=== PATIENT | female | born 1995 | race Caucasian/White ===

== ENCOUNTER 2023-10-30 20:20 | Outpatient (REF) | payer OTHER, SELFPAY ==
[2023-11-06 10:10] LABS: Age Gdln ACOG Testing Note (.); IGP, rfx Aptima HPV ASCU Note (.)
== END 2023-10-30 20:21 | disposition home or self-care (01) ==
LOC: LAB 20:20
PROVIDERS: Visit Provider Obstetrics & Gynecology
DX: Z01.419 Encounter for gynecological examination (general) (routine) without abnormal findings (principal)
CPT/HCPCS: G0145

== ENCOUNTER 2023-12-19 12:23 | Outpatient (RCR) | payer OTHER, SELFPAY | END 2023-12-20 12:59 | disposition home or self-care (01) | LOC: PT 12:23 | PROVIDERS: PCP Family Medicine; Visit Provider Family Medicine | DX: M25.562 Pain in left knee (principal); Z68.32 Body mass index [BMI] 32.0-32.9, adult; Z78.9 Other specified health status; E66.09 Other obesity due to excess calories | CPT/HCPCS: 97162 ==

== ENCOUNTER 2024-07-28 15:55 | Outpatient (OUT) | payer OTHER, BC, SELFPAY ==
[2024-07-28 16:41] LABS: HCG Quantitative <1 mIU/mL
== END 2024-07-28 15:56 | disposition home or self-care (01) ==
LOC: LAB 16:02
PROVIDERS: PCP Nurse Practitioner; Visit Provider Obstetrics & Gynecology
DX: N92.6 Irregular menstruation, unspecified (principal)
CPT/HCPCS: 36415; 84702

== ENCOUNTER 2024-07-30 15:42 | Outpatient (OUT) | payer OTHER, BC, SELFPAY ==
--- OUTSIDE RECORDS SUMMARY | 2024-07-30 15:49 | XMS_ITS | CCD ---
Author Organization [facility] Team Providers Care [employer] Worker Name Role Phone Cortney Chapman Unavailable ANGELO ., DR SAEED Admitting Unavailable ANGELO ., DR SAEED Attending Unavailable NADERER, DR FLORINA White Primary Care Unavailable ANGELO ., DR SAEED Consulting Unavailable ANGELO ., DR SAEED Consulting Unavailable NADERER, DR FLORINA White Primary Care Unavailable ANGELO ., DR SAEED Attending Unavailable ANGELO ., DR SAEED Admitting Unavailable ANGELO ., DR SAEED Admitting Unavailable ANGELO ., DR SAEED Attending Unavailable NADERER, DR FLORINA White Primary Care Unavailable ANGELO ., DR SAEED Consulting Unavailable ANGELO ., DR SAEED Consulting Unavailable NADERER, DR FLORINA White Primary Care Unavailable ANGELO ., DR SAEED Attending Unavailable ANGELO ., DR SAEED Admitting Unavailable ANGELO ., DR SAEED Consulting Unavailable ANGELO ., DR SAEED Attending Unavailable ANGELO ., DR SAEED Admitting Unavailable NADERER, DR FLORINA White Primary Care Unavailable ZIEBER, DR ECTOR Sotelo Consulting Unavailable ANGELO ., DR SAEED Procedure Practitioner Unavail able KARASIK ., DR ESCOBAR Consulting Unavailabl e NADERER, DR FLORINA White Primary Care Unavailable ANGELO ., DR SAEED Attending Unavailable ANGELO ., DR SAEED Admitting Unavailable ANGELO ., DR SAEED Consulting Unavailable SALVADOR MARIA Consulting Unavailable ANGELO ., DR SAEED Admitting Unavailable ANGELO ., DR SAEED Attending Unavailable NADERER, DR FLORINA White Primary Care Unavailable ANGELO ., DR SAEED Admitting Unavailable ANGELO ., DR SAEED Attending Unavailable NADERER, DR FLORINA White Primary Care Unavailable ANGELO ., DR SAEED Consulting Unavailable ANGELO ., DR SAEED Admitting Unavailable ANGELO ., DR SAEED Attending Unavailable NADERER, DR FLORINA White Primary Care Unavailable ANGELO ., DR SAEED Consulting Unavailable [place], DR CHASE Tam Consulting Unavailable NADERER, DR FLORINA White Primary Care Unavailable ANGELO ., DR SAEED Attending Unavailable ANGELO ., DR SAEED Admitting Unavailable ANGELO ., DR SAEED Consulting Unavailable ANGELO ., DR SAEED Admitting Unavailable ANGELO ., DR SAEED Attending Unavailable NADERER, DR FLORINA White Primary Care Unavailable ANGELO ., DR SAEED Consulting Unavailable ANGELO ., DR SAEED Admitting Unavailable ANGELO ., DR SAEED Attending Unavailable NADERER, DR FLORINA White Primary Care Unavailable [place], DR CHASE Tam Consulting Unavailable ANGELO ., DR SAEED Consulting Unavailable KIRAN ., JONA Consulting Unavailable NADERER, DR FLORINA White Primary Care Unavailable KIRAN ., JONA Attending Unavailable KIRAN ., JONA Admitting Unavailable KIRAN ., JONA Consulting Unavailable NADERER, DR FLORINA White Primary Care Unavailable KIRAN ., JONA Attending Unavailable KIRAN ., JONA Admitting Unavailable NADERER, DR FLORINA White Primary Care Unavailable ANGELO ., DR SAEED Attending Unavailable ANGELO ., DR SAEED Admitting Unavailable ANGELO ., DR SAEED Admitting Unavailable ANGELO ., DR SAEED Attending Unavailable NADERER, DR FLORINA White Primary Care Unavailable ANGELO ., DR SAEED Consulting Unavailable ANGELO ., DR SAEED Admitting Unavailable ANGELO ., DR SAEED Attending Unavailable NADERER, DR FLORINA White Primary Care Unavailable ANGELO ., DR SAEED Consulting Unavailable ZIEBER, DR ECTOR Sotelo Consulting Unavailable ANGELO ., DR SAEED Consulting Unavailable NADERER, DR FLORINA White Primary Care Unavailable ANGELO ., DR SAEED Attending Unavailable ANGELO ., DR SAEED Admitting Unavailable YAW Archer Attending Provider [phone] Erlinda Archer Unavailable Kaiser Anderson Primary Care Physician Erlinda Archer Attending Unavailable Erlinda Archer Admitting Unavailable PAT ROCHE Referring Unavailable PAT ROCHE Attending Unavailable ANGELOCHRISTOPHE Attending Unavailable PAT ROCHE Referring Unavailable PAT ROCHE Attending Unavailable ROCHE, PAT T Attending Unavailable Kaiser Anderson Attending Unavailable Kaiser Anderson Attending Unavailable Kaiser Anderson Attending Unavailable Kaiser Anderson Attending Unavailable Kaiser Anderson Attending Unavailable Kaiser Anderson Attending Unavailable Pat Roche Referring Pat Matute Attending Pat Matute Admitting Unavailable Allergies Allergy Classification Reported Allergen(s) Allergy Type Date of Onset Reaction(s) Facility (1 source) No Known Medication Allergies; Translations: [No Known Medication Allergies] Propensity to adverse reactions (disorder) [facility] Repository Medications Current Medications Medication Drug Class(es) Dates Sig (Normalized) Sig (Original) One A Day Women's Complete oral tablet (1 source) Start: 02-08-2023 take 1 tablet by mouth once daily One A Day Women's Complete oral tablet Refill(s) 0 Start Date: 02/08/23 Status: Ordered traMADol hydrochloride 50 mg oral tablet (1 source) Opioid Agonist Start: 12-20-2023 take 1 tablet by mouth every four hours as needed for pain traMADOL 50 mg Tab 50 mg = 1 tab(s), Oral, q4hr, PRN for pain, # 20 tab(s), Refills(s) 0, Pharmacy: [id number], 162, cm, 12/20/23 15:18:00 EST, Height/Length Dosing, 85.4, kg, 12/20/23 15:18:00 EST, Weight Dosing Start Date: 12/20/23 Status: Ordered Completed/Discontinued Medications Medication Drug Class(es) Dates Sig (Normalized) Sig (Original) Pre-Addis (2 sources) Pre-Addis Not-Ta angelica/PRN Pre- Active Problems Active Problems Problem Classification Problem Date Documented Da te Episodic/Chronic Disorders of lipid metabolism (2 sources) Hyperlipidemia, unspecified; Translations: [Mixed hyperlipidemia] Onset: 01-15-2023 02-08-2023 Chronic Malposition; malpresentation (4 sources) Maternal care for breech presentation, not applicable or unspecified; Translations: [MATERNAL CARE BREECH PRES NA/UNS] Onset: 12-22-2022 Episodic Menstrual disorders (4 sources) Irregular menstruation, unspecified; Translations: [IRREGULAR MENSTRUATION UNSPECIFIED] Onset: 05-11-2022 Chronic Other complications of ; puerperium affecting management of mother (1 source) Endocrine, nutritional and metabolic diseases complicating childbirth; Translations: [ENDOCRN NUTR MET DZ COMP CHILDBIRTH] Onset: 01-15-2023 Episodic Other complications of (5 sources) Other specified related conditions, third trimester; Translations: [OTH SPEC PREG RELATED COND 3RD TRI] Onset: 10-31-2022 Episodic Other complications of (1 source) Decreased movements, third trimester, not applicable or unspecified; Translations: [DECR MOVEMENTS 3RD TRI NA/UNS] Onset: 01-15-2023 Episodic Other complications of (4 sources) Maternal care for excessive growth, third trimester, not applicable or unspecified; Translations: [MAT CARE EXCSS FTL GRTH 3RD TRI UNS] Onset: 12-16-2022 Episodic Other non-traumatic joint disorders (2 sources) Pain in left knee; Translations: [Pain in left knee] Onset: 12-05-2023 Episodic Other and delivery including normal (18 sources) Encounter for routine follow-up; Translations: [Single live ] Onset: 07-03-2022 Episodic Other screening for suspected conditions (not mental disorders or infectious disease) (14 sources) Encounter for screening for diabetes mellitus; Translations: [Encounter for screening for malignant neoplasm of cervix] Onset: 07-04-2022 Episodic Residual codes; unclassified (1 source) 38 weeks gestation of ; Translations: [38 WEEKS GESTATION OF ] Onset: 01-15-2023 Episodic Residual codes; unclassified (1 source) Type O blood, Rh negative; Translations: [TYPE O BLOOD RH NEGATIVE] Onset: 01-15-2023 Episodic Residual codes; unclassified (1 source) 36 weeks gestation of ; Translations: [36 WEEKS GESTATION OF ] Onset: 12-22-2022 Episodic Residual codes; unclassified (1 source) 31 weeks gestation of ; Translations: [31 WEEKS GESTATION OF ] Onset: 11-12-2022 Episodic Residual codes; unclassified (1 source) Unspecified blood type, Rh negative; Translations: [UNSPECIFIED BLOOD TYPE RH NEGATIVE] Onset: 11-02-2022 Episodic Residual codes; unclassified (1 source) 29 weeks gestation of ; Translations: [29 WEEKS GESTATION OF ] Onset: 11-02-2022 Episodic Sprains and strains (1 source) Sprain of unspecified site of left knee, initial encounter Episodic Unclassified (1 source) PERSONAL HISTORY OF COVID-19; Translations: [PERSONAL HISTORY OF COVID-19] Onset: 01-15-2023 Unclassified (1 source) Pain of knee region 12-10-2023 Past or Other Problems Problem Classification Problem Date Documented Date Episodic/Chronic Immunizations and screening for infectious disease (6 sources) Encounter for screening for human papillomavirus (HPV); Translations: [Contact with and (suspected) exposure to infections with a predominantly sexual mode of transmission] Onset: 07-03-2022 Episodic Other female genital disorders (1 source) Other specified noninflammatory disorders of vagina; Translations: [OTH SPEC NONINFLAMMATORY D/O VAGINA] Onset: 10-11-2022 Episodic Unclassified (2 sources) Unclassified (1 source) Exposure to COVID-19 virus Z20.822 Viral infection (1 source) COVID-19 Results Test Name Value Interpretation Reference Range Facility Consultation Noteon 03-20-20 Consultation Note [id number] #1.00TIFF Normal [facility] Consultation Noteon 02-18-20 Consultation Note [id number] #1.00TIFF Normal [facility] BMPon 01-31-2024 Creatinine [Mass/Vol] 0.8 mg/dL Normal 0.5-1.3 [facility] Comment on above: Performed By: #### 2 490353, [id number], [id number] ####[facility] [address] [place] [address] Urea nitrogen/Creatinine [Mass ratio] 19 No Units Normal - [facility] Comment on above: Performed By: #### 2 068578, [id number], [id number] ####[facility] [address] [place] [address] Anion gap [Moles/Vol] 9 mmol/L Normal 6-16 [facility] Comment on above: Performed By: #### 2 111415, [id number], 1467257 ####[facility] [address] [place] [address] Calcium [Mass/Vol] 8.8 mg/dL Low 8.9-11.1 [facility] Comment on above: Performed By: #### 2 223407, [id number], 4102836 ####[facility] [address] [place] [address] Chloride [Moles/Vol] 108 mmol/L Normal 101-111 [facility] Comment on above: Performed By: #### 2 198270, [id number], 9988654 ####[facility] [address] [address] CO2 [Moles/Vol] 28 mmol/L Normal 21-31 [facility] Comment on above: Performed By: #### 2 445144, [id number], 1725259 ####[facility] [address] [address] Glucose [Mass/Vol] 75 mg/dL Normal 55-199 [facility] Comment on above: Performed By: #### 2 162747, 03732698, 2151949 ####[facility] [address] [address] Potassium [Moles/Vol] 4.0 mmol/L Normal 3.5-5.3 [facility] Comment on above: Performed By: #### 2 336369, 10421859, 4581511 ####[facility] [address] [place] [address] Sodium [Moles/Vol] 141 mmol/L Normal 135-145 [facility] Comment on above: Performed By: #### 2 754871, [id number], 4134664 ####[facility] [address] [address] Urea nitrogen [Mass/Vol] 15 mg/dL Normal 5-21 [facility] Comment on above: Performed By: #### 2 259692, [id number], 3269361 ####[facility] [address] [place] [address] CBC w/Indiceson 01-31-2024 Erythrocyte distribution width (RBC) [Ratio] 13.0 % Normal 10.9-14.2 [facility] Comment on above: Performed By: #### 2 946393, 25904294, 8487426 ####[facility] [address] [place] [address] Hematocrit (Bld) [Volume fraction] 36.2 % Normal 34.0-46.0 [facility] Comment on above: Performed By: #### 2 003542, [id number], 5408656 ####[place] [place] [address] Hemoglobin (Bld) [Mass/Vol] 12.3 g/dL Normal 12.0-16.0 [facility] Comment on above: Performed By: #### 2 813109, 87378049, 1353099 ####[place] [address] MCH (RBC) [Entitic mass] 29.1 pg Normal 27.0-34.0 [facility] Comment on above: Performed By: #### 2 882765, 62582224, 7867781 ####[address] [address] MCHC (RBC) [Mass/Vol] 33.9 g/dL Normal 31.4-36.0 [facility] Comment on above: Performed By: #### 2 234685, 46444406, 3628859 ####[facility] [address] [place] [address] MCV (RBC) [Entitic vol] 85.8 fL Normal 80.0-100.0 [facility] Comment on above: Performed By: #### 2 946129, 46780733, 8160905 ####[address] [address] Platelet mean volume (Bld) [Entitic vol] 7.4 fL Normal 6.4-10.8 [facility] Comment on above: Performed By: #### 2 349900, 41490417, 5301739 ####[facility] [address] [place] [address] Platelets (Bld) [#/Vol] 193.0 E9/L Normal 150.0-500.0 [facility] Comment on above: Performed By: #### 2 421402, 60351092, 5977727 ####[facility] [address] [place] [address] RBC (Bld) [#/Vol] 4.2 E12/L Low 4.3-5.9 [facility] Comment on above: Performed By: #### 2 863707, 77600885, 2994607 ####[facility] [address] [place] [address] RBC size Nom (Bld) NORMAL Invalid Interpretation Code [facility] Comment on above: Performed By: #### 2 301242, 01794873, 3882665 ####[facility] [address] [place] [address] WBC corrected for nucl RBC Auto (Bld) [#/Vol] 5.1 E9/L Normal 4.0-11.0 [facility] Comment on above: Performed By: #### 2 759583, 51430498, 1262712 ####[facility] [address] [place] [address] CHEMISTRYOrdered By: SYSTEM SYSTEM on 01-31-2024 Anion gap [Moles/Vol] 9 mmol/L Normal 6 - 16 mEq/L R emisol Chem Calcium [Mass/Vol] 8.8 mg/dL Low 8.9 - 11. 1 mg/dL [facility] Chloride [Moles/Vol] 108 mmol/L Normal 101 - 1 11 mmol/L [facility] CO2 [Moles/Vol] 28 mmol/L Normal 21 - 31 mmol/L [facility] Creatinine [Mass/Vol] 0.8 mg/dL Normal 0.5 - 1.3 mg/dL [facility] eGFR 103 mL/min/1.73 m2 Normal >=59mL/mi n/1 .73 m2 [facility] Glucose [Mass/Vol] 75 mg/dL Normal 55 - 199 mg/dL [facility] Potassium [Moles/Vol] 4.0 mmol/L Normal 3.5 - 5.3 mmol/L [facility] Sodium [Moles/Vol] 141 mmol/L Normal 135 - 145 mmol/L [facility] Urea nitrogen [Mass/Vol] 15 mg/dL Normal 5 - 21 mg/dL [facility] Urea nitrogen/Creatinine [Mass ratio] 19 mg/mg Normal 10 - 20 [facility] Consent for Treatmenton 01-04 Consent for Treatment [id number] #1.00TIFF Normal [facility] HEMATOLOGYOrdered By: SYSTEM SYSTEM on 01-31-2024 Erythrocyte distribution width (RBC) [Ratio] 13.0 % Normal 10.9 - 14.2 % [facility] Heme Hematocrit (Bld) [Volume fraction] 36.2 % Normal 34.0 - 46.0 % [facility] Heme Hemoglobin (Bld) [Mass/Vol] 12.3 g/dL Normal 12.0 - 16.0 gm/dL [facility]e MCH (RBC) [Entitic mass] 29.1 pg Normal 27.0 - 34.0 pg Remisol Heme MCHC (RBC) [Mass/Vol] 33.9 g/dL Normal 31.4 - 36.0 gm/dL [facility]e MCV (RBC) [Entitic vol] 85.8 fL Normal 80.0 - 100.0 fL [facility]e Platelet mean volume (Bld) [Entitic vol] 7.4 fL Normal 6.4 - 10.8 fL [facility]e Platelets (Bld) [#/Vol] 193.0 E9/L Normal 150.0 - 500.0 E9/L [facility] Heme RBC (Bld) [#/Vol] 4.2 E12/L Low 4.3 - 5.9 E12/L [facility]e RBC size Nom (Bld) NORMAL *NA* (01/31/24 3:48 PM) Invalid Interpretation Code [facility]e WBC corrected for nucl RBC Auto (Bld) [#/Vol] 5.1 E9/L Normal 4.0 - 11.0 E9/L [facility] eGFRon 01-31-2024 eGFR 103 mL/min/1.73 m2 Normal >=59 [facility] Comment on above: Order Comment: Order added by Discern Expert. Performed By: #### 2 791340, [id number], 5284229 ####[facility] [address] [place] [address] Physician Orderon 01-30-2024 Physician Order [id number] 0#1.00TIFF Normal [facility] Discharge Note - PTon 2023 Discharge Note - PT [id number] #1.00TIFF Normal [facility] Physician Orderon 01-29-2024 Physician Order [id number] #1.00TIFF Normal [facility] MR KNEE LEFT WO IV CONTRASTo n 01-22-2024 MR KNEE LEFT WO IV CONTRAST EXAMINATION: MR KNEE LEFT WO IV CONTRAST HISTORY: Left knee pain after getting knocked over by cow. TECHNIQUE: Routine non-contrast MRI of the knee, LEFT COMPARISON: 01/08/2024. RESULT: MENISCI: Medial Meniscus: Small cyst at the anterior root which may represent a parameniscal cyst or meniscal cyst, with possible small adjacent tear, without meniscal displacement. Lateral Meniscus: Intact LIGAMENTS: ACL, PCL, MCL, and LCL complex intact. CARTILAGE: Appears within normal limits. TENDONS: Mild distal quadriceps and patellar tendinosis, without tear. Popliteus intact. BONES AND MARROW: No evidence of fracture or bone marrow replacing process. MUSCLES: Muscle bulk and signal intensity are normal. JOINT FLUID AND SYNOVIUM: No joint effusion. No synovitis. No Bernardo's cyst. OTHER: No other significant abnormality. IMPRESSION: Possible small tear of the medial meniscus at the anterior root with small adjacent parameniscal cyst or meniscal cyst. ELECTRONICALLY SIGNED BY: Dmitry Parker MD Normal Not Available Comment on above: Order Comment: No to all MRI Questions Consultation Noteon 01-16-20 24 Consultation Note [id number] #1.00TIFF Normal [facility] Physician Referralon 024 Physician Referral [id number]#1.00TIFF [facility] PT - Progress Noteson 2023 PT - Progress Notes [id number] #1.00TIFF [facility] Ambulatory Visit Summaryon 0 12-20-2023 Ambulatory Visit Summary ELIDA GROVER :1995 Visit Date:12/20/2023 Ambulatory Visit Instructions Your Diagnosis BMI 32.0-32.9,adult Class 1 obesity due to excess calories in adult Nonsmoker Your Care Team Attending Physician - Kaiser Anderson MD Primary Care Physician - Kaiser Anderson MD This Is Your Medications List multivitamin with minerals (One A Day Women's Complete oral tablet) Procedures Performed section (01/02/2023). Discharge Vitals Temperature (Temporal Artery) 36.5 ?C Heart Rate (Peripheral) 100 Blood Pressure 122/74 Height 162 cm Height 64 in Weight 85.4 kg Weight 187.88 lb BMI 32.54 What to do next Scheduled Follow-Up Appointments Sunday 6:15 PM EST With: Kaiser Anderson MD Where: [facility] Office/Clini c Noteon 12-20-2023 Family Medicine Office/Clinic Note HPI Staff Elida is a 28 year old female presenting for follow up knee pain Not getting any better TOSHIA was to do PT, get a bigger knee brace and cont OTC meds INB ortho and MRI Yesterday had a PT session and did some leg raising and some movements and therapist said this isn't going to help you. She was up all night, couldn't sleep Pain level today: 10 been a bad pain day History of Present Illness - After PT pain worsened to 10/10. Pt cannot sleep. - PT called and said patient needs to see Ortho. - still in a lot of pain. Review of Systems PHQ Score Initial Depression Screen Score: 0 SCORE Physical Exam Vitals & Measurements T: 36.5 ?C(Temporal Artery) HR: 100(Peripheral) BP: 122/74 SpO2: 98% HT: 64 in HT: 162 cm WT: 85.4 kg WT: 187.88 lb BMI: 32.54 General: alert, no acute distress ENMT: oral mucosa moist, Cardiovascular: regular rate and rhythm, normal peripheral perfusion Respiratory: Lungs CTA, respirations non labored Extremities: no deformity, no trauma, Antalgic gait. LROM 2/2 pain. Neurological: oriented x 4, LOC appropriate for age, CN II-XII intact, motor strength equal & normal bilaterally, speech normal Abdomen: Soft, Nontender, Non-distended, + BS Assessment/Plan 1. Knee pain, left (M25.562: Pain in left knee) - Ortho referred. - Tramadol for pain - Follow up PRN Ordered: [facility] External Ambulatory Referral 2. BMI 32.0-32.9,adult (Z68.32: Body mass index [BMI] 32.0-32.9, adult) - BMI education given 3. Class 1 obesity due to excess calories in adult (E66.09: Other obesity due to excess calories) - Diet and exercise advised 4. Nonsmoker (Z78.9: Other specified health status) - Please continue to not smoke. Orders: tramadol, 50 mg = 1 tab(s), Oral, q4hr, PRN for pain, # 20 tab(s), Refills(s) 0, Pharmacy: [facility] #[id number], 162, cm, 12/20/23 15:18:00 EST, Height/Length Dosing, 85.4, kg, 12/20/23 15:18:00 EST, Weight Dosing Follow-up No qualifying data available Patient Education BMI for Adults Problem List/Past Medical History Ongoing Knee pain, left Mixed hyperlipidemia Historical No qualifying data Procedure/Surgical History section (01/02/2023). Medications One A Day Women's Complete oral tablet traMADOL 50 mg Tab, 50 mg= 1 tab(s), Oral, q4hr, PRN Allergies No Known Medication Allergies Social History Alcohol - Denies Alcohol Use, 02/08/2023 Household alcohol concerns: No., 02/08/2023 Substance Abuse - Denies Substance Abuse, 02/08/2023 Household substance abuse concerns: No., 02/08/2023 Tobacco - Denies Tobacco Use, 02/08/2023 Never (less than 100 in lifetime) Tobacco Use:. Never Smokeless Tobacco Use:. Household tobacco concerns: No., 12/20/2023 Family History Diabetes mellitus type 2: Father. Hyperlipidemia: Father. Hypertension: Father. Immunizations Vaccine Date Status Comments influenza virus vaccine, inactivated - Not Given Patient Refuses influenza virus vaccine, inactivated - Not Given Patient Refuses SARS-CoV-2 mRNA (tozinameran 5y-11y) vac - Not Given Patient Refuses Normal [facility] Comment on above: Result Comment: Elec tronically Signed By: Justin CABRALES, Kaiser Agarwal\.br\Date and Time Signed: 12/20/23 15:38 EST Patient Educationon 12-20-19 Patient Education Nutrition BMI for Adults What is BMI? Body mass index (BMI) is a number that is calculated from a person's weight and height. BMI can help estimate how much of a person's weight is composed of fat. BMI does not measure body fat directly. Rather, it is an alternative to procedures that directly measure body fat, which can be difficult and expensive. BMI can help identify people who may be at higher risk for certain medical problems. What are BMI measurements used for? BMI is used as a screening tool to identify possible weight problems. It helps determine whether a person is obese, overweight, a healthy weight, or underweight. BMI is useful for: ? Identifying a weight problem that may be related to a medical condition or may increase the risk for medical problems. ? Promoting changes, such as changes in diet and exercise, to help reach a healthy weight. BMI screening can be repeated to see if these changes are working. How is BMI calculated? BMI involves measuring your weight in relation to your height. Both height and weight are measured, and the BMI is calculated from those numbers. This can be done either in [place] or metric measurements. Note that charts and online BMI calculators are available to help you find your BMI quickly and easily without having to do these calculations yourself. To calculate your BMI in [place] measurements: 1. Measure your weight in pounds (lb). 2. Multiply the number of pounds by 703. ? For example, for a person who weighs 180 lb, multiply that number by 703, which equals 126,540. 3. Measure your height in inches. Then multiply that number by itself to get a measurement called inches squared. ? For example, for a person who is 70 inches tall, the inches squared measurement is 70 inches x 70 inches, which equals 4,900 inches squared. 4. Divide the total from step 2 (number of lb x 703) by the total from step 3 (inches squared): 126,540 ? 4,900 = 25.8. This is your BMI. To calculate your BMI in metric measurements: 1. Measure your weight in kilograms (kg). 2. Measure your height in meters (m). Then multiply that number by itself to get a measurement called meters squared. ? For example, for a person who is 1.75 m tall, the meters squared measurement is 1.75 m x 1.75 m, which is equal to 3.1 meters squared. 3. Divide the number of kilograms (your weight) by the meters squared number. In this example: 70 ? 3.1 = 22.6. This is your BMI. What do the results mean? BMI charts are used to identify whether you are underweight, normal weight, overweight, or obese. The following guidelines will be used: ? Underweight: BMI less than 18.5. ? Normal weight: BMI between 18.5 and 24.9. ? Overweight: BMI between 25 and 29.9. ? Obese: BMI of 30 or above. Keep these notes in mind: ? Weight includes both fat and muscle, so someone with a muscular build, such as an athlete, may have a BMI that is higher than 24.9. In cases like these, BMI is not an accurate measure of body fat. ? To determine if excess body fat is the cause of a BMI of 25 or higher, further assessments may need to be done by a health care provider. ? BMI is usually interpreted in the same way for men and women. Where to find more information For more information about BMI, including tools to quickly calculate your BMI, go to these websites: ? Centers for Disease Control and Prevention: www.cdc.gov ? [place] Heart Association: www.heart.org ? National Heart, Lung, and Blood [place]: www.nhlbi.nih.gov Summary ? Body mass index (BMI) is a number that is calculated from a person's weight and height. ? BMI may help estimate how much of a person's weight is composed of fat. BMI can help identify those who may be at higher risk for certain medical problems. ? BMI can be measured using [place] measurements or metric measurements. ? BMI charts are used to identify whether you are underweight, normal weight, overweight, or obese. This information is not intended to replace advice given to you by your health care provider. Make sure you discuss any questions you have with your health care provider. Document Revised: 07/14/2020 Document Reviewed: 05/21/2020 [employer] Patient Education ? 2022 [employer]. [facility] Ambulatory Visit Summaryon 0 12-10-2023 Ambulatory Visit Summary ELIDA GROVER :1995 Visit Date:12/10/2023 Ambulatory Visit Instructions Your Diagnosis Knee pain, left BMI 32.0-32.9,adult Class 1 obesity due to excess calories in adult Nonsmoker Your Care Team Attending Physician - Kaiser Anderson MD Primary Care Physician - Kaiser Anderson MD This Is Your Medications List Contact prescribing physician if questions or concerns multivitamin with minerals (One A Day Women's Complete oral tablet) Procedures Performed section (01/02/2023). Discharge Vitals Temperature (Temporal Artery) 36.4 ?C Heart Rate (Peripheral) 72 Respiratory Rate 16 Blood Pressure 114/78 Height 162 cm Height 64 in Weight 85.2 kg Weight 187.44 lb BMI 32.46 What to do next Scheduled Follow-Up Appointments Sunday. 2023 6:15 PM EST With: Kaiser Anderson MD Where: [facility] Family Medicine Office/Clini c Noteon 12-10-2023 Family Medicine Office/Clinic Note HPI Staff Elida is a 28 year old female presenting for acute visit Pain characteristics: Back in September helped her uncle with a cow issues and a cow threw her back and stepped on her lower leg and it got caught in a got, Getting uncomfortable to sleep and time to do something about it. Went to ER , had xray it couldn't brick 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 Pain location: left knee Intensity:06/14 Onset: September Medication used: ibuprofen, tylenol, ice, heat, wearing a brace ( hurts worse with the brace though) flu: refused questions/concerns: just the knee History of Present Illness Pain in the L knee since . Pt had her knee stuck in the gate for the cattle and twisted it. Pt states pain is on the medial aspect of the knee. Pain can radiate up and down. Bending it makes it worse. Sitting makes it better. OTC meds are helping, but still in pain. Knee brace makes it worse. Review of Systems PHQ Score Initial Depression Screen Score: 0 SCORE Physical Exam Vitals & Measurements T: 36.4 ?C(Temporal Artery) HR: 72(Peripheral) RR: 16 BP: 114/78 SpO2: 99% HT: 64 in HT: 162 cm WT: 85.2 kg WT: 187.44 lb BMI: 32.46 General: alert, no acute distress ENMT: oral mucosa moist, Cardiovascular: normal peripheral perfusion Respiratory: respirations non labored Extremities: no deformity, no trauma, TTP on the medial joint line on the L. FROM. No joint laxity. Neurological: oriented x 4, LOC appropriate for age, CN II-XII intact, motor strength equal & normal bilaterally, speech normal Assessment/Plan 1. Knee pain, left (M25.562: Pain in left knee) - Will do PT - Get a bigger knee brace - Continue OTC meds - Will send to Ortho and MRI if no improvement 2. BMI 32.0-32.9,adult (Z68.32: Body mass index [BMI] 32.0-32.9, adult) - BMI education given 3. Class 1 obesity due to excess calories in adult (E66.09: Other obesity due to excess calories) - Diet and exercise advised 4. Nonsmoker (Z78.9: Other specified health status) - Please continue to not smoke Follow-up No qualifying data available Patient Education BMI for Adults Problem List/Past Medical History Ongoing Knee pain, left Mixed hyperlipidemia Historical No qualifying data Procedure/Surgical History section (01/02/2023). Medications One A Day Women's Complete oral tablet Allergies No Known Medication Allergies Social History Alcohol - Denies Alcohol Use, 02/08/2023 Household alcohol concerns: No., 02/08/2023 Substance Abuse - Denies Substance Abuse, 02/08/2023 Household substance abuse concerns: No., 02/08/2023 Tobacco - Denies Tobacco Use, 02/08/2023 Never (less than 100 in lifetime) Tobacco Use:. Never Smokeless Tobacco Use:. Household tobacco concerns: No., 12/10/2023 Family History Diabetes mellitus type 2: Father. Hyperlipidemia: Father. Hypertension: Father. Immunizations Vaccine Date Status Comments influenza virus vaccine, inactivated - Not Given Patient Refuses influenza virus vaccine, inactivated - Not Given Patient Refuses SARS-CoV-2 mRNA (tozinameran 5y-11y) vac - Not Given Patient Refuses [facility] Comment on above: Result Comment: Elec tronically Signed By: Justin CABRALES, Kaiser Agarwal\.br\Date and Time Signed: 12/10/23 07:21 EST Patient Educationon 12-10-19 Patient Education Nutrition BMI for Adults What is BMI? Body mass index (BMI) is a number that is calculated from a person's weight and height. BMI can help estimate how much of a person's weight is composed of fat. BMI does not measure body fat directly. Rather, it is an alternative to procedures that directly measure body fat, which can be difficult and expensive. BMI can help identify people who may be at higher risk for certain medical problems. What are BMI measurements used for? BMI is used as a screening tool to identify possible weight problems. It helps determine whether a person is obese, overweight, a healthy weight, or underweight. BMI is useful for: ? Identifying a weight problem that may be related to a medical condition or may increase the risk for medical problems. ? Promoting changes, such as changes in diet and exercise, to help reach a healthy weight. BMI screening can be repeated to see if these changes are working. How is BMI calculated? BMI involves measuring your weight in relation to your height. Both height and weight are measured, and the BMI is calculated from those numbers. This can be done either in [place] or metric measurements. Note that charts and online BMI calculators are available to help you find your BMI quickly and easily without having to do these calculations yourself. To calculate your BMI in [place] measurements: 1. Measure your weight in pounds (lb). 2. Multiply the number of pounds by 703. ? For example, for a person who weighs 180 lb, multiply that number by 703, which equals 126,540. 3. Measure your height in inches. Then multiply that number by itself to get a measurement called inches squared. ? For example, for a person who is 70 inches tall, the inches squared measurement is 70 inches x 70 inches, which equals 4,900 inches squared. 4. Divide the total from step 2 (number of lb x 703) by the total from step 3 (inches squared): 126,540 ? 4,900 = 25.8. This is your BMI. To calculate your BMI in metric measurements: 1. Measure your weight in kilograms (kg). 2. Measure your height in meters (m). Then multiply that number by itself to get a measurement called meters squared. ? For example, for a person who is 1.75 m tall, the meters squared measurement is 1.75 m x 1.75 m, which is equal to 3.1 meters squared. 3. Divide the number of kilograms (your weight) by the meters squared number. In this example: 70 ? 3.1 = 22.6. This is your BMI. What do the results mean? BMI charts are used to identify whether you are underweight, normal weight, overweight, or obese. The following guidelines will be used: ? Underweight: BMI less than 18.5. ? Normal weight: BMI between 18.5 and 24.9. ? Overweight: BMI between 25 and 29.9. ? Obese: BMI of 30 or above. Keep these notes in mind: ? Weight includes both fat and muscle, so someone with a muscular build, such as an athlete, may have a BMI that is higher than 24.9. In cases like these, BMI is not an accurate measure of body fat. ? To determine if excess body fat is the cause of a BMI of 25 or higher, further assessments may need to be done by a health care provider. ? BMI is usually interpreted in the same way for men and women. Where to find more information For more information about BMI, including tools to quickly calculate your BMI, go to these websites: ? Centers for Disease Control and Prevention: www.cdc.gov ? [place] Heart Association: www.heart.org ? National Heart, Lung, and Blood [place]: www.nhlbi.nih.gov Summary ? Body mass index (BMI) is a number that is calculated from a person's weight and height. ? BMI may help estimate how much of a person's weight is composed of fat. BMI can help identify those who may be at higher risk for certain medical problems. ? BMI can be measured using [place] measurements or metric measurements. ? BMI charts are used to identify whether you are underweight, normal weight, overweight, or obese. This information is not intended to replace advice given to you by your health care provider. Make sure you discuss any questions you have with your health care provider. Document Revised: 07/14/2020 Document Reviewed: 05/21/2020 [employer] Patient Education ? 2022 [employer]. [facility] Physician Referralon 024 Physician Referral [phone] [id number] [facility] XR knee LT 4V*on 12-05-2023 XR knee LT 4V* [facility] [employer] Other XR knee LT 4V* [facility] [employer] Other XR knee LT 4V* [address] [place] [address] [employer] Other XR knee LT 4V* [place] [address] No rt [employer] Other XR knee LT 4V* XRay Report [employer] Other XR knee LT 4V* Signed [employer] Other XR knee LT 4V* Patient: Elida Grover MR#: [id number] [employer] Other XR knee LT 4V* 4 [employer] Other XR knee LT 4V* : 1995 Acct:[id number] [employer] Other XR knee LT 4V* Age/Sex: 28 / F ADM Date: 12/05/23 [employer] Other XR knee LT 4V* Loc: XDUCLY [facility]: [facility] [employer] Other XR knee LT 4V* Attending Dr: Erlinda TIDWELL [place] [employer] Other XR knee LT 4V* Copies to: YAW Carney [employer] Other XR knee LT 4V* Ordering Provider: YAW Carney [employer] Other XR knee LT 4V* Date of Service: 12/05/23 [employer] Other XR knee LT 4V* XR/XR knee LT 4V*: Left knee pain, unspecified chronicity [employer] Other XR knee LT 4V* LEFT KNEE - 4 views N [facility] [employer] Other XR knee LT 4V* COMPARISON: None [place] [employer] Other XR knee LT 4V* CLINICAL DATA: Patient's left knee was stepped on by a cow after patient fell 3 months ago. [employer] Other XR knee LT 4V* Continued pain below the patella. [employer] Other XR knee LT 4V* AP, lateral and both oblique views were obtained. There is no acute fracture or dislocation. The [employer] Other XR knee LT 4V* joint spaces are maintained. There are no prominent hypertrophy. There is a trace amount joint [employer] Other XR knee LT 4V* fluid. No soft tissue swelling is identified. [employer] Other XR knee LT 4V* XR/XR knee LT 4V* [employer] Other XR knee LT 4V* IMPRESSION: [employer] [facility] [employer] Other XR knee LT 4V* NO ACUTE BONY FINDINGS. [employer] Other XR knee LT 4V* Impression dictated by: Amy Molina M.D.12/05/2023 12:00 PM [employer] Other XR knee LT 4V* Dictation Location: [employer] Other XR knee LT 4V* Transcribed By: KELLY 12/05/23 1200 [employer] Other XR knee LT 4V* Dictated By: Amy Molina MD 12/05/23 1157 [employer] Other XR knee LT 4V* Signed By: [employer] Other XR knee LT 4V* 12/05/23 1200 [employer] Other XR knee LT 4V* [facility] [place] [address] [place] [address] XRay Report Signed Patient: Elida Grover MR#: [id number] 4 : 1995 Acct:[id number] Age/Sex: 28 / F ADM Date: 12/05/23 Loc: XDUCLY Room: Type: [facility] Attending Dr: Erlinda TIDWELL Copies to: YAW Carney Ordering Provider: YAW Carney Date of Service: 12/05/23 XR/XR knee LT 4V*: Left knee pain, unspecified chronicity LEFT KNEE - 4 views COMPARISON: None CLINICAL DATA: Patient's left knee was stepped on by a cow after patient fell 3 months ago. Continued pain below the patella. AP, lateral and both oblique views were obtained. There is no acute fracture or dislocation. The joint spaces are maintained. There are no prominent hypertrophy. There is a trace amount joint fluid. No soft tissue swelling is identified. XR/XR knee LT 4V* IMPRESSION: NO ACUTE BONY FINDINGS. Impression dictated by: Amy Molina M.D.12/05/2023 12:00 PM Dictation Location: [employer] Transcribed By: KELLY 12/05/23 1200 Dictated By: Amy Molina MD 12/05/23 1157 Signed By: 12/05/23 1200 [facility] Ambulatory Visit Summaryon 0 11-06-2023 Ambulatory Visit Summary ELIDA GROVER :1995 Visit Date:11/06/2023 Ambulatory Visit Instructions Your Diagnosis Acute URI BMI 32.0-32.9,adult Class 1 obesity due to excess calories in adult Nonsmoker Your Care Team Attending Physician - Kaiser Anderson MD Primary Care Physician - Kaiser Anderson MD This Is Your Medications List multivitamin with minerals (One A Day Women's Complete oral tablet) Procedures Performed section (01/02/2023). Discharge Vitals Temperature (Temporal Artery) 36.5 ?C Heart Rate (Peripheral) 84 Respiratory Rate 16 Blood Pressure 122/80 Height 162 cm Height 64 in Weight 86.5 kg Weight 190.3 lb BMI 32.96 Medications What When Instructions Unchanged multivitamin with minerals (One A Day Women's Complete oral tablet) Allergies No Known Medication Allergies Problems Ongoing - Any problem that you are currently receiving treatment for. Acute URI Mixed hyperlipidemia Rash Serous otitis media Patient Survey You may receive a survey via text or e-mail asking about your office visit. Please share your experience with us by completing your survey. We appreciate your feedback and thank you for choosing us for your care. [facility] Family Medicine Office/Clini c Noteon 11-06-2023 Family Medicine Office/Clinic Note HPI Staff Elida is a 28 year old female presenting for acute visit Acute: sinus issues and right side of neck is swollen behind the right ear and right ear pain Started last night and got worse and could feel ear draining Hurt to lie on that ear Tried tylenol and heating pad History of Present Illness - see staff HPI. Review of Systems PHQ Score Initial Depression Screen Score: 0 SCORE Physical Exam Vitals & Measurements T: 36.5 ?C(Temporal Artery) HR: 84(Peripheral) RR: 16 BP: 122/80 SpO2: 98% HT: 64 in HT: 162 cm WT: 86.5 kg WT: 190.3 lb BMI: 32.96 General: alert, no acute distress ENMT: oral mucosa moist, R tm has fluid behind it. No erythema Cardiovascular: regular rate and rhythm, normal peripheral perfusion Respiratory: Lungs CTA, respirations non labored Extremities: no deformity, no trauma Neurological: oriented x 4, LOC appropriate for age, CN II-XII intact, motor strength equal & normal bilaterally, speech normal Abdomen: Soft, Nontender, Non-distended, + BS Assessment/Plan 1. Acute URI (J06.9: Acute upper respiratory infection, unspecified) - Will do a medrol dose yecenia. - OTC meds - Follow up PRN Ordered: methylPREDNISolone, = 1 packet(s), Oral, As Directed, as directed on package labeling, X 6 day(s), # 21 tab(s), Refills(s) 0, Pharmacy: [facility] #[id number], 162, cm, 11/06/23 13:58:00 EST, Height/Length Dosing, 86.5, kg, 11/06/23 13:58:00 EST, Weight Dosing 2. Dysfunction of right eustachian tube (H69.91: Unspecified Eustachian tube disorder, right ear) - As above. Ordered: methylPREDNISolone, = 1 packet(s), Oral, As Directed, as directed on package labeling, X 6 day(s), # 21 tab(s), Refills(s) 0, Pharmacy: [facility] #[id number], 162, cm, 11/06/23 13:58:00 EST, Height/Length Dosing, 86.5, kg, 11/06/23 13:58:00 EST, Weight Dosing 3. BMI 32.0-32.9,adult (Z68.32: Body mass index [BMI] 32.0-32.9, adult) - BMI education given Ordered: methylPREDNISolone, = 1 packet(s), Oral, As Directed, as directed on package labeling, X 6 day(s), # 21 tab(s), Refills(s) 0, Pharmacy: [facility] #[id number], 162, cm, 11/06/23 13:58:00 EST, Height/Length Dosing, 86.5, kg, 11/06/23 13:58:00 EST, Weight Dosing 4. Class 1 obesity due to excess calories in adult (E66.09: Other obesity due to excess calories) - Diet and exercise advised Ordered: methylPREDNISolone, = 1 packet(s), Oral, As Directed, as directed on package labeling, X 6 day(s), # 21 tab(s), Refills(s) 0, Pharmacy: [facility] #[id number], 162, cm, 11/06/23 13:58:00 EST, Height/Length Dosing, 86.5, kg, 11/06/23 13:58:00 EST, Weight Dosing 5. Nonsmoker (Z78.9: Other specified health status) - Please continue to not smoke Ordered: methylPREDNISolone, = 1 packet(s), Oral, As Directed, as directed on package labeling, X 6 day(s), # 21 tab(s), Refills(s) 0, Pharmacy: [facility] #[id number], 162, cm, 11/06/23 13:58:00 EST, Height/Length Dosing, 86.5, kg, 11/06/23 13:58:00 EST, Weight Dosing Follow-up No qualifying data available Patient Education BMI for Adults Problem List/Past Medical History Ongoing Acute URI Mixed hyperlipidemia Rash Serous otitis media Historical No qualifying data Procedure/Surgical History section (01/02/2023). Medications Medrol Dosepack 4 mg Tab, 1 packet(s), Oral, As Directed One A Day Women's Complete oral tablet Allergies No Known Medication Allergies Social History Alcohol - Denies Alcohol Use, 02/08/2023 Household alcohol concerns: No., 02/08/2023 Substance Abuse - Denies Substance Abuse, 02/08/2023 Household substance abuse concerns: No., 02/08/2023 Tobacco - Denies Tobacco Use, 02/08/2023 Never (less than 100 in lifetime) Tobacco Use:. Never Smokeless Tobacco Use:. Household tobacco concerns: No., 11/06/2023 Family History Diabetes mellitus type 2: Father. Hyperlipidemia: Father. Hypertension: Father. Immunizations Vaccine Date Status Comments influenza virus vaccine, inactivated - Not Given Patient Refuses SARS-CoV-2 mRNA (toscootereran 5y-11y) vac - Not Given Patient Refuses [facility] Comment on above: Result Comment: Elec tronically Signed By: Justin CABRALES, Kaiser Pfeiffer.br\Date and Time Signed: 11/06/23 14:12 EST Patient Educationon 01-02-20 24 Patient Education Nutrition BMI for Adults What is BMI? Body mass index (BMI) is a number that is calculated from a person's weight and height. BMI can help estimate how much of a person's weight is composed of fat. BMI does not measure body fat directly. Rather, it is an alternative to procedures that directly measure body fat, which can be difficult and expensive. BMI can help identify people who may be at higher risk for certain medical problems. What are BMI measurements used for? BMI is used as a screening tool to identify possible weight problems. It helps determine whether a person is obese, overweight, a healthy weight, or underweight. BMI is useful for: ? Identifying a weight problem that may be related to a medical condition or may increase the risk for medical problems. ? Promoting changes, such as changes in diet and exercise, to help reach a healthy weight. BMI screening can be repeated to see if these changes are working. How is BMI calculated? BMI involves measuring your weight in relation to your height. Both height and weight are measured, and the BMI is calculated from those numbers. This can be done either in [place] or metric measurements. Note that charts and online BMI calculators are available to help you find your BMI quickly and easily without having to do these calculations yourself. To calculate your BMI in [place] measurements: 1. Measure your weight in pounds (lb). 2. Multiply the number of pounds by 703. ? For example, for a person who weighs 180 lb, multiply that number by 703, which equals 126,540. 3. Measure your height in inches. Then multiply that number by itself to get a measurement called inches squared. ? For example, for a person who is 70 inches tall, the inches squared measurement is 70 inches x 70 inches, which equals 4,900 inches squared. 4. Divide the total from step 2 (number of lb x 703) by the total from step 3 (inches squared): 126,540 ? 4,900 = 25.8. This is your BMI. To calculate your BMI in metric measurements: 1. Measure your weight in kilograms (kg). 2. Measure your height in meters (m). Then multiply that number by itself to get a measurement called meters squared. ? For example, for a person who is 1.75 m tall, the meters squared measurement is 1.75 m x 1.75 m, which is equal to 3.1 meters squared. 3. Divide the number of kilograms (your weight) by the meters squared number. In this example: 70 ? 3.1 = 22.6. This is your BMI. What do the results mean? BMI charts are used to identify whether you are underweight, normal weight, overweight, or obese. The following guidelines will be used: ? Underweight: BMI less than 18.5. ? Normal weight: BMI between 18.5 and 24.9. ? Overweight: BMI between 25 and 29.9. ? Obese: BMI of 30 or above. Keep these notes in mind: ? Weight includes both fat and muscle, so someone with a muscular build, such as an athlete, may have a BMI that is higher than 24.9. In cases like these, BMI is not an accurate measure of body fat. ? To determine if excess body fat is the cause of a BMI of 25 or higher, further assessments may need to be done by a health care provider. ? BMI is usually interpreted in the same way for men and women. Where to find more information For more information about BMI, including tools to quickly calculate your BMI, go to these websites: ? Centers for Disease Control and Prevention: www.cdc.gov ? [place] Heart Association: www.heart.org ? National Heart, Lung, and Blood [place]: www.nhlbi.nih.gov Summary ? Body mass index (BMI) is a number that is calculated from a person's weight and height. ? BMI may help estimate how much of a person's weight is composed of fat. BMI can help identify those who may be at higher risk for certain medical problems. ? BMI can be measured using [place] measurements or metric measurements. ? BMI charts are used to identify whether you are underweight, normal weight, overweight, or obese. This information is not intended to replace advice given to you by your health care provider. Make sure you discuss any questions you have with your health care provider. Document Revised: 07/14/2020 Document Reviewed: 05/21/2020 [employer] Patient Education ? 2022 [employer] [facility] Family Medicine Office/Clini c Noteon 04-05-2023 Family Medicine Office/Clinic Note Chief Complaint sore throat, cough HPI Staff Presents with sore throat, sinus congestion and cough C/O: Duration: week Body aches: no Chills: no Fatigue: no Cough: yes Sore throat: yes Fever: no Headache: yes first day only Nasal congestion: yes slight Loss of taste: no Loss of smell: no Eye itching/watering: no Sneezing: yes SOB: no Known Exposure: no questions/concerns: all right sided and ear is hurting now. Taking tylenol cold an flu and allergy medicine also History of Present Illness - Please see staff HPI Review of Systems PHQ Score Initial Depression Screen Score: 0 Physical Exam Vitals & Measurements HR: 84(Peripheral) RR: 14 BP: 110/78 SpO2: 97% HT: 64 in HT: 162 cm WT: 89.10 kg WT: 196.02 lb BMI: 33.95 General: alert, no acute distress ENMT: oral mucosa moist, no pharyngeal erythema or exudate, TM on the R is fluid filled, no erythema, no bulging. Cardiovascular: regular rate and rhythm, normal peripheral perfusion Respiratory: Lungs CTA, respirations non labored Extremities: no deformity, no trauma Neurological: oriented x 4, LOC appropriate for age, CN II-XII intact, motor strength equal & normal bilaterally, speech normal Assessment/Plan 1. Acute URI (J06.9: Acute upper respiratory infection, unspecified) - Most likely Viral vs Allergies - OTC meds discussed. - Abx if no improvement in 2-3 days 2. Serous otitis media (H65.90: Unspecified nonsuppurative otitis media, unspecified ear) - As above. Follow-up No qualifying data available Problem List/Past Medical History Ongoing Acute URI Mixed hyperlipidemia Rash Serous otitis media Historical No qualifying data Procedure/Surgical History section (01/02/2023). Medications One A Day Women's Complete oral tablet Plus Low Iron oral tablet Allergies No Known Medication Allergies Social History Alcohol - Denies Alcohol Use, 02/08/2023 Household alcohol concerns: No., 02/08/2023 Substance Abuse - Denies Substance Abuse, 02/08/2023 Household substance abuse concerns: No., 02/08/2023 Tobacco - Denies Tobacco Use, 02/08/2023 Never (less than 100 in lifetime) Tobacco Use:. Never Smokeless Tobacco Use:. Household tobacco concerns: No., 04/05/2023 Family History Diabetes mellitus type 2: Father. Hyperlipidemia: Father. Hypertension: Father. Immunizations Vaccine Date Status Comments influenza virus vaccine, inactivated - Not Given Patient Refuses SARS-CoV-2 mRNA (tozinameran 5y-11y) vac - Not Given Patient Refuses Normal [facility] Comment on above: Result Comment: Elec tronically Signed By: Justin CABRALES, [facility]\Date and Time Signed: 04/05/23 10:38 EDT ANTIBODY ID PANELon 01-09-20 ANTIBODY ID PANEL Antibody ID Non-specific Diana Normal [facility] Comment on above: Performed By: #### A BID #### [facility] [address] [place] [address] Dr. Ilia Carrillo CBC AUTO DIFFon 01-03-2023 BASO # 0.0 103/ul Normal 0.0-0.1 [facility] Comment on above: Performed By: #### C BC #### [facility] [address] [place] [address] Dr. Ilia Carrillo Basophils/100 WBC (Bld) 0.2 % Normal 0.2-2.0 [facility] Comment on above: Performed By: #### C BC #### [facility] [address] [place] [address] Dr. Ilia Carrillo EO # 0.1 103/ul Normal 0.0-0.7 [facility] Comment on above: Performed By: #### C BC #### [facility] [address] [place] [address] Dr. Ilia Carrillo Eosinophils/100 WBC (Bld) 0.5 % Critically low 0.9-7.0 [facility] Comment on above: Performed By: #### C BC #### [facility] [address] [place] [address] Dr. Ilia Carrillo Erythrocyte distribution width (RBC) [Ratio] 13.7 % Normal 11.0-15.0 [facility] Comment on above: Performed By: #### C BC #### [facility] [address] [place] [address] Dr. Ilia Carrillo Hematocrit (Bld) [Volume fraction] 34.8 % Critically low 36.0-48.0 [facility] Comment on above: Performed By: #### C BC #### [facility] [address] [place] [address] Dr. Ilia Carrillo Hemoglobin (Bld) [Mass/Vol] 11.7 g/dL Critically low 12.0-16.0 [facility] Comment on above: Performed By: #### C BC #### [facility] [address] [place] [address] Dr. Ilia Carrillo IG # 0.06 10e3/ul Critically high 0.00-0.03 [facility] Comment on above: Performed By: #### C BC #### [facility] [address] [place] [address] Dr. Ilia Carrillo IG % 0.5 % Normal 0.0-0.5 [facility] Comment on above: Performed By: #### C BC #### [facility] [address] [place] [address] Dr. Ilia Carrillo LYMPH # 2.0 103/ul Normal 1.2-3.8 [facility] Comment on above: Performed By: #### C BC #### [facility] [address] [place] [address] Dr. Ilia Carrillo Lymphocytes/100 WBC (Bld) 15.2 % Critically low 20.5-60.0 [facility] Comment on above: Performed By: #### C BC #### [facility] [address] [place] [address] Dr. Ilia Carrillo MANUAL DIFF REQ NO Normal [facility] Comment on above: Performed By: #### C BC #### [facility] [address] [place] [address] Dr. Ilia Carrillo MCH (RBC) [Entitic mass] 30.9 pg Normal 26.7-34.0 [facility] Comment on above: Performed By: #### C BC #### [facility] [address] [place] [address] Dr. Ilia Carrillo MCHC (RBC) [Mass/Vol] 33.6 g/dL Normal 29.9-35.2 [facility] Comment on above: Performed By: #### C BC #### [facility] [address] [address] [address] Ilia Carrillo MCV (RBC) [Entitic vol] 91.8 fL Normal 81.0-99.0 [facility] Comment on above: Performed By: #### C BC #### [facility] [address] [address] [address] Ilia Carrillo MONO # 0.9 103/ul Critically high 0.3-0.8 [facility] Comment on above: Performed By: #### C BC #### [facility] [address] [address] [address] Ilia Carrillo Monocytes/100 WBC (Bld) 6.8 % Normal 1.7-12.0 [facility] Comment on above: Performed By: #### C BC #### [facility] [address] [address] [address] Ilia Carrillo NEUT # 10.1 103/ul Critically high 1.4-6.5 [facility] Comment on above: Performed By: #### C BC #### [facility] [address] [address] [address] Ilia Carrillo Neutrophils/100 WBC (Bld) 76.8 % Critically high 43.0-75.0 [facility] Comment on above: Performed By: #### C BC #### [facility] [address] [address] [address] Ilia Carrillo Platelet mean volume (Bld) [Entitic vol] 9.7 fL Normal 9.5-13.5 [facility] Comment on above: Performed By: #### C BC #### [facility] [address] [address] [address] Ilia Carrillo PLT 178 103/ul Normal 150-450 [facility] Comment on above: Performed By: #### C BC #### [facility] [address] [address] [address] Ilia Carrillo RBC 3.79 106/ul Critically low 4.20-5.40 [facility] Comment on above: Performed By: #### C BC #### [facility] [address] [address] [address] Ilia Carrillo WBC 13.2 103/ul Critically high 4.0-11.0 [facility] Comment on above: Performed By: #### C BC #### [facility] [address] [address] [address] Ilia Carrillo CBC AUTO DIFFon 01-02-2023 BASO # 0.0 103/ul Normal 0.0-0.1 [facility] Comment on above: Performed By: #### C BC #### [facility] [address] [place] [address] Dr. Ilia Carrillo Basophils/100 WBC (Bld) 0.2 % Normal 0.2-2.0 [facility] Comment on above: Performed By: #### C BC #### [facility] [address] [place] [address] Dr. Ilia Carrillo EO # 0.1 103/ul Normal 0.0-0.7 [facility] Comment on above: Performed By: #### C BC #### [facility] [address] [place] [address] Dr. Ilia Carrillo Eosinophils/100 WBC (Bld) 0.7 % Critically low 0.9-7.0 [facility] Comment on above: Performed By: #### C BC #### [facility] [address] [place] [address] Dr. Ilia Carrillo Erythrocyte distribution width (RBC) [Ratio] 13.7 % Normal 11.0-15.0 [facility] Comment on above: Performed By: #### C BC #### [facility] [address] [place] [address] Dr. Ilia Carrillo Hematocrit (Bld) [Volume fraction] 38.9 % Normal 36.0-48.0 [facility] Comment on above: Performed By: #### C BC #### [facility] [address] [place] [address] Dr. Ilia Carrillo Hemoglobin (Bld) [Mass/Vol] 13.4 g/dL Normal 12.0-16.0 [facility] Comment on above: Performed By: #### C BC #### [facility] [address] [address] [address] Ilia Carrillo IG # 0.05 10e3/ul Critically high 0.00-0.03 [facility] Comment on above: Performed By: #### C BC #### [facility] [address] [place] [address] Dr. Ilia Carrillo IG % 0.4 % Normal 0.0-0.5 [facility] Comment on above: Performed By: #### C BC #### [facility] [address] [place] [address] Dr. Ilia Carrillo LYMPH # 1.6 103/ul Normal 1.2-3.8 [facility] Comment on above: Performed By: #### C BC #### [facility] [address] [place] [address] Dr. Ilia Carrillo Lymphocytes/100 WBC (Bld) 14.2 % Critically low 20.5-60.0 [facility] Comment on above: Performed By: #### C BC #### [facility] [address] [place] [address] Dr. Ilia Carrillo MANUAL DIFF REQ NO Normal [facility] Comment on above: Performed By: #### C BC #### [facility] [address] [place] [address] Dr. Ilia Carrillo MCH (RBC) [Entitic mass] 30.8 pg Normal 26.7-34.0 [facility] Comment on above: Performed By: #### C BC #### [facility] [address] [place] [address] Dr. Ilia Carrillo MCHC (RBC) [Mass/Vol] 34.4 g/dL Normal 29.9-35.2 [facility] Comment on above: Performed By: #### C BC #### [facility] [address] [place] [address] Dr. Ilia Carrillo MCV (RBC) [Entitic vol] 89.4 fL Normal 81.0-99.0 [facility] Comment on above: Performed By: #### C BC #### [facility] [address] [address] [address] Ilia Carrillo MONO # 0.6 103/ul Normal 0.3-0.8 [facility] Comment on above: Performed By: #### C BC #### [facility] [address] [address] [address] Ilia Carrillo Monocytes/100 WBC (Bld) 5.5 % Normal 1.7-12.0 [facility] Comment on above: Performed By: #### C BC #### [facility] [address] [address] [address] Ilia Carrillo NEUT # 8.9 103/ul Critically high 1.4-6.5 [facility] Comment on above: Performed By: #### C BC #### [facility] [address] [place] [address] Dr. Ilia Carrillo Neutrophils/100 WBC (Bld) 79.0 % Critically high 43.0-75.0 [facility] Comment on above: Performed By: #### C BC #### [facility] [address] [place] [address] Dr. Ilia Carrillo Platelet mean volume (Bld) [Entitic vol] 10.7 fL Normal 9.5-13.5 [facility] Comment on above: Performed By: #### C BC #### [facility] [address] [place] [address] Dr. Ilia Carrillo PLT 210 103/ul Normal 150-450 [facility] Comment on above: Performed By: #### C BC #### [facility] [address] [place] [address] Dr. Ilia Carrillo RBC 4.35 106/ul Normal 4.20-5.40 [facility] Comment on above: Performed By: #### C BC #### [facility] [address] [place] [address] Dr. Ilia Carrillo WBC 11.3 103/ul Critically high 4.0-11.0 [facility] Comment on above: Performed By: #### C BC #### [facility] [address] [place], [place] [id number] Dr. Ilia Carrillo DRUG SCREEN RAPID (URINE)on 01-02-2023 AMP Negative Normal NEGATIVE [facility] Comment on above: Performed By: #### C BC #### [facility] [address] [place] [address] Dr. Ilia Carrillo BAR Negative Normal NEGATIVE [facility] Comment on above: Performed By: #### C BC #### [facility] [address] [place] [address] Dr. Ilia Carrillo BUP Negative Normal NEGATIVE [facility] Comment on above: Performed By: #### C BC #### [facility] [address] [place] [address] Dr. Ilia Carrillo BZO Negative Normal NEGATIVE [facility] Comment on above: Performed By: #### C BC #### [facility] [address] [place] [address] Dr. Ilia Carrillo MARY ANNE Negative Normal NEGATIVE [facility] Comment on above: Performed By: #### C BC #### [facility] [address] [place] [address] Dr. Ilia Carrillo CUT-OFFS SEE BELOW Normal [facility] Comment on above: Result Comment: AMP (Amphetamine): 500ng/mL, BAR (Barbituates): 200 ng/mL, BZO (Benzodiazepines): 150 ng/mL, BUP (Buprenorphine): 10 ng/mL, MARY ANNE (Cocaine): 150 ng/mL, mAMP (Methamphetamine): 500 ng/mL, MTD (Methadone): 200 ng/mL, OPI (Opiates): 100 ng/mL, OXY (Oxycodone): 100 ng/mL, PCP (Phencyclidine): 25 ng/mL, PPX (Propoxyphene): 300 ng/mL, THC (Cannabinoids): 50 ng/mL, TCA (Trycyclic Antidepressants): 300 ng/mL Performed By: #### C BC #### [facility] [address] [place] [address] Dr. Ilia Carrillo DRUG CUT HEADER DRUG CLASS TEST SYSTEM CUT-OFF CONCENTRATIONS ARE FOLLOWS: Normal [facility] Comment on above: Performed By: #### C BC #### [facility] [address] [place] [address] Dr. Ilia Carrillo mAMP Negative Normal NEGATIVE [facility] Comment on above: Performed By: #### C BC #### [facility] [address] [place] [address] Dr. Ilia Carrillo MTD Negative Normal NEGATIVE [facility] Comment on above: Performed By: #### C BC #### [facility] [address] [place] [address] Dr. Ilia Carrillo OPI Negative Normal NEGATIVE [facility] Comment on above: Performed By: #### C BC #### [facility] [address] [place] [address] Dr. Ilia Carrillo OXY Negative Normal NEGATIVE [facility] Comment on above: Performed By: #### C BC #### [facility] [address] [place] [address] Dr. Ilia Carrillo PCP Negative Normal NEGATIVE [facility] Comment on above: Performed By: #### C BC #### [facility] [address] [place] [address] Dr. Ilia Carrillo PPX Negative Normal NEGATIVE [facility] Comment on above: Performed By: #### C BC #### [facility] [address] [place] [address] Dr. Ilia Carrillo TCA Negative Normal NEGATIVE [facility] Comment on above: Performed By: #### C BC #### [facility] [address] [place] [address] Dr. Ilia Carrillo THC Negative Normal NEGATIVE [facility] Comment on above: Performed By: #### C BC #### [facility] [address] [place] [address] Dr. Ilia Carrillo TYPE AND SCREENon 01-02-2023 TYPE AND SCREEN Negative Normal [facility] Comment on above: Performed By: #### T NS #### [facility] [address] [place] [address] Dr. Ilia Carrillo UA (CLEAN/CATCH) CARBON SETTER/MICRO I F IND.on 01-02-2023 Bilirubin Ql (U) Negative Normal NEGATIVE [facility] Comment on above: Performed By: #### U ACSIND #### [facility] [address] [address] [address] Ilia Carrillo Clarity (U) CLEAR Normal CLEAR [facility] Comment on above: Performed By: #### U ACSIND #### [facility] [address] [place] [address] Dr. Ilia Carrillo Color (U) LT. YELLOW Normal YELLOW [facility] Comment on above: Performed By: #### U ACSIND #### [facility] [address] [address] [address] Ilia Carrillo Glucose Ql (U) Negative Normal NEGATIVE [facility] Comment on above: Performed By: #### U ACSIND #### [facility] [address] [place] [address] Dr. Ilia Carrillo Hemoglobin Ql (U) Negative Normal NEGATIVE [facility] Comment on above: Performed By: #### U ACSIND #### [facility] [address] [place] [address] Dr. Ilia Carrillo Ketones Ql (U) Negative Normal NEGATIVE [facility] Comment on above: Performed By: #### U ACSIND #### [facility] [address] [place] [address] Dr. Ilia Carrillo LEUKOCYTES Negative Normal NEGATIVE [facility] Comment on above: Performed By: #### U ACSIND #### [facility] [address] [place] [address] Dr. Ilia Carrillo Nitrite Ql (U) Negative Normal NEGATIVE [facility] Comment on above: Performed By: #### U ACSIND #### [facility] [address] [place] [address] Dr. Ilia Carrillo pH (U) 6.0 [pH] Normal 5-9 [facility] Comment on above: Performed By: #### U ACSIND #### [facility] [address] [place] [address] Dr. Ilia Carrillo SPEC GRAVITY 1.025 Normal 1.005-<=1.02 5 [facility] Comment on above: Performed By: #### U ACSIND #### [facility] [address] [place] [address] Dr. Ilia Carrillo UA PROTEIN Negative Normal NEGATIVE/ TRACE [facility] Comment on above: Performed By: #### U ACSIND #### [facility] [address] [address] [address] Ilia Carrillo UR MICRO IND NOT INDICATED Normal [facility] Comment on above: Performed By: #### U ACSIND #### [facility] [address] [address] [address] Ilia Carrillo Urobilinogen Qn (U) 0.2 {Manfred'U}/dL Normal 0.2 - 1. 0 [facility] Comment on above: Performed By: #### U ACSIND #### [facility] [address] [place] [address] Dr. Ilia Carrillo GROUP B STREP CULTUREon 12-06 S. agalactiae Ag Ql (Unsp spec) Culture Observations: NEGATIVE FOR GROUP B STREPTOCOCCUS. Normal [facility] Comment on above: Performed By: #### U ACSIND #### [facility] [address] [place] [address] Dr. Ilia Carrillo US PREG GROWTHon 12-18-2022 US PREG GROWTH EXAMINATION: US PREG GROWTH HISTORY: Excessive growth affecting management of mother COMPARISON: No relevant comparison available. FINDINGS: Heart Rate: 126.2 bpm Amniotic Fluid Volume: 12.7 cm Number: 1.0 Position: Breech presentation, longitudinal lie Maximum Vertical Pocket: 4.4 cm cm 3.5 cm cm 0.0 cm cm 4.9 cm cm BIOMETRY: BPD: 8.7 cm cm; 35 weeks 1 days; 29% HC: 32.5 cmcm; 36 weeks 6 days, 35% AC: 32.6 cm cm; 36 weeks 4 days, 71% FL: 6.8 cm cm; 35 weeks 0 days; 17.7 % % EFW: 2821.6 grams, 6 lbs. 4 oz., 48% FL/AC: 20.9 FL/BPD: 78.3 HC/AC: 1.0 GESTATIONAL AGE: Age by EDC: 36 weeks 1 days RUDDY by EDC: 01/12/2023 Age by US: 35 weeks 6 days RUDDY by US: 01/14/2023 IMPRESSION: Normal interval growth Breech presentation Electronically authenticated by: CHASE TRAN Date: 2022-12-18 07:18 Normal [facility] US PREG GROWTHon 11-10-2022 US PREG GROWTH EXAMINATION: US PREG GROWTH HISTORY: Large for gestation age fetus COMPARISON: Ultrasound anatomy 08/25/2022 FINDINGS: Heart Rate: Present per medical clerk; no rate recorded. Number: 1.0 Position: Breech Amniotic Fluid Volume: 17.2 cm Maximum Vertical Pocket: 5.7 cm BIOMETRY: BPD: 7.6 cm cm; 30 weeks 3 days HC: 29.1 cmcm; 32 weeks 0 days AC: 27.5 cm cm; 31 weeks 4 days FL: 5.9 cm cm; 31 weeks 0 days EFW: 1747.2 grams; 49% FL/AC: 21.6 FL/BPD: 78.5 HC/AC: 1.1 GESTATIONAL AGE: Age by EDC: 31 weeks 0 days RUDDY by EDC: 01/12/2023 Age by US: 31 weeks 2 days RUDDY by US: 01/10/2023 IMPRESSION: 1. Single live intrauterine with growth detailed above. Electronically authenticated by: ECTOR MINOR Date: 2022-11-10 08:42 Normal [facility] TYPE AND SCREENon 10-31-2022 TYPE AND SCREEN Negative Normal [facility] Comment on above: Performed By: #### T NS #### [facility] [address] [address] [address] Ilia Carrillo GTT 3 HR PREGon 10-25-2022 Glucose [Mass/Vol] 81 mg/dL Normal 74-106 [facility] Comment on above: Performed By: #### U ACSIND #### [facility] [address] [address] [address] Ilia Carrillo Glucose [Mass/Vol] 166 mg/dL Normal [facility] Comment on above: Performed By: #### U ACSIND #### [facility] [address] [address] [address] Ilia Carrillo Glucose [Mass/Vol] 123 mg/dL Normal [facility] Comment on above: Performed By: #### U ACSIND #### [facility] [address] [address] [address] Ilia Carrillo Glucose [Mass/Vol] 103 mg/dL Normal [facility] Comment on above: Performed By: #### U ACSIND #### [facility] [address] [address] [address] Ilia Carrillo TYPE AND SCREENon 10-25-2022 TYPE AND SCREEN Negative Normal [facility] Comment on above: Performed By: #### T NS #### [facility] [address] [address] [address] Ilia Carrillo CBC AUTO DIFFon 10-21-2022 BASO # 0.0 103/ul Normal 0.0-0.1 [facility] Comment on above: Performed By: #### U ACSIND #### [facility] [address] [address] [address] Ilia Carrillo Basophils/100 WBC (Bld) 0.2 % Normal 0.2-2.0 [facility] Comment on above: Performed By: #### U ACSIND #### [facility] [facility] [address] [address] [address] Ilia Carrillo EO # 0.0 103/ul Normal 0.0-0.7 [facility] Comment on above: Performed By: #### U ACSIND #### [facility] [address] [address] [address] Ilia Carrillo Eosinophils/100 WBC (Bld) 0.5 % Critically low 0.9-7.0 [facility] Comment on above: Performed By: #### U ACSIND #### [facility] [address] [address] [address] Ilia Carrillo Erythrocyte distribution width (RBC) [Ratio] 12.6 % Normal 11.0-15.0 [facility] Comment on above: Performed By: #### U ACSIND #### [facility] [address] [place] [address] Dr. Ilia Carrillo Hematocrit (Bld) [Volume fraction] 36.0 % Normal 36.0-48.0 [facility] Comment on above: Performed By: #### U ACSIND #### [facility] [address] [address] [address] Ilia Carrillo Hemoglobin (Bld) [Mass/Vol] 12.3 g/dL Normal 12.0-16.0 [facility] Comment on above: Performed By: #### U ACSIND #### [facility] [address] [address] [address] Ilia Carrillo IG # 0.04 10e3/ul Critically high 0.00-0.03 [facility] Comment on above: Performed By: #### U ACSIND #### [facility] [address] [address] [address] Ilia Carrillo IG % 0.5 % Normal 0.0-0.5 [facility] Comment on above: Performed By: #### U ACSIND #### [facility] [address] [address] [address] Ilia Carrillo LYMPH # 1.3 103/ul Normal 1.2-3.8 [facility] Comment on above: Performed By: #### U ACSIND #### [facility] [address] [address] [address] Ilia Carrillo Lymphocytes/100 WBC (Bld) 15.5 % Critically low 20.5-60.0 [facility] Comment on above: Performed By: #### U ACSIND #### [facility] [address] [place] [address] Dr. Ilia Carrillo MANUAL DIFF REQ NO Normal [facility] Comment on above: Performed By: #### U ACSIND #### [facility] [address] [address] [address] Ilia Carrillo MCH (RBC) [Entitic mass] 30.4 pg Normal 26.7-34.0 [facility] Comment on above: Performed By: #### U ACSIND #### [facility] [address] [address] [address] Ilia Carrillo MCHC (RBC) [Mass/Vol] 34.2 g/dL Normal 29.9-35.2 [facility] Comment on above: Performed By: #### U ACSIND #### [facility] [address] [address] [address] Ilia Carrillo MCV (RBC) [Entitic vol] 89.1 fL Normal 81.0-99.0 [facility] Comment on above: Performed By: #### U ACSIND #### [facility] [address] [address] [address] Ilia Carrillo MONO # 0.3 103/ul Normal 0.3-0.8 [facility] Comment on above: Performed By: #### U ACSIND #### [facility] [address] [address] [address] Ilia Carrillo Monocytes/100 WBC (Bld) 3.8 % Normal 1.7-12.0 [facility] Comment on above: Performed By: #### U ACSIND #### [facility] [address] [address] [address] Ilia Carrillo NEUT # 6.5 103/ul Normal 1.4-6.5 [facility] Comment on above: Performed By: #### U ACSIND #### [facility] [address] [address] [address] Ilia Carrillo Neutrophils/100 WBC (Bld) 79.5 % Critically high 43.0-75.0 [facility] Comment on above: Performed By: #### U ACSIND #### [facility] [address] [address] [address] Ilia Carrillo Platelet mean volume (Bld) [Entitic vol] 9.2 fL Critically low 9.5-13.5 [facility] Comment on above: Performed By: #### U ACSIND #### [facility] [address] [address] [address] Ilia Carrillo PLT 212 103/ul Normal 150-450 [facility] Comment on above: Performed By: #### U ACSIND #### [facility] [address] [address] [address] Ilia Carrillo RBC 4.04 106/ul Critically low 4.20-5.40 [facility] Comment on above: Performed By: #### U ACSIND #### [facility] [address] [address] [address] Ilia Carrillo WBC 8.2 103/ul Normal 4.0-11.0 [facility] Comment on above: Performed By: #### U ACSIND #### [facility] [address] [place] [address] Dr. Ilia Carrillo GLUCOSE - 1HRon 10-21-2022 Glucose [Mass/Vol] 147 mg/dL Critically high 74-106 T [facility] Comment on above: Performed By: #### P REGQNT #### [facility] [address] [place] [address] Dr. Ilia Carrillo PAP ACOG PANEL 2: 21 to 29on 10-19-2022 . . Normal [facility] Comment on above: Performed By: #### P REGQNT #### [facility] [address] [place] [address] Dr. Ilia Carrillo Age Gdln ACOG Testing - [facility] Comment on above: Performed By: #### P REGQNT #### [facility] [address] [place] [address] Dr. Ilia Carrillo DIAGNOSIS: Comment [facility] Comment on above: Result Comment: NEGA TIVE FOR INTRAEPITHELIAL LESION OR MALIGNANCY. THIS SPECIMEN WAS RESCREENED PART OF OUR CONDENSER WINDER PROGRAM. Performed By: #### P REGQNT #### [facility] [address] [place] [address] Dr. Ilia Carrillo Methodology: Comment Normal [facility] Comment on above: Result Comment: This liquid based ThinPrep(R) pap test was screened with the use of an image guided system. Performed By: #### P REGQNT #### [facility] [address] [place] [address] Dr. Ilia Carrillo Note: Comment Normal [facility] Comment on above: Result Comment: The Pap smear is a screening test designed to aid in the detection of premalignant and malignant conditions of the uterine cervix. It is not a diagnostic procedure and should not be used as the sole means of detecting cervical cancer. Both false-positive and false-negative reports do occur. . Performed By: #### P REGQNT #### [facility] [address] [address] [address] Ilia Carrillo Performed by: Comment Normal [facility] Comment on above: Result Comment: Janteh Reynolds, Senior Data Quality Analyst (ASCP) Performed By: #### P REGQNT #### [facility] [address] [place] [address] Dr. Ilia Carrillo QC reviewed by: Comment Normal [facility] Comment on above: Result Comment: Anna Russell, Supervisory Senior Data Quality Analyst (ASCP) Performed By: #### P REGQNT #### [facility] [address] [address] [address] Ilia Carrillo Reflex Criteria: Comment Normal [facility] Comment on above: Result Comment: The HPV DNA reflex criteria were not met with this specimen result therefore, no HPV testing was performed. . Performed By: #### P REGQNT #### [facility] [address] [place] [address] Dr. Ilia Carrillo Specimen adequacy: Comment Normal [facility] Comment on above: Result Comment: Sati sfactory for evaluation. No endocervical component is identified. Performed By: #### P REGQNT #### [facility] [address] [place] [address] Dr. Ilia Carrillo CHLAMYDIA/GONOCOCCUS ABAD (SW AB/URINE/PAPon 10-13-2022 Chlamydia trachomatis, ABAD Negative Normal Negative [facility] Comment on above: Performed By: #### P REGQNT #### [facility] [address] [place] [address] Dr. Ilia Carrillo Neisseria gonorrhoeae, ABAD Negative Normal Negative [facility] Comment on above: Performed By: #### P REGQNT #### [facility] [address] [place] [address] Dr. Ilia Carrillo VAGINITIS/VAGINOSIS DNA PROB Mitesh 10-12-2022 Floresita species Negative Normal Negative [facility] Comment on above: Performed By: #### C BC #### [facility] [address] [place] [address] Dr. Ilia Carrillo Gardnerella vaginalis Negative Normal Negative [facility] Comment on above: Performed By: #### C BC #### [facility] [address] [address] [address] Ilia Carrillo Trichomonas vaginalis Negative Normal Negative [facility] Comment on above: Performed By: #### C BC #### [facility] [address] [address] [address] Ilia Carrillo AFP MATERNAL FOR SPINA BIFID Aon 09-05-2022 AFP MoM 1.50 Normal [facility] Comment on above: Performed By: #### C BC #### [facility] [address] [address] [address] Ilia Carrillo AFP Value 85.2 ng/mL Normal [facility] Comment on above: Performed By: #### C BC #### [facility] [address] [address] [address] Ilia Carrillo AFP, Serum for Spina Bifida Report Normal [facility] Comment on above: Performed By: #### C BC #### [facility] [address] [address] [address] Ilia Carrillo Comment Comment Normal [facility] Comment on above: Result Comment: Richard Loomis, Ph.D., [facility] Director . References: Available Upon Request. . Multiples Of Median Cutoffs For AFP Elevations [place] 2.5 Black 2.8 IDD 2.0 Twins 4.5 Abbreviation Definitions IDD - Insulin Dep Diabetes OSBR - Open Spina Bifida Risk . For further inquiries contact [facility] at [phone]. . This test was developed and its performance characteristics determined by [employer]. It has not been cleared or approved by the Food and Drug Administration. Performed By: #### C BC #### [facility] [address] [address] [address] Ilia Steinberg Age Collection Date 20.7 weeks Normal [facility] Comment on above: Performed By: #### C BC #### [facility] [address] [address] [address] Ilia Carrillo Gestat, Age Based on Ultrasound Normal [facility] Comment on above: Result Comment: 06:3 on 05/22/2022 Recalculations are not recommended when gestational dating by LMP and ultrasound are within 10 days. Performed By: #### C BC #### [facility] [address] [place] [address] Dr. Ilia Carrillo Insulin Dep Diabetes No Normal [facility] Comment on above: Performed By: #### C BC #### [facility] [address] [place] [address] Dr. Ilia Carrillo Interpretation Comment Normal [facility] Comment on above: Result Comment: Inte rpretation: Screen Negative . This result is screen negative for OSB. The AFP MoM calculated is based on the gestational age provided. MS-AFP can identify up to 80% of open neural tube defects. Closed neural tube defects and some open defects may not be detected by this test. This test does not screen for Down Syndrome or Trisomy 18. If screening for Down Syndrome or Trisomy 18 is desired, contact [facility] [employer] [facility] to discuss available options. The [employer] recommends amniocentesis be offered to women age 35 and older. Performed By: #### C BC #### [facility] [address] [place] [address] Dr. Ilia Carrillo [age] Normal [facility] Comment on above: Performed By: #### C BC #### [facility] [address] [place] [address] Dr. Ilia Carrillo Multiple Gestation No Normal [facility] Comment on above: Performed By: #### C BC #### [facility] [address] [place] [address] Dr. Ilia Carrillo OSBR Risk 1 [place] [address] [facility] Comment on above: Performed By: #### C BC #### [facility] [address] [place] [address] Dr. Ilia Carrillo PDF . [facility] Comment on above: Performed By: #### C BC #### [facility] [address] [place] [address] Dr. [address] [facility] Comment on above: Performed By: #### C BC #### [facility] [address], [place] [address] Dr. Ilia Carrillo Test Results: Negative Normal [facility] Comment on above: Performed By: #### C BC #### [facility] [address], [place] [address] Dr. Ilia Carrillo US PREG ANATOMY SINGLEon US PREG ANATOMY SINGLE EXAMINATION: US PREG ANATOMY SINGLE HISTORY: screening COMPARISON: No relevant comparison available. TECHNIQUE: Transabdominal sonographic examination was performed for obstetrical and evaluation. FINDINGS: Number: 1 Heart Rate: 148.4 bpm H.B. /min Amniotic Fluid Volume: Subjectively normal Placental Location: Cephalic presentation, variable lie Cervix Length: 4 cm Normally visualized anatomy: Cerebellum, choroid plexus, cisterna magna, lateral cerebral ventricles, orbits, midline falx, hard palate, four-chamber heart, RVOT, LVOT, stomach, kidneys, bladder, umbilical cord insertion into the abdomen, three-vessel cord, cervical spine, thoracic spine, lumbar spine, sacral spine, right upper extremity, left upper extremity, right lower extremity, left lower extremity Suboptimally visualized anatomy: None BIOMETRY: BPD: 4.8 cm 20 weeks 3 days 66% HC: 17.7 cm 20 weeks 1 days 50% AC: 15.2 cm 20 weeks 3 days 58% FL: 3.1 cm 19 weeks 5 days 33% EFW:333.7 grams; 12 ounces, 53% FL/AC: 20.7 FL/BPD: 66.0 HC/AC: 1.2 GESTATIONAL AGE: Age by EDC: 20 weeks 0 days RUDDY by EDC: 01/12/2023 Age by current US: 20 weeks 1 days RUDDY by current US: 01/11/2023 IMPRESSION: Normal anatomy scan *Reference: AIUM Practice Guideline for the performance of Obstetric Ultrasound Examinations, August 05, 2007. Electronically authenticated by: CHASE TRAN Date: 2022-08-27 16:15 Normal [facility] HEP B SURFACE ANTIGEN SCREEN on 07-04-2022 HBsAg Screen Negative Normal Negative [facility] Comment on above: Performed By: #### C BC #### [facility] [address] [address] [address] Ilia Carrillo HEPATITIS C VIRUS AB W/ REFL EX QUANTon 07-04-2022 HCV AB <0.1 Normal 0.0-0.9 [facility] Comment on above: Performed By: #### C BC #### [facility] [address] [place] [address] Dr. Ilia Carrillo Interpretation: Comment Normal [facility] Comment on above: Result Comment: Nega tive Not infected with HCV, unless recent infection is suspected or other evidence exists to indicate HCV infection. Performed By: #### C BC #### [facility] [address] [place] [address] Dr. Ilia Carrillo HIV 1 AND 2 WITH REFLEXon HIV Screen 4th Generation wRfx Non-Reactive Normal Non Reactive [facility] Comment on above: Result Comment: HIV Negative HIV-1/HIV-2 antibodies and HIV-1 p24 antigen were NOT detected. There is no laboratory evidence of HIV infection. Performed By: #### C BC #### [facility] [address] [place] [address] Dr. Ilia Carrillo RPR QUANTon 07-04-2022 Rapid Plasma Reagin, Quant Non-Reactive Normal NonRea<1:1 [facility] Comment on above: Result Comment: John dinh Note: This test does not meet current guidelines for screening and diagnosis of syphilis. This test is intended for following treatment response in patients being treated for syphilis infection. To screen for syphilis infection, a reflex cascade that includes both RPR and a treponema-specific assay should be utilized, such as Treponema pallidum (Syphilis) Screening [place] (861368) or Rapid Plasma Reagin (RPR) Test With Reflex to Quantitative RPR and Confirmatory Treponema pallidum Antibodies (953984). Performed By: #### C BC #### [facility] [address] [place] [address] Dr. Ilia Carrillo RUBELLA AB IGGon 07-04-2022 Rubella Antibodies, IgG 3.07 index Normal Immune >0.99 [facility] Comment on above: Result Comment: Non- immune <0.90 Equivocal 0.90 - 0.99 Immune >0.99 Performed By: #### C BC #### [facility] [address] [place] [address] Dr. Ilia Carrillo CBC AUTO DIFFon 07-03-2022 BASO # 0.0 103/ul Normal 0.0-0.1 [facility] Comment on above: Performed By: #### C BC #### [facility] [address] [place] [address] Dr. Ilia Carrillo Basophils/100 WBC (Bld) 0.2 % Normal 0.2-2.0 [facility] Comment on above: Performed By: #### C BC #### [facility] [address] [place] [address] Dr. Ilia Carrillo EO # 0.1 103/ul Normal 0.0-0.7 [facility] Comment on above: Performed By: #### C BC #### [facility] [address] [place] [address] Dr. Ilia Carrillo Eosinophils/100 WBC (Bld) 1.1 % Normal 0.9-7.0 [facility] Comment on above: Performed By: #### C BC #### [facility] [address] [place] [address] Dr. Ilia Carrillo Erythrocyte distribution width (RBC) [Ratio] 11.4 % Normal 11.0-15.0 [facility] Comment on above: Performed By: #### C BC #### [facility] [address] [place] [address] Dr. Ilia Carrillo Hematocrit (Bld) [Volume fraction] 35.2 % Critically low 36.0-48.0 [facility] Comment on above: Performed By: #### C BC #### [facility] [address] [place] [address] Dr. Ilia Carrillo Hemoglobin (Bld) [Mass/Vol] 12.4 g/dL Normal 12.0-16.0 [facility] Comment on above: Performed By: #### C BC #### [facility] [address] [place] [address] Dr. Ilia Carrillo IG # 0.03 10e3/ul Normal 0.00-0.03 [facility] Comment on above: Performed By: #### C BC #### [facility] [address] [address] [address] Ilia Carrillo IG % 0.3 % Normal 0.0-0.5 [facility] Comment on above: Performed By: #### C BC #### [facility] [address] [place] [address] Dr. Ilai Carrillo LYMPH # 2.1 103/ul Normal 1.2-3.8 [facility] Comment on above: Performed By: #### C BC #### [facility] [address] [place] [address] Dr. Ilia Carrillo Lymphocytes/100 WBC (Bld) 22.6 % Normal 20.5-60.0 [facility] Comment on above: Performed By: #### C BC #### [facility] [address] [place] [address] Dr. Ilia Carrillo MANUAL DIFF REQ NO Normal [facility] Comment on above: Performed By: #### C BC #### [facility] [address] [place] [address] Dr. Ilia Carrillo MCH (RBC) [Entitic mass] 30.6 pg Normal 26.7-34.0 [facility] Comment on above: Performed By: #### C BC #### [facility] [address] [place] [address] Dr. Ilia Carrillo MCHC (RBC) [Mass/Vol] 35.2 g/dL Normal 29.9-35.2 [facility] Comment on above: Performed By: #### C BC #### [facility] [address] [place] [address] Dr. Ilia Carrillo MCV (RBC) [Entitic vol] 86.9 fL Normal 81.0-99.0 [facility] Comment on above: Performed By: #### C BC #### [facility] [address] [place] [address] Dr. Ilia Carrillo MONO # 0.4 103/ul Normal 0.3-0.8 [facility] Comment on above: Performed By: #### C BC #### [facility] [address] [place] [address] Dr. Ilia Carrillo Monocytes/100 WBC (Bld) 4.8 % Normal 1.7-12.0 [facility] Comment on above: Performed By: #### C BC #### [facility] [address] [place] [address] Dr. Ilia Carrillo NEUT # 6.5 103/ul Normal 1.4-6.5 [facility] Comment on above: Performed By: #### C BC #### [facility] [address] [place] [address] Dr. Ilia Carrillo Neutrophils/100 WBC (Bld) 71.0 % Normal 43.0-75.0 [facility] Comment on above: Performed By: #### C BC #### [facility] [address] [place] [address] Dr. Ilia Carrillo Platelet mean volume (Bld) [Entitic vol] 8.7 fL Critically low 9.5-13.5 [facility] Comment on above: Performed By: #### C BC #### [facility] [address] [place] [address] Dr. Ilia Carrillo PLT 260 103/ul Normal 150-450 [facility] Comment on above: Performed By: #### C BC #### [facility] [address] [place] [address] Dr. Ilia Carrillo RBC 4.05 106/ul Critically low 4.20-5.40 [facility] Comment on above: Performed By: #### C BC #### [facility] [address] [place] [address] Dr. Ilia Carrillo WBC 9.2 103/ul Normal 4.0-11.0 [facility] Comment on above: Performed By: #### C BC #### [facility] [address] [place], [place] [id number] Dr. Ilia Carrillo CULTURE URINEon 07-03-2022 CULTURE URINE Culture Observations: MODERATE GROWTH OF MIXED GENITAL BETHANIE. NO POTENTIAL PATHOGENS SEEN. Normal [facility] Comment on above: Performed By: #### U RCX #### [facility] [address] [address] [address] Ilia Carrillo GLYCOHEMOGLOBIN A1Con 2021 ADA RECOMMENDATION SEE BELOW Normal [facility] Comment on above: Result Comment: ADA RECOMMENDED LIMIT 4.0 - 6.0 ADA THERAPEUTIC TARGET < 7.0 ACTION SUGGESTED > 7.0 Performed By: #### P REGQNT #### [facility] [address] [address] [address] Ilia Carrillo Glucose [Mass/Vol] 97 mg/dL Normal [facility] Comment on above: Performed By: #### P REGQNT #### [facility] [address] [address] [address] Ilia Carrillo HbA1c (Bld) [Mass fraction] 5.0 % Normal 4.5-6.2 [facility] Comment on above: Performed By: #### P REGQNT #### [facility] [address] [place] [address] Dr. Ilia Carrillo FADY BOX TEST PT SEND OUTo n 07-03-2022 SENT TO REF LAB 07/03/2022 Normal [facility] Comment on above: Performed By: #### N BOX #### [facility] [address] [address] [address] Ilia Carrillo TYPE AND SCREENon 07-03-2022 TYPE AND SCREEN Negative Normal [facility] Comment on above: Performed By: #### U ACSIND #### [facility] [address] [place] [address] Dr. Ilia Carrillo COVID Quick Testingon 2021 Result Positive [employer] Other US PREG TVon 05-23-2022 US PREG TV EXAMINATION: US PREG TV HISTORY: Routine care COMPARISON: No relevant comparison available. FINDINGS: GESTATIONAL SAC: Present and normal appearing. POLE: Present and normal appearing. YOLK SAC: Present. CARDIAC: Present. UTERUS: Normal size and appearance. OVARIES: Right: Normal. Left: Normal. CERVIX: 3.8 cm in length and closed. CUL-DE-SAC: Normal. OTHER: None. AGE BY LMP: 7 weeks, 5 days RUDDY BY LMP: 01/03/2023 AGE BY US CRL: 6 weeks, 3 days RUDDY BY US CRL: 01/12/2023 IMPRESSION: 1. Single live intrauterine . Electronically authenticated by: ECTOR MINOR Date: 2022-05-23 21:22 Normal [facility] PREG QUANT HCGon 05-11-2022 HCG QUANT 2766 mIU/mL Normal [facility] Comment on above: Performed By: #### U ACSIND #### [facility] [address] [place] [address] Dr. Ilia Carrillo HCG RANGE SEE BELOW Normal [facility] Comment on above: Result Comment: 5-50 0-1 WEEK 40-300 1-2 WEEKS 100-1,000 2-3 WEEKS 500-6,000 3-4 WEEKS 5,000-200,000 1-2 MONTHS 10,000-100,000 2-3 MONTHS 3,000-50,000 2ND TRIMESTER 1,000-50,000 3RD TRIMESTER Performed By: #### U ACSIND #### [facility] [address] [place] [address] Dr. Ilia Carrillo PREG QUANT HCGon 05-09-2022 HCG QUANT 983 mIU/mL Normal [facility] Comment on above: Performed By: #### P REGQNT #### [facility] [address] [place] [address] Dr. Ilia Carrillo HCG RANGE SEE BELOW Normal [facility] Comment on above: Result Comment: 5-50 0-1 WEEK 40-300 1-2 WEEKS 100-1,000 2-3 WEEKS 500-6,000 3-4 WEEKS 5,000-200,000 1-2 MONTHS 10,000-100,000 2-3 MONTHS 3,000-50,000 2ND TRIMESTER 1,000-50,000 3RD TRIMESTER Performed By: #### P REGQNT #### [facility] [address] [place] [address] Dr. Ilia Carrillo Vital Signs Date Time Vital Sign Value Performing Clinician Facility 12-05-2023 10:50-0500 Body height 163.19 cm Erlinda Archer Other [employer] Other 12-05-2023 10:50-0500 Body mass index (BMI) [Ratio] 32.12 kg/m2 Erlinda Archer Other [employer] Other 12-05-2023 10:50-0500 Body temperature 98 [degF] Erlinda Archer Other [employer] Other 12-05-2023 10:50-0500 Body weight 85.55 kg Erlinda Archer Other [employer] Other 12-05-2023 10:50-0500 Diastolic blood pressure 68 mm[Hg] Erlinda Archer Other [employer] Other 12-05-2023 10:50-0500 Respiratory rate 18 /min Erlinda Archer Other [employer] Other 12-05-2023 10:50-0500 SaO2% (BldA) [Mass fraction] 96 % Erlinda Archer Other [employer] Other 12-05-2023 10:50-0500 Systolic blood pressure 104 mm[Hg] Erlinda Archer Other [employer] Other 09-05-2022 15:07-0400 Body weight 84.[address] CHRISTOPHE APONTE . [facility] Comment on above: Performed By: #### CBC #### [facility] [address] [place] [address] Dr. Ilia Carrillo 06-23-2022 17:05-0400 Body height 163.19 cm Cortney Chapman Other [employer] Other 06-23-2022 17:05-0400 Body mass index (BMI) [Ratio] 31.16 kg/m2 Cortney Chapman Other [employer] Other 06-23-2022 17:05-0400 Body temperature 99.6 [degF] Cortney Chapman Other [employer] Other 06-23-2022 17:05-0400 Body weight 83.01 kg Cortney Chapman Other [employer] Other 06-23-2022 17:05-0400 Respiratory rate 18 /min Cortney Chapman Other [employer] Other 06-23-2022 17:05-0400 SaO2% (BldA) [Mass fraction] 98 % Cortney Chapman Other [employer] Other Encounters Encounter Date Encounter Type Care Provider Facility Start: 03-18-2024 End: 03-18-2024 ambulatory PAT ROCHE Not Available Start: 01-31-2024 End: 02-01-2024 ambulatory Pat Roche Facility:[facility] Start: 01-31-2024 End: 01-31-2024 Patient encounter procedure Pat Roche [facility] Start: 01-29-2024 End: 01-29-2024 ambulatory PAT ROCHE Not Available Start: 01-22-2024 End: 01-23-2024 ambulatory PAT ROCHE Not Available Start: 01-08-2024 End: 01-08-2024 ambulatory PAT ROCHE Not Available Start: 01-07-2024 End: 01-08-2024 ambulatory [facility] Facility: [facility] Start: 12-20-2023 End: 12-21-2023 ambulatory [facility] Facility: [facility] [place] [facility] Start: 12-10-2023 End: 12-11-2023 ambulatory [facility] Facility: [facility] Start: 12-05-2023 Office outpatient visit 15 minutes Erlinda Archer [facility] Start: 12-05-2023 End: 12-05-2023 ambulatory Erlinda Archer Facility:[facility] Start: 12-05-2023 End: 12-05-2023 ambulatory [employer] Erlinda Archer Work Phone: [facility] Work Phone: Start: 12-05-2023 End: 12-05-2023 Patient encounter procedure [employer] Erlinda Germanmond Work Phone: [facility] Work Phone: Start: 11-06-2023 End: 11-07-2023 ambulatory [facility] Facility:[facility] [place] Start: 10-30-2023 End: 10-30-2023 ambulatory CHRISTOPHE APONTE Not Available Start: 07-23-2023 ambulatory [facility] Facility :[facility] [place] Start: 04-05-2023 End: 04-06-2023 ambulatory [facility] Facility:[facility] Sarika inman Start: 01-08-2023 End: 01-08-[address] FLORINA ONEILL Facility: Start: 01-02-2023 End: 01-04-2023 Evaluation and management of inpatient DR CHRISTOPHE APONTE . Facility: Start: 12-18-2022 End: 12-18-2022 ambulatory JONA BECK . Facility: Start: 12-16-2022 End: 12-17-[address] CHASE TRAN Facility: Start: 11-10-2022 End: 11-11-[address] CHRISTOPHE APONTE . Facility:[facility] Start: 10-31-2022 End: 11-01-[address] CHRISTOPHE APONTE . Facility:[facility] Start: 10-25-2022 End: 10-26-[address] CHRISTOPHE APONTE . Facility:[facility] Start: 10-21-2022 End: 10-22-[address] CHRISTOPHE APONTE . Facility:[facility] Start: 10-10-2022 End: 10-11-2022 ambulatory JONA BECK . Facility:[facility] Start: 08-30-2022 End: 08-31-[address] CHRISTOPHE APONTE . Facility:[facility] Start: 08-25-2022 End: 08-26-[address] CHRISTOPHE APONTE . Facility:[facility] Start: 07-19-[address] CHRISTOPHE APONTE . Facili ty:[facility] Start: 07-03-2022 End: 07-04-[address] CHRISTOPHE APONTE . Facility:[facility] Start: 06-23-2022 End: 06-23-2022 ambulatory Cortney Chapman Other [facility] [employer] Other Start: 06-23-2022 Office outpatient ne w 30 minutes Cortney Chapman [facility] Start: 05-22-2022 End: 05-23-[address] CHRISTOPHE APONTE . Facility:[facility] Start: 05-11-2022 End: 05-12-[address] CHRISTOPHE APONTE . Facility:[facility] Start: 05-09-2022 End: 05-10-[address] CHRISTOPHE APONTE . Facility:[facility] Procedures Date Procedure Procedure Detail Performing Clinician Start: 12-05-2023 Radiologic examinati on of knee [employer] Erlinda Archer Work Phone: Start: 01-02-2023 Extraction of Produc ts of Conception, Low Cervical, Open Approach DR CHRISTOPHE APONTE . Start: 01-02-2023 section Dolores Roche Immunizations Immunization Date Immunization Notes Care Provider Fa cilibrandon NEGATED: Highlighted row has not occurred!12-10-2023 influenza virus vaccine, unspecified formulation Pat Roche [facility] NEGATED: Highlighted row has not occurred!02-08-2023 influenza virus vaccine, unspecified formulation Pat Roche [facility] NEGATED: Highlighted row has not occurred!02-08-2023 SARS-CoV-2 mRNA (tozinameran 5y-11y) vaccine Pat Roche [facility] Payers Date Payer Category Payer Unknown [id number] 1996 Unknown [id number] 2.16.840.1.256193.3.579.2.593 1996 Unknown [id number] 2.16.840.1.088289.3.579.2.593 1996 Unknown [id number] 2.16.840.1.793239.3.579.2.593 1996 Unknown [id number] 2.16.840.1.638812.3.579.2.593 1996 Unknown [id number] 2.16.840.1.829947.3.579.2.593 1996 Unknown [id number] 2.16.840.1.063603.3.579.2.593 1996 Unknown [id number] 2.16.840.1.727242.3.579.2.593 1996 Unknown [id number] 2.16.840.1.451214.3.579.2.593 1996 Unknown [id number] 2.16.840.1.498566.3.579.2.593 1996 Unknown [id number] 2.16.840.1.950966.3.579.2.593 1996 Unknown [id number] 2.16.840.1.269587.3.579.2.593 1996 Unknown [id number] 2.16.840.1.543590.3.579.2.593 1996 Unknown [id number] 2.16.840.1.594877.3.579.2.593 1996 Unknown [id number] 2.16.840.1.403855.3.579.2.593 1996 Unknown [id number] 2.16.840.1.956157.3.579.2.593 1996 Unknown [id number] 2.16.840.1.083515.3.579.2.593 1996 Unknown [id number] 2.16.840.1.133495.3.579.2.593 1996 Unknown [id number] 2.16.840.1.829078.3.579.2.1258 1996 Unknown [id number] 2.16.840.1.353948.3.579.2.1258 1996 Unknown [id number] 2.16.840.1.497753.3.579.2.125 1996 Unknown [id number] 2.16.840.1.546460.3.579.2.1258 1996 Unknown [id number] 2.16.840.1.784211.3.579.2.1258 1996 Unknown [id number] 2.16.840.1.626515.3.579.2.1258 1996 Unknown [id number] 2.16.840.1.916301.3.579.2. 1996 Unknown [id number] 2.16.840.1.031228.3.579.2. 1996 Unknown [id number] 2.16.840.1.839440.3.579.2. 1996 Unknown [id number] 2.16.840.1.316817.3.579.2 1996 Unknown [id number] 2.16.840.1.321012.3.579.2.72 1996 Unknown [id number] 2.16.840.1.170469.3.579.2. 1996 Unknown [id number] 2.16.840.1.757008.3.579.2.727 1959 Blue Cross Blue Shield DZNAN [id number] 2.16.840.1.550669.19 1959 Self-pay 1959 Unknown [id number] 2.16. 840.1.167015.19 1959 Unknown [id number] Unknown [id number] 2.16.840.1.919158.3.579.2.593 Unknown [id number] 2.16.840.1.541740.3.579.2.531 Worker's Compensation [facility] [employer] [facility] [id number] Social History Date Type Detail Facility Sex Assigned At [facility] Start: 1995 Sex Assigned At Female F [facility] Start: 12-20-2023 Tobacco smoking status Never s moked tobacco (finding) [facility] Tobacco smoking status Never Akine [facility] Evaluation note 12-05-2023 Note Date & Type Note Facility 12-05-2023 Evaluation note Encounter Date Diagnosis Assessment Notes Nov, Left knee pain, unspecified chronicity (ICD-10 - M25.562) Nov, Sprain of left knee, unspecified ligament, initial encounter (ICD-10 - S83.92XA) Ice and elevate your knee 2-3 times a day. Wear knee wrap for comfort and compression. Take ibuprofen, 600 mg regularly, 3 times a day for the next week. Follow-up with your family physician if no improvement in 5 to 7 days [employer] Other Discharge summary note 01-02-2023 Note Date & Type Note Facility 01-02-2023 Note DISCHARGE SUMMARY NOTE DATE: 01/12/2023 PRIMARY DIAGNOSES: 1. Intrauterine at 38 4/7 weeks. 2. Breech presentation. 3. Decreased movement per patient in office. 4. Increased risk of cord prolapse due to felt in the lower segment. PROCEDURE: Primary low transverse section. HOSPITAL COURSE: As expected. Please see chart for full details. LABORATORY DATA: Please see chart. COMPLICATIONS: None. DISCHARGE CONDITION: Stable. CONSULTATION: Anesthesia. DISCHARGE INSTRUCTIONS: 1. Diet: Regular. 2. Medications: a. Percocet 5/325 one to two p.o. every 4-6 hours p.r.n. pain. b. Motrin 800 one p.o. every 8 hours p.r.n. pain. 3. Followup in one week. Restrictions: Pelvic rest for 6 weeks. No heavy lifting. May drive when pain free and no longer on narcotics. [facility] Clinical Note 01-02-2023 Note Date & Type Note Facility 01-02-2023 Note OPERATIVE NOTE OPERATION DATE: 01/02/2023 PROCEDURE: Primary low transverse section. PREOPERATIVE DIAGNOSIS: 1. Intrauterine . 2. Breech presentation. 3. Decreasing movement per patient and office. POSTOPERATIVE DIAGNOSIS: 1. Intrauterine . 2. Breech presentation. 3. Decreasing movement per patient and office. ANESTHESIA: Spinal with Duramorph. SURGEON: Christophe Aponte D.O. FLAME BURNER: EFRAÍN Verdugo URINE OUTPUT: Yellow and clear. BLOOD LOSS: 600 mL. SPECIMEN: Placenta. FINDINGS: Viable . Apgars 9 at 1, 9 at 5. Weight unknown at this time. PROCEDURE: Patient was taken back to the Operating Room where she was given a spinal anesthesia with Duramorph without difficulty. She was prepped and draped in the normal sterile fashion. A Pfannenstiel skin incision was then made 2 cm above the symphysis pubis and carried down to underlying rectus fascia using a Bovie. The fascia was incised in the midline and extended laterally using Hicks scissors. Two Trudy clamps were placed on the superior aspect of the fascia and dissected off the underlying rectus muscles. The same was performed on the inferior aspect as well. The muscles were then in the midline. Peritoneum was identified and entered bluntly. The peritoneum was then extended superiorly and inferiorly with good visualization of the bladder. The bladder blade was inserted. A low transverse incision was made on the patient's uterus and extended laterally digitally. The was then delivered atraumatically after the bladder blade was removed in the cephalic position. The cord was clamped and cut. Cord blood was obtained. The infant was handed off to awaiting team. The patient's placenta was spontaneously delivered. The uterus was then exteriorized. The uterus was cleared of all clots and debris. The bladder blade was reinserted. The patient's uterine incision was closed using #0 Vicryl in a running lock fashion. Excellent hemostasis was assured. The uterus was then returned to the patient's abdomen. The patient's abdomen was copiously irrigated using warm saline. Peritoneal gutters were cleared of all clots and debris. Again excellent hemostasis was assured. The patient's peritoneum was closed using 3-0 Vicryl in a running fashion. The patient's fascia was closed using #0 Vicryl in a running fashion. The patient's skin was closed using 4-0 Vicryl subcuticularly. The patient tolerated the procedure well. Sponge, lap, and needle counts were correct x2. The patient was taken to the Recovery Room in stable condition. ADDENDUM TO PREOPERATIVE DIAGNOSIS: Risk of cord prolapse. [facility] Evaluation note 06-23-2022 Note Date & Type Note Facility 06-23-2022 Evaluation note Encounter Date Diagnosis Assessment Notes Jun, Exposure to COVID-19 virus (ICD-10 - Z20.822) Jun, COVID-19 (ICD-10 - U07.1) Today you tested positive for the COVID virus. This mean you need to follow all CDC quarantine guidelines found at coronavirus.oh io.gov. It is important to rest, increase fluids, and stay at home. Recommend contacting primary care provider and discussing best course of action if you have chronic health conditions. COVID POSITIVE education handout discharge instructions. given. [employer] Other Evaluation + Plan note Note Date & Type Note Facility Evaluation + Plan note No data available for this section [facility] Evaluation note Note Date & Type Note Facility Evaluation note No assessment information availa [facility] Work Phone: History general Narrative - Reported Note Date & Type Note Facility History general Narrative - Reported Type Surgical History wisdom teeth Hospitalization History see above [employer] Other Hospital Discharge instructions Note Date & Type Note Facility Hospital Discharge instructions No data available for this section [facility] Progress note Note Date & Type Note Facility Progress note No data available for this section [facility] Summary Purpose Family History No Family History Records Found No data available for this section No Family History Records FoundNo Family History Records FoundNo Family History Records Found Advance Directives No Advanced Directives Records Found Advance Directive Response Recorded Date/ Time Advance Directives No May 21 10:49am Additional Source Comments REASON FOR VISIT (unrecogniz ed section and content) SORE THROAT, CONGESTION X1 D AYlt knee pain (from nov) INFORMATION SOURCE (unrecogn ized section and content) DATE CREATED AUTHOR 01/15/2023 [facility] DATE CREATED AUTHOR AUTHOR'S ORGANIZ ATION 02/06/2024 [facility] DATE CREATED AUTHOR AUTHOR'S ORGANIZ ATION 03/20/2024 [facility] EPIC DATE CREATED AUTHOR AUTHOR'S ORGANIZ ATION 03/23/2024 [facility] Care Teams (unrecognized sec tion and content) Team Status: Inactive Member Role Status Dates YAW Mccarthy Attending Provider Active S tart: December 05, 2023 End: December 05, 2023 Goals (unrecognized section and content) Goals may be documented in a n alternate section FOR RECORDS PERTAINING TO PATIENTS WHO ARE OR HAVE BEEN ENROLLED IN A CHEMICAL DEPENDENCY/SUBSTANCEABUSE PROGRAM, SOME INFORMATION MAY BE OMITTED. This clinical summary was aggregated from multiple sources. Caution should be exercised in using it in the provision of clinical care. This summary normalizes information from multiple sources, and as a consequence, information in this document may materially change the coding, format and clinical context of patient data. In addition, data may be omitted in some cases. CLINICAL DECISIONS SHOULD BE BASED ON THE PRIMARY CLINICAL RECORDS. [facility] [employer] [facility] provides no warranty or guarantee of the accuracy or completeness of information in this document.
[2024-07-30 17:09] LABS: HCG Quantitative <1 mIU/mL
== END 2024-07-30 15:43 | disposition home or self-care (01) ==
LOC: LAB 15:42
PROVIDERS: PCP Nurse Practitioner; Visit Provider Obstetrics & Gynecology
DX: N92.6 Irregular menstruation, unspecified (principal)
CPT/HCPCS: 36415; 84702

== ENCOUNTER 2024-08-04 10:27 | Outpatient (OUT) | payer OTHER, BC, SELFPAY ==
--- OUTSIDE RECORDS SUMMARY | 2024-08-04 10:40 | XMS_ITS | CCD ---
Author Organization [facility] Providers Care Residential Framing Carpenter Name Role Phone Cortney Chapman Unavailable ANGELO [...] DR [employer] Consulting Unavailable ANGELO ., DR ASEED Consulting Unavailable NADERER, DR FLORINA White Primary [...] Unavailable ANGELO ., DR SAEED Consulting Unavailable MODESTO, DR CHASE Tam Consulting Unavailable NADERER, DR [...] SAEED Admitting Unavailable YAW Archer Attending Provider [phone] Erlinda Archer Unavailable Kaiser Anderson Primary Care [...] Medication Allergies] Propensity to adverse reactions (disorder) [facility] Repository Medications Current Medications Medication Drug Class(es) [...] pain, # 20 tab(s), Refills(s) 0, Pharmacy: [facility] #[id number], 162, cm, 12/20/23 15:18:00 EST, Height/Length Dosing, [...] Range Facility Consultation Noteon 03-20-20 Consultation Note [id number] #1.00TIFF [facility] Consultation Noteon 02-18-20 Consultation Note [id number] #1.00TIFF [facility] BMPon 01-31-2024 Creatinine [Mass/Vol] 0.8 mg/dL Normal 0.5-1.3 [facility] Comment on above: Performed By: #### 2 963510, [id number], 4432169 ####[facility] [address] [place] [address] Urea nitrogen/Creatinine [Mass ratio] 19 No Units Normal - [facility] Comment on above: Performed By: #### 2 444616, [id number], 6403937 ####[facility] [address] [place] [address] Anion gap [Moles/Vol] 9 mmol/L Normal 6-16 [facility] Comment on above: Performed By: #### 2 003032, [id number], 9369582 ####[facility] [address] [place] [address] Calcium [Mass/Vol] 8.8 mg/dL Low 8.9-11.1 [facility] Comment on above: Performed By: #### 2 899563, [id number], 6929081 ####[facility] [address] [place] [address] Chloride [Moles/Vol] 108 mmol/L Normal 101-111 [facility] Comment on above: Performed By: #### 2 843638, 37027982, 6886701 ####[facility] [address] [place] [address] CO2 [Moles/Vol] 28 mmol/L Normal 21-31 [facility] Comment on above: Performed By: #### 2 861173, 56458767, 7957996 ####[facility] [address] [place] [address] Glucose [Mass/Vol] 75 mg/dL Normal 55-199 [facility] Comment on above: Performed By: #### 2 916024, 49555973, 3631742 ####[facility] [address] [place] [address] Potassium [Moles/Vol] 4.0 mmol/L Normal 3.5-5.3 [facility] Comment on above: Performed By: #### 2 243843, 50290822, 8966321 ####[facility] [address] [place] [address] Sodium [Moles/Vol] 141 mmol/L Normal 135-145 [facility] Comment on above: Performed By: #### 2 973361, 91176552, 4616395 ####[facility] [address] [place] [address] Urea nitrogen [Mass/Vol] 15 mg/dL Normal 5-21 [facility] Comment on above: Performed By: #### 2 102489, 58671144, 1557331 ####[facility] [address] [place] [address] CBC w/Indiceson 01-31-2024 Erythrocyte distribution width (RBC) [Ratio] 13.0 % Normal 10.9-14.2 [facility] Comment on above: Performed By: #### 2 469603, 02763006, 3926672 ####[facility] [address] [place] [address] Hematocrit (Bld) [Volume fraction] 36.2 % Normal 34.0-46.0 [facility] Comment on above: Performed By: #### 2 691951, 83823354, 0748601 ####[address] [place] [address] Hemoglobin (Bld) [Mass/Vol] 12.3 g/dL Normal 12.0-16.0 [facility] Comment on above: Performed By: #### 2 647538, 30714155, 4299140 ####[place] [address] MCH (RBC) [Entitic mass] 29.1 pg Normal 27.0-34.0 [facility] Comment on above: Performed By: #### 2 728709, 45377287, 5017537 ####[address] [address] MCHC (RBC) [Mass/Vol] 33.9 g/dL Normal 31.4-36.0 [facility] Comment on above: Performed By: #### 2 295986, 10845399, 8890827 ####[facility] [address] [place] [address] MCV (RBC) [Entitic vol] 85.8 fL Normal 80.0-100.0 [facility] Comment on above: Performed By: #### 2 337150, 48379314, 5318079 ####[address] [address] Platelet mean volume (Bld) [Entitic vol] 7.4 fL Normal 6.4-10.8 [facility] Comment on above: Performed By: #### 2 315636, 22328265, 7474973 ####[facility] [address] [place] [address] Platelets (Bld) [#/Vol] 193.0 E9/L Normal 150.0-500.0 [facility] Comment on above: Performed By: #### 2 599439, 54866926, 0581486 ####[facility] [address] [place] [address] RBC (Bld) [#/Vol] 4.2 E12/L Low 4.3-5.9 [facility] Comment on above: Performed By: #### 2 001471, 08246977, 2228580 ####[facility] [address] [place] [address] RBC size Nom (Bld) NORMAL Invalid Interpretation Code [facility] Comment on above: Performed By: #### 2 987111, 09169138, 4182959 ####[facility] [address] [place] [address] WBC corrected for nucl RBC Auto (Bld) [#/Vol] 5.1 E9/L Normal 4.0-11.0 [facility] Comment on above: Performed By: #### 2 220654, 49141668, 2777492 ####[facility] [address] [place] [address] CHEMISTRYOrdered By: SYSTEM SYSTEM on 01-31-2024 Anion [...] Treatmenton 01-04 Consent for Treatment [id number] #1.00TIFF [facility] HEMATOLOGYOrdered By: SYSTEM SYSTEM on 01-31-2024 Erythrocyte [...] 01-31-2024 eGFR 103 mL/min/1.73 m2 Normal >=59 [facility] Comment on above: Order Comment: Order added by Discern Expert. Performed By: #### 2 605529, 94183934, 7039238 ####[facility] [address] [place] [address] Physician Orderon 01-30-2024 Physician Order [id number] 0#1.00TIFF [facility] Discharge Note - PTon 2023 Discharge Note - PT [id number] #1.00TIFF [facility] Physician Orderon 01-29-2024 Physician Order [id number] #1.00TIFF [facility] MR KNEE LEFT WO IV CONTRASTo n [...] Questions Consultation Noteon 01-16-20 24 Consultation Note [id number] #1.00TIFF [facility] Physician Referralon 024 Physician Referral [id number] 8#1.00TIFF [facility] PT - Progress Noteson 2023 PT - Progress Notes [id number] #1.00TIFF [facility] Ambulatory Visit Summaryon 0 12-20-2023 Ambulatory Visit [...] PM EST With: Kaiser Anderson MD Where: [facility] Family Medicine Office/Clini c Noteon 12-20-2023 Family [...] for pain - Follow up PRN Ordered: [facility] External Ambulatory Referral 2. BMI 32.0-32.9,adult (Z68.32: [...] pain, # 20 tab(s), Refills(s) 0, Pharmacy: [facility] #[id number], 162, cm, 12/20/23 15:18:00 EST, Height/Length Dosing, [...] Patient Refuses Normal [facility] Comment on above: Result Comment: Elec tronically [...] numbers. This can be done either in [place] ([place] or metric measurements. Note that charts and online BMI calculators are available to help you find your BMI quickly and easily without having to do these calculations yourself. To calculate your BMI in [place] ([place] measurements: 1. Measure your weight in [...] for Disease Control and Prevention: www.cdc.gov ? [place] Heart Association: www.heart.org ? National Heart, Lung, and Blood [place]: www.nhlbi.nih.gov Summary ? Body mass index (BMI) is a number that is calculated from a person's weight and height. ? BMI may help estimate how much of a person's weight is composed of fat. BMI can help identify those who may be at higher risk for certain medical problems. ? BMI can be measured using [place] measurements or metric measurements. ? BMI charts are used to identify whether you are underweight, normal weight, overweight, or obese. This information is not intended to replace advice given to you by your health care provider. Make sure you discuss any questions you have with your health care provider. Document Revised: 07/14/2020 Document Reviewed: 05/21/2020 [employer] Patient Education ? 2022 [employer]. 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 Pain location: left knee Intensity:06/14 [...] vac - Not Given Patient Refuses [facility] Comment on above: Result Comment: Elec tronically [...] numbers. This can be done either in [place] ([place] or metric measurements. Note that charts and online BMI calculators are available to help you find your BMI quickly and easily without having to do these calculations yourself. To calculate your BMI in [place] ([place] measurements: 1. Measure your weight in [...] for Disease Control and Prevention: www.cdc.gov ? [place] Heart Association: www.heart.org ? National Heart, Lung, and Blood [place]: www.nhlbi.nih.gov Summary ? Body mass index (BMI) is a number that is calculated from a person's weight and height. ? BMI may help estimate how much of a person's weight is composed of fat. BMI can help identify those who may be at higher risk for certain medical problems. ? BMI can be measured using [place] measurements or metric measurements. ? BMI charts are used to identify whether you are underweight, normal weight, overweight, or obese. This information is not intended to replace advice given to you by your health care provider. Make sure you discuss any questions you have with your health care provider. Document Revised: 07/14/2020 Document Reviewed: 05/21/2020 [employer] Patient Education ? 2022 [place]. [facility] Physician Referralon 024 Physician Referral [id number] 7#1.00TIFF [facility] XR knee LT 4V*on 12-05-2023 XR knee LT 4V* [facility] [employer] Other XR knee LT 4V* [facility] [employer] Other XR knee LT 4V* [address] [place] [address] [employer] Other XR knee LT 4V* [place] [address] No rt [employer] Other XR knee LT 4V* XRay Report [employer] Other XR knee LT 4V* Signed [employer] Other XR knee LT 4V* Patient: Elida Grover MR#: [id number] [employer] Other XR knee LT 4V* 4 [employer] Other XR knee LT 4V* : 1995 Acct:[id number] [employer] Other XR knee LT 4V* Age/Sex: 28 / F ADM Date: 12/05/23 [employer] Other XR knee LT 4V* Loc: XDUCLY [facility]: [facility] Other XR knee LT 4V* Attending Dr: Erlinda TIDWELL [place] [employer] Other XR knee LT 4V* Copies to: YAW Carney [employer] Other XR knee LT 4V* Ordering Provider: YAW Carney [employer] Other XR knee LT 4V* Date of Service: 12/05/23 [employer] Other XR knee LT 4V* XR/XR knee LT 4V*: Left knee pain, unspecified chronicity [employer] Other XR knee LT 4V* LEFT KNEE - 4 views N [facility] [employer] Other XR knee LT 4V* COMPARISON: None Nort [employer] Other XR knee LT 4V* CLINICAL DATA: Patient's left knee was stepped on by a cow after patient fell 3 months ago. [employer] Other XR knee LT 4V* Continued pain below the patella. [employer] Other XR knee LT 4V* AP, lateral and both oblique views were obtained. There is no acute fracture or dislocation. The [employer] Other XR knee LT 4V* joint spaces are maintained. There are no prominent hypertrophy. There is a trace amount joint [employer] Other XR knee LT 4V* fluid. No soft tissue swelling is identified. [employer] Other XR knee LT 4V* XR/XR knee LT 4V* [employer] Other XR knee LT 4V* IMPRESSION: [facility] [employer] Other XR knee LT 4V* NO ACUTE BONY FINDINGS. [employer] Other XR knee LT 4V* Impression dictated by: Amy Molina M.D.12/05/2023 12:00 PM [employer] Other XR knee LT 4V* Dictation Location: [employer] Other XR knee LT 4V* Transcribed By: KELLY 12/05/23 1200 [employer] Other XR knee LT 4V* Dictated By: Amy Molina MD 12/05/23 1157 [employer] Other XR knee LT 4V* Signed By: [employer] Other XR knee LT 4V* 12/05/23 1200 [employer] Other XR knee LT 4V* [facility] [place] [address] [place] [address] XRay Report Signed Patient: Elida Grover MR#: [id number] 4 : 1995 Acct:[id number] Age/Sex: 28 / F ADM Date: 12/05/23 Loc: XDUCLY Room: Type: [facility] Attending Dr: Erlinda TIDWELL Copies to: YAW [...] Amy Molina M.D.12/05/2023 12:00 PM Dictation Location: [employer] Transcribed By: KELLY 12/05/23 1200 Dictated By: Amy Molina MD 12/05/23 1157 Signed By: 12/05/23 1200 [facility] Ambulatory Visit Summaryon 0 11-06-2023 Ambulatory Visit Summary ELIDA GROVER :1995 Visit Date:11/06/2023 Ambulatory Visit Instructions Your Diagnosis Acute URI BMI 32.0-32.9,adult Class 1 obesity due to excess calories in adult Nonsmoker Your Care Team Attending Physician - Kaisre Anderson MD Primary Care Physician - Kaiser [...] you for choosing us for your care. [facility] Family Medicine Office/Clini c Noteon 11-06-2023 Family [...] day(s), # 21 tab(s), Refills(s) 0, Pharmacy: [facility] #[id number], 162, cm, 11/06/23 13:58:00 EST, Height/Length Dosing, 86.5, kg, 11/06/23 13:58:00 EST, Weight Dosing 2. Dysfunction of right eustachian tube (H69.91: Unspecified Eustachian tube disorder, right ear) - As above. Ordered: methylPREDNISolone, = 1 packet(s), Oral, As Directed, as directed on package labeling, X 6 day(s), # 21 tab(s), Refills(s) 0, Pharmacy: [facility] #[id number], 162, cm, 11/06/23 13:58:00 EST, Height/Length Dosing, 86.5, kg, 11/06/23 13:58:00 EST, Weight Dosing 3. BMI 32.0-32.9,adult (Z68.32: Body mass index [BMI] 32.0-32.9, adult) - BMI education given Ordered: methylPREDNISolone, = 1 packet(s), Oral, As Directed, as directed on package labeling, X 6 day(s), # 21 tab(s), Refills(s) 0, Pharmacy: [facility] #[id number], 162, cm, 11/06/23 13:58:00 EST, Height/Length Dosing, 86.5, kg, 11/06/23 13:58:00 EST, Weight Dosing 4. Class 1 obesity due to excess calories in adult (E66.09: Other obesity due to excess calories) - Diet and exercise advised Ordered: methylPREDNISolone, = 1 packet(s), Oral, As Directed, as directed on package labeling, X 6 day(s), # 21 tab(s), Refills(s) 0, Pharmacy: [facility] #[id number], 162, cm, 11/06/23 13:58:00 EST, Height/Length Dosing, 86.5, kg, 11/06/23 13:58:00 EST, Weight Dosing 5. Nonsmoker (Z78.9: Other specified health status) - Please continue to not smoke Ordered: methylPREDNISolone, = 1 packet(s), Oral, As Directed, as directed on package labeling, X 6 day(s), # 21 tab(s), Refills(s) 0, Pharmacy: [facility] #[id number], 162, cm, 11/06/23 13:58:00 EST, Height/Length Dosing, [...] vac - Not Given Patient Refuses [facility] Comment on above: Result Comment: Elec tronically [...] numbers. This can be done either in [place] (U.S[place] or metric measurements. Note that charts and online BMI calculators are available to help you find your BMI quickly and easily without having to do these calculations yourself. To calculate your BMI in [place] ([place] measurements: 1. Measure your weight in [...] for Disease Control and Prevention: www.cdc.gov ? [place] Heart Association: www.heart.org ? National Heart, Lung, and Blood [place]: www.nhlbi.nih.gov Summary ? Body mass index (BMI) is a number that is calculated from a person's weight and height. ? BMI may help estimate how much of a person's weight is composed of fat. BMI can help identify those who may be at higher risk for certain medical problems. ? BMI can be measured using [place] measurements or metric measurements. ? BMI charts are used to identify whether you are underweight, normal weight, overweight, or obese. This information is not intended to replace advice given to you by your health care provider. Make sure you discuss any questions you have with your health care provider. Document Revised: 07/14/2020 Document Reviewed: 05/21/2020 [employer] Patient Education ? 2022 [employer] [facility] Family Medicine Office/Clini c Noteon 04-05-2023 Family [...] vac - Not Given Patient Refuses [facility] Comment on above: Result Comment: Elec tronically Signed By: Justin CABRALES, Kaiser Pfeiffer.br\Date and Time Signed: 04/05/23 10:38 EDT ANTIBODY ID PANELon 01-09-20 ANTIBODY ID PANEL Antibody ID Non-specific [facility] Comment on above: Performed By: #### A BID #### [facility] [address] [place] [address] Dr. Ilia Carrillo CBC AUTO DIFFon 01-03-2023 BASO # 0.0 103/ul Normal 0.0-0.1 [facility] Comment on above: Performed By: #### C BC #### [facility] [address] [place] [address] Dr. Ilia Carrillo Basophils/100 WBC (Bld) 0.2 % Normal 0.2-2.0 [facility] Comment on above: Performed By: #### C BC #### [facility] [address] [place] [address] Dr. Ilia Carrillo EO # 0.1 103/ul Normal 0.0-0.7 [facility] Comment on above: Performed By: #### C BC #### [facility] [address] [place] [address] Dr. Ilia Carrillo Eosinophils/100 WBC (Bld) 0.5 % Critically low 0.9-7.0 [facility] Comment on above: Performed By: #### C BC #### [facility] [address] [place] [address] Dr. Ilia Carrillo Erythrocyte distribution width (RBC) [Ratio] 13.7 % Normal 11.0-15.0 [facility] Comment on above: Performed By: #### C BC #### [facility] [address] [place] [address] Dr. Ilia Carrillo Hematocrit (Bld) [Volume fraction] 34.8 % Critically low 36.0-48.0 [facility] Comment on above: Performed By: #### C BC #### [facility] [address] [place] [address] Dr. Ilia Carrillo Hemoglobin (Bld) [Mass/Vol] 11.7 g/dL Critically low 12.0-16.0 [facility] Comment on above: Performed By: #### C BC #### [facility] [address] [place] [address] Dr. Ilia Carrillo IG # 0.06 10e3/ul Critically high 0.00-0.03 [facility] Comment on above: Performed By: #### C BC #### [facility] [address] [place] [address] Dr. Ilia Carrillo IG % 0.5 % Normal 0.0-0.5 [facility] Comment on above: Performed By: #### C BC #### [facility] [address] [place] [address] Dr. Ilia Carrillo LYMPH # 2.0 103/ul Normal 1.2-3.8 [facility] Comment on above: Performed By: #### C BC #### [facility] [address] [place] [address] Dr. Ilia Carrillo Lymphocytes/100 WBC (Bld) 15.2 % Critically low 20.5-60.0 [facility] Comment on above: Performed By: #### C BC #### [facility] [address] [place] [address] Dr. Ilia Carrillo MANUAL DIFF REQ NO Normal [facility] Comment on above: Performed By: #### C BC #### [facility] [address] [place] [address] Dr. Ilia Carrillo MCH (RBC) [Entitic mass] 30.9 pg Normal 26.7-34.0 [facility] Comment on above: Performed By: #### C BC #### [facility] [address] [place] [address] Dr. Ilia Carrillo MCHC (RBC) [Mass/Vol] 33.6 g/dL Normal 29.9-35.2 [facility] Comment on above: Performed By: #### C BC #### [facility] [address] [address] [address] Ilia Carrillo MCV (RBC) [Entitic vol] 91.8 fL Normal 81.0-99.0 [facility] Comment on above: Performed By: #### C BC #### [facility] [address] [address] [address] Ilia Carrillo MONO # 0.9 103/ul Critically high 0.3-0.8 [facility] Comment on above: Performed By: #### C BC #### [facility] [address] [address] [address] Ilia Carrillo Monocytes/100 WBC (Bld) 6.8 % Normal 1.7-12.0 [facility] Comment on above: Performed By: #### C BC #### [facility] [address] [address] [address] Ilia Carrillo NEUT # 10.1 103/ul Critically high 1.4-6.5 [facility] Comment on above: Performed By: #### C BC #### [facility] [address] [address] [address] Iila Carrillo Neutrophils/100 WBC (Bld) 76.8 % Critically high 43.0-75.0 [facility] Comment on above: Performed By: #### C BC #### [facility] [address] [address] [address] Ilia Carrillo Platelet mean volume (Bld) [Entitic vol] 9.7 fL Normal 9.5-13.5 [facility] Comment on above: Performed By: #### C BC #### [facility] [address] [address] [address] Ilia Carrillo PLT 178 103/ul Normal 150-450 [facility] Comment on above: Performed By: #### C BC #### [facility] [address] [address] [address] Ilia Carrillo RBC 3.79 106/ul Critically low 4.20-5.[address] [facility] Comment on above: Performed By: #### C BC #### [facility] [address] [address] [address] Ilia Carrillo WBC 13.2 103/ul Critically high 4.0-11.0 [facility] Comment on above: Performed By: #### C BC #### [facility] [address] [address] [address] Ilia Carrillo CBC AUTO DIFFon 01-02-2023 BASO # 0.0 103/ul Normal 0.0-0.1 [facility] Comment on above: Performed By: #### C BC #### [facility] [address] [place] [address] Dr. Ilia Carrillo Basophils/100 WBC (Bld) 0.2 % Normal 0.2-2.0 [facility] Comment on above: Performed By: #### C BC #### [facility] [address] [place] [address] Dr. Ilia Carrillo EO # 0.1 103/ul Normal 0.0-0.7 [facility] Comment on above: Performed By: #### C BC #### [facility] [address] [place] [address] Dr. Ilia Carrillo Eosinophils/100 WBC (Bld) 0.7 % Critically low 0.9-7.0 [facility] Comment on above: Performed By: #### C BC #### [facility] [address] [place] [address] Dr. Ilia Carrillo Erythrocyte distribution width (RBC) [Ratio] 13.7 % Normal 11.0-15.0 [facility] Comment on above: Performed By: #### C BC #### [facility] [address] [place] [address] Dr. Ilia Carrillo Hematocrit (Bld) [Volume fraction] 38.9 % Normal 36.0-48.0 [facility] Comment on above: Performed By: #### C BC #### [facility] [address] [place] [address] Dr. Ilia Carrillo Hemoglobin (Bld) [Mass/Vol] 13.4 g/dL Normal 12.0-16.0 [facility] Comment on above: Performed By: #### C BC #### [facility] [address] [address] [address] Ilia Carrillo IG # 0.05 10e3/ul Critically high 0.00-0.03 [facility] Comment on above: Performed By: #### C BC #### [facility] [address] [place] [address] Dr. Ilia Carrillo IG % 0.4 % Normal 0.0-0.5 [facility] Comment on above: Performed By: #### C BC #### [facility] [address] [place] [address] Dr. Ilia Carrillo LYMPH # 1.6 103/ul Normal 1.2-3.8 [facility] Comment on above: Performed By: #### C BC #### [facility] [address] [place] [address] Dr. Ilia Carrillo Lymphocytes/100 WBC (Bld) 14.2 % Critically low 20.5-60.0 [facility] Comment on above: Performed By: #### C BC #### [facility] [address] [place] [address] Dr. Ilia Carrillo MANUAL DIFF REQ NO Normal [facility] Comment on above: Performed By: #### C BC #### [facility] [address] [place] [address] Dr. Ilia Carrillo MCH (RBC) [Entitic mass] 30.8 pg Normal 26.7-34.0 [facility] Comment on above: Performed By: #### C BC #### [facility] [address] [place] [address] Dr. Ilia Carrillo MCHC (RBC) [Mass/Vol] 34.4 g/dL Normal 29.9-35.2 [facility] Comment on above: Performed By: #### C BC #### [facility] [address] [place] [address] Dr. Ilia Carrillo MCV (RBC) [Entitic vol] 89.4 fL Normal 81.0-99.0 [facility] Comment on above: Performed By: #### C BC #### [facility] [address] [address] [address] Ilia Carrillo MONO # 0.6 103/ul Normal 0.3-0.8 [facility] Comment on above: Performed By: #### C BC #### [facility] [address] [address] [address] Ilia Carrillo Monocytes/100 WBC (Bld) 5.5 % Normal 1.7-12.0 [facility] Comment on above: Performed By: #### C BC #### [facility] [address] [address] [address] Ilia Carrillo NEUT # 8.9 103/ul Critically high 1.4-6.[address] [facility] Comment on above: Performed By: #### C BC #### [facility] [address] [place] [address] Dr. Ilia Carrillo Neutrophils/100 WBC (Bld) 79.0 % Critically high 43.0-75.0 [facility] Comment on above: Performed By: #### C BC #### [facility] [address] [place] [address] Dr. Ilia Carrillo Platelet mean volume (Bld) [Entitic vol] 10.7 fL Normal 9.5-13.5 [facility] Comment on above: Performed By: #### C BC #### [facility] [address] [place] [address] Dr. Ilia Carrillo PLT 210 103/ul Normal 150-450 [facility] Comment on above: Performed By: #### C BC #### [facility] [address] [place] [address] Dr. Ilia Carrillo RBC 4.35 106/ul Normal 4.20-5.40 [facility] Comment on above: Performed By: #### C BC #### [facility] [address] [place] [address] Dr. Ilia Carrillo WBC 11.3 103/ul Critically high 4.0-11.0 [facility] Comment on above: Performed By: #### C BC #### [facility] [address] [place], [place] [id number] Dr. Ilia Carrillo DRUG SCREEN RAPID (URINE)on 01-02-2023 AMP Negative Normal NEGATIVE [facility] Comment on above: Performed By: #### C BC #### [facility] [address] [place] [address] Dr. Ilia Carrillo BAR Negative Normal NEGATIVE [facility] Comment on above: Performed By: #### C BC #### [facility] [address] [place] [address] Dr. Ilia Carrillo BUP Negative Normal NEGATIVE [facility] Comment on above: Performed By: #### C BC #### [facility] [address] [place] [address] Dr. Ilia Carrillo BZO Negative Normal NEGATIVE [facility] Comment on above: Performed By: #### C BC #### [facility] [address] [place] [address] Dr. Ilia Carrillo MARY ANNE Negative Normal NEGATIVE [facility] Comment on above: Performed By: #### C BC #### [facility] [address] [place] [address] Dr. Ilia Carrillo CUT-OFFS SEE BELOW Normal [facility] Comment on above: Result Comment: AMP [...] ng/mL Performed By: #### C BC #### [facility] [address] [place] [address] Dr. Ilia Carrillo DRUG CUT HEADER DRUG CLASS TEST SYSTEM CUT-OFF CONCENTRATIONS ARE FOLLOWS: Normal [facility] Comment on above: Performed By: #### C BC #### [facility] [address] [place] [address] Dr. Ilia Carrillo mAMP Negative Normal NEGATIVE [facility] Comment on above: Performed By: #### C BC #### [facility] [address] [place] [address] Dr. Ilia Carrillo MTD Negative Normal NEGATIVE [facility] Comment on above: Performed By: #### C BC #### [facility] [address] [place] [address] Dr. Ilia Carrillo OPI Negative Normal NEGATIVE [facility] Comment on above: Performed By: #### C BC #### [facility] [address] [place] [address] Dr. Ilia Carrillo OXY Negative Normal NEGATIVE [facility] Comment on above: Performed By: #### C BC #### [facility] [address] [place] [address] Dr. Ilia Carrillo PCP Negative Normal NEGATIVE [facility] Comment on above: Performed By: #### C BC #### [facility] [address] [place] [address] Dr. Ilia Carrillo PPX Negative Normal NEGATIVE [facility] Comment on above: Performed By: #### C BC #### [facility] [address] [place] [address] Dr. Ilia Carrillo TCA Negative Normal NEGATIVE [facility] Comment on above: Performed By: #### C BC #### [facility] [address] [place] [address] Dr. Ilia Carrillo THC Negative Normal NEGATIVE [facility] Comment on above: Performed By: #### C BC #### [facility] [address] [place] [address] Dr. Ilia Carrillo TYPE AND SCREENon 01-02-2023 TYPE AND SCREEN Negative Normal [facility] Comment on above: Performed By: #### T NS #### [facility] [address] [place] [address] Dr. Ilia Carrillo UA (CLEAN/CATCH) TAR DISTILLATION SUPERVISOR/MICRO I F IND.on 01-02-2023 Bilirubin Ql (U) Negative Normal NEGATIVE [facility] Comment on above: Performed By: #### U ACSIND #### [facility] [address] [address] [address] Ilia Carrillo Clarity (U) CLEAR Normal CLEAR [facility] Comment on above: Performed By: #### U ACSIND #### [facility] [address] [place] [address] Dr. Ilia Carrillo Color (U) LT. YELLOW Normal YELLOW [facility] Comment on above: Performed By: #### U ACSIND #### [facility] [address] [address] [address] Ilia Carrillo Glucose Ql (U) Negative Normal NEGATIVE [facility] Comment on above: Performed By: #### U ACSIND #### [facility] [address] [place] [address] Dr. Ilia Carrillo Hemoglobin Ql (U) Negative Normal NEGATIVE [facility] Comment on above: Performed By: #### U ACSIND #### [facility] [address] [place] [address] Dr. Ilia Carrillo Ketones Ql (U) Negative Normal NEGATIVE [facility] Comment on above: Performed By: #### U ACSIND #### [facility] [address] [place] [address] Dr. Ilia Carrillo LEUKOCYTES Negative Normal NEGATIVE [facility] Comment on above: Performed By: #### U ACSIND #### [facility] [address] [place] [address] Dr. Ilia Carrillo Nitrite Ql (U) Negative Normal NEGATIVE [facility] Comment on above: Performed By: #### U ACSIND #### [facility] [address] [place] [address] Dr. Ilia Carrillo pH (U) 6.0 [pH] Normal 5-9 [facility] Comment on above: Performed By: #### U ACSIND #### [facility] [address] [place] [address] Dr. Ilia Carrillo SPEC GRAVITY 1.025 Normal 1.005-<=1.02 5 [facility] Comment on above: Performed By: #### U ACSIND #### [facility] [address] [place] [address] Dr. Ilia Carrillo UA PROTEIN Negative Normal NEGATIVE/ TRACE [facility] Comment on above: Performed By: #### U ACSIND #### [facility] [address] [address] [address] Ilia Carrillo UR MICRO IND NOT INDICATED Normal [facility] Comment on above: Performed By: #### U ACSIND #### [facility] [address] [address] [address] Ilia Carrillo Urobilinogen Qn (U) 0.2 {Manfred'U}/dL Normal 0.2 - 1. 0 [facility] Comment on above: Performed By: #### U ACSIND #### [facility] [address] [place] [address] Dr. Ilia Carrillo GROUP B STREP CULTUREon 12-06 S. agalactiae Ag Ql (Unsp spec) Culture Observations: NEGATIVE FOR GROUP B STREPTOCOCCUS. Normal [facility] Comment on above: Performed By: #### U ACSIND #### [facility] [address] [place] [address] Dr. Ilia Carrillo US PREG GROWTHon 12-18-2022 [...] CHASE TRAN Date: 2022-12-18 07:18 Normal [facility] US PREG GROWTHon 11-10-2022 US PREG GROWTH EXAMINATION: US PREG GROWTH HISTORY: Large for gestation age fetus COMPARISON: Ultrasound anatomy 08/25/2022 FINDINGS: Heart Rate: Present per flex o writer operator; no rate recorded. Number: 1.0 Position: Breech [...] ECTOR MINOR Date: 2022-11-10 08:42 Normal [facility] TYPE AND SCREENon 10-31-2022 TYPE AND SCREEN Negative Normal [facility] Comment on above: Performed By: #### T NS #### [facility] [address] [address] [address] Ilia Carrillo GTT 3 HR PREGon 10-25-2022 Glucose [Mass/Vol] 81 mg/dL Normal 74-106 [facility] Comment on above: Performed By: #### U ACSIND #### [facility] [address] [address] [address] Ilia Carrillo Glucose [Mass/Vol] 166 mg/dL Normal [facility] Comment on above: Performed By: #### U ACSIND #### [facility] [address] [address] [address] Ilia Carrillo Glucose [Mass/Vol] 123 mg/dL Normal [facility] Comment on above: Performed By: #### U ACSIND #### [facility] [address] [address] [address] Ilia Carrillo Glucose [Mass/Vol] 103 mg/dL Normal [facility] Comment on above: Performed By: #### U ACSIND #### [facility] [address] [address] [address] Ilia Carrillo TYPE AND SCREENon 10-25-2022 TYPE AND SCREEN Negative Normal [facility] Comment on above: Performed By: #### T NS #### [facility] [address] [address] [address] Ilia Carrillo CBC AUTO DIFFon 10-21-2022 BASO # 0.0 103/ul Normal 0.0-0.1 [facility] Comment on above: Performed By: #### U ACSIND #### [facility] [address] [address] [address] Iila Carrillo Basophils/100 WBC (Bld) 0.2 % Normal 0.2-2.0 [facility] Comment on above: Performed By: #### U ACSIND #### [facility] [address] [address] [address] Ilia Carrillo EO # 0.0 103/ul Normal 0.0-0.7 [facility] Comment on above: Performed By: #### U ACSIND #### [facility] [address] [address] [address] Ilia Carrillo Eosinophils/100 WBC (Bld) 0.5 % Critically low 0.9-7.0 [facility] Comment on above: Performed By: #### U ACSIND #### [facility] [address] [address] [address] Ilia Carrillo Erythrocyte distribution width (RBC) [Ratio] 12.6 % Normal 11.0-15.0 [facility] Comment on above: Performed By: #### U ACSIND #### [facility] [address] [place] [address] Dr. Ilia Carrillo Hematocrit (Bld) [Volume fraction] 36.0 % Normal 36.0-48.0 [facility] Comment on above: Performed By: #### U ACSIND #### [facility] [address] [address] [address] Ilia Carrillo Hemoglobin (Bld) [Mass/Vol] 12.3 g/dL Normal 12.0-16.0 [facility] Comment on above: Performed By: #### U ACSIND #### [facility] [address] [address] [address] Ilia Carrillo IG # 0.04 10e3/ul Critically high 0.00-0.03 [facility] Comment on above: Performed By: #### U ACSIND #### [facility] [address] [address] [address] Ilia Carrillo IG % 0.5 % Normal 0.0-0.5 [facility] Comment on above: Performed By: #### U ACSIND #### [facility] [address] [address] [address] Ilia Carrillo LYMPH # 1.3 103/ul Normal 1.2-3.8 [facility] Comment on above: Performed By: #### U ACSIND #### [facility] [address] [address] [address] Ilia Carrillo Lymphocytes/100 WBC (Bld) 15.5 % Critically low 20.5-60.0 [facility] Comment on above: Performed By: #### U ACSIND #### [facility] [address] [place] [address] Dr. Ilia Carrillo MANUAL DIFF REQ NO Normal [facility] Comment on above: Performed By: #### U ACSIND #### [facility] [address] [address] [address] Ilia Carrillo MCH (RBC) [Entitic mass] 30.4 pg Normal 26.7-34.0 [facility] Comment on above: Performed By: #### U ACSIND #### [facility] [address] [address] [address] Ilia Carrillo MCHC (RBC) [Mass/Vol] 34.2 g/dL Normal 29.9-35.2 [facility] Comment on above: Performed By: #### U ACSIND #### [facility] [address] [address] [address] Ilia Carrillo MCV (RBC) [Entitic vol] 89.1 fL Normal 81.0-99.0 [facility] Comment on above: Performed By: #### U ACSIND #### [facility] [address] [address] [address] Ilia Carrillo MONO # 0.3 103/ul Normal 0.3-0.8 [facility] Comment on above: Performed By: #### U ACSIND #### [facility] [address] [address] [address] Ilia Carrillo Monocytes/100 WBC (Bld) 3.8 % Normal 1.7-12.0 [facility] Comment on above: Performed By: #### U ACSIND #### [facility] [address] [address] [address] Ilia Carrillo NEUT # 6.5 103/ul Normal 1.4-6.5 [facility] Comment on above: Performed By: #### U ACSIND #### [facility] [address] [address] [address] Ilia Carrillo Neutrophils/100 WBC (Bld) 79.5 % Critically high 43.0-75.0 [facility] Comment on above: Performed By: #### U ACSIND #### [facility] [address] [address] [address] Ilia Carrillo Platelet mean volume (Bld) [Entitic vol] 9.2 fL Critically low 9.5-13.5 [facility] Comment on above: Performed By: #### U ACSIND #### [facility] [address] [address] [address] Ilia Carrillo PLT 212 103/ul Normal 150-450 [facility] Comment on above: Performed By: #### U ACSIND #### [facility] [address] [address] [address] Ilia Carrillo RBC 4.04 106/ul Critically low 4.20-5.[address] [facility] Comment on above: Performed By: #### U ACSIND #### [facility] [address] [address] [address] Ilia Carrillo WBC 8.2 103/ul Normal 4.0-11.0 [facility] Comment on above: Performed By: #### U ACSIND #### [facility] [address] [place] [address] Dr. Ilia Carrillo GLUCOSE - 1HRon 10-21-2022 Glucose [Mass/Vol] 147 mg/dL Critically high 74-106 [facility] Comment on above: Performed By: #### P REGQNT #### [facility] [address] [place] [address] Dr. Ilia Carrillo PAP ACOG PANEL 2: 21 to 29on 10-19-2022 . . Normal [facility] Comment on above: Performed By: #### P REGQNT #### [facility] [address] [place] [address] Dr. Ilia Carrillo Age Gdln ACOG Testing - [facility] Comment on above: Performed By: #### P REGQNT #### [facility] [address] [place] [address] Dr. Ilia Carrillo DIAGNOSIS: Comment [facility] Comment on above: Result Comment: NEGA TIVE FOR INTRAEPITHELIAL LESION OR MALIGNANCY. THIS SPECIMEN WAS RESCREENED PART OF OUR [employer] PROGRAM. Performed By: #### P REGQNT #### [facility] [address] [place] [address] Dr. Ilia Carrillo Methodology: Comment Normal [facility] Comment on above: Result Comment: This liquid based ThinPrep(R) pap test was screened with the use of an image guided system. Performed By: #### P REGQNT #### [facility] [address] [place] [address] Dr. Ilia Carrillo Note: Comment Normal [facility] Comment on above: Result Comment: The Pap smear is a screening test designed to aid in the detection of premalignant and malignant conditions of the uterine cervix. It is not a diagnostic procedure and should not be used as the sole means of detecting cervical cancer. Both false-positive and false-negative reports do occur. . Performed By: #### P REGQNT #### [facility] [address] [address] [address] Ilia Carrillo Performed by: Comment Normal [facility] Comment on above: Result Comment: Janeth Reynolds, Guard Entrance Registrar (ASCP) Performed By: #### P REGQNT #### [facility] [address] [place] [address] Dr. Ilia Carrillo QC reviewed by: Comment Normal [facility] Comment on above: Result Comment: Anna Russell, Supervisory Guard Entrance Registrar (ASCP) Performed By: #### P REGQNT #### [facility] [address] [address] [address] Ilia Carrillo Reflex Criteria: Comment Normal [facility] Comment on above: Result Comment: The HPV DNA reflex criteria were not met with this specimen result therefore, no HPV testing was performed. . Performed By: #### P REGQNT #### [facility] [address] [place] [address] Dr. Ilia Carrillo Specimen adequacy: Comment Normal [facility] Comment on above: Result Comment: Sati sfactory for evaluation. No endocervical component is identified. Performed By: #### P REGQNT #### [facility] [address] [place] [address] Dr. Ilia Carrillo CHLAMYDIA/GONOCOCCUS ABAD (SW AB/URINE/PAPon 10-13-2022 Chlamydia trachomatis, ABAD Negative Normal Negative [facility] Comment on above: Performed By: #### P REGQNT #### [facility] [address] [place] [address] Dr. Ilia Carrillo Neisseria gonorrhoeae, ABAD Negative Normal Negative [facility] Comment on above: Performed By: #### P REGQNT #### [facility] [address] [place] [address] Dr. Ilia Carrillo VAGINITIS/VAGINOSIS DNA PROB Mitesh 10-12-2022 Floresita species Negative Normal Negative [facility] Comment on above: Performed By: #### C BC #### [facility] [address] [place] [address] Dr. Ilia Carrillo Gardnerella vaginalis Negative Normal Negative [facility] Comment on above: Performed By: #### C BC #### [facility] [address] [address] [address] Ilia Carrillo Trichomonas vaginalis Negative Normal Negative [facility] Comment on above: Performed By: #### C BC #### [facility] [address] [address] [address] Ilia Carrillo AFP MATERNAL FOR SPINA BIFID Aon 09-05-2022 AFP MoM 1.50 Normal [facility] Comment on above: Performed By: #### C BC #### [facility] [address] [address] [address] Ilia Carrillo AFP Value 85.2 ng/mL Normal [facility] Comment on above: Performed By: #### C BC #### [facility] [address] [address] [address] Ilia Carrillo AFP, Serum for Spina Bifida Report Normal [facility] Comment on above: Performed By: #### C BC #### [facility] [address] [address] [address] Ilia Carrillo Comment Comment Normal [facility] Comment on above: Result Comment: Richard Loomis, Ph.D., [facility] Director . References: Available Upon Request. . Multiples Of Median Cutoffs For AFP Elevations Munguia 2.5 Black 2.8 IDD 2.0 Twins 4.5 Abbreviation Definitions IDD - Insulin Dep Diabetes OSBR - Open Spina Bifida Risk . For further inquiries contact [facility] at [phone]. . This test was developed and its performance characteristics determined by [employer] [facility] It has not been cleared or approved by the Food and Drug Administration. Performed By: #### C BC #### [facility] [address] [address] [address] Ilia Steinberg Age Collection Date 20.7 weeks Normal [facility] Comment on above: Performed By: #### C BC #### [facility] [address] [address] [address] Ilia Carrillo Gestat, Age Based on Ultrasound Normal [facility] Comment on above: Result Comment: 06:3 on 05/22/2022 Recalculations are not recommended when gestational dating by LMP and ultrasound are within 10 days. Performed By: #### C BC #### [facility] [address] [place] [address] Dr. Ilia Carrillo Insulin Dep Diabetes No Normal [facility] Comment on above: Performed By: #### C BC #### [facility] [address] [place] [address] Dr. Ilia Carrillo Interpretation Comment Normal [facility] Comment on above: Result Comment: Inte [...] Customer Services to discuss available options. The [employer] recommends amniocentesis be offered to women age 35 and older. Performed By: #### C BC #### [facility] [address] [place] [address] Dr. Ilia Carrillo [age] Normal [facility] Comment on above: Performed By: #### C BC #### [facility] [address] [place] [address] Dr. Ilia Carrillo Multiple Gestation No Normal [facility] Comment on above: Performed By: #### C BC #### [facility] [address] [place] [address] Dr. Ilia Carrillo OSBR Risk 1 [place] [facility] [facility] Comment on above: Performed By: #### C BC #### [facility] [address] [place] [address] Dr. Ilia Carrillo PDF . [facility] Comment on above: Performed By: #### C BC #### [facility] [address] [place] [address] Dr. Ilia Carrillo Race [facility] Comment on above: Performed By: #### C BC #### [facility] [address], [place] [address] Dr. Ilia Carrillo Test Results: Negative Normal [facility] Comment on above: Performed By: #### C BC #### [facility] [address], [place] [address] Dr. Ilia Carrillo US PREG ANATOMY SINGLEon [...] CHASE TRAN Date: 2022-08-27 16:15 Normal [facility] HEP B SURFACE ANTIGEN SCREEN on 07-04-2022 HBsAg Screen Negative Normal Negative [facility] Comment on above: Performed By: #### C BC #### [facility] [address] [address] [address] Ilia Carrillo HEPATITIS C VIRUS AB W/ REFL EX QUANTon 07-04-2022 HCV AB <0.1 Normal 0.0-0.9 [facility] Comment on above: Performed By: #### C BC #### [facility] [address] [place] [address] Dr. Ilia Carrillo Interpretation: Comment Normal [facility] Comment on above: Result Comment: Nega tive Not infected with HCV, unless recent infection is suspected or other evidence exists to indicate HCV infection. Performed By: #### C BC #### [facility] [address] [place] [address] Dr. Ilia Carrillo HIV 1 AND 2 WITH REFLEXon HIV Screen 4th Generation wRfx Non-Reactive Normal Non Reactive [facility] Comment on above: Result Comment: HIV Negative HIV-1/HIV-2 antibodies and HIV-1 p24 antigen were NOT detected. There is no laboratory evidence of HIV infection. Performed By: #### C BC #### [facility] [address] [place] [address] Dr. Ilia Carrillo RPR QUANTon 07-04-2022 Rapid Plasma Reagin, Quant Non-Reactive Normal NonRea<1:1 [facility] Comment on above: Result Comment: John dinh Note: This test does not meet current guidelines for screening and diagnosis of syphilis. This test is intended for following treatment response in patients being treated for syphilis infection. To screen for syphilis infection, a reflex cascade that includes both RPR and a treponema-specific assay should be utilized, such as Treponema pallidum (Syphilis) Screening [place] (759335) or Rapid Plasma Reagin (RPR) Test With Reflex to Quantitative RPR and Confirmatory Treponema pallidum Antibodies ([id number]). Performed By: #### C BC #### [facility] [address] [place] [address] Dr. Ilia Carrillo RUBELLA AB IGGon 07-04-2022 Rubella Antibodies, IgG 3.07 index Normal Immune >0.99 [facility] Comment on above: Result Comment: Non- immune <0.90 Equivocal 0.90 - 0.99 Immune >0.99 Performed By: #### C BC #### [facility] [address] [place] [address] Dr. Ilia Carrillo CBC AUTO DIFFon 07-03-2022 BASO # 0.0 103/ul Normal 0.0-0.1 [facility] Comment on above: Performed By: #### C BC #### [facility] [address] [place] [address] Dr. Ilia Carrillo Basophils/100 WBC (Bld) 0.2 % Normal 0.2-2.0 [facility] Comment on above: Performed By: #### C BC #### [facility] [address] [place] [address] Dr. Ilia Carrillo EO # 0.1 103/ul Normal 0.0-0.7 [facility] Comment on above: Performed By: #### C BC #### [facility] [address] [place] [address] Dr. Ilia Carrillo Eosinophils/100 WBC (Bld) 1.1 % Normal 0.9-7.0 [facility] Comment on above: Performed By: #### C BC #### [facility] [address] [place] [address] Dr. Ilia Carrillo Erythrocyte distribution width (RBC) [Ratio] 11.4 % Normal 11.0-15.0 [facility] Comment on above: Performed By: #### C BC #### [facility] [address] [place] [address] Dr. Ilia Carrillo Hematocrit (Bld) [Volume fraction] 35.2 % Critically low 36.0-48.0 [facility] Comment on above: Performed By: #### C BC #### [facility] [address] [place] [address] Dr. Ilia Carrillo Hemoglobin (Bld) [Mass/Vol] 12.4 g/dL Normal 12.0-16.0 [facility] Comment on above: Performed By: #### C BC #### [facility] [address] [place] [address] Dr. Ilia Carrillo IG # 0.03 10e3/ul Normal 0.00-0.03 [facility] Comment on above: Performed By: #### C BC #### [facility] [address] [address] [address] Ilia Carrillo IG % 0.3 % Normal 0.0-0.5 [facility] Comment on above: Performed By: #### C BC #### [facility] [address] [place] [address] Dr. Ilia Carrillo LYMPH # 2.1 103/ul Normal 1.2-3.8 [facility] Comment on above: Performed By: #### C BC #### [facility] [address] [place] [address] Dr. Ilia Carrillo Lymphocytes/100 WBC (Bld) 22.6 % Normal 20.5-60.0 [facility] Comment on above: Performed By: #### C BC #### [facility] [address] [place] [address] Dr. Ilia Carrillo MANUAL DIFF REQ NO Normal [facility] Comment on above: Performed By: #### C BC #### [facility] [address] [place] [address] Dr. Ilia Carrillo MCH (RBC) [Entitic mass] 30.6 pg Normal 26.7-34.0 [facility] Comment on above: Performed By: #### C BC #### [facility] [address] [place] [address] Dr. Ilia Carrillo MCHC (RBC) [Mass/Vol] 35.2 g/dL Normal 29.9-35.2 [facility] Comment on above: Performed By: #### C BC #### [facility] [address] [place] [address] Dr. Ilia Carrillo MCV (RBC) [Entitic vol] 86.9 fL Normal 81.0-99.0 [facility] Comment on above: Performed By: #### C BC #### [facility] [address] [place] [address] Dr. Ilia Carrillo MONO # 0.4 103/ul Normal 0.3-0.8 [facility] Comment on above: Performed By: #### C BC #### [facility] [address] [place] [address] Dr. Ilia Carrillo Monocytes/100 WBC (Bld) 4.8 % Normal 1.7-12.0 [facility] Comment on above: Performed By: #### C BC #### [facility] [address] [place] [address] Dr. Ilia Carrillo NEUT # 6.5 103/ul Normal 1.4-6.5 [facility] Comment on above: Performed By: #### C BC #### [facility] [address] [place] [address] Dr. Ilia Carrillo Neutrophils/100 WBC (Bld) 71.0 % Normal 43.0-75.0 [facility] Comment on above: Performed By: #### C BC #### [facility] [address] [place] [address] Dr. Ilia Carrillo Platelet mean volume (Bld) [Entitic vol] 8.7 fL Critically low 9.5-13.5 [facility] Comment on above: Performed By: #### C BC #### [facility] [address] [place] [address] Dr. Ilia Carrillo PLT 260 103/ul Normal 150-450 [facility] Comment on above: Performed By: #### C BC #### [facility] [address] [place] [address] Dr. Ilia Carrillo RBC 4.05 106/ul Critically low 4.20-5.[address] [facility] Comment on above: Performed By: #### C BC #### [facility] [address] [place] [address] Dr. Ilia Carrillo WBC 9.2 103/ul Normal 4.0-11.0 [facility] Comment on above: Performed By: #### C BC #### [facility] [address] [place], [place] [id number] Dr. Ilia Carrillo CULTURE URINEon 07-03-2022 CULTURE URINE Culture Observations: MODERATE GROWTH OF MIXED GENITAL BETHANIE. NO POTENTIAL PATHOGENS SEEN. Normal [facility] Comment on above: Performed By: #### U RCX #### [facility] [address] [address] [address] Ilia Carrillo GLYCOHEMOGLOBIN A1Con 2021 ADA RECOMMENDATION SEE BELOW Normal [facility] Comment on above: Result Comment: ADA RECOMMENDED LIMIT 4.0 - 6.0 ADA THERAPEUTIC TARGET < 7.0 ACTION SUGGESTED > 7.0 Performed By: #### P REGQNT #### [facility] [address] [address] [address] Ilia Carrillo Glucose [Mass/Vol] 97 mg/dL Normal [facility] Comment on above: Performed By: #### P REGQNT #### [facility] [address] [address] [address] Ilia Carrillo HbA1c (Bld) [Mass fraction] 5.0 % Normal 4.5-6.2 [facility] Comment on above: Performed By: #### P REGQNT #### [facility] [address] [place] [address] Dr. Ilia Carrillo FADY BOX TEST PT SEND OUTo n 07-03-2022 SENT TO REF LAB 07/03/2022 Normal [facility] Comment on above: Performed By: #### N BOX #### [facility] [address] [address] [address] Ilia Carrillo TYPE AND SCREENon 07-03-2022 TYPE AND SCREEN Negative Normal [facility] Comment on above: Performed By: #### U ACSIND #### [facility] [address] [place] [address] Dr. Ilia Carrillo COVID Quick Testingon 2021 Result Positive Table[facility] Other US PREG TVon 05-23-2022 US PREG [...] ECTOR MINOR Date: 2022-05-23 21:22 Normal [facility] PREG QUANT HCGon 05-11-2022 HCG QUANT 2766 mIU/mL Normal [facility] Comment on above: Performed By: #### U ACSIND #### [facility] [address] [place] [address] Dr. Ilia Carrillo HCG RANGE SEE BELOW Normal [facility] Comment on above: Result Comment: 5-50 0-1 WEEK 40-300 1-2 WEEKS 100-1,000 2-3 WEEKS 500-6,000 3-4 WEEKS 5,000-200,000 1-2 MONTHS 10,000-100,000 2-3 MONTHS 3,000-50,000 2ND TRIMESTER 1,000-50,000 3RD TRIMESTER Performed By: #### U ACSIND #### [facility] [address] [place] [address] Dr. Ilia Carrillo PREG QUANT HCGon 05-09-2022 HCG QUANT 983 mIU/mL Normal [facility] Comment on above: Performed By: #### P REGQNT #### [facility] [address] [place] [address] Dr. Ilia Carrillo HCG RANGE SEE BELOW Normal [facility] Comment on above: Result Comment: 5-50 0-1 WEEK 40-300 1-2 WEEKS 100-1,000 2-3 WEEKS 500-6,000 3-4 WEEKS 5,000-200,000 1-2 MONTHS 10,000-100,000 2-3 MONTHS 3,000-50,000 2ND TRIMESTER 1,000-50,000 3RD TRIMESTER Performed By: #### P REGQNT #### [facility] [address] [place] [address] Dr. Ilia Carrillo Vital Signs Date Time Vital Sign Value Performing Clinician Facility 12-05-2023 10:50-0500 Body height 163.19 cm Erlinda Archer Other [facility] Other 12-05-2023 10:50-0500 Body mass index (BMI) [Ratio] 32.12 kg/m2 Erlinda Archer Other [facility] Other 12-05-2023 10:50-0500 Body temperature 98 [degF] Erlinda Archer Other [facility] Other 12-05-2023 10:50-0500 Body weight 85.55 kg Erlinda Archer Other [facility] Other 12-05-2023 10:50-0500 Diastolic blood pressure 68 mm[Hg] Erlinda Archer Other [facility] Other 12-05-2023 10:50-0500 Respiratory rate 18 /min Erlinda Archer Other [facility] Other 12-05-2023 10:50-0500 SaO2% (BldA) [Mass fraction] 96 % Erlinda Archer Other [facility] Other 12-05-2023 10:50-0500 Systolic blood pressure 104 mm[Hg] Erlinda Archer Other [facility] Other 09-05-2022 15:07-0400 Body weight 84.[address] CHRISTOPHE APONTE . [facility] Comment on above: Performed By: #### CBC #### [facility] [address] [place] [address] Dr. Ilia Carrillo 06-23-2022 17:05-0400 Body height 163.19 cm Cortney Chapman Other [facility] Other 06-23-2022 17:05-0400 Body mass index (BMI) [Ratio] 31.16 kg/m2 Cortney Chapman Other [facility] Other 06-23-2022 17:05-0400 Body temperature 99.6 [degF] Cortney Chapman Other [facility] Other 06-23-2022 17:05-0400 Body weight 83.01 kg Cortney Chapman Other [facility] Other 06-23-2022 17:05-0400 Respiratory rate 18 /min Cortney Chapman Other [facility] Other 06-23-2022 17:05-0400 SaO2% (BldA) [Mass fraction] 98 % Cortney Chapman Other [facility] Other Encounters Encounter Date Encounter Type Care Provider Facility Start: 03-18-2024 End: 03-18-2024 ambulatory PAT ROCHE Not Available Start: 01-31-2024 End: 02-01-2024 ambulatory Pat Roche Facility:[facility] Start: 01-31-2024 End: 01-31-2024 Patient encounter procedure Pat Roche [facility] Start: 01-29-2024 End: 01-29-2024 ambulatory PAT ROCHE Not Available Start: 01-22-2024 End: 01-23-2024 ambulatory PAT ROCHE Not Available Start: 01-08-2024 End: 01-08-2024 ambulatory PAT ROCHE Not Available Start: 01-07-2024 End: 01-08-2024 ambulatory [facility] Facility: [facility] Start: 12-20-2023 End: 12-21-2023 ambulatory [facility] Facility: [facility] Start: 12-10-2023 End: 12-11-2023 ambulatory [facility] Facility: [facility] Start: 12-05-2023 Office outpatient visit 15 minutes Erlinda Archer [facility] Start: 12-05-2023 End: 12-05-2023 ambulatory Erlinda Archer Facility:[facility] Start: 12-05-2023 End: 12-05-2023 ambulatory CERT[employer]IED [employer]ICAL [employer]ILLER-C Erlinda Archer Work Phone: [facility] Work Phone: Start: 12-05-2023 End: 12-05-2023 Patient encounter procedure CERTIFIED MEDICAL BILLER-C Erlinda Germanmond Work Phone: [facility] Work Phone: Start: 11-06-2023 End: 11-07-2023 ambulatory [facility] Facility:[facility] Start: 10-30-2023 End: 10-30-2023 ambulatory CHRISTOPHE APONTE Not Available Start: 07-23-2023 ambulatory [facility] Facility :[facility] [place] Start: 04-05-2023 End: 04-06-2023 ambulatory [facility] Facility:[facility] Sarika inman Start: 01-08-2023 [...] 06-23-2022 End: 06-23-2022 ambulatory Cortney Chapman Other [facility] [employer] Other Start: 06-23-2022 Office outpatient ne w 30 minutes Cortney Chapman [facility] Start: 05-22-2022 End: 05-23-[address] CHRISTOPHE APONTE . Facility:[facility] Start: 05-11-2022 End: 05-12-[address] CHRISTOPHE APONTE . Facility:[facility] Start: 05-09-2022 End: 05-10-[address] CHRISTOPHE APONTE . Facility:[facility] Procedures Date Procedure Procedure Detail Performing Clinician Start: 12-05-2023 Radiologic examinati on of knee CERTIFIED MEDICAL BILLER-C Erlinda Archer Work Phone: Start: 01-02-2023 Extraction of Produc ts of Conception, Low Cervical, Open Approach DR CHRISTOPHE APONTE . Start: 01-02-2023 section Dolores Roche Immunizations Immunization Date Immunization Notes Care Provider Fa cilibrandon NEGATED: Highlighted row has not occurred!12-10-2023 influenza virus vaccine, unspecified formulation Pat Roche [facility] NEGATED: Highlighted row has not occurred!02-08-2023 influenza virus vaccine, unspecified formulation Pat Roche [facility] NEGATED: Highlighted row has not occurred!02-08-2023 SARS-CoV-2 mRNA (tozinameran 5y-11y) vaccine Pat Roche [facility] Payers Date Payer Category Payer Unknown [id number] 1996 Unknown [id number] 2.16.840.1.179122.3.579.2.593 1996 Unknown [id number] 2.16.840.1.289836.3.579.2.593 1996 Unknown [id number] 2.16.840.1.558764.3.579.2.593 1996 Unknown [id number] 2.16.840.1.831313.3.579.2.593 1996 Unknown [id number] 2.16.840.1.692895.3.579.2.593 1996 Unknown [id number] 2.16.840.1.849535.3.579.2.593 1996 Unknown [id number] 2.16.840.1.065164.3.579.2.593 1996 Unknown [id number] 2.16.840.1.700013.3.579.2.593 1996 Unknown [id number] 2.16.840.1.923554.3.579.2.593 1996 Unknown [id number] 2.16.840.1.384646.3.579.2.593 1996 Unknown [id number] 2.16.840.1.553118.3.579.2.593 1996 Unknown [id number] 2.16.840.1.535375.3.579.2.593 1996 Unknown [id number] 2.16.840.1.711990.3.579.2.593 1996 Unknown [id number] 2.16.840.1.588875.3.579.2.593 1996 Unknown [id number] 2.16.840.1.575419.3.579.2.593 1996 Unknown [id number] 2.16.840.1.220500.3.579.2.593 1996 Unknown [id number] 2.16.840.1.907019.3.579.2.593 1996 Unknown [id number] 2.16.840.1.094587.3.579.2.1258 1996 Unknown [id number] 2.16.840.1.178396.3.579.2.1258 1996 Unknown [id number] 2.16.840.1.162931.3.579.2.125 1996 Unknown [id number] 2.16.840.1.853159.3.579.2.1258 1996 Unknown [id number] 2.16.840.1.018705.3.579.2.1258 1996 Unknown [id number] 2.16.840.1.720067.3.579.2.1258 1996 Unknown [id number] 2.16.840.1.023357.3.579.2. 1996 Unknown [id number] 2.16.840.1.430683.3.579.2. 1996 Unknown [id number] 2.16.840.1.083190.3.579.2. 1996 Unknown [id number] 2.16.840.1.874568.3.579.2 1996 Unknown [id number] 2.16.840.1.722159.3.579.2.72 1996 Unknown [id number] 2.16.840.1.492169.3.579.2. 1996 Unknown [id number] 2.16.840.1.320119.3.579.2.727 1959 Blue Cross Blue Shield DZNAN [id number] 2.16.840.1.928024.19 1959 Self-pay 1959 Unknown [id number] 2.16. 840.1.616809.19 1959 Unknown [id number] Unknown [id number] 2.16.840.1.108669.3.579.2.593 Unknown [id number] 2.16.840.1.291666.3.579.2.531 Worker's Compensation [facility] [id number] Social History Date Type Detail Facility Sex Assigned At [facility] Start: 1995 Sex Assigned At Female F [facility] Start: 12-20-2023 Tobacco smoking status Never s moked tobacco (finding) [facility] Tobacco smoking status Never [facility] Evaluation note 12-05-2023 Note Date & Type [...] no improvement in 5 to 7 days [facility] Other Discharge summary note 01-02-2023 Note Date [...] free and no longer on narcotics. [facility] Clinical Note 01-02-2023 Note Date & Type Note Facility 01-02-2023 Note OPERATIVE NOTE OPERATION DATE: 01/02/2023 PROCEDURE: Primary low transverse section. PREOPERATIVE DIAGNOSIS: 1. Intrauterine . 2. Breech presentation. 3. Decreasing movement per patient and office. POSTOPERATIVE DIAGNOSIS: 1. Intrauterine . 2. Breech presentation. 3. Decreasing movement per patient and office. ANESTHESIA: Spinal with Duramorph. SURGEON: Christophe Aponte D.O. SHIPFITTER: EFRAÍN Verdugo URINE OUTPUT: Yellow and clear. [...] PREOPERATIVE DIAGNOSIS: Risk of cord prolapse. [facility] Evaluation note 06-23-2022 Note Date & [...] COVID POSITIVE education handout discharge instructions. given. [facility] Other Evaluation + Plan note Note Date & Type Note Facility Evaluation + Plan note No data available for this section [facility] Evaluation note Note Date & Type Note Facility Evaluation note No assessment information availa [facility] Work Phone: History general Narrative - Reported Note Date & Type Note Facility History general Narrative - Reported Type Surgical History wisdom teeth Hospitalization History see above [facility] Other Hospital Discharge instructions Note Date & Type Note Facility Hospital Discharge instructions No data available for this section [facility] Progress note Note Date & Type Note Facility Progress note No data available for this section [facility] Summary Purpose Family History No Family History [...] DATE CREATED AUTHOR AUTHOR'S ORGANIZ ATION 02/06/2024 [facility] DATE CREATED AUTHOR AUTHOR'S ORGANIZ ATION 03/20/2024 [facility] EPIC DATE CREATED AUTHOR AUTHOR'S ORGANIZ ATION 03/23/2024 [facility] Care Teams (unrecognized sec tion and content) [...] CLINICAL RECORDS. [facility] [employer] [facility]. provides no warranty or guarantee of the accuracy or completeness of information in this document.
[2024-08-04 11:17] LABS: HCG Quantitative <1 mIU/mL
== END 2024-08-04 10:28 | disposition home or self-care (01) ==
LOC: LAB 10:28
PROVIDERS: PCP Nurse Practitioner; Visit Provider Obstetrics & Gynecology
DX: N92.6 Irregular menstruation, unspecified (principal)
CPT/HCPCS: 36415; 84702

== ENCOUNTER 2024-08-11 09:17 | Outpatient (OUT) | payer OTHER, BC, SELFPAY ==
--- OUTSIDE RECORDS SUMMARY | 2024-08-11 09:37 | XMS_ITS | CCD ---
Author Organization [facility] Providers Care Forms Builder Name Role Phone Cortney Chapman Unavailable ANGELO [...] Unavailable ANGELO ., DR SAEED Consulting Unavailable LOW MOOR, DR CHASE Tam Consulting Unavailable NADERER, DR [...] SAEED Admitting Unavailable YAW Archer Attending Provider Erlinda Archer Unavailable [facility] [...] Medication Allergies] Propensity to adverse reactions (disorder) [facility] Repository Medications Current Medications Medication Drug [...] pain, # 20 tab(s), Refills(s) 0, [facility] #[id number], 162, cm, 12/20/23 15:18:00 EST, Height/Length Dosing, [...] Range Facility Consultation Noteon 03-20-20 Consultation Note [id number] #1.00TIFF Normal [facility] Consultation Noteon 02-18-20 Consultation Note [id number] #1.00TIFF Normal [facility] BMPon 01-31-2024 Creatinine [Mass/Vol] 0.8 mg/dL Normal 0.5-1.3 [facility] Comment on above: Performed By: #### 2 076126, [id number], [id number] ####[facility] [address] [place] [address] Urea nitrogen/Creatinine [Mass ratio] 19 No Units Normal - [facility] Comment on above: Performed By: #### 2 425942, [id number], 6601927 ####[facility] [address] [place] [address] Anion gap [Moles/Vol] 9 mmol/L Normal 6-16 [facility] Comment on above: Performed By: #### 2 804827, [id number], [id number] ####[facility] [address] [place] [place] [address] Calcium [Mass/Vol] 8.8 mg/dL Low 8.9-11.1 [facility] Comment on above: Performed By: #### 2 310787, 63220075, 0715190 ####[facility] [address] [place] [address] Chloride [Moles/Vol] 108 mmol/L Normal 101-111 [facility] Comment on above: Performed By: #### 2 132109, 84366294, 6407134 ####[facility] [address] [place] [place] [address] CO2 [Moles/Vol] 28 mmol/L Normal 21-31 [facility] Comment on above: Performed By: #### 2 307225, 40502951, 6232241 ####[facility] [address] [place] [address] Glucose [Mass/Vol] 75 mg/dL Normal 55-199 [facility] Comment on above: Performed By: #### 2 820090, 95915120, 0744160 ####[facility] [address] [place] [address] Potassium [Moles/Vol] 4.0 mmol/L Normal 3.5-5.3 [facility] Comment on above: Performed By: #### 2 539298, 14777197, 2048234 ####[facility] [address] [place] [address] Sodium [Moles/Vol] 141 mmol/L Normal 135-145 [facility] Comment on above: Performed By: #### 2 617597, 53663921, 7920285 ####[facility] [address] [place] [address] Urea nitrogen [Mass/Vol] 15 mg/dL Normal 5-21 [facility] Comment on above: Performed By: #### 2 282945, 08621209, 9634322 ####[facility] [address] [place] [address] CBC w/Indiceson 01-31-2024 Erythrocyte distribution width (RBC) [Ratio] 13.0 % Normal 10.9-14.2 [facility] Comment on above: Performed By: #### 2 365925, 02860677, 0839252 ####[facility] [address] [place] [address] Hematocrit (Bld) [Volume fraction] 36.2 % Normal 34.0-46.0 [facility] Comment on above: Performed By: #### 2 031544, 88024035, 5730936 ####[address] [place] [address] Hemoglobin (Bld) [Mass/Vol] 12.3 g/dL Normal 12.0-16.0 [facility] Comment on above: Performed By: #### 2 352217, 79525786, 1266113 ####[place] [address] MCH (RBC) [Entitic mass] 29.1 pg Normal 27.0-34.0 [facility] Comment on above: Performed By: #### 2 285907, 10867574, 9178736 ####[address] [address] MCHC (RBC) [Mass/Vol] 33.9 g/dL Normal 31.4-36.0 [facility] Comment on above: Performed By: #### 2 188177, 06828495, 9879003 ####[facility] [address] [place] [address] MCV (RBC) [Entitic vol] 85.8 fL Normal 80.0-100.0 [facility] Comment on above: Performed By: #### 2 606599, 40615921, 3104357 ####[address] [address] Platelet mean volume (Bld) [Entitic vol] 7.4 fL Normal 6.4-10.8 [facility] Comment on above: Performed By: #### 2 060338, 94557312, 0790702 ####[facility] [address] [place] [address] Platelets (Bld) [#/Vol] 193.0 E9/L Normal 150.0-500.0 [facility] Comment on above: Performed By: #### 2 029326, 98337191, 3631903 ####[facility] [address] [place] [address] RBC (Bld) [#/Vol] 4.2 E12/L Low 4.3-5.9 [facility] Comment on above: Performed By: #### 2 480696, 16017172, 7495689 ####[facility] [address] [place] [address] RBC size Nom (Bld) NORMAL Invalid Interpretation Code [facility] Comment on above: Performed By: #### 2 740304, 76619475, 6981838 ####[facility] [address] [place] [address] WBC corrected for nucl RBC Auto (Bld) [#/Vol] 5.1 E9/L Normal 4.0-11.0 [facility] Comment on above: Performed By: #### 2 187400, 85084487, 0934578 ####[facility] [address] [place] [address] CHEMISTRYOrdered By: SYSTEM SYSTEM on 01-31-2024 Anion [...] Treatmenton 01-04 Consent for Treatment [id number] #1.00TIFF Normal [facility] HEMATOLOGYOrdered By: SYSTEM SYSTEM on 01-31-2024 [...] 01-31-2024 eGFR 103 mL/min/1.73 m2 Normal >=59 [facility] Comment on above: Order Comment: Order added by Discern Expert. Performed By: #### 2 483032, 07953060, 6220891 ####[facility] [address] [place] [address] Physician Orderon 01-30-2024 Physician Order [id number] 0#1.00TIFF Normal [facility] Discharge Note - PTon 2023 Discharge Note - PT [id number] #1.00TIFF Normal [facility] Physician Orderon 01-29-2024 Physician Order [id number] #1.00TIFF Normal [facility] MR KNEE LEFT WO IV CONTRASTo [...] Questions Consultation Noteon 01-16-20 24 Consultation Note [id number] #1.00TIFF Normal [facility] Physician Referralon 024 Physician Referral [id number] 8#1.00TIFF [facility] PT - Progress Noteson 2023 PT - Progress Notes [id number] #1.00TIFF [facility] Ambulatory Visit Summaryon 0 12-20-2023 Ambulatory [...] PM EST With: Kaiser Anderson MD Where: [facility] Family [facility] Office/Clini c Noteon 12-20-2023 Family [...] for pain - Follow up PRN Ordered: [facility] External Ambulatory Referral 2. BMI 32.0-32.9,adult (Z68.32: [...] pain, # 20 tab(s), Refills(s) 0, Pharmacy: [facility] #[id number], 162, cm, 12/20/23 15:18:00 EST, Height/Length Dosing, [...] - Not Given Patient Refuses Normal [facility] Comment on above: Result Comment: [...] numbers. This can be done either in [place] ([place] or metric measurements. Note that charts and online BMI calculators are available to help you find your BMI quickly and easily without having to do these calculations yourself. To calculate your BMI in [place] ([place] measurements: 1. Measure your weight in [...] for Disease Control and Prevention: www.cdc.gov ? [place] Heart Association: www.heart.org ? National Heart, Lung, and Blood [place]: www.nhlbi.nih.gov Summary ? Body mass index (BMI) is a number that is calculated from a person's weight and height. ? BMI may help estimate how much of a person's weight is composed of fat. BMI can help identify those who may be at higher risk for certain medical problems. ? BMI can be measured using [place] measurements or metric measurements. ? BMI charts are used to identify whether you are underweight, normal weight, overweight, or obese. This information is not intended to replace advice given to you by your health care provider. Make sure you discuss any questions you have with your health care provider. Document Revised: 07/14/2020 Document Reviewed: 05/21/2020 [employer] Patient Education ? 2022 [employer]. [facility] Ambulatory Visit Summaryon 0 12-10-2023 Ambulatory [...] PM EST With: Kaiser Anderson MD Where: [facility] [place] Normal [facility] Family Medicine Office/Clini c Noteon 12-10-2023 [...] to ER , had xray it couldn't pear 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 Pain location: left knee [...] vac - Not Given Patient Refuses Normal [facility] Comment on above: Result Comment: Elec [...] numbers. This can be done either in [place] ([place] or metric measurements. Note that charts and online BMI calculators are available to help you find your BMI quickly and easily without having to do these calculations yourself. To calculate your BMI in [place] ([place] measurements: 1. Measure your weight in [...] for Disease Control and Prevention: www.cdc.gov ? [place] Heart Association: www.heart.org ? National Heart, Lung, and Blood [place]: www.nhlbi.nih.gov Summary ? Body mass index (BMI) is a number that is calculated from a person's weight and height. ? BMI may help estimate how much of a person's weight is composed of fat. BMI can help identify those who may be at higher risk for certain medical problems. ? BMI can be measured using [place] measurements or metric measurements. ? BMI charts are used to identify whether you are underweight, normal weight, overweight, or obese. This information is not intended to replace advice given to you by your health care provider. Make sure you discuss any questions you have with your health care provider. Document Revised: 07/14/2020 Document Reviewed: 05/21/2020 [employer] Patient Education ? 2022 [employer]. [facility] Physician Referralon 024 Physician Referral [id number] 7#1.00TIFF [facility] XR knee LT 4V*on 12-05-2023 XR knee LT 4V* [facility] [employer] Other XR knee LT 4V* [facility] [employer] Other XR knee LT 4V* [address] [place] [address] [employer] Other XR knee LT 4V* [place] [address] No rt [employer] Other XR knee LT 4V* XRay Report [employer] Other XR knee LT 4V* Signed [employer] Other XR knee LT 4V* Patient: Elida Grover MR#: [id number] [employer] Other XR knee LT 4V* 4 [employer] Other XR knee LT 4V* : 1995 Acct:[id number] [employer] Other XR knee LT 4V* Age/Sex: 28 / F ADM Date: 12/05/23 [email or web address] Other XR knee LT 4V* Loc: XDUCLY [facility] [employer] Other XR knee LT 4V* Attending Dr: Erlinda TIDWELL [place] [employer] Other XR knee LT 4V* Copies to: YAW Carney [employer] Other XR knee LT 4V* Ordering Provider: YAW Carney [employer] Other XR knee LT 4V* Date of Service: 12/05/23 [employer] Other XR knee LT 4V* XR/XR knee LT 4V*: Left knee pain, unspecified chronicity [employer] Other XR knee LT 4V* LEFT KNEE - 4 views N [facility] [employer] Other XR knee LT 4V* COMPARISON: None [facility] [employer] Other XR knee LT 4V* CLINICAL DATA: Patient's left knee was stepped on by a cow after patient fell 3 months ago. [employer] Other XR knee LT 4V* Continued pain below the patella. [employer] Other XR knee LT 4V* AP, lateral and both oblique views were obtained. There is no acute fracture or dislocation. The [employer] Other XR knee LT 4V* joint spaces are maintained. There are no prominent hypertrophy. There is a trace amount joint [employer] Other XR knee LT 4V* fluid. No soft tissue swelling is identified. [employer] Other XR knee LT 4V* XR/XR knee LT 4V* [employer] Other XR knee LT 4V* IMPRESSION: [employer] [facility] [employer] Other XR knee LT 4V* NO ACUTE BONY FINDINGS. [employer] Other XR knee LT 4V* Impression dictated by: Amy Molina M.D.12/05/2023 12:00 PM [employer] Other XR knee LT 4V* Dictation Location: [employer] Other XR knee LT 4V* Transcribed By: KELLY 12/05/23 1200 [employer] Other XR knee LT 4V* Dictated By: Amy Molina MD 12/05/23 1157 [employer] Other XR knee LT 4V* Signed By: [employer] Other XR knee LT 4V* 12/05/23 1200 [employer] Other XR knee LT 4V* [facility] Main [place] [address] [place] [address] XRay Report Signed Patient: Elida Grover MR#: [id number] 4 : 1995 Acct:[id number] Age/Sex: 28 / F ADM Date: 12/05/23 Loc: XDUCLY Room: Type: [facility] Attending Dr: Erlinda TIDWELL Copies to: YAW [...] Amy Molina M.D.12/05/2023 12:00 PM Dictation Location: [employer] Transcribed By: KELLY 12/05/23 1200 Dictated By: Amy Molina MD 12/05/23 1157 Signed By: 12/05/23 1200 [facility] Ambulatory Visit Summaryon 0 11-06-2023 Ambulatory Visit [...] you for choosing us for your care. [facility] Family Medicine Office/Clini c Noteon 11-06-2023 [...] day(s), # 21 tab(s), Refills(s) 0, Pharmacy: [facility] #[id number], 162, cm, 11/06/23 13:58:00 EST, Height/Length Dosing, 86.5, kg, 11/06/23 13:58:00 EST, Weight Dosing 2. Dysfunction of right eustachian tube (H69.91: Unspecified Eustachian tube disorder, right ear) - As above. Ordered: methylPREDNISolone, = 1 packet(s), Oral, As Directed, as directed on package labeling, X 6 day(s), # 21 tab(s), Refills(s) 0, Pharmacy: [facility] #[id number], 162, cm, 11/06/23 13:58:00 EST, Height/Length Dosing, 86.5, kg, 11/06/23 13:58:00 EST, Weight Dosing 3. BMI 32.0-32.9,adult (Z68.32: Body mass index [BMI] 32.0-32.9, adult) - BMI education given Ordered: methylPREDNISolone, = 1 packet(s), Oral, As Directed, as directed on package labeling, X 6 day(s), # 21 tab(s), Refills(s) 0, Pharmacy: [facility] #[id number], 162, cm, 11/06/23 13:58:00 EST, Height/Length Dosing, 86.5, kg, 11/06/23 13:58:00 EST, Weight Dosing 4. Class 1 obesity due to excess calories in adult (E66.09: Other obesity due to excess calories) - Diet and exercise advised Ordered: methylPREDNISolone, = 1 packet(s), Oral, As Directed, as directed on package labeling, X 6 day(s), # 21 tab(s), Refills(s) 0, Pharmacy: [facility] #[id number], 162, cm, 11/06/23 13:58:00 EST, Height/Length Dosing, 86.5, kg, 11/06/23 13:58:00 EST, Weight Dosing 5. Nonsmoker (Z78.9: Other specified health status) - Please continue to not smoke Ordered: methylPREDNISolone, = 1 packet(s), Oral, As Directed, as directed on package labeling, X 6 day(s), # 21 tab(s), Refills(s) 0, Pharmacy: [facility] #[id number], 162, cm, 11/06/23 13:58:00 EST, Height/Length Dosing, [...] vac - Not Given Patient Refuses Normal [facility] Comment on above: Result Comment: Elec [...] numbers. This can be done either in [place] ([place] or metric measurements. Note that charts and online BMI calculators are available to help you find your BMI quickly and easily without having to do these calculations yourself. To calculate your BMI in [place] ([place] measurements: 1. Measure your weight in [...] for Disease Control and Prevention: www.cdc.gov ? [place] Heart Association: www.heart.org ? National Heart, Lung, and Blood [place]: www.nhlbi.nih.gov Summary ? Body mass index (BMI) is a number that is calculated from a person's weight and height. ? BMI may help estimate how much of a person's weight is composed of fat. BMI can help identify those who may be at higher risk for certain medical problems. ? BMI can be measured using [place] measurements or metric measurements. ? BMI charts are used to identify whether you are underweight, normal weight, overweight, or obese. This information is not intended to replace advice given to you by your health care provider. Make sure you discuss any questions you have with your health care provider. Document Revised: 07/14/2020 Document Reviewed: 05/21/2020 [employer] Patient Education ? 2022 [employer] [facility] Family Medicine Office/Clini c Noteon 04-05-2023 [...] vac - Not Given Patient Refuses Normal [facility] Comment on above: Result Comment: Elec tronically Signed By: Justin CABRALES, Kaiser Pfeiffer.br\Date and Time Signed: 04/05/23 10:38 EDT ANTIBODY ID PANELon 01-09-20 ANTIBODY ID PANEL Antibody ID Non-specific Diana Normal [facility] Comment on above: Performed By: #### A BID #### [facility] [address] [place] [address] Dr. Ilia Carrillo CBC AUTO DIFFon 01-03-2023 BASO # 0.0 103/ul Normal 0.0-0.1 [facility] Comment on above: Performed By: #### C BC #### [facility] [address] [place] [address] Dr. Ilia Carrillo Basophils/100 WBC (Bld) 0.2 % Normal 0.2-2.0 [facility] Comment on above: Performed By: #### C BC #### [facility] [address] [place] [address] Dr. Ilia Carrillo EO # 0.1 103/ul Normal 0.0-0.7 [facility] Comment on above: Performed By: #### C BC #### [facility] [address] [place] [address] Dr. Ilia Carrillo Eosinophils/100 WBC (Bld) 0.5 % Critically low 0.9-7.0 [facility] Comment on above: Performed By: #### C BC #### [facility] [address] [place] [address] Dr. Ilia Carrillo Erythrocyte distribution width (RBC) [Ratio] 13.7 % Normal 11.0-15.0 [facility] Comment on above: Performed By: #### C BC #### [facility] [address] [place] [address] Dr. Ilia Carrillo Hematocrit (Bld) [Volume fraction] 34.8 % Critically low 36.0-48.0 [facility] Comment on above: Performed By: #### C BC #### [facility] [address] [place] [address] Dr. Ilia Carrillo Hemoglobin (Bld) [Mass/Vol] 11.7 g/dL Critically low 12.0-16.0 [facility] Comment on above: Performed By: #### C BC #### [facility] [address] [place] [address] Dr. Ilia Carrillo IG # 0.06 10e3/ul Critically high 0.00-0.03 [facility] Comment on above: Performed By: #### C BC #### [facility] [address] [place] [address] Dr. Ilia Carrillo IG % 0.5 % Normal 0.0-0.5 [facility] Comment on above: Performed By: #### C BC #### [facility] [address] [place] [address] Dr. Ilia Carrillo LYMPH # 2.0 103/ul Normal 1.2-3.8 [facility] Comment on above: Performed By: #### C BC #### [facility] [address] [place] [address] Dr. Ilia Carrillo Lymphocytes/100 WBC (Bld) 15.2 % Critically low 20.5-60.0 [facility] Comment on above: Performed By: #### C BC #### [facility] [address] [place] [address] Dr. Ilia Carrillo MANUAL DIFF REQ NO Normal [facility] Comment on above: Performed By: #### C BC #### [facility] [address] [place] [address] Dr. Ilia Carrillo MCH (RBC) [Entitic mass] 30.9 pg Normal 26.7-34.0 [facility] Comment on above: Performed By: #### C BC #### [facility] [address] [place] [address] Dr. Ilia Carrillo MCHC (RBC) [Mass/Vol] 33.6 g/dL Normal 29.9-35.2 [facility] Comment on above: Performed By: #### C BC #### [facility] [address] [address] [address] Ilia Carrillo MCV (RBC) [Entitic vol] 91.8 fL Normal 81.0-99.0 [facility] Comment on above: Performed By: #### C BC #### [facility] [address] [address] [address] Ilia Carrillo MONO # 0.9 103/ul Critically high 0.3-0.8 [facility] Comment on above: Performed By: #### C BC #### [facility] [address] [address] [address] Ilia Carrillo Monocytes/100 WBC (Bld) 6.8 % Normal 1.7-12.0 [facility] Comment on above: Performed By: #### C BC #### [facility] [address] [address] [address] Ilia Carrillo NEUT # 10.1 103/ul Critically high 1.4-6.5 [facility] Comment on above: Performed By: #### C BC #### [facility] [address] [address] [address] Ilia Carrillo Neutrophils/100 WBC (Bld) 76.8 % Critically high 43.0-75.0 [facility] Comment on above: Performed By: #### C BC #### [facility] [address] [address] [address] Ilia Carrillo Platelet mean volume (Bld) [Entitic vol] 9.7 fL Normal 9.5-13.5 [facility] Comment on above: Performed By: #### C BC #### [facility] [address] [address] [address] Ilia Carrillo PLT 178 103/ul Normal 150-450 [facility] Comment on above: Performed By: #### C BC #### [facility] [address] [address] [address] Ilia Carrillo RBC 3.79 106/ul Critically low 4.20-5.40 [facility] Comment on above: Performed By: #### C BC #### [facility] [address] [address] [address] Ilia Carrillo WBC 13.2 103/ul Critically high 4.0-11.0 [facility] Comment on above: Performed By: #### C BC #### [facility] [address] [address] [address] Ilia Carrillo CBC AUTO DIFFon 01-02-2023 BASO # 0.0 103/ul Normal 0.0-0.1 [facility] Comment on above: Performed By: #### C BC #### [facility] [address] [place] [address] Dr. Ilia Carrillo Basophils/100 WBC (Bld) 0.2 % Normal 0.2-2.0 [facility] Comment on above: Performed By: #### C BC #### [facility] [address] [place] [address] Dr. Ilia Carrillo EO # 0.1 103/ul Normal 0.0-0.7 [facility] Comment on above: Performed By: #### C BC #### [facility] [address] [place] [address] Dr. Ilia Carrillo Eosinophils/100 WBC (Bld) 0.7 % Critically low 0.9-7.0 [facility] Comment on above: Performed By: #### C BC #### [facility] [address] [place] [address] Dr. Ilia Carrillo Erythrocyte distribution width (RBC) [Ratio] 13.7 % Normal 11.0-15.0 [facility] Comment on above: Performed By: #### C BC #### [facility] [address] [place] [address] Dr. Ilia Carrillo Hematocrit (Bld) [Volume fraction] 38.9 % Normal 36.0-48.0 [facility] Comment on above: Performed By: #### C BC #### [facility] [address] [place] [address] Dr. Ilia Carrillo Hemoglobin (Bld) [Mass/Vol] 13.4 g/dL Normal 12.0-16.0 [facility] Comment on above: Performed By: #### C BC #### [facility] [address] [address] [address] Ilia Carrillo IG # 0.05 10e3/ul Critically high 0.00-0.03 [facility] Comment on above: Performed By: #### C BC #### [facility] [address] [place] [address] Dr. Ilia Carrillo IG % 0.4 % Normal 0.0-0.5 [facility] Comment on above: Performed By: #### C BC #### [facility] [address] [place] [address] Dr. Ilia Carirllo LYMPH # 1.6 103/ul Normal 1.2-3.8 [facility] Comment on above: Performed By: #### C BC #### [facility] [address] [place] [address] Dr. Ilia Carrillo Lymphocytes/100 WBC (Bld) 14.2 % Critically low 20.5-60.0 [facility] Comment on above: Performed By: #### C BC #### [facility] [address] [place] [address] Dr. Ilia Carrillo MANUAL DIFF REQ NO Normal [facility] Comment on above: Performed By: #### C BC #### [facility] [address] [place] [address] Dr. Ilia Carrillo MCH (RBC) [Entitic mass] 30.8 pg Normal 26.7-34.0 [facility] Comment on above: Performed By: #### C BC #### [facility] [address] [place] [address] Dr. Ilia Carrillo MCHC (RBC) [Mass/Vol] 34.4 g/dL Normal 29.9-35.2 [facility] Comment on above: Performed By: #### C BC #### [facility] [address] [place] [address] Dr. Ilia Carrillo MCV (RBC) [Entitic vol] 89.4 fL Normal 81.0-99.0 [facility] Comment on above: Performed By: #### C BC #### [facility] [address] [address] [address] Ilia Carrillo MONO # 0.6 103/ul Normal 0.3-0.8 [facility] Comment on above: Performed By: #### C BC #### [facility] [address] [address] [address] Ilia Carrillo Monocytes/100 WBC (Bld) 5.5 % Normal 1.7-12.0 [facility] Comment on above: Performed By: #### C BC #### [facility] [address] [address] [address] Ilia Carrillo NEUT # 8.9 103/ul Critically high 1.4-6.5 [facility] Comment on above: Performed By: #### C BC #### [facility] [address] [place] [address] Dr. Ilia Carrillo Neutrophils/100 WBC (Bld) 79.0 % Critically high 43.0-75.0 [facility] Comment on above: Performed By: #### C BC #### [facility] [address] [place] [address] Dr. Ilia Carrillo Platelet mean volume (Bld) [Entitic vol] 10.7 fL Normal 9.5-13.5 [facility] Comment on above: Performed By: #### C BC #### [facility] [address] [place] [address] Dr. Ilia Carrillo PLT 210 103/ul Normal 150-450 [facility] Comment on above: Performed By: #### C BC #### [facility] [address] [place] [address] Dr. Ilia Carrillo RBC 4.35 106/ul Normal 4.20-5.40 [facility] Comment on above: Performed By: #### C BC #### [facility] [address] [place] [address] Dr. Ilia Carrillo WBC 11.3 103/ul Critically high 4.0-11.0 [facility] Comment on above: Performed By: #### C BC #### [facility] [address] [place], [place] [id number] Dr. Ilia Carrillo DRUG SCREEN RAPID (URINE)on 01-02-2023 AMP Negative Normal NEGATIVE [facility] Comment on above: Performed By: #### C BC #### [facility] [address] [place] [address] Dr. Ilia Carrillo BAR Negative Normal NEGATIVE [facility] Comment on above: Performed By: #### C BC #### [facility] [address] [place] [address] Dr. Ilia Carrillo BUP Negative Normal NEGATIVE [facility] Comment on above: Performed By: #### C BC #### [facility] [address] [place] [address] Dr. Ilia Carrillo BZO Negative Normal NEGATIVE [facility] Comment on above: Performed By: #### C BC #### [facility] [address] [place] [address] Dr. Ilia Carrillo MARY ANNE Negative Normal NEGATIVE [facility] Comment on above: Performed By: #### C BC #### [facility] [address] [place] [address] Dr. Ilia Carrillo CUT-OFFS SEE BELOW Normal [facility] Comment on above: [...] ng/mL Performed By: #### C BC #### [facility] [address] [place] [address] Dr. Ilia Carrillo DRUG CUT HEADER DRUG CLASS TEST SYSTEM CUT-OFF CONCENTRATIONS ARE FOLLOWS: Normal [facility] Comment on above: Performed By: #### C BC #### [facility] [address] [place] [address] Dr. Ilia Carrillo mAMP Negative Normal NEGATIVE [facility] Comment on above: Performed By: #### C BC #### [facility] [address] [place] [address] Dr. Ilia Carrillo MTD Negative Normal NEGATIVE [facility] Comment on above: Performed By: #### C BC #### [facility] [address] [place] [address] Dr. Ilia Carrillo OPI Negative Normal NEGATIVE [facility] Comment on above: Performed By: #### C BC #### [facility] [address] [place] [address] Dr. Ilia Carrillo OXY Negative Normal NEGATIVE [facility] Comment on above: Performed By: #### C BC #### [facility] [address] [place] [address] Dr. Ilia Carrillo PCP Negative Normal NEGATIVE [facility] Comment on above: Performed By: #### C BC #### [facility] [address] [place] [address] Dr. Ilia Carrillo PPX Negative Normal NEGATIVE [facility] Comment on above: Performed By: #### C BC #### [facility] [address] [place] [address] Dr. Ilia Carrillo TCA Negative Normal NEGATIVE [facility] Comment on above: Performed By: #### C BC #### [facility] [address] [place] [address] Dr. Ilia Carrillo THC Negative Normal NEGATIVE [facility] Comment on above: Performed By: #### C BC #### [facility] [address] [place] [address] Dr. Ilia Carrillo TYPE AND SCREENon 01-02-2023 TYPE AND SCREEN Negative Normal [facility] Comment on above: Performed By: #### T NS #### [facility] [address] [place] [address] Dr. Ilia Carrillo UA (CLEAN/CATCH) RAG BALER/MICRO I F IND.on 01-02-2023 Bilirubin Ql (U) Negative Normal NEGATIVE [facility] Comment on above: Performed By: #### U ACSIND #### [facility] [address] [address] [address] Ilia Carrillo Clarity (U) CLEAR Normal CLEAR [facility] Comment on above: Performed By: #### U ACSIND #### [facility] [address] [place] [address] Dr. Ilia Carrillo Color (U) LT. YELLOW Normal YELLOW [facility] Comment on above: Performed By: #### U ACSIND #### [facility] [address] [address] [address] Ilia Carrillo Glucose Ql (U) Negative Normal NEGATIVE [facility] Comment on above: Performed By: #### U ACSIND #### [facility] [address] [place] [address] Dr. Ilia Carrillo Hemoglobin Ql (U) Negative Normal NEGATIVE [facility] Comment on above: Performed By: #### U ACSIND #### [facility] [address] [place] [address] Dr. Ilia Carrillo Ketones Ql (U) Negative Normal NEGATIVE [facility] Comment on above: Performed By: #### U ACSIND #### [facility] [address] [place] [address] Dr. Ilia Carrillo LEUKOCYTES Negative Normal NEGATIVE [facility] Comment on above: Performed By: #### U ACSIND #### [facility] [address] [place] [address] Dr. Ilia Carrillo Nitrite Ql (U) Negative Normal NEGATIVE [facility] Comment on above: Performed By: #### U ACSIND #### [facility] [address] [place] [address] Dr. Ilia Carrillo pH (U) 6.0 [pH] Normal 5-9 [facility] Comment on above: Performed By: #### U ACSIND #### [facility] [address] [place] [address] Dr. Ilia Carrillo SPEC GRAVITY 1.025 Normal 1.005-<=1.02 5 [facility] Comment on above: Performed By: #### U ACSIND #### [facility] [address] [place] [address] Dr. Ilia Carrillo UA PROTEIN Negative Normal NEGATIVE/ TRACE [facility] Comment on above: Performed By: #### U ACSIND #### [facility] [address] [address] [address] Ilia Carrillo UR MICRO IND NOT INDICATED Normal [facility] Comment on above: Performed By: #### U ACSIND #### [facility] [address] [address] [address] Ilia Carrillo Urobilinogen Qn (U) 0.2 {Manfred'U}/dL Normal 0.2 - 1. 0 [facility] Comment on above: Performed By: #### U ACSIND #### [facility] [address] [place] [address] Dr. Ilia Carrillo GROUP B STREP CULTUREon 12-06 S. agalactiae Ag Ql (Unsp spec) Culture Observations: NEGATIVE FOR GROUP B STREPTOCOCCUS. Normal [facility] Comment on above: Performed By: #### U ACSIND #### [facility] [address] [place] [address] Dr. Ilia Carrillo US PREG GROWTHon 12-18-2022 [...] CHASE TRAN Date: 2022-12-18 07:18 Normal [facility] US PREG GROWTHon 11-10-2022 US PREG GROWTH EXAMINATION: US PREG GROWTH HISTORY: Large for gestation age fetus COMPARISON: Ultrasound anatomy 08/25/2022 FINDINGS: Heart Rate: Present per lining cleaner; no rate recorded. Number: 1.0 Position: Breech [...] ECTOR MINOR Date: 2022-11-10 08:42 Normal [facility] TYPE AND SCREENon 10-31-2022 TYPE AND SCREEN Negative Normal [facility] Comment on above: Performed By: #### T NS #### [facility] [address] [address] [address] Ilia Carrillo GTT 3 HR PREGon 10-25-2022 Glucose [Mass/Vol] 81 mg/dL Normal 74-106 [facility] Comment on above: Performed By: #### U ACSIND #### [facility] [address] [address] [address] Ilia Carrillo Glucose [Mass/Vol] 166 mg/dL Normal [facility] Comment on above: Performed By: #### U ACSIND #### [facility] [address] [address] [address] Ilia Carrillo Glucose [Mass/Vol] 123 mg/dL Normal [facility] Comment on above: Performed By: #### U ACSIND #### [facility] [address] [address] [address] Ilia Carrillo Glucose [Mass/Vol] 103 mg/dL Normal [facility] Comment on above: Performed By: #### U ACSIND #### [facility] [address] [address] [address] Ilia Carrillo TYPE AND SCREENon 10-25-2022 TYPE AND SCREEN Negative Normal [facility] Comment on above: Performed By: #### T NS #### [facility] [address] [address] [address] Ilia Carrillo CBC AUTO DIFFon 10-21-2022 BASO # 0.0 103/ul Normal 0.0-0.1 [facility] Comment on above: Performed By: #### U ACSIND #### [facility] [address] [address] [address] Ilia Carrillo Basophils/100 WBC (Bld) 0.2 % Normal 0.2-2.0 [facility] Comment on above: Performed By: #### U ACSIND #### [facility] [address] [address] [address] Ilia Carrillo EO # 0.0 103/ul Normal 0.0-0.7 [facility] Comment on above: Performed By: #### U ACSIND #### [facility] [address] [address] [address] Ilia Carrillo Eosinophils/100 WBC (Bld) 0.5 % Critically low 0.9-7.0 [facility] Comment on above: Performed By: #### U ACSIND #### [facility] [address] [address] [address] Ilia Carrillo Erythrocyte distribution width (RBC) [Ratio] 12.6 % Normal 11.0-15.0 [facility] Comment on above: Performed By: #### U ACSIND #### [facility] [address] [place] [address] Dr. Ilia Carrillo Hematocrit (Bld) [Volume fraction] 36.0 % Normal 36.0-48.0 [facility] Comment on above: Performed By: #### U ACSIND #### [facility] [address] [address] [address] Ilia Carrillo Hemoglobin (Bld) [Mass/Vol] 12.3 g/dL Normal 12.0-16.0 [facility] Comment on above: Performed By: #### U ACSIND #### [facility] [address] [address] [address] Ilia Carrillo IG # 0.04 10e3/ul Critically high 0.00-0.03 [facility] Comment on above: Performed By: #### U ACSIND #### [facility] [address] [address] [address] Ilia Carrillo IG % 0.5 % Normal 0.0-0.5 [facility] Comment on above: Performed By: #### U ACSIND #### [facility] [address] [address] [address] Ilia Carrillo LYMPH # 1.3 103/ul Normal 1.2-3.8 [facility] Comment on above: Performed By: #### U ACSIND #### [facility] [address] [address] [address] Ilia Carrillo Lymphocytes/100 WBC (Bld) 15.5 % Critically low 20.5-60.0 [facility] Comment on above: Performed By: #### U ACSIND #### [facility] [address] [place] [address] Dr. Ilia Carrillo MANUAL DIFF REQ NO Normal [facility] Comment on above: Performed By: #### U ACSIND #### [facility] [address] [address] [address] Ilia Carrillo MCH (RBC) [Entitic mass] 30.4 pg Normal 26.7-34.0 [facility] Comment on above: Performed By: #### U ACSIND #### [facility] [address] [address] [address] Ilia Carrillo MCHC (RBC) [Mass/Vol] 34.2 g/dL Normal 29.9-35.2 [facility] Comment on above: Performed By: #### U ACSIND #### [facility] [address] [address] [address] Ilia Carrillo MCV (RBC) [Entitic vol] 89.1 fL Normal 81.0-99.0 [facility] Comment on above: Performed By: #### U ACSIND #### [facility] [address] [address] [address] Ilia Carrillo MONO # 0.3 103/ul Normal 0.3-0.8 [facility] Comment on above: Performed By: #### U ACSIND #### [facility] [address] [address] [address] Ilia Carrillo Monocytes/100 WBC (Bld) 3.8 % Normal 1.7-12.0 [facility] Comment on above: Performed By: #### U ACSIND #### [facility] [address] [address] [address] Ilia Carrillo NEUT # 6.5 103/ul Normal 1.4-6.5 [facility] Comment on above: Performed By: #### U ACSIND #### [facility] [address] [address] [address] Ilia Carrillo Neutrophils/100 WBC (Bld) 79.5 % Critically high 43.0-75.0 [facility] Comment on above: Performed By: #### U ACSIND #### [facility] [address] [address] [address] Ilia Carrillo Platelet mean volume (Bld) [Entitic vol] 9.2 fL Critically low 9.5-13.5 [facility] Comment on above: Performed By: #### U ACSIND #### [facility] [address] [address] [address] Ilia Carrillo PLT 212 103/ul Normal 150-450 [facility] Comment on above: Performed By: #### U ACSIND #### [facility] [address] [address] [address] Ilia Carrillo RBC 4.04 106/ul Critically low 4.20-5.40 [facility] Comment on above: Performed By: #### U ACSIND #### [facility] [address] [address] [address] Ilia Carrillo WBC 8.2 103/ul Normal 4.0-11.0 [facility] Comment on above: Performed By: #### U ACSIND #### [facility] [address] [place] [address] Dr. Ilia Carrillo GLUCOSE - 1HRon 10-21-2022 Glucose [Mass/Vol] 147 mg/dL Critically high 74-106 T [facility] Comment on above: Performed By: #### P REGQNT #### [facility] [address] [place] [address] Dr. Ilia Carrillo PAP ACOG PANEL 2: 21 to 29on 10-19-2022 . . Normal [facility] Comment on above: Performed By: #### P REGQNT #### [facility] [address] [place] [address] Dr. Ilia Carrillo Age Gdln ACOG Testing - [facility] Comment on above: Performed By: #### P REGQNT #### [facility] [address] [place] [address] Dr. Ilia Carrillo DIAGNOSIS: Comment [facility] Comment on above: Result Comment: NEGA TIVE FOR INTRAEPITHELIAL LESION OR MALIGNANCY. THIS SPECIMEN WAS RESCREENED PART OF OUR CORPORATE WEB[employer]STER PROGRAM. Performed By: #### P REGQNT #### [facility] [address] [place] [address] Dr. Ilia Carrillo Methodology: Comment Normal [facility] Comment on above: Result Comment: This liquid based ThinPrep(R) pap test was screened with the use of an image guided system. Performed By: #### P REGQNT #### [facility] [address] [place] [address] Dr. Ilia Carrillo Note: Comment Normal [facility] Comment on [...] . Performed By: #### P REGQNT #### [facility] [address] [address] [address] Ilia Carrillo Performed by: Comment Normal [facility] Comment on above: Result Comment: Janeth Reynolds, Elevator Supervisor (ASCP) Performed By: #### P REGQNT #### [facility] [address] [place] [address] Dr. Ilia Carrillo QC reviewed by: Comment Normal [facility] Comment on above: Result Comment: Anna Russell, Supervisory Elevator Supervisor (ASCP) Performed By: #### P REGQNT #### [facility] [address] [address] [address] Ilia Carrillo Reflex Criteria: Comment Normal [facility] Comment on above: Result Comment: The HPV DNA reflex criteria were not met with this specimen result therefore, no HPV testing was performed. . Performed By: #### P REGQNT #### [facility] [address] [place] [address] Dr. Ilia Carrillo Specimen adequacy: Comment Normal [facility] Comment on above: Result Comment: Sati sfactory for evaluation. No endocervical component is identified. Performed By: #### P REGQNT #### [facility] [address] [place] [address] Dr. Ilia Carrillo CHLAMYDIA/GONOCOCCUS ABAD (SW AB/URINE/PAPon 10-13-2022 Chlamydia trachomatis, ABAD Negative Normal Negative [facility] Comment on above: Performed By: #### P REGQNT #### [facility] [address] [place] [address] Dr. Ilia Carrillo Neisseria gonorrhoeae, ABAD Negative Normal Negative [facility] Comment on above: Performed By: #### P REGQNT #### [facility] [address] [place] [address] Dr. Ilia Carrillo VAGINITIS/VAGINOSIS DNA PROB Mitesh 10-12-2022 Floresita species Negative Normal Negative [facility] Comment on above: Performed By: #### C BC #### [facility] [address] [place] [address] Dr. Ilia Carrillo Gardnerella vaginalis Negative Normal Negative [facility] Comment on above: Performed By: #### C BC #### [facility] [address] [address] [address] Ilia Carrillo Trichomonas vaginalis Negative Normal Negative [facility] Comment on above: Performed By: #### C BC #### [facility] [address] [address] [address] Ilia Carrillo AFP MATERNAL FOR SPINA BIFID Aon 09-05-2022 AFP MoM 1.50 Normal [facility] Comment on above: Performed By: #### C BC #### [facility] [address] [address] [address] Ilia Carrillo AFP Value 85.2 ng/mL Normal [facility] Comment on above: Performed By: #### C BC #### [facility] [address] [address] [address] Ilia Carrillo AFP, Serum for Spina Bifida Report Normal [facility] Comment on above: Performed By: #### C BC #### [facility] [address] [address] [address] Ilia Carrillo Comment Comment Normal [facility] Comment on above: Result Comment: Richard Loomis, Ph.D., [facility] Director . References: Available Upon Request. . Multiples Of Median Cutoffs For AFP Elevations Munguia 2.5 Black 2.8 IDD 2.0 Twins 4.5 Abbreviation Definitions IDD - Insulin Dep Diabetes OSBR - Open Spina Bifida Risk . For further inquiries contact [employer] at [phone]. . This test was developed and its performance characteristics determined by [employer]. It has not been cleared or approved by the Food and Drug Administration. Performed By: #### C BC #### [facility] [address] [address] [address] Ilia Steinberg Age Collection Date 20.7 weeks Normal [facility] Comment on above: Performed By: #### C BC #### [facility] [address] [address] [address] Ilia Carrillo Gestat, Age Based on Ultrasound Normal [facility] Comment on above: Result Comment: 06:3 on 05/22/2022 Recalculations are not recommended when gestational dating by LMP and ultrasound are within 10 days. Performed By: #### C BC #### [facility] [address] [place] [address] Dr. Ilia Carrillo Insulin Dep Diabetes No Normal [facility] Comment on above: Performed By: #### C BC #### [facility] [address] [place] [address] Dr. Ilia Carrillo Interpretation Comment Normal [facility] Comment on above: Result Comment: Inte rpretation: [...] Customer Services to discuss available options. The [employer] recommends amniocentesis be offered to women age 35 and older. Performed By: #### C BC #### [facility] [address] [place] [address] Dr. Ilia Carrillo [age] Normal [facility] Comment on above: Performed By: #### C BC #### [facility] [address] [place] [address] Dr. Ilia Carrillo Multiple Gestation No Normal [facility] Comment on above: Performed By: #### C BC #### [facility] [address] [place] [address] Dr. Ilia Carrillo OSBR Risk 1 [place] [address] [facility] Comment on above: Performed By: #### C BC #### [facility] [address] [place] [address] Dr. Ilia Carrillo PDF . [facility] Comment on above: Performed By: #### C BC #### [facility] [address] [place] [address] Dr. Ilia Carrillo Race [facility] Comment on above: Performed By: #### C BC #### [facility] [address] [place], [place] [address] Dr. Ilia Carrillo Test Results: Negative Normal [facility] Comment on above: Performed By: #### C BC #### [facility] [address] [place], [place] [address] Dr. Ilia Carrillo US PREG ANATOMY SINGLEon [...] CHASE TRAN Date: 2022-08-27 16:15 Normal [facility] HEP B SURFACE ANTIGEN SCREEN on 07-04-2022 HBsAg Screen Negative Normal Negative [facility] Comment on above: Performed By: #### C BC #### [facility] [address] [address] [address] Ilia Carrillo HEPATITIS C VIRUS AB W/ REFL EX QUANTon 07-04-2022 HCV AB <0.1 Normal 0.0-0.9 [facility] Comment on above: Performed By: #### C BC #### [facility] [address] [place] [address] Dr. Ilia Carrillo Interpretation: Comment Normal [facility] Comment on above: Result Comment: Nega tive Not infected with HCV, unless recent infection is suspected or other evidence exists to indicate HCV infection. Performed By: #### C BC #### [facility] [address] [place] [address] Dr. Ilia Carrillo HIV 1 AND 2 WITH REFLEXon HIV Screen 4th Generation wRfx Non-Reactive Normal Non Reactive [facility] Comment on above: Result Comment: HIV Negative HIV-1/HIV-2 antibodies and HIV-1 p24 antigen were NOT detected. There is no laboratory evidence of HIV infection. Performed By: #### C BC #### [facility] [address] [place] [address] Dr. Ilia Carrillo RPR QUANTon 07-04-2022 Rapid Plasma Reagin, Quant Non-Reactive Normal NonRea<1:1 [facility] Comment on above: Result Comment: John dinh Note: This test does not meet current guidelines for screening and diagnosis of syphilis. This test is intended for following treatment response in patients being treated for syphilis infection. To screen for syphilis infection, a reflex cascade that includes both RPR and a treponema-specific assay should be utilized, such as Treponema pallidum (Syphilis) Screening [place] ([id number]) or Rapid Plasma Reagin (RPR) Test With Reflex to Quantitative RPR and Confirmatory Treponema pallidum Antibodies ([id number]). Performed By: #### C BC #### [facility] [address] [place] [address] Dr. Ilia Carrillo RUBELLA AB IGGon 07-04-2022 Rubella Antibodies, IgG 3.07 index Normal Immune >0.99 [facility] Comment on above: Result Comment: Non- immune <0.90 Equivocal 0.90 - 0.99 Immune >0.99 Performed By: #### C BC #### [facility] [address] [place] [address] Dr. Ilia Carrillo CBC AUTO DIFFon 07-03-2022 BASO # 0.0 103/ul Normal 0.0-0.1 [facility] Comment on above: Performed By: #### C BC #### [facility] [address] [place] [address] Dr. Ilia Carrillo Basophils/100 WBC (Bld) 0.2 % Normal 0.2-2.0 [facility] Comment on above: Performed By: #### C BC #### [facility] [address] [place] [address] Dr. Ilia Carrillo EO # 0.1 103/ul Normal 0.0-0.7 [facility] Comment on above: Performed By: #### C BC #### [facility] [address] [place] [address] Dr. Ilia Carrillo Eosinophils/100 WBC (Bld) 1.1 % Normal 0.9-7.0 [facility] Comment on above: Performed By: #### C BC #### [facility] [address] [place] [address] Dr. Ilia Carrillo Erythrocyte distribution width (RBC) [Ratio] 11.4 % Normal 11.0-15.0 [facility] Comment on above: Performed By: #### C BC #### [facility] [address] [place] [address] Dr. Ilia Carrillo Hematocrit (Bld) [Volume fraction] 35.2 % Critically low 36.0-48.0 [facility] Comment on above: Performed By: #### C BC #### [facility] [address] [place] [address] Dr. Ilia Carrillo Hemoglobin (Bld) [Mass/Vol] 12.4 g/dL Normal 12.0-16.0 [facility] Comment on above: Performed By: #### C BC #### [facility] [address] [place] [address] Dr. Ilia Carrillo IG # 0.03 10e3/ul Normal 0.00-0.03 [facility] Comment on above: Performed By: #### C BC #### [facility] [address] [address] [address] Ilia Carrillo IG % 0.3 % Normal 0.0-0.5 [facility] Comment on above: Performed By: #### C BC #### [facility] [address] [place] [address] Dr. Ilia Carrillo LYMPH # 2.1 103/ul Normal 1.2-3.8 [facility] Comment on above: Performed By: #### C BC #### [facility] [address] [place] [address] Dr. Ilia Carrillo Lymphocytes/100 WBC (Bld) 22.6 % Normal 20.5-60.0 [facility] Comment on above: Performed By: #### C BC #### [facility] [address] [place] [address] Dr. Ilia Carrillo MANUAL DIFF REQ NO Normal [facility] Comment on above: Performed By: #### C BC #### [facility] [address] [place] [address] Dr. Ilia Carrillo MCH (RBC) [Entitic mass] 30.6 pg Normal 26.7-34.0 [facility] Comment on above: Performed By: #### C BC #### [facility] [address] [place] [address] Dr. Ilia Carrillo MCHC (RBC) [Mass/Vol] 35.2 g/dL Normal 29.9-35.2 [facility] Comment on above: Performed By: #### C BC #### [facility] [address] [place] [address] Dr. Ilia Carrillo MCV (RBC) [Entitic vol] 86.9 fL Normal 81.0-99.0 [facility] Comment on above: Performed By: #### C BC #### [facility] [address] [place] [address] Dr. Ilia Carrillo MONO # 0.4 103/ul Normal 0.3-0.8 [facility] Comment on above: Performed By: #### C BC #### [facility] [address] [place] [address] Dr. Ilia Carrillo Monocytes/100 WBC (Bld) 4.8 % Normal 1.7-12.0 [facility] Comment on above: Performed By: #### C BC #### [facility] [address] [place] [address] Dr. Ilia Carrillo NEUT # 6.5 103/ul Normal 1.4-6.5 [facility] Comment on above: Performed By: #### C BC #### [facility] [address] [place] [address] Dr. Ilia Carrillo Neutrophils/100 WBC (Bld) 71.0 % Normal 43.0-75.0 [facility] Comment on above: Performed By: #### C BC #### [facility] [address] [place] [address] Dr. Ilia Carrillo Platelet mean volume (Bld) [Entitic vol] 8.7 fL Critically low 9.5-13.5 [facility] Comment on above: Performed By: #### C BC #### [facility] [address] [place] [address] Dr. Ilia Carrillo PLT 260 103/ul Normal 150-450 [facility] Comment on above: Performed By: #### C BC #### [facility] [address] [place] [address] Dr. Ilia Carrillo RBC 4.05 106/ul Critically low 4.20-5.40 [facility] Comment on above: Performed By: #### C BC #### [facility] [address] [place] [address] Dr. Ilia Carrillo WBC 9.2 103/ul Normal 4.0-11.0 [facility] Comment on above: Performed By: #### C BC #### [facility] [address] [place], [place] [id number] Dr. Ilia Carrillo CULTURE URINEon 07-03-2022 CULTURE URINE Culture Observations: MODERATE GROWTH OF MIXED GENITAL BETHANIE. NO POTENTIAL PATHOGENS SEEN. Normal [facility] Comment on above: Performed By: #### U RCX #### [facility] [address] [address] [address] Ilia Carrillo GLYCOHEMOGLOBIN A1Con 2021 ADA RECOMMENDATION SEE BELOW Normal [facility] Comment on above: Result Comment: ADA RECOMMENDED LIMIT 4.0 - 6.0 ADA THERAPEUTIC TARGET < 7.0 ACTION SUGGESTED > 7.0 Performed By: #### P REGQNT #### [facility] [address] [address] [address] Ilia Carrillo Glucose [Mass/Vol] 97 mg/dL Normal [facility] Comment on above: Performed By: #### P REGQNT #### [facility] [address] [address] [address] Ilia Carrillo HbA1c (Bld) [Mass fraction] 5.0 % Normal 4.5-6.2 [facility] Comment on above: Performed By: #### P REGQNT #### [facility] [address] [place] [address] Dr. Ilia Carrillo FADY BOX TEST PT SEND OUTo n 07-03-2022 SENT TO REF LAB 07/03/2022 Normal [facility] Comment on above: Performed By: #### N BOX #### [facility] [address] [address] [address] Ilia Carrillo TYPE AND SCREENon 07-03-2022 TYPE AND SCREEN Negative Normal [facility] Comment on above: Performed By: #### U ACSIND #### [facility] [address] [place] [address] Dr. Ilia Carrillo COVID Quick Testingon 2021 Result Positive [facility] Other US PREG TVon 05-23-2022 US PREG [...] ECTOR MINOR Date: 2022-05-23 21:22 Normal [facility] PREG QUANT HCGon 05-11-2022 HCG QUANT 2766 mIU/mL Normal [facility] Comment on above: Performed By: #### U ACSIND #### [facility] [address] [place] [address] Dr. Ilia Carrillo HCG RANGE SEE BELOW Normal [facility] Comment on above: Result Comment: 5-50 0-1 WEEK 40-300 1-2 WEEKS 100-1,000 2-3 WEEKS 500-6,000 3-4 WEEKS 5,000-200,000 1-2 MONTHS 10,000-100,000 2-3 MONTHS 3,000-50,000 2ND TRIMESTER 1,000-50,000 3RD TRIMESTER Performed By: #### U ACSIND #### [facility] [address] [place] [address] Dr. Ilia Carrillo PREG QUANT HCGon 05-09-2022 HCG QUANT 983 mIU/mL Normal [facility] Comment on above: Performed By: #### P REGQNT #### [facility] [address] [place] [address] Dr. Ilia Carrillo HCG RANGE SEE BELOW Normal [facility] Comment on above: Result Comment: 5-50 0-1 WEEK 40-300 1-2 WEEKS 100-1,000 2-3 WEEKS 500-6,000 3-4 WEEKS 5,000-200,000 1-2 MONTHS 10,000-100,000 2-3 MONTHS 3,000-50,000 2ND TRIMESTER 1,000-50,000 3RD TRIMESTER Performed By: #### P REGQNT #### [facility] [address] [place] [address] Dr. Ilia Carrillo Vital Signs Date Time Vital Sign Value Performing Clinician Facility 12-05-2023 10:50-0500 Body height 163.19 cm Erlinda Archer Other [facility] Other 12-05-2023 10:50-0500 Body mass index (BMI) [Ratio] 32.12 kg/m2 Erlinda Archer Other [facility] Other 12-05-2023 10:50-0500 Body temperature 98 [degF] Erlinda Archer Other [facility] Other 12-05-2023 10:50-0500 Body weight 85.55 kg Erlinda Archer Other [facility] Other 12-05-2023 10:50-0500 Diastolic blood pressure 68 mm[Hg] Erlinda Archer Other [facility] Other 12-05-2023 10:50-0500 Respiratory rate 18 /min Erlinda Archer Other [facility] Other 12-05-2023 10:50-0500 SaO2% (BldA) [Mass fraction] 96 % Erlinda Archer Other [facility] Other 12-05-2023 10:50-0500 Systolic blood pressure 104 mm[Hg] Erlinda Archer Other [facility] Other 09-05-2022 15:07-0400 Body weight 84.[address] CHRISTOPHE APONTE . [facility] Comment on above: Performed By: #### CBC #### [facility] [address] [place] [address] Dr. Ilia Carrillo 06-23-2022 17:05-0400 Body height 163.19 cm Cortney Chapman Other [facility] Other 06-23-2022 17:05-0400 Body mass index (BMI) [Ratio] 31.16 kg/m2 Cortney Chapman Other [facility] Other 06-23-2022 17:05-0400 Body temperature 99.6 [degF] Cortney Chapman Other [facility] Other 06-23-2022 17:05-0400 Body weight 83.01 kg Cortney Chapman Other [facility] Other 06-23-2022 17:05-0400 Respiratory rate 18 /min Cortney Chapman Other [facility] Other 06-23-2022 17:05-0400 SaO2% (BldA) [Mass fraction] 98 % Cortney Chapman Other [facility] Other Encounters Encounter Date Encounter Type Care Provider Facility Start: 03-18-2024 End: 03-18-2024 ambulatory PAT ROCHE Not Available Start: 01-31-2024 End: 02-01-2024 ambulatory Pat Roche Facility:[facility] Start: 01-31-2024 End: 01-31-2024 Patient encounter procedure Pat Roche [facility] Start: 01-29-2024 End: 01-29-2024 ambulatory PAT ROCHE Not Available Start: 01-22-2024 End: 01-23-2024 ambulatory PAT ROCHE Not Available Start: 01-08-2024 End: 01-08-2024 ambulatory PAT ROCHE Not Available Start: 01-07-2024 End: 01-08-2024 ambulatory [facility] Facility: [facility] Start: 12-20-2023 End: 12-21-2023 ambulatory [facility] Facility: [facility] Start: 12-10-2023 End: 12-11-2023 ambulatory [facility] Facility: [facility] Start: 12-05-2023 Office outpatient visit 15 minutes Erlinda Arhcer [facility] Start: 12-05-2023 End: 12-05-2023 ambulatory Erlinda Archer Facility:[facility] Start: 12-05-2023 End: 12-05-2023 ambulatory CUSTOM TAILOR APPRENTICE-C Erlinda Archer Work Phone: [facility] Work Phone: Start: 12-05-2023 End: 12-05-2023 Patient encounter procedure CUSTOM TAILOR APPRENTICE-C Erlinda Germanmond Work Phone: [facility] Work Phone: Start: 11-06-2023 End: 11-07-2023 ambulatory [facility] Facility:[facility] Evans vue Start: 10-30-2023 End: 10-30-2023 ambulatory CHRISTOPHE APONTE Not Available Start: 07-23-2023 ambulatory [facility] Facility :[facility] Todd Start: 04-05-2023 End: 04-06-2023 ambulatory [facility] Facility:[facility] Sarika inman Start: 01-08-2023 End: 01-08-2023 ambulatory [...] 06-23-2022 End: 06-23-2022 ambulatory Cortney Chapman Other [facility] Other Start: 06-23-2022 Office outpatient ne w 30 minutes Cortney Chapman [facility] Start: 05-22-2022 End: 05-23-[address] CHRISTOPHE APONTE . Facility:[facility] Start: 05-11-2022 End: 05-12-[address] CHRISTOPHE APONTE . Facility:[facility] Start: 05-09-2022 End: 05-10-[address] CHRISTOPHE APONTE . Facility:[facility] Procedures Date Procedure Procedure Detail Performing Clinician Start: 12-05-2023 Radiologic examinati on of knee CUSTOM TAILOR APPRENTICE-C Erlinda Archer Work Phone: Start: 01-02-2023 Extraction of Produc ts of Conception, Low Cervical, Open Approach DR CHRISTOPHE APONTE . Start: 01-02-2023 section Dolores Roche Immunizations Immunization Date Immunization Notes Care Provider Fa cilibrandon NEGATED: Highlighted row has not occurred!12-10-2023 influenza virus vaccine, unspecified formulation Pat Rohce [facility] NEGATED: Highlighted row has not occurred!02-08-2023 influenza virus vaccine, unspecified formulation Pta Roche [facility] NEGATED: Highlighted row has not occurred!02-08-2023 SARS-CoV-2 mRNA (tozinameran 5y-11y) vaccine Pat Roche [facility] Payers Date Payer Category Payer Unknown [id number] 1995 Unknown [id number] 2.16.840.1.399260.3.579.2.593 1996 Unknown [id number] 2.16.840.1.045687.3.579.2.593 1996 Unknown [id number] 2.16.840.1.024470.3.579.2.593 1996 Unknown [id number] 2.16.840.1.854445.3.579.2.593 1996 Unknown [id number] 2.16.840.1.428557.3.579.2.593 1996 Unknown [id number] 2.16.840.1.079800.3.579.2.593 1996 Unknown [id number] 2.16.840.1.289216.3.579.2.593 1996 Unknown [id number] 2.16.840.1.997742.3.579.2.593 1996 Unknown [id number] 2.16.840.1.397265.3.579.2.593 1996 Unknown [id number] 2.16.840.1.303299.3.579.2.593 1996 Unknown [id number] 2.16.840.1.608687.3.579.2.593 1996 Unknown [id number] 2.16.840.1.693538.3.579.2.593 1996 Unknown [id number] 2.16.840.1.296542.3.579.2.593 1996 Unknown [id number] 2.16.840.1.397350.3.579.2.593 1996 Unknown [id number] 2.16.840.1.410107.3.579.2.593 1996 Unknown [id number] 2.16.840.1.277683.3.579.2.593 1996 Unknown [id number] 2.16.840.1.397558.3.579.2.593 1996 Unknown [id number] 2.16.840.1.889600.3.579.2.1258 1996 Unknown [id number] 2.16.840.1.421165.3.579.2.1258 1996 Unknown [id number] 2.16.840.1.738065.3.579.2.125 1996 Unknown [id number] 2.16.840.1.116887.3.579.2.1258 1996 Unknown [id number] 2.16.840.1.454726.3.579.2.1258 1996 Unknown [id number] 2.16.840.1.196706.3.579.2.1258 1996 Unknown [id number] 2.16.840.1.983773.3.579.2. 1996 Unknown [id number] 2.16.840.1.487094.3.579.2. 1996 Unknown [id number] 2.16.840.1.167955.3.579.2. 1996 Unknown [id number] 2.16.840.1.396960.3.579.2 1996 Unknown [id number] 2.16.840.1.358178.3.579.2.72 1996 Unknown [id number] 2.16.840.1.929001.3.579.2. 1996 Unknown [id number] 2.16.840.1.044157.3.579.2.727 1959 Blue Cross Blue Shield DZNAN [id number] 2.16.840.1.625817.19 1959 Self-pay 1959 Unknown [id number] 2.16. 840.1.155991.19 1959 Unknown [id number] Unknown [id number] 2.16.840.1.677155.3.579.2.593 Unknown [id number] 2.16.840.1.361648.3.579.2.531 Worker's Compensation [facility] [id number] Social History Date Type Detail Facility Sex Assigned At [facility] Start: 1995 Sex Assigned At Female F [facility] Start: 12-20-2023 Tobacco smoking status Never s moked tobacco (finding) [facility] Tobacco smoking status Never Akine [facility] Evaluation note 12-05-2023 Note Date [...] no improvement in 5 to 7 days [facility] Other Discharge summary note 01-02-2023 Note Date [...] free and no longer on narcotics. [facility] Clinical Note 01-02-2023 Note Date & Type Note Facility 01-02-2023 Note OPERATIVE NOTE OPERATION DATE: 01/02/2023 PROCEDURE: Primary low transverse section. PREOPERATIVE DIAGNOSIS: 1. Intrauterine . 2. Breech presentation. 3. Decreasing movement per patient and office. POSTOPERATIVE DIAGNOSIS: 1. Intrauterine . 2. Breech presentation. 3. Decreasing movement per patient and office. ANESTHESIA: Spinal with Duramorph. SURGEON: Christophe Aponte D.O. SCRAP SORTER: EFRAÍN Verdugo URINE OUTPUT: Yellow and clear. [...] PREOPERATIVE DIAGNOSIS: Risk of cord prolapse. [facility] Evaluation note 06-23-2022 Note Date & [...] COVID POSITIVE education handout discharge instructions. given. [facility] Other Evaluation + Plan note Note Date & Type Note Facility Evaluation + Plan note No data available for this section [facility] Evaluation note Note Date & Type Note Facility Evaluation note No assessment information availa [facility] Work Phone: History general Narrative - Reported Note Date & Type Note Facility History general Narrative - Reported Type Surgical History wisdom teeth Hospitalization History see above [facility] Other Hospital Discharge instructions Note Date & Type Note Facility Hospital Discharge instructions No data available for this section [facility] Progress note Note Date & Type Note Facility Progress note No data available for this section [facility] Summary Purpose Family History No Family History [...] DATE CREATED AUTHOR AUTHOR'S ORGANIZ ATION 02/06/2024 [facility] DATE CREATED AUTHOR AUTHOR'S ORGANIZ ATION 03/20/2024 [facility] EPIC DATE CREATED AUTHOR AUTHOR'S ORGANIZ ATION 03/23/2024 [facility] Care Teams (unrecognized sec tion and [...] BE BASED ON THE PRIMARY CLINICAL RECORDS. [facility]. provides no warranty or guarantee of the accuracy or completeness of information in this document.
[2024-08-11 09:43] LABS: Basophils Percent Auto 0.3 % (0.2-2.0); Eosinophils Absolute Auto 0.1 10^3/uL (0.0-0.7); Eosinophils Percent Auto 0.8 % (0.9-7.0); Hematocrit 40.7 % (36.0-48.0); Hemoglobin 13.7 g/dL (12.0-16.0); Immature Granulocytes Abs Auto 0.01 10^3/uL (0.00-0.03); Immature Granulocytes Pct Auto 0.2 % (0.0-0.5); Lymphocytes Absolute Auto 2.4 10^3/uL (1.2-3.8); Lymphocytes Percent Auto 39.4 % (20.5-60.0); Mean Corpuscular HGB Conc 33.7 g/dL (29.9-35.2); Mean Corpuscular Hemoglobin 29.8 pg (26.7-34.0); Mean Corpuscular Volume 88.7 fL (81.0-99.0); Mean Platelet Volume 8.8 fL (9.5-13.5); Monocytes Absolute Auto 0.3 10^3/uL (0.3-0.8); Monocytes Percent Auto 4.8 % (1.7-12.0); Neutrophils Absolute Auto 3.3 10^3/uL (1.4-6.5); Neutrophils Percent Auto 54.5 % (43.0-75.0); Platelet Count 224 10^3/uL (150-450); Red Blood Count 4.59 10^6/uL (4.20-5.40); Red Cell Distribution Width 11.7 % (11.0-15.0)
[2024-08-11 11:48] LABS: Thyroid Stimulating Hormone 1.061 uIU/mL (0.358-3.740)
[2024-08-11 11:55] LABS: HCG Quantitative <1 mIU/mL
[2024-08-11 12:09] LABS: Estimated Average Glucose 88 mg/dL; Glycohemoglobin A1C 4.7 % (4.5-6.2)
[2024-08-12 08:12] LABS: Prolactin 4.9 ng/mL (4.8-33.4)
== END 2024-08-11 09:18 | disposition home or self-care (01) ==
LOC: LAB 09:18
PROVIDERS: PCP Nurse Practitioner; Visit Provider Physician Assistant
DX: N91.2 Amenorrhea, unspecified (principal)
CPT/HCPCS: 36415; 83036; 84146; 84443; 84702; 85025

== ENCOUNTER 2024-08-18 15:25 | Outpatient (OUT) | payer OTHER, BC, SELFPAY ==
--- NOTE | 2024-08-18 15:27 | US_ITS ---
The [address] [address] Patient Name: ELIDA ONEAL MRN: [id number] date: 1995 Sex: F Assigned Patient Location: Current Patient Location: Accession/Order Number: [id number] Exam Date: 08/18/2024 15:35 Report Date: 08/19/2024 07:31 At the request of: JONA BECK Procedure: US pelvis w/ transvaginal EXAMINATION: US pelvis w/ transvaginal HISTORY: Amenorrhea N91.2 COMPARISON: No relevant comparison available. FINDINGS: Transabdominal and transvaginal images The uterus is normal in size, contour and echotexture measuring 7.4 x 3.9 x 5.2 cm, anteverted. Multiple areas of anechoic echogenicity in the cervix likely nabothian cysts. Endometrium measures 4.5 mm, normal. The right ovary is normal measuring 3.0 x 2.2 x 2.2 cm. Normal color and Doppler flow. Normal follicles The left ovary is normal measuring 2.9 x 2.6 x 2.8 cm. Normal color and Doppler flow. Normal follicles. Area of avascular hypoechogenicity measuring 1.4 x 1.3 x 1.4 cm immediately adjacent to the left ovary, possibly an exophytic cyst US/US pelvis w/ transvaginal IMPRESSION: No acute abnormality Electronically authenticated by: CHASE TRAN Date: 08/19/2024 07:31
--- OUTSIDE RECORDS SUMMARY | 2024-08-18 15:47 | XMS_ITS | CCD ---
Author Organization [facility] Care Team Providers Care [employer] Mach[employer] Instructor Name Role Phone Cortney Chapman Unavailable ANGELO [...] KARASIK ., DR ESCOBAR Consulting Unavailabl e NADEREAshleigh, DR FLORINA White Primary Care Unavailable ANGELO [...] Unavailable ANGELO ., DR SAEED Consulting Unavailable WEST, DR CHASE Tam Consulting Unavailable NADERER, DR [...] ., DR SAEED Consulting Unavailable KIRAN ., VIOLA Consulting Unavailable NADERER, DR FLORINA White Primary Care Unavailable KIRAN ., VIOLA Attending Unavailable KIRAN ., VIOLA Admitting Unavailable KIRAN ., VIOLA Consulting Unavailable NADERER, DR FLORINA White Primary Care Unavailable KIRAN ., VIOLA Attending Unavailable KIRAN ., VIOLA Admitting Unavailable NADERER, DR FLORINA White Primary [...] SAEED Admitting Unavailable YAW Archer Attending Provider [phone] Erlinda Archer Unavailable Kaiser Anderson Primary Care Physician [phone] Erlinda Archer Attending Unavailable Erlinda Archer Admitting Unavailable Kaiser Anderson Attending Unavailable Kaiser Anderson Attending Unavailable Kaiser Anderson Attending Unavailable Kaiser Anderson Attending Unavailable Kaiser Anderson Attending Unavailable Kaiser Anderson Attending Unavailable Dania, Pat Ruiz Referring Unavailable Roche, Pat Ruiz Attending Unavailable Roche, Pat Ruiz Admitting Unavailable ROCHE, PAT Ruiz Referring Unavailable ROCHE, PAT Ruiz Attending Unavailable ROCHE, PAT Ruiz Referring Unavailable ROCHE, PAT Ruiz Attending Unavailable ROCHE, PAT Ruiz Attending Unavailable KIRAN, VIOLA Attending Unavailable CHRISTOPHE MIRELES Attending Unavailable Unavailable Primary Care Provider Unavailabl e Allergies Allergy Classification Reported Allergen(s) Allergy Type Date of Onset Reaction(s) Facility (1 source) No Known Medication Allergies; Translations: [No Known Medication Allergies] Propensity to adverse reactions (disorder) [facility] Repository Medications Current Medications Medication Drug Class(es) [...] pain, # 20 tab(s), Refills(s) 0, [id number], 162, cm, 12/20/23 15:18:00 EST, Height/Length Dosing, 85.4, kg, 12/20/23 15:18:00 EST, Weight Dosing Start Date: 12/20/23 Status: Ordered Completed/Discontinued Medications Medication Drug Class(es) Dates Sig (Normalized) Sig (Original) Pre-Addis (2 sources) Pre-Addis Not-Ta angelica/PRN Pre-Addis Active Problems Active Problems Problem Classification Problem Date Documented Da te Episodic/Chronic Disorders of lipid metabolism (2 sources) Hyperlipidemia, unspecified; Translations: [Mixed hyperlipidemia] Onset: 01-15-2023 02-08-2023 Chronic Malposition; malpresentation (4 sources) Maternal care for breech presentation, not applicable or unspecified; Translations: [MATERNAL CARE BREECH PRES NA/UNS] Onset: 12-22-2022 Episodic Menstrual disorders (6 sources) Irregular menstruation, unspecified; Translations: [Amenorrhea] Onset: 05-11-2022 Chronic Other complications of ; [...] Test Name Value Interpretation Reference Range Facility ALL CBC WITH AUTO DIFFon BASOPHILS ABSOLUTE AUTO 0.0 [facility] Basophils/100 WBC (Bld) 0.3 % 0.2 - 2.0 % [facility] Eosinophils/100 WBC (Bld) 0.8 % Low 0.9 - 7.0 % [facility] Erythrocyte distribution width (RBC) [Ratio] 11.7 % 11.0 - 15.0 % [facility] Hematocrit (Bld) [Volume fraction] 40.7 % 36.0 - 48.0 % [facility] Hemoglobin (Bld) [Mass/Vol] 13.7 g/dL 12.0 - 16.0 g/dL [facility] IMMATURE GRANULOCYTES ABS AUTO 0.01 [facility] Immature granulocytes/100 WBC (Bld) 0.2 % 0.0 - 0.5 % [facility] Interpretation and review of laboratory results Abnormal [facility] LYMPHOCYTES ABSOLUTE AUTO 2.4 [facility] Lymphocytes/100 WBC (Bld) 39.4 % 20.5 - 60.0 % [facility] MCH (RBC) [Entitic mass] 29.8 pg 26.7 - 34.0 pg [facility] MCHC (RBC) [Mass/Vol] 33.7 g/dL 29.9 - 35.2 g/dL [facility] MCV (RBC) [Entitic vol] 88.7 fL 81.0 - 99.0 fL [facility] MONOCYTES ABSOLUTE AUTO 0.3 [facility] Monocytes/100 WBC (Bld) 4.8 % 1.7 - 12.0 % [facility] NEUTROPHILS ABSOLUTE AUTO 3.3 [facility] Neutrophils/100 WBC (Bld) 54.5 % 43.0 - 75.0 % [facility] Platelet mean volume (Bld) [Entitic vol] 8.8 fL Low 9.5 - 13.5 fL [facility] EO # 0.1 [facility] PLT 224 [facility] RBC 4.59 [facility] WBC 6.0 [facility] Consultation Noteon 03-20-20 Consultation Note [id number] #1.00TIFF Normal [facility] Consultation Noteon 02-18-20 Consultation Note [id number] #1.00TIFF Normal [facility] BMPon 01-31-2024 Creatinine [Mass/Vol] 0.8 mg/dL Normal 0.5-1.3 [facility] Comment on above: Performed By: #### 2 194577, [id number], 3859441 ####[facility] [address] [place] [address] Urea nitrogen/Creatinine [Mass ratio] 19 No Units Normal - [facility] Comment on above: Performed By: #### 2 313965, [id number], 3209828 ####[facility] [address] [place] [address] Anion gap [Moles/Vol] 9 mmol/L Normal -16 [facility] Comment on above: Performed By: #### 2 183444, [id number], 2605051 ####[facility] [address] [place] [address] Calcium [Mass/Vol] 8.8 mg/dL Low 8.9-11.1 [facility] Comment on above: Performed By: #### 2 260247, 87032455, 1365285 ####[facility] [address] [place] [address] Chloride [Moles/Vol] 108 mmol/L Normal 101-111 [facility] Comment on above: Performed By: #### 2 647168, [id number], 6358965 ####[facility] [address] [place] [address] CO2 [Moles/Vol] 28 mmol/L Normal 21-31 [facility] Comment on above: Performed By: #### 2 173956, 94142974, 8892858 ####[facility] [address] [place] [address] Glucose [Mass/Vol] 75 mg/dL Normal 55-199 [facility] Comment on above: Performed By: #### 2 064098, 26777582, 0039070 ####[facility] [address] [place] [address] Potassium [Moles/Vol] 4.0 mmol/L Normal 3.5-5.3 [facility] Comment on above: Performed By: #### 2 227374, 31596828, 8859763 ####[facility] [address] [place] [address] Sodium [Moles/Vol] 141 mmol/L Normal 135-145 [facility] Comment on above: Performed By: #### 2 780807, 78221990, 5391727 ####[facility] [address] [place] [address] Urea nitrogen [Mass/Vol] 15 mg/dL Normal 5-21 [facility] Comment on above: Performed By: #### 2 959486, 91720121, 4965496 ####[facility] [address] [place] [address] CBC w/Indiceson 01-31-2024 Erythrocyte distribution width (RBC) [Ratio] 13.0 % Normal 10.9-14.2 [facility] Comment on above: Performed By: #### 2 911937, 92723391, 1929594 ####[address] [place] [address] Hematocrit (Bld) [Volume fraction] 36.2 % Normal 34.0-46.0 [facility] Comment on above: Performed By: #### 2 333158, 85656157, 0441021 ####[address] [address] Hemoglobin (Bld) [Mass/Vol] 12.3 g/dL Normal 12.0-16.0 [facility] Comment on above: Performed By: #### 2 942818, 44517990, 4849903 ####[address] [address] MCH (RBC) [Entitic mass] 29.1 pg Normal 27.0-34.0 [facility] Comment on above: Performed By: #### 2 139744, 76836736, 7510436 ####[address] [address] MCHC (RBC) [Mass/Vol] 33.9 g/dL Normal 31.4-36.0 [facility] Comment on above: Performed By: #### 2 378772, 81856901, 2500434 ####[address] [address] MCV (RBC) [Entitic vol] 85.8 fL Normal 80.0-100.0 [facility] Comment on above: Performed By: #### 2 978310, 50963428, 0216671 ####[address] [address] Platelet mean volume (Bld) [Entitic vol] 7.4 fL Normal 6.4-10.8 [facility] Comment on above: Performed By: #### 2 324460, 19380225, 7362838 ####[address] [address] Platelets (Bld) [#/Vol] 193.0 E9/L Normal 150.0-500.0 [facility] Comment on above: Performed By: #### 2 076560, 62296945, 5511811 ####[facility] [address] [place] [address] RBC (Bld) [#/Vol] 4.2 E12/L Low 4.3-5.9 [facility] Comment on above: Performed By: #### 2 499219, 11050319, 9367812 ####[facility] [address] [place] [address] RBC size Nom (Bld) NORMAL Invalid Interpretation Code [facility] Comment on above: Performed By: #### 2 309917, 90982666, 3838196 ####[facility] [address] [place] [address] WBC corrected for nucl RBC Auto (Bld) [#/Vol] 5.1 E9/L Normal 4.0-11.0 [facility] Comment on above: Performed By: #### 2 966705, 75097364, 5533542 ####[facility] [address] [place] [address] CHEMISTRYOrdered By: SYSTEM SYSTEM on 01-31-2024 Anion [...] Treatmenton 01-04 Consent for Treatment [id number] #1.00TIFF Normal [facility] HEMATOLOGYOrdered By: SYSTEM SYSTEM on 01-31-2024 Erythrocyte [...] 01-31-2024 eGFR 103 mL/min/1.73 m2 Normal >=59 [facility] Comment on above: Order Comment: Order added by Discern Expert. Performed By: #### 2 200040, [id number], 7267424 ####[facility] [address] [place] [address] Physician Orderon 01-30-2024 Physician Order [id number] 0#1.00TIFF Normal [facility] Discharge Note - PTon 2023 Discharge Note - PT [id number] #1.00TIFF Normal [facility] Physician Orderon 01-29-2024 Physician Order [id number] #1.00TIFF Normal [facility] MR KNEE LEFT WO IV CONTRASTo n [...] Questions Consultation Noteon 01-16-20 24 Consultation Note [id number] #1.00TIFF Normal [facility] Physician Referralon 024 Physician Referral [id number] 8#1.00TIFF Normal [facility] PT - Progress Noteson 2023 PT - Progress Notes [id number] #1.00TIFF Normal [facility] Ambulatory Visit Summaryon 0 12-20-2023 Ambulatory Visit [...] PM EST With: Kaiser Anderson MD Where: [facility] [place] Normal [facility] Family Medicine Office/Clini c Noteon 12-20-2023 Family [...] for pain - Follow up PRN Ordered: [facility] External Ambulatory Referral 2. BMI 32.0-32.9,adult (Z68.32: [...] pain, # 20 tab(s), Refills(s) 0, [facility]: [facility] #[id number], 162, cm, 12/20/23 15:18:00 EST, Height/Length Dosing, [...] - Not Given Patient Refuses SARS-CoV-2 mRNA (tomalloryn 5y-11y) vac - Not Given Patient Refuses Normal [facility] Comment on above: Result Comment: Elec tronically Signed By: Justin CABRALES, Kaiser Pfeiffer.br\Date and Time Signed: 12/20/23 15:38 EST Patient [...] numbers. This can be done either in [place] ([place] or metric measurements. Note that charts and online BMI calculators are available to help you find your BMI quickly and easily without having to do these calculations yourself. To calculate your BMI in [place] ([place] measurements: 1. Measure your weight in [...] for Disease Control and Prevention: www.cdc.gov ? [place] Heart Association: www.heart.org ? National Heart, Lung, and Blood [place]: www.nhlbi.nih.gov Summary ? Body mass index (BMI) is a number that is calculated from a person's weight and height. ? BMI may help estimate how much of a person's weight is composed of fat. BMI can help identify those who may be at higher risk for certain medical problems. ? BMI can be measured using [place] measurements or metric measurements. ? BMI charts are used to identify whether you are underweight, normal weight, overweight, or obese. This information is not intended to replace advice given to you by your health care provider. Make sure you discuss any questions you have with your health care provider. Document Revised: 07/14/2020 Document Reviewed: 05/21/2020 [employer] Patient Education ? 2022 [employer]. [facility] Ambulatory Visit Summaryon 0 12-10-2023 Ambulatory Visit Summary ELIDA GROVER :1995 Visit Date:12/10/2023 Ambulatory Visit Instructions Your Diagnosis Knee pain, left BMI 32.0-32.9,adult Class 1 obesity due to excess calories in adult Nonsmoker Your Care Team Attending Physician - Kaiser Anderson MD Primary Care Physician - Kaiser Anderson MD. 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 Pain location: left knee Intensity:06/14 [...] - Not Given Patient Refuses SARS-CoV-2 mRNA (tomalloryn 5y-11y) vac - Not Given Patient Refuses Normal [facility] Comment on above: Result Comment: Elec tronically Signed By: Justin CABRALES, Kaiser Pfeiffer.br\Date and Time Signed: 12/10/23 07:21 EST Patient [...] numbers. This can be done either in [place] ([place] or metric measurements. Note that charts and online BMI calculators are available to help you find your BMI quickly and easily without having to do these calculations yourself. To calculate your BMI in [place] ([place] measurements: 1. Measure your weight in [...] for Disease Control and Prevention: www.cdc.gov ? [place] Heart Association: www.heart.org ? National Heart, Lung, and Blood [place]: www.nhlbi.nih.gov Summary ? Body mass index (BMI) is a number that is calculated from a person's weight and height. ? BMI may help estimate how much of a person's weight is composed of fat. BMI can help identify those who may be at higher risk for certain medical problems. ? BMI can be measured using [place] measurements or metric measurements. ? BMI charts are used to identify whether you are underweight, normal weight, overweight, or obese. This information is not intended to replace advice given to you by your health care provider. Make sure you discuss any questions you have with your health care provider. Document Revised: 07/14/2020 Document Reviewed: 05/21/2020 [employer] Patient Education ? 2022 [employer]. [facility] Physician Referralon 024 Physician Referral [id number] 7#1.00TIFF [facility] XR knee LT 4V*on 12-05-2023 XR knee LT 4V* [facility] [employer] Other XR knee LT 4V* [facility] [employer] Other XR knee LT 4V* [address] [place] [address] [employer] Other XR knee LT 4V* [place] [address] No rt [employer] Other XR knee LT 4V* XRay Report [employer] Other XR knee LT 4V* Signed [employer] Other XR knee LT 4V* Patient: Elida Grover MR#: [id number] [employer] Other XR knee LT 4V* 4 [employer] Other XR knee LT 4V* : 1995 Acct:[id number] [employer] Other XR knee LT 4V* Age/Sex: 28 / F ADM Date: 12/05/23 [employer] Other XR knee LT 4V* Loc: XDUCLY Room: Type: [facility] [employer] Other XR knee LT 4V* Attending Dr: Erlinda TIDWELL [employer] Other XR knee LT 4V* Copies to: YAW Careny [employer] Other XR knee LT 4V* Ordering Provider: YAW Carney [place] [employer] Other XR knee LT 4V* Date of Service: 12/05/23 [place] [employer] Other XR knee LT 4V* XR/XR knee LT 4V*: Left knee pain, unspecified chronicity [place] [employer] Other XR knee LT 4V* LEFT KNEE - 4 views N [facility] [employer] Other XR knee LT 4V* COMPARISON: None [place] [employer] Other XR knee LT 4V* CLINICAL DATA: Patient's left knee was stepped on by a cow after patient fell 3 months ago. [employer] Other XR knee LT 4V* Continued pain below the patella. [employer] Other XR knee LT 4V* AP, lateral and both oblique views were obtained. There is no acute fracture or dislocation. The [employer] Other XR knee LT 4V* joint spaces are maintained. There are no prominent hypertrophy. There is a trace amount joint [employer] Other XR knee LT 4V* fluid. No soft tissue swelling is identified. [employer] Other XR knee LT 4V* XR/XR knee LT 4V* [employer] Other XR knee LT 4V* IMPRESSION: Z-good [facility] Maps [employer] Other XR knee LT 4V* NO ACUTE BONY FINDINGS. [employer] Other XR knee LT 4V* Impression dictated by: Amy Molina M.D.12/05/2023 12:00 PM [employer] Other XR knee LT 4V* Dictation Location: [address] [employer] Other XR knee LT 4V* Transcribed By: PWS 12/05/23 1200 [place] [employer] Other XR knee LT 4V* Dictated By: Amy Molina MD 12/05/23 1150 [employer] Other XR knee LT 4V* Signed By: [place] [employer] Other XR knee LT 4V* 12/05/23 1200 [employer] Other XR knee LT 4V* [facility] [place] [address] [place] [address] XRay Report Signed Patient: Elida Grover MR#: [id number] 4 : 1995 Acct:[id number] Age/Sex: 28 / F ADM Date: 12/05/23 Loc: XDUCLY Room: Type: [facility] Attending Dr: Erlinda TIDWELL Copies to: YAW [...] Amy Molina M.D.12/05/2023 12:00 PM Dictation Location: [employer] Transcribed By: KELLY 12/05/23 1200 Dictated By: Amy Molina MD 12/05/23 1153 Signed By: 12/05/23 1200 [facility] Ambulatory Visit Summaryon 0 11-06-2023 Ambulatory Visit [...] you for choosing us for your care. [facility] Family Medicine Office/Clini c Noteon 11-06-2023 Family [...] day(s), # 21 tab(s), Refills(s) 0, [facility]acy: [facility] #[id number], 162, cm, 11/06/23 13:58:00 EST, Height/Length Dosing, 86.5, kg, 11/06/23 13:58:00 EST, Weight Dosing 2. Dysfunction of right eustachian tube (H69.91: Unspecified Eustachian tube disorder, right ear) - As above. Ordered: methylPREDNISolone, = 1 packet(s), Oral, As Directed, as directed on package labeling, X 6 day(s), # 21 tab(s), Refills(s) 0, Pharmacy: [facility] #[id number], 162, cm, 11/06/23 13:58:00 EST, Height/Length Dosing, 86.5, kg, 11/06/23 13:58:00 EST, Weight Dosing 3. BMI 32.0-32.9,adult (Z68.32: Body mass index [BMI] 32.0-32.9, adult) - BMI education given Ordered: methylPREDNISolone, = 1 packet(s), Oral, As Directed, as directed on package labeling, X 6 day(s), # 21 tab(s), Refills(s) 0, Pharmacy: [facility] #[id number], 162, cm, 11/06/23 13:58:00 EST, Height/Length Dosing, 86.5, kg, 11/06/23 13:58:00 EST, Weight Dosing 4. Class 1 obesity due to excess calories in adult (E66.09: Other obesity due to excess calories) - Diet and exercise advised Ordered: methylPREDNISolone, = 1 packet(s), Oral, As Directed, as directed on package labeling, X 6 day(s), # 21 tab(s), Refills(s) 0, [facility]acy[facility] #[id number], 162, cm, 11/06/23 13:58:00 EST, Height/Length Dosing, 86.5, kg, 11/06/23 13:58:00 EST, Weight Dosing 5. Nonsmoker (Z78.9: Other specified health status) - Please continue to not smoke Ordered: methylPREDNISolone, = 1 packet(s), Oral, As Directed, as directed on package labeling, X 6 day(s), # 21 tab(s), Refills(s) 0, Pharmacy: [facility] #[id number], 162, cm, 11/06/23 13:58:00 EST, Height/Length Dosing, [...] vac - Not Given Patient Refuses Normal [facility] Comment on above: Result Comment: Elec tronically Signed By: Justin CABRALES, Kaiser Pfeiffer.br\Date and Time Signed: 11/06/23 14:12 EST Patient Educationon 11-06-19 Patient Education Nutrition BMI for Adults What [...] numbers. This can be done either in [place] ([place] or metric measurements. Note that charts and online BMI calculators are available to help you find your BMI quickly and easily without having to do these calculations yourself. To calculate your BMI in [place] ([place] measurements: 1. Measure your weight in [...] for Disease Control and Prevention: www.cdc.gov ? [place] Heart Association: www.heart.org ? National Heart, Lung, and Blood [place]: www.nhlbi.nih.gov Summary ? Body mass index (BMI) is a number that is calculated from a person's weight and height. ? BMI may help estimate how much of a person's weight is composed of fat. BMI can help identify those who may be at higher risk for certain medical problems. ? BMI can be measured using [place] measurements or metric measurements. ? BMI charts are used to identify whether you are underweight, normal weight, overweight, or obese. This information is not intended to replace advice given to you by your health care provider. Make sure you discuss any questions you have with your health care provider. Document Revised: 07/14/2020 Document Reviewed: 05/21/2020 [employer] Patient Education ? 2022 [employer] [facility] Family Medicine Office/Clini c Noteon 04-05-2023 Family [...] - Not Given Patient Refuses SARS-CoV-2 mRNA (veenan 5y-11y) vac - Not Given Patient Refuses Normal [facility] Comment on above: Result Comment: Elec tronically Signed By: Justin CABRALES, Kaiser Pfeiffer.br\Date and Time Signed: 04/05/23 10:38 EDT ANTIBODY ID PANELon 01-09-20 ANTIBODY ID PANEL Antibody ID Non-specific Diana Normal [facility] Comment on above: Performed By: #### A BID #### [facility] [address] [place] [address] Dr. Ilia Carrillo CBC AUTO DIFFon 01-03-2023 BASO # 0.0 103/ul Normal 0.0-0.1 [facility] Comment on above: Performed By: #### C BC #### [facility] [address] [place] [address] Dr. Ilia Carrillo Basophils/100 WBC (Bld) 0.2 % Normal 0.2-2.0 [facility] Comment on above: Performed By: #### C BC #### [facility] [address] [place] [address] Dr. Ilia Carrillo EO # 0.1 103/ul Normal 0.0-0.7 [facility] Comment on above: Performed By: #### C BC #### [facility] [address] [place] [address] Dr. Ilia Carrillo Eosinophils/100 WBC (Bld) 0.5 % Critically low 0.9-7.0 [facility] Comment on above: Performed By: #### C BC #### [facility] [address] [place] [address] Dr. Ilia Carrillo Erythrocyte distribution width (RBC) [Ratio] 13.7 % Normal 11.0-15.0 [facility] Comment on above: Performed By: #### C BC #### [facility] [address] [place] [address] Dr. Ilia Carrillo Hematocrit (Bld) [Volume fraction] 34.8 % Critically low 36.0-48.0 [facility] Comment on above: Performed By: #### C BC #### [facility] [address] [place] [address] Dr. Ilia Carrillo Hemoglobin (Bld) [Mass/Vol] 11.7 g/dL Critically low 12.0-16.0 [facility] Comment on above: Performed By: #### C BC #### [facility] [address] [place] [address] Dr. Ilia Carrillo IG # 0.06 10e3/ul Critically high 0.00-0.03 [facility] Comment on above: Performed By: #### C BC #### [facility] [address] [place] [address] Dr. Ilia Carrillo IG % 0.5 % Normal 0.0-0.5 [facility] Comment on above: Performed By: #### C BC #### [facility] Laboratory [address] [place] [address] Dr. Ilia Carrillo LYMPH # 2.0 103/ul Normal 1.2-3.8 [facility] Comment on above: Performed By: #### C BC #### [facility] Laboratory [address] [place] [address] Dr. Ilia Carrillo Lymphocytes/100 WBC (Bld) 15.2 % Critically low 20.5-60.0 [facility] Comment on above: Performed By: #### C BC #### [facility] Laboratory [address] [place] [address] Dr. Ilia Carrillo MANUAL DIFF REQ NO Normal [facility] Comment on above: Performed By: #### C BC #### [facility] Laboratory [address] [place] [address] Dr. Ilia Carrillo MCH (RBC) [Entitic mass] 30.9 pg Normal 26.7-34.0 [facility] Comment on above: Performed By: #### C BC #### [facility] Laboratory [address] [place] [address] Dr. Ilia Carrillo MCHC (RBC) [Mass/Vol] 33.6 g/dL Normal 29.9-35.2 [facility] Comment on above: Performed By: #### C BC #### [facility] Laboratory [address] [place] [address] Dr. Ilia Carrillo MCV (RBC) [Entitic vol] 91.8 fL Normal 81.0-99.0 [facility] Comment on above: Performed By: #### C BC #### [facility] Laboratory [address] [place] [address] Dr. Ilia Carrillo MONO # 0.9 103/ul Critically high 0.3-0.8 [facility] Comment on above: Performed By: #### C BC #### [facility] Laboratory [address] [place] [address] Dr. Ilia Carrillo Monocytes/100 WBC (Bld) 6.8 % Normal 1.7-12.0 [facility] Comment on above: Performed By: #### C BC #### [facility] Laboratory [address] [place] [address] Dr. Ilia Carrillo NEUT # 10.1 103/ul Critically high 1.4-6.5 [facility] Comment on above: Performed By: #### C BC #### [facility] Laboratory [address] [place] [address] Dr. Ilia Carrillo Neutrophils/100 WBC (Bld) 76.8 % Critically high 43.0-75.0 [facility] Comment on above: Performed By: #### C BC #### [facility] Laboratory [address] [place] [address] Dr. Ilia Carrillo Platelet mean volume (Bld) [Entitic vol] 9.7 fL Normal 9.5-13.5 [facility] Comment on above: Performed By: #### C BC #### [facility] Laboratory [address] [place] [address] Dr. Ilia Carrillo PLT 178 103/ul Normal 150-450 [facility] Comment on above: Performed By: #### C BC #### [facility] Laboratory [address] [place], [place] [id number] Dr. Ilia Carrillo RBC 3.79 106/ul Critically low 4.20-5.40 [facility] Comment on above: Performed By: #### C BC #### [facility] Laboratory [address] [place] [address] Dr. Ilia Carrillo WBC 13.2 103/ul Critically high 4.0-11.0 [facility] Comment on above: Performed By: #### C BC #### [facility] Laboratory [address] [place] [address] Dr. Ilia Carrillo CBC AUTO DIFFon 01-02-2023 BASO # 0.0 103/ul Normal 0.0-0.1 [facility] Comment on above: Performed By: #### C BC #### [facility] Laboratory [address] [place] [address] Dr. Ilia Carrillo Basophils/100 WBC (Bld) 0.2 % Normal 0.2-2.0 [facility] Comment on above: Performed By: #### C BC #### [facility] Laboratory [address] [place] [address] Dr. Ilia Carrillo EO # 0.1 103/ul Normal 0.0-0.7 [facility] Comment on above: Performed By: #### C BC #### [facility] Laboratory [address] [place] [address] Dr. Ilia Carrillo Eosinophils/100 WBC (Bld) 0.7 % Critically low 0.9-7.0 [facility] Comment on above: Performed By: #### C BC #### [facility] Laboratory [address] [place] [address] Dr. Ilia Carrillo Erythrocyte distribution width (RBC) [Ratio] 13.7 % Normal 11.0-15.0 [facility] Comment on above: Performed By: #### C BC #### [facility] Laboratory [address] [place] [address] Dr. Ilia Carrillo Hematocrit (Bld) [Volume fraction] 38.9 % Normal 36.0-48.0 [facility] Comment on above: Performed By: #### C BC #### [facility] Laboratory [address] [place] [address] Dr. Ilia Carrillo Hemoglobin (Bld) [Mass/Vol] 13.4 g/dL Normal 12.0-16.0 [facility] Comment on above: Performed By: #### C BC #### [facility] Laboratory [address] [place] [address] Dr. Ilia Carrillo IG # 0.05 10e3/ul Critically high 0.00-0.03 [facility] Comment on above: Performed By: #### C BC #### [facility] Laboratory [address] [place] [address] Dr. Ilia Carrillo IG % 0.4 % Normal 0.0-0.5 [facility] Comment on above: Performed By: #### C BC #### [facility] Laboratory [address] [place] [address] Dr. Ilia Carrillo LYMPH # 1.6 103/ul Normal 1.2-3.8 [facility] Comment on above: Performed By: #### C BC #### [facility] Laboratory [address] [place] [address] Dr. Ilia Carrillo Lymphocytes/100 WBC (Bld) 14.2 % Critically low 20.5-60.0 [facility] Comment on above: Performed By: #### C BC #### [facility] Laboratory [address] [place] [address] Dr. Ilia Carrillo MANUAL DIFF REQ NO Normal [facility] Comment on above: Performed By: #### C BC #### [facility] Laboratory [address] [place] [address] Dr. Ilia Carrillo MCH (RBC) [Entitic mass] 30.8 pg Normal 26.7-34.0 [facility] Comment on above: Performed By: #### C BC #### [facility] Laboratory [address] [place] [address] Dr. Ilia Carrillo MCHC (RBC) [Mass/Vol] 34.4 g/dL Normal 29.9-35.2 [facility] Comment on above: Performed By: #### C BC #### [facility] Laboratory [address] [place] [address] Dr. Ilia Carrillo MCV (RBC) [Entitic vol] 89.4 fL Normal 81.0-99.0 [facility] Comment on above: Performed By: #### C BC #### [facility] Laboratory [address] [place] [address] Dr. Ilia Carrillo MONO # 0.6 103/ul Normal 0.3-0.8 [facility] Comment on above: Performed By: #### C BC #### [facility] Laboratory [address] [address] [address] Ilia Carrillo Monocytes/100 WBC (Bld) 5.5 % Normal 1.7-12.0 [facility] Comment on above: Performed By: #### C BC #### [facility] Laboratory [address] [address] [address] Ilia Carrillo NEUT # 8.9 103/ul Critically high 1.4-6.5 [facility] Comment on above: Performed By: #### C BC #### [facility] Laboratory [address] [address] [address] Ilia Carrillo Neutrophils/100 WBC (Bld) 79.0 % Critically high 43.0-75.0 [facility] Comment on above: Performed By: #### C BC #### [facility] Laboratory [address] [place] [address] Dr. Ilia Carrillo Platelet mean volume (Bld) [Entitic vol] 10.7 fL Normal 9.5-13.5 [facility] Comment on above: Performed By: #### C BC #### [facility] Laboratory [address] [place] [address] Dr. Ilia Carrillo PLT 210 103/ul Normal 150-450 [facility] Comment on above: Performed By: #### C BC #### [facility] Laboratory [address] [place] [address] Dr. Ilia Carrillo RBC 4.35 106/ul Normal 4.20-5.40 [facility] Comment on above: Performed By: #### C BC #### [facility] Laboratory [address] [place] [address] Dr. Ilia Carrillo WBC 11.3 103/ul Critically high 4.0-11.0 [place] Comment on above: Performed By: #### C BC #### [facility] Laboratory [address] [place] [address] Dr. Ilia Carrillo DRUG SCREEN RAPID (URINE)on 01-02-2023 AMP Negative Normal NEGATIVE [facility] Comment on above: Performed By: #### C BC #### [facility] Laboratory [address] [address] [address] Ilia Carrillo BAR Negative Normal NEGATIVE [facility] Comment on above: Performed By: #### C BC #### [facility] Laboratory [address] [place] [address] Dr. Ilia Carrillo BUP Negative Normal NEGATIVE [facility] Comment on above: Performed By: #### C BC #### [facility] Laboratory [address] [address] [address] Ilia Carrillo BZO Negative Normal NEGATIVE [facility] Comment on above: Performed By: #### C BC #### [facility] Laboratory [address] [address] [address] Ilia Carrillo MARY ANNE Negative Normal NEGATIVE [facility] Comment on above: Performed By: #### C BC #### [facility] Laboratory [address] [place] [address] Dr. Ilia Carrillo CUT-OFFS SEE BELOW Normal [facility] Comment on above: Result Comment: AMP [...] ng/mL Performed By: #### C BC #### [facility] Laboratory [address] [place] [address] Dr. Ilia Carrillo DRUG CUT HEADER DRUG CLASS TEST SYSTEM CUT-OFF CONCENTRATIONS ARE FOLLOWS: Normal [facility] Comment on above: Performed By: #### C BC #### [facility] Laboratory [address] [place] [address] Dr. Ilia Carrillo mAMP Negative Normal NEGATIVE [facility] Comment on above: Performed By: #### C BC #### [facility] Laboratory [address] [place] [address] Dr. Ilia Carrillo MTD Negative Normal NEGATIVE [facility] Comment on above: Performed By: #### C BC #### [facility] Laboratory [address] [place] [address] Dr. Ilia Carrillo OPI Negative Normal NEGATIVE [facility] Comment on above: Performed By: #### C BC #### [facility] Laboratory [address] [place] [address] Dr. Ilia Carrillo OXY Negative Normal NEGATIVE [facility] Comment on above: Performed By: #### C BC #### [facility] Laboratory [address] [place] [address] Dr. Ilia Carrillo PCP Negative Normal NEGATIVE [facility] Comment on above: Performed By: #### C BC #### [facility] Laboratory [address] [place] [address] Dr. Ilia Carrillo PPX Negative Normal NEGATIVE [facility] Comment on above: Performed By: #### C BC #### [facility] Laboratory [address] [place] [address] Dr. Ilia Carrillo TCA Negative Normal NEGATIVE [facility] Comment on above: Performed By: #### C BC #### [facility] Laboratory [address] [place] [address] Dr. Ilia Carrillo THC Negative Normal NEGATIVE [facility] Comment on above: Performed By: #### C BC #### [facility] Laboratory [address] [place] [address] Dr. Ilia Carrillo TYPE AND SCREENon 01-02-2023 TYPE AND SCREEN Negative Normal [facility] Comment on above: Performed By: #### T NS #### [facility] Laboratory [address] [place] [address] Dr. Ilia Carrillo UA (CLEAN/CATCH) FINANCE LEAD/MICRO I F IND.on 01-02-2023 Bilirubin Ql (U) Negative Normal NEGATIVE [place] Comment on above: Performed By: #### U ACSIND #### [facility] Laboratory [address] [place] [address] Dr. Ilia Carrillo Clarity (U) CLEAR Normal CLEAR [facility] Comment on above: Performed By: #### U ACSIND #### [facility] Laboratory [address] [address] [address] Ilia Carrillo Color (U) LT. YELLOW Normal YELLOW [facility] Comment on above: Performed By: #### U ACSIND #### [facility] Laboratory [address] [address] [address] Ilia Carrillo Glucose Ql (U) Negative Normal NEGATIVE [facility] Comment on above: Performed By: #### U ACSIND #### [facility] Laboratory [address] [address] [address] Ilia Carrillo Hemoglobin Ql (U) Negative Normal NEGATIVE [facility] Comment on above: Performed By: #### U ACSIND #### [facility] Laboratory [address] [address] [address] Ilia Carrillo Ketones Ql (U) Negative Normal NEGATIVE [facility] Comment on above: Performed By: #### U ACSIND #### [facility] Laboratory [address] [address] [address] Ilia Carrillo LEUKOCYTES Negative Normal NEGATIVE [facility] Comment on above: Performed By: #### U ACSIND #### [facility] Laboratory [address] [address] [address] Ilia Carrillo Nitrite Ql (U) Negative Normal NEGATIVE [facility] Comment on above: Performed By: #### U ACSIND #### [facility] Laboratory [address] [address] [address] Ilia Carrillo pH (U) 6.0 [pH] Normal 5-9 [facility] Comment on above: Performed By: #### U ACSIND #### [facility] Laboratory [address] [address] [address] Ilia Carrillo SPEC GRAVITY 1.025 Normal 1.005-<=1.02 5 [facility] Comment on above: Performed By: #### U ACSIND #### [facility] Laboratory [address] [address] [address] Ilia Carrillo UA PROTEIN Negative Normal NEGATIVE/ TRACE [facility] Comment on above: Performed By: #### U ACSIND #### [facility] Laboratory [address] [place] [address] Dr. Ilia Carrillo UR MICRO IND NOT INDICATED Normal [facility] Comment on above: Performed By: #### U ACSIND #### [facility] Laboratory [address] [place] [address] Dr. Ilia Carrillo Urobilinogen Qn (U) 0.2 {Manfred'U}/dL Normal 0.2 - 1. 0 [facility] Comment on above: Performed By: #### U ACSIND #### [facility] Laboratory [address] [place] [address] Dr. Ilia Carrillo GROUP B STREP CULTUREon 12-06 S. agalactiae Ag Ql (Unsp spec) Culture Observations: NEGATIVE FOR GROUP B STREPTOCOCCUS. Normal [facility] Comment on above: Performed By: #### U ACSIND #### [facility] Laboratory [address] [place] [address] Dr. Ilia Carrillo US PREG GROWTHon 12-18-2022 [...] CHASE TRAN Date: 2022-12-18 07:18 Normal [facility] US PREG GROWTHon 11-10-2022 US PREG GROWTH EXAMINATION: US PREG GROWTH HISTORY: Large for gestation age fetus COMPARISON: Ultrasound anatomy 08/25/2022 FINDINGS: Heart Rate: Present per pit shoveler; no rate recorded. Number: 1.0 Position: Breech [...] ECTOR MINOR Date: 2022-11-10 08:42 Normal [facility] TYPE AND SCREENon 10-31-2022 TYPE AND SCREEN Negative Normal [facility] Comment on above: Performed By: #### T NS #### [facility] Laboratory [address] [address] [address] Ilia Carrillo GTT 3 HR PREGon 10-25-2022 Glucose [Mass/Vol] 81 mg/dL Normal 74-106 [facility] Comment on above: Performed By: #### U ACSIND #### [facility] Laboratory [address] [address] [address] Ilia Carrillo Glucose [Mass/Vol] 166 mg/dL Normal [facility] Comment on above: Performed By: #### U ACSIND #### [facility] Laboratory [address] [address] [address] Ilia Carrillo Glucose [Mass/Vol] 123 mg/dL Normal [facility] Comment on above: Performed By: #### U ACSIND #### [facility] Laboratory [address] [address] [address] Ilia Carrillo Glucose [Mass/Vol] 103 mg/dL Normal [facility] Comment on above: Performed By: #### U ACSIND #### [facility] Laboratory [address] [address] [address] Ilia Carrillo TYPE AND SCREENon 10-25-2022 TYPE AND SCREEN Negative Normal [facility] Comment on above: Performed By: #### T NS #### [facility] Laboratory [address] [address] [address] Ilia Carrillo CBC AUTO DIFFon 10-21-2022 BASO # 0.0 103/ul Normal 0.0-0.1 [facility] Comment on above: Performed By: #### U ACSIND #### [facility] Laboratory [address] [address] [address] Ilia Carrillo Basophils/100 WBC (Bld) 0.2 % Normal 0.2-2.0 [facility] Comment on above: Performed By: #### U ACSIND #### [facility] Laboratory [address] [place] [address] Dr. Ilia Carrillo EO # 0.0 103/ul Normal 0.0-0.7 [facility] Comment on above: Performed By: #### U ACSIND #### [facility] Laboratory [address] [address] [address] Ilia Carrillo Eosinophils/100 WBC (Bld) 0.5 % Critically low 0.9-7.0 [facility] Comment on above: Performed By: #### U ACSIND #### [facility] Laboratory [address] [place] [address] Dr. Ilia Carrillo Erythrocyte distribution width (RBC) [Ratio] 12.6 % Normal 11.0-15.0 [facility] Comment on above: Performed By: #### U ACSIND #### [facility] Laboratory [address] [address] [address] Ilia Carrillo Hematocrit (Bld) [Volume fraction] 36.0 % Normal 36.0-48.0 [facility] Comment on above: Performed By: #### U ACSIND #### [facility] Laboratory [address] [place] [address] Dr. Ilia Carrillo Hemoglobin (Bld) [Mass/Vol] 12.3 g/dL Normal 12.0-16.0 [facility] Comment on above: Performed By: #### U ACSIND #### [facility] Laboratory [address] [address] [address] Ilia Carrillo IG # 0.04 10e3/ul Critically high 0.00-0.03 [facility] Comment on above: Performed By: #### U ACSIND #### [facility] Laboratory [address] [address] [address] Ilia Carrillo IG % 0.5 % Normal 0.0-0.5 [facility] Comment on above: Performed By: #### U ACSIND #### [facility] Laboratory [address] [address] [address] Ilia Carrillo LYMPH # 1.3 103/ul Normal 1.2-3.8 [facility] Comment on above: Performed By: #### U ACSIND #### [facility] Laboratory [address] [address] [address] Ilia Carrillo Lymphocytes/100 WBC (Bld) 15.5 % Critically low 20.5-60.0 [facility] Comment on above: Performed By: #### U ACSIND #### [facility] Laboratory [address] [address] [address] Ilia Carrillo MANUAL DIFF REQ NO Normal [facility] Comment on above: Performed By: #### U ACSIND #### [facility] Laboratory [address] [address] [address] Ilia Carrillo MCH (RBC) [Entitic mass] 30.4 pg Normal 26.7-34.0 [facility] Comment on above: Performed By: #### U ACSIND #### [facility] Laboratory [address] [address] [address] Ilia Carrillo MCHC (RBC) [Mass/Vol] 34.2 g/dL Normal 29.9-35.2 [facility] Comment on above: Performed By: #### U ACSIND #### [facility] Laboratory [address] [address] [address] Ilia Carrillo MCV (RBC) [Entitic vol] 89.1 fL Normal 81.0-99.0 [facility] Comment on above: Performed By: #### U ACSIND #### [facility] Laboratory [address] [address] [address] Ilia Carrillo MONO # 0.3 103/ul Normal 0.3-0.8 [facility] Comment on above: Performed By: #### U ACSIND #### [facility] Laboratory [address] [address] [address] Ilia Carrillo Monocytes/100 WBC (Bld) 3.8 % Normal 1.7-12.0 [facility] Comment on above: Performed By: #### U ACSIND #### [facility] Laboratory [address] [address] [address] Ilia Carrillo NEUT # 6.5 103/ul Normal 1.4-6.5 [facility] Comment on above: Performed By: #### U ACSIND #### [facility] Laboratory [address] [address] [address] Ilia Carrillo Neutrophils/100 WBC (Bld) 79.5 % Critically high 43.0-75.0 [facility] Comment on above: Performed By: #### U ACSIND #### [facility] Laboratory [address] [address] [address] Ilia Carrillo Platelet mean volume (Bld) [Entitic vol] 9.2 fL Critically low 9.5-13.5 [facility] Comment on above: Performed By: #### U ACSIND #### [facility] Laboratory [address] [address] [address] Ilia Carrillo PLT 212 103/ul Normal 150-450 [facility] Comment on above: Performed By: #### U ACSIND #### [facility] Laboratory [address] [address] [address] Ilia Carrillo RBC 4.04 106/ul Critically low 4.20-5.40 [facility] Comment on above: Performed By: #### U ACSIND #### [facility] Laboratory [address] [address] [address] Ilia Carrillo WBC 8.2 103/ul Normal 4.0-11.0 [facility] Comment on above: Performed By: #### U ACSIND #### [facility] Laboratory [address] [address] [address] Ilia Carrillo GLUCOSE - 1HRon 10-21-2022 Glucose [Mass/Vol] 147 mg/dL Critically high 74-106 [facility] Comment on above: Performed By: #### P REGQNT #### [facility] Laboratory [address] [address] [address] Ilia Carrillo PAP ACOG PANEL 2: 21 to 29on 10-19-2022 . . Normal [facility] Comment on above: Performed By: #### P REGQNT #### [facility] [address] [address] [address] Ilia Carrillo Age Gdln ACOG Testing - [facility] Comment on above: Performed By: #### P REGQNT #### [facility] [address] [address] [address] Ilia Carrillo DIAGNOSIS: Comment [facility] Comment on above: Result Comment: NEGA TIVE FOR INTRAEPITHELIAL LESION OR MALIGNANCY. THIS SPECIMEN WAS RESCREENED PART OF OUR MEDICAL OFFICE ADMINISTRATOR PROGRAM. Performed By: #### P REGQNT #### [facility] [address] [address] [address] Ilia Carrillo Methodology: Comment [facility] Comment on above: Result Comment: This liquid based ThinPrep(R) pap test was screened with the use of an image guided system. Performed By: #### P REGQNT #### [facility] [address] [address] [address] Ilia Carrillo Note: Comment [facility] Comment on above: Result Comment: The Pap smear is a screening test designed to aid in the detection of premalignant and malignant conditions of the uterine cervix. It is not a diagnostic procedure and should not be used as the sole means of detecting cervical cancer. Both false-positive and false-negative reports do occur. . Performed By: #### P REGQNT #### [facility] [address] [address] [address] Ilia Carrillo Performed by: Comment [facility] Comment on above: Result Comment: Janeth ica Reynolds, Roll Form Operator (ASCP) Performed By: #### P REGQNT #### [facility] [address] [place] [address] Dr. Ilia Carrillo QC reviewed by: Comment Normal [facility] Comment on above: Result Comment: Anna Russell, Supervisory Roll Form Operator (ASCP) Performed By: #### P REGQNT #### [facility] [address] [place] [address] Dr. Ilia Carrillo Reflex Criteria: Comment Normal [place] Comment on above: Result Comment: The HPV DNA reflex criteria were not met with this specimen result therefore, no HPV testing was performed. . Performed By: #### P REGQNT #### [facility] [address] [place] [address] Dr. Ilia Carrillo Specimen adequacy: Comment Normal [facility] Comment on above: Result Comment: Sati sfactory for evaluation. No endocervical component is identified. Performed By: #### P REGQNT #### [facility] [address] [place] [address] Dr. Ilia Carrillo CHLAMYDIA/GONOCOCCUS ABAD (SW AB/URINE/PAPon 10-13-2022 Chlamydia trachomatis, ABAD Negative Normal Negative [facility] Comment on above: Performed By: #### P REGQNT #### [facility] [address] [place] [address] Dr. Ilia Carrillo Neisseria gonorrhoeae, ABAD Negative Normal Negative [facility] Comment on above: Performed By: #### P REGQNT #### [facility] [address] [place] [address] Dr. Ilia Carrillo VAGINITIS/VAGINOSIS DNA PROB Mitesh 10-12-2022 Floresita species Negative Normal Negative [facility] Comment on above: Performed By: #### C BC #### [facility] [address] [place] [address] Dr. Ilia Carrillo Gardnerella vaginalis Negative Normal Negative [facility] Comment on above: Performed By: #### C BC #### [facility] [address] [place] [address] Dr. Ilia Carrillo Trichomonas vaginalis Negative Normal Negative [facility] Comment on above: Performed By: #### C BC #### [facility] [address] [address] [address] Ilia Carrillo AFP MATERNAL FOR SPINA BIFID Aon 09-05-2022 AFP MoM 1.50 Normal [facility] Comment on above: Performed By: #### C BC #### [facility] [address] [address] [address] Ilia Carrillo AFP Value 85.2 ng/mL Normal [facility] Comment on above: Performed By: #### C BC #### [facility] [address] [address] [address] Ilia Carrillo AFP, Serum for Spina Bifida Report Normal [facility] Comment on above: Performed By: #### C BC #### [facility] [address] [place] [address] Dr. Ilia Carrillo Comment Comment Normal [facility] Comment on above: Result Comment: Richard Loomis, Ph.D., [facility] Director . References: Available Upon Request. . Multiples Of Median Cutoffs For AFP Elevations Munguia 2.5 Black 2.8 IDD 2.0 Twins 4.5 Abbreviation Definitions IDD - Insulin Dep Diabetes OSBR - Open Spina Bifida Risk . For further inquiries contact [facility] at [phone]. . This test was developed and its performance characteristics determined by [facility]. It has not been cleared or approved by the Food and Drug Administration. Performed By: #### C BC #### [facility] [address] [place] [address] Dr. Ilia Steinberg Age Collection Date 20.7 weeks Normal [facility] Comment on above: Performed By: #### C BC #### [facility] [address] [place] [address] Dr. Ilia Carrillo Gestat, Age Based on Ultrasound Normal [facility] Comment on above: Result Comment: 06:3 on 05/22/2022 Recalculations are not recommended when gestational dating by LMP and ultrasound are within 10 days. Performed By: #### C BC #### [facility] [address] [place] [address] Dr. Ilia Carrillo Insulin Dep Diabetes No Normal [facility] Comment on above: Performed By: #### C BC #### [facility] [address] [place] [address] Dr. Ilia Carrillo Interpretation Comment Normal [facility] Comment on above: Result Comment: Inte rpretation: [...] Customer Services to discuss available options. The [employer] recommends amniocentesis be offered to women age 35 and older. Performed By: #### C BC #### [facility] [address] [place] [address] Dr. Ilia Carrillo [age] Normal [facility] Comment on above: Performed By: #### C BC #### [facility] [address] [place] [address] Dr. Ilia Carrillo Multiple Gestation No Normal [facility] Comment on above: Performed By: #### C BC #### [facility] [address] [place] [address] Dr. Ilia Carrillo OSBR Risk 1 [place] [address] [place] Comment on above: Performed By: #### C BC #### [facility] [address] [place] [address] Dr. Ilia Carrillo PDF . Normal [facility] Comment on above: Performed By: #### C BC #### [facility] [address] [place] [address] Dr. Ilia Carrillo Race Normal [facility] Comment on above: Performed By: #### C BC #### [facility] [address] [place] [address] Dr. Ilia Carrillo Test Results: Negative Normal [facility] Comment on above: Performed By: #### C BC #### [facility] [address] [address] [address] Ilia Carrillo US PREG ANATOMY SINGLEon [...] CHASE TRAN Date: 2022-08-27 16:15 Normal [facility] HEP B SURFACE ANTIGEN SCREEN on 07-04-2022 HBsAg Screen Negative Normal Negative [facility] Comment on above: Performed By: #### C BC #### [facility] [address] [address] [address] Ilia Carrillo HEPATITIS C VIRUS AB W/ REFL EX QUANTon 07-04-2022 HCV AB <0.1 Normal 0.0-0.9 [facility] Comment on above: Performed By: #### C BC #### [facility] [address] [place] [address] Dr. Ilia Carrillo Interpretation: Comment Normal [facility] Comment on above: Result Comment: Nega tive Not infected with HCV, unless recent infection is suspected or other evidence exists to indicate HCV infection. Performed By: #### C BC #### [facility] [address] [place] [address] Dr. Ilia Carrillo HIV 1 AND 2 WITH REFLEXon HIV Screen 4th Generation wRfx Non-Reactive Normal Non Reactive [facility] Comment on above: Result Comment: HIV Negative HIV-1/HIV-2 antibodies and HIV-1 p24 antigen were NOT detected. There is no laboratory evidence of HIV infection. Performed By: #### C BC #### [facility] [address] [place] [address] Dr. Ilia Carrillo RPR QUANTon 07-04-2022 Rapid Plasma Reagin, Quant Non-Reactive Normal NonRea<1:1 [facility] Comment on above: Result Comment: Plea Note: This test does not meet current guidelines for screening and diagnosis of syphilis. This test is intended for following treatment response in patients being treated for syphilis infection. To screen for syphilis infection, a reflex cascade that includes both RPR and a treponema-specific assay should be utilized, such as Treponema pallidum (Syphilis) Screening Love (836388) or Rapid Plasma Reagin (RPR) Test With Reflex to Quantitative RPR and Confirmatory Treponema pallidum Antibodies (781748). Performed By: #### C BC #### [facility] [address] [place] [address] Dr. Ilia Carrillo RUBELLA AB IGGon 07-04-2022 Rubella Antibodies, IgG 3.07 index Normal Immune >0.99 [facility] Comment on above: Result Comment: Non- immune <0.90 Equivocal 0.90 - 0.99 Immune >0.99 Performed By: #### C BC #### [facility] [address] [place] [address] Dr. Ilia Carrillo CBC AUTO DIFFon 07-03-2022 BASO # 0.0 103/ul Normal 0.0-0.1 [facility] Comment on above: Performed By: #### C BC #### [facility] [address] [place] [address] Dr. Ilia Carrillo Basophils/100 WBC (Bld) 0.2 % Normal 0.2-2.0 [facility] Comment on above: Performed By: #### C BC #### [facility] [address] [place] [address] Dr. Ilia Carrillo EO # 0.1 103/ul Normal 0.0-0.7 [facility] Comment on above: Performed By: #### C BC #### [facility] [address] [place] [address] Dr. Ilia Carrillo Eosinophils/100 WBC (Bld) 1.1 % Normal 0.9-7.0 [facility] Comment on above: Performed By: #### C BC #### [facility] [address] [place] [address] Dr. Ilia Carrillo Erythrocyte distribution width (RBC) [Ratio] 11.4 % Normal 11.0-15.0 [facility] Comment on above: Performed By: #### C BC #### [facility] [address] [place] [address] Dr. Ilia Carrillo Hematocrit (Bld) [Volume fraction] 35.2 % Critically low 36.0-48.0 [facility] Comment on above: Performed By: #### C BC #### [facility] [address] [place] [address] Dr. Ilia Carrillo Hemoglobin (Bld) [Mass/Vol] 12.4 g/dL Normal 12.0-16.0 [facility] Comment on above: Performed By: #### C BC #### [facility] [address] [place] [address] Dr. Ilia Carrillo IG # 0.03 10e3/ul Normal 0.00-0.03 [facility] Comment on above: Performed By: #### C BC #### [facility] [address] [place] [address] Dr. Ilia Carrillo IG % 0.3 % Normal 0.0-0.5 [facility] Comment on above: Performed By: #### C BC #### [facility] [address] [place] [address] Dr. Ilia Carrillo LYMPH # 2.1 103/ul Normal 1.2-3.8 [facility] Comment on above: Performed By: #### C BC #### [facility] [address] [place] [address] Dr. Ilia Carrillo Lymphocytes/100 WBC (Bld) 22.6 % Normal 20.5-60.0 [facility] Comment on above: Performed By: #### C BC #### [facility] [address] [place] [address] Dr. Ilia Carrillo MANUAL DIFF REQ NO Normal [facility] Comment on above: Performed By: #### C BC #### [facility] [address] [place] [address] Dr. Ilia Carrillo MCH (RBC) [Entitic mass] 30.6 pg Normal 26.7-34.0 [facility] Comment on above: Performed By: #### C BC #### [facility] [address] [place] [address] Dr. Ilia Carrillo MCHC (RBC) [Mass/Vol] 35.2 g/dL Normal 29.9-35.2 [facility] Comment on above: Performed By: #### C BC #### [facility] [address] [place] [address] Dr. Ilia Carrillo MCV (RBC) [Entitic vol] 86.9 fL Normal 81.0-99.0 [facility] Comment on above: Performed By: #### C BC #### [facility] [address] [place] [address] Dr. Ilia Carrillo MONO # 0.4 103/ul Normal 0.3-0.8 [facility] Comment on above: Performed By: #### C BC #### [facility] [address] [place] [address] Dr. Ilia Carrillo Monocytes/100 WBC (Bld) 4.8 % Normal 1.7-12.0 [facility] Comment on above: Performed By: #### C BC #### [facility] [address] [address] [address] Ilia Carrillo NEUT # 6.5 103/ul Normal 1.4-6.5 [facility] Comment on above: Performed By: #### C BC #### [facility] [address] [address] [address] Ilia Carrillo Neutrophils/100 WBC (Bld) 71.0 % Normal 43.0-75.0 [facility] Comment on above: Performed By: #### C BC #### [facility] [address] [address] [address] Ilia Carrillo Platelet mean volume (Bld) [Entitic vol] 8.7 fL Critically low 9.5-13.5 [facility] Comment on above: Performed By: #### C BC #### [facility] [address] [place] [address] Dr. Ilia Carrillo PLT 260 103/ul Normal 150-450 [facility] Comment on above: Performed By: #### C BC #### [facility] [address] [place] [address] Dr. Ilia Carrillo RBC 4.05 106/ul Critically low 4.20-5.40 [facility] Comment on above: Performed By: #### C BC #### [facility] [address] [place] [address] Dr. Ilia Carrillo WBC 9.2 103/ul Normal 4.0-11.0 [facility] Comment on above: Performed By: #### C BC #### [facility] [address] [place] [address] Dr. Ilia Carrillo CULTURE URINEon 07-03-2022 CULTURE URINE Culture Observations: MODERATE GROWTH OF MIXED GENITAL BETHANIE. NO POTENTIAL PATHOGENS SEEN. Normal [facility] Comment on above: Performed By: #### U RCX #### [facility] [address] [place] [address] Dr. Ilia Carrillo GLYCOHEMOGLOBIN A1Con 2021 ADA RECOMMENDATION SEE BELOW Normal [facility] Comment on above: Result Comment: ADA RECOMMENDED LIMIT 4.0 - 6.0 ADA THERAPEUTIC TARGET < 7.0 ACTION SUGGESTED > 7.0 Performed By: #### P REGQNT #### [facility] [address] [address] [address] Ilia Carrillo Glucose [Mass/Vol] 97 mg/dL Normal [facility] Comment on above: Performed By: #### P REGQNT #### [facility] [address] [place] [address] Dr. lIia Carrillo HbA1c (Bld) [Mass fraction] 5.0 % Normal 4.5-6.2 [facility] Comment on above: Performed By: #### P REGQNT #### [facility] [address] [place] [address] Dr. Ilia Carrillo FADY BOX TEST PT SEND OUTo n 07-03-2022 SENT TO REF LAB 07/03/2022 Normal [facility] Comment on above: Performed By: #### N BOX #### [facility] [address] [place] [address] Dr. Ilia Carrillo TYPE AND SCREENon 07-03-2022 TYPE AND SCREEN Negative Normal [facility] Comment on above: Performed By: #### U ACSIND #### [facility] [address] [place] [address] Dr. Ilia Carrillo COVID Quick Testingon 2021 Result Positive [employer] Other US PREG TVon 05-23-2022 US PREG [...] ECTOR MINOR Date: 2022-05-23 21:22 Normal [facility] PREG QUANT HCGon 05-11-2022 HCG QUANT 2766 mIU/mL Normal [facility] Comment on above: Performed By: #### U ACSIND #### [facility] [address] [place] [address] Dr. Ilia Carrillo HCG RANGE SEE BELOW Normal [facility] Comment on above: Result Comment: 5-50 0-1 WEEK 40-300 1-2 WEEKS 100-1,000 2-3 WEEKS 500-6,000 3-4 WEEKS 5,000-200,000 1-2 MONTHS 10,000-100,000 2-3 MONTHS 3,000-50,000 2ND TRIMESTER 1,000-50,000 3RD TRIMESTER Performed By: #### U ACSIND #### [facility] [address] [place] [address] Dr. Ilia Carrillo PREG QUANT HCGon 05-09-2022 HCG QUANT 983 mIU/mL Normal [facility] Comment on above: Performed By: #### P REGQNT #### [facility] [address] [place] [address] Dr. Ilia Carrillo HCG RANGE SEE BELOW Normal [facility] Comment on above: Result Comment: 5-50 0-1 WEEK 40-300 1-2 WEEKS 100-1,000 2-3 WEEKS 500-6,000 3-4 WEEKS 5,000-200,000 1-2 MONTHS 10,000-100,000 2-3 MONTHS 3,000-50,000 2ND TRIMESTER 1,000-50,000 3RD TRIMESTER Performed By: #### P REGQNT #### [facility] [address] [place] [address] Dr. Ilia Carrillo Vital Signs Date Time Vital Sign Value Performing Clinician Facility 08-11-2024 08:53-0400 Body height 162.6 cm Viola HAIDER Work Phone: [facility] 08-11-2024 08:53-0400 Body mass index (BMI) [Ratio] 31.24 kg/m2 Viola HAIDER Work Phone: [facility] 08-11-2024 08:53-0400 Body weight 82.56 kg Viola HAIDER Work Phone: [facility] [employer] 08-11-2024 08:53-0400 Diastolic blood pressure 76 mm[Hg] Viola HAIDER Work Phone: [facility] [employer] 08-11-2024 08:53-0400 Systolic blood pressure 110 mm[Hg] Viola HAIDER Work Phone: [facility] 12-05-2023 10:50-0500 Body height 163.19 cm Erlinda Suzi Other [employer] Other 12-05-2023 10:50-0500 Body mass index (BMI) [Ratio] 32.12 kg/m2 Erlinda Suzi Other [employer] Other 12-05-2023 10:50-0500 Body temperature 98 [degF] Erlinda Suzi Other [employer] Other 12-05-2023 10:50-0500 Body weight 85.55 kg Erlinda Suzi Other [employer] Other 12-05-2023 10:50-0500 Diastolic blood pressure 68 mm[Hg] Erlinda Suzi Other [employer] Other 12-05-2023 10:50-0500 Respiratory rate 18 /min Erlinda Suzi Other [employer] Other 12-05-2023 10:50-0500 SaO2% (BldA) [Mass fraction] 96 % Erlinda Suzi Other [employer] Other 12-05-2023 10:50-0500 Systolic blood pressure 104 mm[Hg] Erlinda Suzi Other [employer] Other 09-05-2022 15:07-0400 Body weight 84.[address] CHRISTOPHE MIRELES . [facility] Comment on above: Performed By: #### CBC #### [facility] [address] [place] [address] Dr. Ilia Carrillo 06-23-2022 17:05-0400 Body height 163.19 cm Cortney Mclainault Other [employer] Other 06-23-2022 17:05-0400 Body mass index (BMI) [Ratio] 31.16 kg/m2 Cortney Mclainault Other [employer] Other 06-23-2022 17:05-0400 Body temperature 99.6 [degF] Cortney Chapman Other [employer] Other 06-23-2022 17:05-0400 Body weight 83.01 kg Cortney Chapman Other [employer] Other 06-23-2022 17:05-0400 Respiratory rate 18 /min Cortney Chapman Other [employer] Other 06-23-2022 17:05-0400 SaO2% (BldA) [Mass fraction] 98 % Cortney Chapman Other [employer] Other Encounters Encounter Date Encounter Type Care Provider Facility Start: 08-11-2024 End: 08-11-2024 Bamboo flowsheet Viola HAIDER Work Phone: [facility] Start: 08-11-2024 End: 08-11-2024 Bamboo flowsheet Viola HAIDER Work Phone: [facility] Start: 08-11-2024 End: 08-11-2024 Clinisync Result Encounter Viola HAIDER Work Phone: [facility] External Department Unsolicited Start: 08-11-2024 End: 08-11-2024 Office outpatient visit 15 minutes Viola HAIDER Work Phone: [facility] Comment on above: Amenorrhea Start: 08-11-2024 End: 08-11-2024 ambulatory VIOLA BECK Not Available Start: 03-18-2024 End: 03-18-2024 ambulatory PAT ROCHE Not Available Start: 01-31-2024 End: 02-01-2024 ambulatory Pat Roche Facility:[facility] Start: 01-31-2024 End: 01-31-2024 Patient encounter procedure Pat Roche [facility] Start: 01-29-2024 End: 01-29-2024 ambulatory PAT ROCHE Not Available Start: 01-22-2024 End: 01-22-2024 ambulatory PAT ROCHE Not Available Start: 01-08-2024 End: 01-08-2024 ambulatory PAT ROCHE Not Available Start: 01-07-2024 End: 01-08-2024 ambulatory [facility] Start: 12-20-2023 End: 12-21-2023 ambulatory [facility] Facility: [facility] [place] [facility] Start: 12-10-2023 End: 12-11-2023 ambulatory [facility] Facility: [facility] Start: 12-05-2023 Office outpatient visit 15 minutes Erlinda Archer [facility] Start: 12-05-2023 End: 12-05-2023 ambulatory Erlinda Archer Facility:[facility] Start: 12-05-2023 End: 12-05-2023 ambulatory PROPELLER INSPECTOR-C Erlinda Archer Work Phone: [facility] Work Phone: Start: 12-05-2023 End: 12-05-2023 Patient encounter procedure PROPELLER INSPECTOR-C Erlindawillie Archer Work Phone: [facility] Work Phone: Start: 11-06-2023 End: 11-07-2023 ambulatory [facility] Facility:[facility] Start: 10-30-2023 End: 10-30-2023 ambulatory CHRISTOPHE MIRELES Not Available Start: 07-23-2023 ambulatory [facility] [facility] Facility :[facility] Todd Start: 04-05-2023 End: 04-06-2023 ambulatory [facility] Facility:[facility] Sarika inman Start: 01-08-2023 End: 01-08-[address] FLORINA ONEILL Facility:[facility]1 Start: 01-02-2023 End: 01-04-2023 Evaluation and management of inpatient DR CHRISTOPHE MIRELES . Facility:[facility] Start: 12-18-2022 End: 12-18-2022 ambulatory VIOLA BECK . Facility:[facility] Start: 12-16-2022 End: 12-17-[address] CHASE TRAN Facility:[facility] Start: 11-10-2022 End: 11-11-[address] CHRISTOPHE MIRELES . Facility:[facility] Start: 10-31-2022 End: 11-01-[address] CHRISTOPHE MIRELES . Facility:[facility] Start: 10-25-2022 End: 10-26-[address] CHRISTOPHE MIRELES . Facility:[facility] Start: 10-21-2022 End: 10-22-[address] CHRISTOPHE MIRELES . Facility:[facility] Start: 10-10-2022 End: 10-11-2022 ambulatory VIOLA BECK . Facility:[facility] Start: 08-30-2022 End: 08-31-[address] CHRISTOPHE MIRELES . Facility:[facility] Start: 08-25-2022 End: 08-26-[address] CHRISTOPHE MIRELES . Facility:[facility] Start: 07-19-[address] CHRISTOPHE MIRELES . Facili ty:[facility]1 Start: 07-03-2022 End: 07-04-[address] CHRISTOPHE MIRELES . Facility:[facility] Start: 06-23-2022 End: 06-23-2022 ambulatory Cortney Chapman Other [employer] Other Start: 06-23-2022 Office outpatient ne w 30 minutes Cortney Chapman [facility] Start: 05-22-2022 End: 05-23-[address] CHRISTOPHE MIRELES . Facility:[facility] Start: 05-11-2022 End: 05-12-[address] CHRISTOPHE MIRELES . Facility:[facility] Start: 05-09-2022 End: 05-10-[address] CHRISTOPHE MIRELES . Facility: Procedures Date Procedure Procedure Detail Performing Clinician Start: 08-11-2024 ALL CBC WITH AUTO DIFF Viola HAIDER Work Phone: Start: 12-05-2023 Radiologic examinati on of knee [employer]OPELLER INSPECTOR-Chip Archer Work Phone: Start: 01-02-2023 Extraction of Produc ts of Conception, Low Cervical, Open Approach DR CHRISTOPHE MIRELES . Start: 01-02-2023 section Dolores Roche Plan of Treatment Date Care Activity Detail Author Start: 09-08-2024 End: 09-08-2024 Patient encounter procedure 09/08/2024 3:40 PM EST Office Visit [facility] [address] [place] [address] Christophe Mireles DO [address], [place] [id number] [facility] Start: 08-11-2024 End: 08-11-2025 US for US PELVIS-TRANSVAG IF INDICATED Imaging Routine Amenorrhea Expected: 08/11/2024 (Approximate), Expires: 08/11/2025 [facility] Comment on above: Expected: 08/11/2024 (Approximate), Expires: 08/11/2025 Start: 08-11-2024 End: 08-11-2024 Patient encounter procedure 08/11/2024 8:30 AM EDT Office Visit [facility] [address] [place] [place] [address] Viola Beck PA [address] [place], [place] [id number] Arrived [facility] Comment on above: Arrived CBC W Auto Different ial panel - Blood CBC and differential Lab Routine Amenorrhea Ordered: 08/11/2024 [facility] Comment on above: Ordered: 08/11/2024 hCG, quantitative, hCG, quantitative, Lab Routine Amenorrhea Ordered: 08/11/2024 [facility] Comment on above: Ordered: 08/11/2024 Hemoglobin A1c/Hemoglobin.total in Blood Hemoglobin A1c Lab Routine Amenorrhea Ordered: 08/11/2024 [facility] Comment on above: Ordered: 08/11/2024 Prolactin Prolactin Lab Ro utine Amenorrhea Ordered: 08/11/2024 [facility] Comment on above: Ordered: 08/11/2024 Thyrotropin [Units/volume] in Serum or Plasma TSH Lab Routine Amenorrhea Ordered: 08/11/2024 [facility] Work Phone: Comment on above: Ordered: 08/11/2024 Immunizations Immunization Date Immunization Notes Care Provider Fa jesus alberto NEGATED: Highlighted row has not occurred!12-10-2023 influenza virus vaccine, unspecified formulation [facility] NEGATED: Highlighted row has not occurred!02-08-2023 influenza virus vaccine, unspecified formulation [facility] NEGATED: Highlighted row has not occurred!02-08-2023 SARS-CoV-2 mRNA (tozinameran 5y-11y) vaccine Pat [facility] Payers Date Payer Category Payer Unknown [id number] 2023 Unknown [id number] 1996 Unknown [id number] 2.16.840.1.123185.3.579.2.593 1996 Unknown [id number] 2.16.840.1.025917.3.579.2.593 1996 Unknown [id number] 2.16.840.1.178947.3.579.2.593 1996 Unknown [id number] 2.16.840.1.663803.3.579.2.593 1996 Unknown [id number] 2.16.840.1.800154.3.579.2.593 1996 Unknown [id number] 2.16.840.1.676961.3.579.2.593 1996 Unknown [id number] 2.16.840.1.616365.3.579.2.593 1996 Unknown [id number] 2.16.840.1.200907.3.579.2.593 1996 Unknown [id number] 2.16.840.1.661692.3.579.2.593 1996 Unknown [id number] 2.16.840.1.594415.3.579.2.593 1996 Unknown [id number] 2.16.840.1.033953.3.579.2.593 1996 Unknown [id number] 2.16.840.1.481806.3.579.2.593 1996 Unknown [id number] 2.16.840.1.962148.3.579.2.593 1996 Unknown [id number] 2.16.840.1.657426.3.579.2.593 1996 Unknown [id number] 2.16.840.1.043356.3.579.2.593 1996 Unknown [id number] 2.16.840.1.503393.3.579.2.593 1996 Unknown [id number] 2.16.840.1.522794.3.579.2.593 1996 Unknown [id number] 2.16.840.1.155784.3.579.2.727 1996 Unknown [id number] 2.16.840.1.616433.3.579.2.727 1996 Unknown [id number] 2.16.840.1.131949.3.579.2. 1996 Unknown [id number] 2.16.840.1.484476.3.579.2. 1996 Unknown [id number] 2.16.840.1.742737.3.579.2. 1996 Unknown [id number] 2.16.840.1.485922.3.579.2.72 1996 Unknown [id number] 2.16.840.1.475955.3.579.2. 1996 Unknown [id number] 2.16.840.1.707020.3.579.2.1258 1996 Unknown [id number] 2.16.840.1.913397.3.579.2.1258 1996 Unknown [id number] 2.16.840.1.373272.3.579.2.1258 1996 Unknown [id number] 2.16.840.1.550325.3.579.2.1258 1996 Unknown [id number] 2.16.840.1.384583.3.579.2.1258 1996 Unknown [id number] 2.16.840.1.015526.3.579.2.1258 1996 Unknown [id number] 2.16.840.1.893445.3.579.2.1259 1959 Blue Cross Blue Shield DZNAN [id number] 2.16.840.1.007490. 1959 Self-pay 1959 Unknown [id number] 2.16. 840.1.464939.19 1959 Unknown [id number] Unknown [id number] 2.16.840.1.804306.3.579.2.593 Unknown [id number] 2.16.840.1.023087.3.579.2.531 Worker's Compensation [facility] [id number] Social History Date Type Detail Facility Start: 03-18-2024 Sex Assigned At F [facility] Start: 1995 Sex Assigned At Female F [facility] Start: 10-11-2023 End: 12-20-2023 Tobacco smoking status Never smoked tobacco (finding) [facility] Tobacco smoking status Never [facility] Start: 10-11-2023 Tobacco use and exposure Smokeless tobacco non-user [facility] Start: 03-18-2024 End: 08-11-2024 Alcoholic beverage intake Lifetime non-drinker (finding) [facility] Start: 03-18-2024 History of Social function [facility] Start: 1996 Sex assigned at Not on file [facility] Clinical Notes 06-23-2022 to 08-11-2024 MELIZA Amador - 08/11/2024 8:30 AM EDT Note Date & Type Note Facility 08-11-2024 History of Presen t illness Narrative Reason for Appointment: Patient ID: Elida Grover is a 29 y.o. female who presents for Menstrual Problem Patient presents today for Acute Visit. MEDICATIONS No current outpatient medications ALLERGIES No Known Allergies PROBLEMS Active Ambulatory Problems Diagnosis Date Noted No Active Ambulatory Problems Resolved Ambulatory Problems Diagnosis Date Noted No Resolved Ambulatory Problems Past Medical History: Diagnosis Date Chronic constipation Dyslipidemia (CMS/HCC) Polycystic ovarian syndrome Tear of meniscus of knee 09/24/2023 HISTORY PAST MEDICAL HISTORY SOCIAL HISTORY Past Medical History: Diagnosis Date Chronic constipation Dyslipidemia (CMS/HCC) Polycystic ovarian syndrome Tear of meniscus of knee 09/24/2023 Social History Tobacco Use Smoking status: Never Smokeless tobacco: Never Substance Use Topics Alcohol use: Never Drug use: Never FAMILY HISTORY Family History Problem Relation Name Age of Onset Hyperlipidemia Mother Diabetes Father Carlos kamara Hypertension Father Carlos kamara SURGICAL HISTORY Past Surgical History: Procedure Laterality Date SECTION, LOW TRANSVERSE REVIEW OF SYSTEMS Review of Systems: Review of Systems Constitutional: Negative. HENT: Negative. Eyes: Negative. Respiratory: Negative. Cardiovascular: Negative. Gastrointestinal: Negative. Genitourinary: Negative. Musculoskeletal: Negative. Skin: Negative. Neurological: Negative. All other systems reviewed and are negative. Hematological: Negative. Endocrine: Negative. Allergic/Immunologic: Negative. OBJECTIVE Objective: Physical Exam Constitutional: Appearance: Normal appearance. She is normal weight. HENT: Head: Normocephalic. Cardiovascular: Rate and Rhythm: Normal rate. Pulses: Normal pulses. Pulmonary: Effort: Pulmonary effort is normal. Breath sounds: Normal breath sounds. Abdominal: Palpations: Abdomen is soft. Musculoskeletal: General: Normal range of motion. Neurological: General: No focal deficit present. Mental Status: She is alert and oriented to person, place, and time. Psychiatric: Mood and Affect: Mood normal. Behavior: Behavior normal. Thought Content: Thought content normal. Judgment: Judgment normal. Vitals and nursing note reviewed. Vitals: Estimated body mass index is 31.24 kg/m as calculated from the following: Height as of this encounter: 5' 4 . Weight as of this encounter: 182 lb. BP: 110/76 Patient's last menstrual period was 08/08/2024. ASSESSMENT & PLAN ICD-10-CM 1. Amenorrhea N91.2 TSH CBC and differential Prolactin hCG, quantitative, Hemoglobin A1c US PELVIS-TRANSVAG IF INDICATED Patient presents with history of late menses approx 8 days late. She state she since started since she scheduled for her appointment. She states recently her periods have also been heavier than usual. Pt wishes to discuss fertility and moving forward. We will order labs and US today. Pt has appointment scheduled next month with DR Mireles Documented by MELIZA Amador on behalf of: MELIZA Amador documented in this encounter [facility] 12-05-2023 Evaluation note Encounter Date Diagnosis Assessment [...] no improvement in 5 to 7 days [employer] Other 02-28-2023 NoteDISCHARGE SUMMARY NOTE DATE: 01/12/2023 PRIMARY DIAGNOSES: 1. [...] when pain free and no longer on narcotics.[facility] [id number] NoteOPERATIVE NOTE OPERATION DATE: 01/02/2023 PROCEDURE: Primary low transverse section. PREOPERATIVE DIAGNOSIS: 1. Intrauterine . 2. Breech presentation. 3. Decreasing movement per patient and office. POSTOPERATIVE DIAGNOSIS: 1. Intrauterine . 2. Breech presentation. 3. Decreasing movement per patient and office. ANESTHESIA: Spinal with Duramorph. SURGEON: Christophe Mireles D.O. [employer] NURSE: EFRAÍN Verdugo URINE OUTPUT: Yellow and clear. BLOOD LOSS: 600 mL. SPECIMEN: Placenta. FINDINGS: Viable infant. Apgars 9 at 1, 9 at 5. [...] patient's uterus and extended laterally digitally. The infant was then delivered atraumatically after the bladder blade was removed in the cephalic position. The cord was clamped and cut. Cord blood was obtained. The was handed off to awaiting team. The [...] ADDENDUM TO PREOPERATIVE DIAGNOSIS: Risk of cord prolapse.[facility] 06-23-2022 Evaluation note* Encounter Date Diagnosis Assessment Notes Treatment Notes Treatment Clinical Notes Jun, Exposure to COVID-19 virus (ICD-10 - Z20.822) Jun, COVID-19 (ICD-10 - U07.1) Today you tested positive for the COVID virus. This mean you need to follow all CDC quarantine guidelines found at [email or web address] ov. It is important to rest, increase fluids, and stay at home. Recommend contacting primary care provider and discussing best course of action if you have chronic health conditions. COVID POSITIVE education handout discharge instructions. given. [employer] Other Evaluation + Plan note No data available for this section [facility] note[facility] assessment information available [facility] Work Phone: Evaluation note* Diagnosis Amenorrhea Absence of menstruation documented in this encounter [facility] N[facility]ative - Reported* Type Description Date Surgical History wisdom teeth Hospitalization History see above [employer] Other Hospital Discharge instructions No data available for this section [facility] No data available for this section [facility] Summary Purpose Family History No Family History Records Found No data available for this section No Family History Records FoundNo Family History Records FoundNo Family History Records Found Advance Directives Advance Directive Response Recorded Date/ Time Advance Directives No May 21 10:49am Additional Source Comments REASON FOR VISIT (unrecogniz ed section and content) Reason Comments Menstrual Problem INFORMATION SOURCE (unrecogn ized section and content) DATE CREATED AUTHOR 01/15/2023 [facility] DATE CREATED AUTHOR AUTHOR'S ORGANIZ ATION 02/06/2024 [facility] DATE CREATED AUTHOR AUTHOR'S ORGANIZ ATION 03/23/2024 [facility] DATE CREATED AUTHOR AUTHOR'S ORGANIZ ATION 08/11/2024 [facility] EPIC Care Teams (unrecognized sec tion and content) [...] BE BASED ON THE PRIMARY CLINICAL RECORDS. [employer] [facility]. provides no warranty or guarantee of the accuracy or completeness of information in this document.
== END 2024-08-18 15:26 | disposition home or self-care (01) ==
LOC: US 15:25
PROVIDERS: PCP Nurse Practitioner; Visit Provider Physician Assistant
DX: N91.2 Amenorrhea, unspecified (principal)
CPT/HCPCS: 76830; 76856

== ENCOUNTER 2025-01-08 15:20 | Outpatient (OUT) | payer OTHER, BC, SELFPAY ==
--- OUTSIDE RECORDS SUMMARY | 2025-01-08 15:37 | XMS_ITS | CCD ---
Author Organization [facility] CliniSyak Care Team Providers Care Nail Expert Name Role Phone Cortney Chapman Unavailable ANGELO [...] Unavailable ANGELO ., DR SAEED Consulting Unavailable DAVIDSON, DR CHASE Tam Consulting Unavailable NADERER, DR FLORINA White Primary Care Unavailable ANGELO ., DR SAEDE Attending Unavailable ANGELO ., DR SAEED Admitting [...] Archer Unavailable Kaiser Anderson Primary Care Physician [phone] Erlinda Archer Attending Unavailable Erlinda Archer Admitting Unavailable Unavailable Primary Care Provider UnavailPAT Cohen Referring Unavailable PAT ROCHE Attending Unavailable PAT ROCHE Referring Unavailable PAT ROCHE Attending Unavailable PAT ROCHE Attending Unavailable KIRAN, VIOLA Attending Unavailable ANGELO, CHRISTOPHE Attending Unavailable CHRISTOPHE MIRELES Attending Unavailable Kaiser Anderson Attending Unavailable Pat Roche Referring Unavailable Pat Roche Attending Unavailable Pat Roche Admitting Unavailable Kaiser Anderson Attending Unavailable ENA MORE Attending Unavailable Kaiser Anderson Attending Unavailable Kaiser Anderson Attending Unavailable Allergies Allergy Classification Reported Allergen(s) Allergy Type Date of Onset Reaction(s) Facility (1 source) No Known Medication Allergies; Translations: [No Known Medication Allergies] Propensity to adverse reactions (disorder) [facility] Repository Medications Current Medications Medication Drug [...] pain, # 20 tab(s), Refills(s) 0, Pharmacy: [id number], 162, cm, 12/20/23 15:18:00 EST, Height/Length Dosing, 85.4, kg, 12/20/23 15:18:00 EST, Weight Dosing Start Date: 12/20/23 Status: Ordered Completed/Discontinued Medications Medication Drug Class(es) Dates Sig (Normalized) Sig (Original) Pre- (2 sources) Pre- Not-Ta angelica/PRN Pre-Addis Active Problems Active Problems Problem Classification Problem Date Documented Da te Episodic/Chronic Disorders of lipid metabolism (2 sources) Hyperlipidemia, unspecified; Translations: [Mixed hyperlipidemia] Onset: 01-15-2023 02-08-2023 Chronic Malposition; malpresentation (4 sources) Maternal care for breech presentation, not applicable or unspecified; Translations: [MATERNAL CARE BREECH PRES NA/UNS] Onset: 12-22-2022 Episodic Menstrual disorders (6 sources) Irregular menstruation, unspecified; Translations: [Amenorrhea] Onset: 07-07-2022 Chronic Other complications of ; puerperium affecting [...] Test Name Value Interpretation Reference Range Facility Ambulatory Visit Summaryon 0 12-02-2024 Ambulatory Visit Summary Ambulatory Visit Summary ELIDA GROVER :1995 Visit Date:12/02/2024 Ambulatory Visit Instructions Your Care Team Attending Physician - Kaiser Anderson MD. Primary Care Physician - Kaiser Anderson MD. This Is Your Medications List multivitamin with minerals (One A Day Women's Complete oral tablet) tramadol (traMADOL 50 mg Tab) Procedures Performed section (01/02/2023). Discharge Vitals Temperature (Tympanic) 37.3 ???C Heart Rate (Peripheral) 113 Respiratory Rate 18 Blood Pressure 122/76 Height 162 cm Height 64 in Weight 86.2 kg Weight 190.038 lb BMI 32.85 Medications What How Much When Instructions Unchanged multivitamin with minerals (One A Day Women's Complete oral tablet) Unchanged tramadol (traMADOL 50 mg Tab) 1 Tablets By Mouth Every 4 hours as needed for for pain Allergies No Known Medication Allergies Problems Ongoing - Any problem that you are currently receiving treatment for. Knee pain, left Mixed hyperlipidemia Obesity (BMI 30-39.9) Patient Survey You may receive a survey via text or e-mail asking about your office visit. Please share your experience with us by completing your survey. We appreciate your feedback and thank you for choosing us for your care. [facility] Medicine Office/Clini c Noteon 12-02-2024 Family Medicine Office/Clinic Note Family Medicine Office/Clinic Note Chief Complaint Sick Visit The patient presents with flu symptoms and chest discomfort. HPI Staff Pt presents today for acute sick visit. Sx started Sunday night. Head congestion & nasal congestion. Low grade fever today. Productive cough. History of Present Illness The patient is a 29-year-old female presenting with flu-like symptoms starting on Sunday night. She reports waking up on Sunday morning feeling unwell and experiencing significant pressure in her head, particularly on one side, along with body aches. The patient attempted to work on the subsequent Sunday, but experienced dizziness, hot and cold sensations, leading to her decision to seek medical advice. Testing confirmed Influenza A. Chest pain has been noted, particularly severe, leading to further evaluation. The patient reports managing body aches with zlyc-glz-gicyrqp medications such as DayQuil and NyQuil. There are concerns about developing complications, including possible pneumonia, making close monitoring necessary. The patient did experience dyspnea. She was advised about resting and monitoring her symptoms to address potential acute respiratory distress. Review of Systems PHQ Score Initial Depression Screen Score: 0 SCORE - Respiratory: Reports cough and chest pain. - General: Reports dizziness and body aches. - Neurological: Denies specific neurological symptoms associated with COVID-19. - Pulmonary: Reports dyspnea. Physical Exam Vitals & Measurements T: 37.3 ???C(Tympanic) HR: 113(Peripheral) RR: 18 BP: 122/76 SpO2: 99% HT: 64 in HT: 162 cm WT: 86.2 kg WT: 190.038 lb BMI: 32.85 - Cardiovascular- Heart rate slightly elevated. - Pulmonary- Normal Assessment/Plan 1. Influenza A (J10.1: Influenza due to other identified influenza virus with other respiratory manifestations) The patient was diagnosed with Influenza A. The efficacy and side effects of Tamiflu were discussed, noting its use within 48 hours from symptom onset. For symptomatic relief, the patient was advised to use DayQuil and NyQuil. Tessalon Perles was prescribed for managing cough symptoms. Monitoring for severe symptoms such as increased chest pain or shortness of breath is advised, and an ER visit was recommended if symptoms escalate, particularly concerning for pneumonia risk. Ordered: Influenza Type A&B POC 06990 Follow-up No qualifying data available Problem List/Past Medical History Ongoing Knee pain, left Mixed hyperlipidemia Obesity (BMI 30-39.9) Historical No qualifying data Procedure/Surgical History section (01/02/2023). Medications One A Day Women's Complete oral tablet Allergies No Known Medication Allergies Social History Alcohol - Denies Alcohol Use, 02/08/2023 Never., 10/15/2024 Substance Abuse - Denies Substance Abuse, 02/08/2023 Never., 10/15/2024 Tobacco - Denies Tobacco Use, 02/08/2023 Never (less than 100 in lifetime) Tobacco Use:. Never Smokeless Tobacco Use:. Household tobacco concerns: No. Yes, 12/02/2024 Family History Diabetes mellitus type 2: Father. Hyperlipidemia: Father. Hypertension: Father. Immunizations Vaccine Date Status Comments influenza virus vaccine, inactivated - Not Given Patient Refuses influenza virus vaccine, inactivated - Not Given Patient Refuses SARS-CoV-2 mRNA (tomalloryn 5y-11y) vac - Not Given Patient Refuses Lab Results Ambulatory Point of Care Results Influenza A POC: Positive (12/02/24 10:37:00) Influenza B POC: Negative (12/02/24 10:37:00) [facility] Comment on above: Result Comment: Elec tronically Signed By: Justin CABRALES, Kaiser Agarwal\.br\Date and Time Signed: 12/02/24 10:44 EST Provider Letteron 12-02-2024 Provider Letter Provider Letter December 02, 20[address] [place] [id number] : 1995 To Whom It May Concern, Please excuse above patient from work, due to medical Date of Illness: From: _12-01-24 To: _12-08-24 May Return to Work On: 12-09-24 Restrictions: _ Comments: _ Sincerely, Family Medicine [address] [address] [facility] Ambulatory Visit Summaryon 1 12-16-2023 Ambulatory Visit Summary Ambulatory Visit Summary ELIDA GROVER :1995 Visit Date:10/15/2024 Ambulatory Visit Instructions Your Diagnosis Viral pharyngitis BMI 32.0-32.9,adult Nonsmoker Obesity (BMI 30-39.9) Your Care Team Attending Physician - ENA MORE CNP Primary Care Physician - Kaiser Anderson MD This Is Your Medications List Contact prescribing physician if questions or concerns multivitamin with minerals (One A Day Women's Complete oral tablet) tramadol (traMADOL 50 mg Tab) Procedures Performed section (01/02/2023). Discharge Vitals Temperature (Oral) 36.7 ???C Heart Rate (Peripheral) 88 Respiratory Rate 18 Blood Pressure 118/74 Height 162 cm Height 64 in Weight 84.6 kg Weight 186.511 lb BMI 32.24 Medications What How Much When Instructions Unchanged multivitamin with minerals (One A Day Women's Complete oral tablet) Contact prescribing physician if questions or concerns Unchanged tramadol (traMADOL 50 mg Tab) 1 Tablets By Mouth Every 4 hours as needed for for pain Contact prescribing physician if questions or concerns Allergies No Known Medication Allergies Problems Ongoing - Any problem that you are currently receiving treatment for. Knee pain, left Mixed hyperlipidemia Obesity (BMI 30-39.9) Patient Survey You may receive a survey via text or e-mail asking about your office visit. Please share your experience with us by completing your survey. We appreciate your feedback and thank you for choosing us for your care. Education Materials Pharyngitis Pharyngitis is a sore throat (pharynx). This is when there is redness, pain, and swelling in your throat. Most of the time, this condition gets better on its own. In some cases, you may need medicine. What are the causes? An infection from a virus. ??? An infection from bacteria. ??? Allergies. What increases the risk? Being 5???24 years old. ??? Being in crowded environments. These include: ? Daycares. ? Schools. ? Dormitories. ??? Living in a place with cold temperatures outside. ??? Having a weakened disease-fighting (immune) system. What are the signs or symptoms? Symptoms may vary depending on the cause. Common symptoms include: ??? Sore throat. ??? Tiredness (fatigue). ??? Low-grade fever. ??? Stuffy nose. ??? Cough. ??? Headache. Other symptoms may include: ??? Glands in the neck (lymph nodes) that are swollen. ??? Skin rashes. ??? Film on the throat or tonsils. This can be caused by an infection from bacteria. ??? Vomiting. ??? Red, itchy eyes. ??? Loss of appetite. ??? Joint pain and muscle aches. ??? Tonsils that are temporarily bigger than usual (enlarged). How is this treated? Many times, treatment is not needed. This condition usually gets better in 3???4 days without treatment. If the infection is caused by a bacteria, you may be need to take antibiotics. Follow these instructions at home: Medicines ??? Take mvup-qdn-hiuauuv and prescription medicines only as told by your doctor. ??? If you were prescribed an antibiotic medicine, take it as told by your doctor. Do not stop taking the antibiotic even if you start to feel better. ??? Use throat lozenges or sprays to soothe your throat as told by your doctor. ??? Children can get pharyngitis. Do not give your child aspirin. Managing pain To help with pain, try: ??? Sipping warm liquids, such as: ? Broth. ? Herbal tea. ? Warm water. ??? Eating or drinking cold or frozen liquids, such as frozen ice pops. ??? Rinsing your mouth (gargle) with a salt water mixture 3???4 times a day or as needed. ? To make salt water, dissolve ?1 tsp (3???6 g) of salt in 1 cup (237 mL) of warm water. ? Do not swallow this mixture. ??? Sucking on hard candy or throat lozenges. ??? Putting a cool-mist humidifier in your bedroom at night to moisten the air. ??? Sitting in the bathroom with the door closed for 5???10 minutes while you run hot water in the shower. General instructions ??? Do not smoke or use any products that contain nicotine or tobacco. If you need help quitting, ask your doctor. ??? Rest as told by your doctor. ??? Drink enough fluid to keep your pee (urine) pale yellow. How is this prevented? Wash your hands often for at least 20 seconds with soap and water. If soap and water are not available, use hand group account director. ??? Do not touch your eyes, nose, or mouth with unwashed hands. Wash hands after touching these areas. ??? Do not share cups or eating utensils. ??? Avoid close contact with people who are sick. Contact a doctor if: ??? You have large, tender lumps in your neck. ??? You have a rash. ??? You cough up green, yellow-brown, or bloody spit. Get help right away if: (more content not included)... Normal [facility] Family Medicine Office/Clini c Noteon 10-15-2024 Family Medicine Office/Clinic Note Family Medicine Office/Clinic Note Chief Complaint Acute Sick Visit HPI Staff Dr Anderson pt. Presenting today for acute sick visit. Sore Throat onset- 3 days ago sinus congestion- no swollen nodes- no red/ white spots- no fever/chills- no body aches- mild nausea/ vomiting- no cough- yes ear pain- feels like she is having ear drainage. mild intermittent Rt ear pain allergies- yes medication taken- Mucinex History of Present Illness 29 [address] patient of Dr[address] Anderson presents today for an acute visit for evaluation of sore throat & cough x3 days. She denies any fevers at home or known sick contacts. She reports a productive cough with clear mucous, sometimes green. She denies any underlying lung conditions. She states her sore throat is not constant, only when swallowing and coughing. She has tried 3 doses of Mucinex at home. She states she has taken one dose today. She is afebrile today at 36.7 Review of Systems PHQ Score Initial Depression Screen Score: 0 SCORE Constitutional: no fever, no chills, no sweats, no weakness Skin: no Jaundice, no rash, no lesions, nopetechiae ENMT: no ear pain, mild sore throat, no congestion, no hoarseness Respiratory: no shortness of breath, no cough, no orthopnea, no wheezing Cardiovascular: no chest pain, no palpitations, no edema Additional ROS info: Except as noted in the above Review of Systems and in the History of Present Illness all other systems have been reviewed and are negative or noncontributory. Physical Exam Vitals & Measurements T: 36.7 ???C(Oral) HR: 88(Peripheral) RR: 18 BP: 118/74 SpO2: 97% HT: 64 in HT: 162 cm WT: 84.6 kg WT: 186.511 lb BMI: 32.24 General: alert, no acute distress ENMT: TM's with clear effusion, oral mucosa moist, yes pharyngeal erythema or exudate Cardiovascular: regular rate and rhythm, normal peripheral perfusion Respiratory: Lungs CTA, respirations non labored Extremities: no deformity, no trauma Neurological: oriented x 4, LOC appropriate for age, CN II-XII intact, motor strength equal & normal bilaterally, sensation equal & normal bilaterally, speech normal Assessment/Plan 1. Viral pharyngitis (J02.9: Acute pharyngitis, unspecified) Encouraged to continue OTC Mucinex Symptom support with warm salt water gargles or antiseptic spray Return to office if no improvement in 3-5 days 2. BMI 32.0-32.9,adult (Z68.32: Body mass index [BMI] 32.0-32.9, adult) The standard range for ages 18 and older is >=18.5 and < 25 kg/m2. Your BMI today was above this range, this falls in the overweight to obese category and there are medical benefits to weight loss. We can offer counselling, referral, and/or medical support in addressing this problem. Your BMI and weight management will be followed at subsequent visits. 3. Nonsmoker (Z78.9: Other specified health status) We strongly recommend to quit tobacco use. Cigarette smoking harms nearly every organ of the body, causes many diseases, and reduces the health of smokers in general. Quitting smoking lowers your risk for smoking-related diseases and can add years to your life. We encourage you to visit www.smokefree.gov access to helpful resources including free telephone support. If you decide on prescription treatment to help you quit, we would be happy to provide these. 4. Obesity (BMI 30-39.9) (E66.9: Obesity, unspecified) The standard range for ages 18 and older is >=18.5 and < 25 kg/m2. Your BMI today was above this range, this falls in the overweight to obese category and there are medical benefits to weight loss. We can offer counselling, referral, and/or medical support in addressing this problem. Your BMI and weight management will be followed at subsequent visits. Follow-up No qualifying data available Patient Education Pharyngitis, Rxvr-or-Jhsf Viral Respiratory Infection, Dtxi-Na-Puqn Problem List/Past Medical History Ongoing Knee pain, left Mixed hyperlipidemia Obesity (BMI 30-39.9) Historical No qualifying data Procedure/Surgical History section (01/02/2023). Medications One A Day Women's Complete oral tablet traMADOL 50 mg Tab, 50 mg= 1 tab(s), Oral, q4hr, PRN Allergies No Known Medication Allergies Social History Alcohol - Denies Alcohol Use, 02/08/2023 Never., 10/15/2024 Substance Abuse - Denies Substance Abuse, 02/08/2023 Never., 10/15/2024 Tobacco - Denies Tobacco Use, 02/08/2023 Never (less than 100 in lifetime) Tobacco Use:. Never Smokeless Tobacco Use:. Household tobacco concerns: No. Yes, 10/15/2024 Family History Diabetes mellitus type 2: Father. Hyperlipidemia: Father. Hypertension: Father. Immunizations Vaccine Date Status Comments influenza virus vaccine, inactivated - Not Given Patient Refuses influenza virus vaccine, inactivated - Not Given Patient Refuses SARS-CoV-2 mRNA (todmitrynameran 5y-11y) vac - Not Given Patient Refuses Normal [facility] Comment on above: Result Comment: Elec tronically Signed By: ENA MORE CNP\.feliz\Date and Time Signed: 10/15/24 14:34 EST ALL CBC WITH AUTO DIFFon BASOPHILS ABSOLUTE AUTO 0.0 [facility] Basophils/100 WBC (Bld) 0.3 % 0.2 - 2.0 % [facility] Eosinophils/100 WBC (Bld) 0.8 % Low 0.9 - 7.0 % [facility] Erythrocyte distribution width (RBC) [Ratio] 11.7 % 11.0 - 15.0 % [facility] Hematocrit (Bld) [Volume fraction] 40.7 % 36.0 - 48.0 % [facility] Hemoglobin (Bld) [Mass/Vol] 13.7 g/dL 12.0 - 16.0 g/dL [facility] IMMATURE GRANULOCYTES ABS AUTO 0.01 [facility] Immature granulocytes/100 WBC (Bld) 0.2 % 0.0 - 0.5 % [facility] Interpretation and review of laboratory results Abnormal [facility] LYMPHOCYTES ABSOLUTE AUTO 2.4 [facility] Lymphocytes/100 WBC (Bld) 39.4 % 20.5 - 60.0 % [facility] MCH (RBC) [Entitic mass] 29.8 pg 26.7 - 34.0 pg [facility] MCHC (RBC) [Mass/Vol] 33.7 g/dL 29.9 - 35.2 g/dL [facility] MCV (RBC) [Entitic vol] 88.7 fL 81.0 - 99.0 fL [facility] MONOCYTES ABSOLUTE AUTO 0.3 [facility] Monocytes/100 WBC (Bld) 4.8 % 1.7 - 12.0 % [facility] NEUTROPHILS ABSOLUTE AUTO 3.3 [facility] Neutrophils/100 WBC (Bld) 54.5 % 43.0 - 75.0 % [facility] Platelet mean volume (Bld) [Entitic vol] 8.8 fL Low 9.5 - 13.5 fL [facility]car e TB RBC 4.59 [facility] TBH WBC 6.0 [facility] Healthcar e CL[facility]IS[facility]car e Consultation Noteon 03-20-20 24 Consultation Note [id number] #1.00TIFF Normal [facility] Consultation Noteon 02-18-20 24 Consultation Note [id number] #1.00TIFF Normal [facility] BMPon 01-31-2024 Creatinine [Mass/Vol] 0.8 mg/dL Normal 0.5-1.3 [facility] Comment on above: Performed By: #### 2 [id number], [id number], [id number] ####[facility] [address] [place] [address] Urea nitrogen/Creatinine [Mass ratio] 19 No Units Normal - [facility] Comment on above: Performed By: #### 2 [id number], [id number], [id number] ####[facility] [address] [place] [address] Anion gap [Moles/Vol] 9 mmol/L Normal 6-16 [facility] Comment on above: Performed By: #### 2 112649, [id number], [id number] ####[facility] [address] [place] [address] Calcium [Mass/Vol] 8.8 mg/dL Low 8.9-11.1 [facility] Comment on above: Performed By: #### 2 584955, [id number], [id number] ####[facility] [address] [place] [address] Chloride [Moles/Vol] 108 mmol/L Normal 101-111 [facility] Comment on above: Performed By: #### 2 723408, [id number], [id number] ####[facility] [address] [place] [place] [address] CO2 [Moles/Vol] 28 mmol/L Normal 21-31 [facility] Comment on above: Performed By: #### 2 607475, [id number], [id number] ####[facility] [address] [place] [address] Glucose [Mass/Vol] 75 mg/dL Normal 55-199 [facility] Comment on above: Performed By: #### 2 142956, [id number], [id number] ####[facility] [address] [place] [address] Potassium [Moles/Vol] 4.0 mmol/L Normal 3.5-5.3 [facility] Comment on above: Performed By: #### 2 804479, [id number], 7337471 ####[facility] [address] [place] [address] Sodium [Moles/Vol] 141 mmol/L Normal 135-145 [facility] Comment on above: Performed By: #### 2 462460, [id number], 7346852 ####[facility] [address] [place] [address] Urea nitrogen [Mass/Vol] 15 mg/dL Normal 5-21 [facility] Comment on above: Performed By: #### 2 292181, [id number], [id number] ####[address] [address] CBC w/Indiceson 01-31-2024 Erythrocyte distribution width (RBC) [Ratio] 13.0 % Normal 10.9-14.2 [facility] Comment on above: Performed By: #### 2 635911, [id number], 7507681 ####[address] [address] Hematocrit (Bld) [Volume fraction] 36.2 % Normal 34.0-46.0 [facility] Comment on above: Performed By: #### 2 667203, [id number], 7152888 ####[address] [address] Hemoglobin (Bld) [Mass/Vol] 12.3 g/dL Normal 12.0-16.0 [facility] Comment on above: Performed By: #### 2 200946, [id number], [id number] ####[address] [address] MCH (RBC) [Entitic mass] 29.1 pg Normal 27.0-34.0 [facility] Comment on above: Performed By: #### 2 061412, [id number], 7165458 ####[address] [address] MCHC (RBC) [Mass/Vol] 33.9 g/dL Normal 31.4-36.0 [facility] Comment on above: Performed By: #### 2 328790, [id number], 8177020 ####[address] [address] MCV (RBC) [Entitic vol] 85.8 fL Normal 80.0-100.0 [facility] Comment on above: Performed By: #### 2 085926, [id number], 0451409 ####[facility] [address] [place] [address] Platelet mean volume (Bld) [Entitic vol] 7.4 fL Normal 6.4-10.8 [facility] Comment on above: Performed By: #### 2 790851, [id number], 4641547 ####[address] [address] Platelets (Bld) [#/Vol] 193.0 E9/L Normal 150.0-500.0 [facility] Comment on above: Performed By: #### 2 303757, 36987571, 0862291 ####[address] [address] RBC (Bld) [#/Vol] 4.2 E12/L Low 4.3-5.9 [facility] Comment on above: Performed By: #### 2 618958, [id number], 0118958 ####[facility] [address] [place] [address] RBC size Nom (Bld) NORMAL Invalid Interpretation Code [facility] Comment on above: Performed By: #### 2 432290, [id number], [id number] ####[address] [address] WBC corrected for nucl RBC Auto (Bld) [#/Vol] 5.1 E9/L Normal 4.0-11.0 [facility] Comment on above: Performed By: #### 2 836701, [id number], 0544762 ####[facility] [address] [place] [address] CHEMISTRYOrdered By: SYSTEM SYSTEM on 01-31-2024 Anion [...] Treatmenton 01-04 Consent for Treatment [id number] #1.00TIFF Normal [facility] HEMATOLOGYOrdered By: SYSTEM SYSTEM on 01-31-2024 [...] 01-31-2024 eGFR 103 mL/min/1.73 m2 Normal >=59 [facility] Comment on above: Order Comment: Order added by Discern Expert. Performed By: #### 2 [id number], [id number], [id number] ####[facility] [address] [place] [address] Physician Orderon 01-30-2024 Physician Order [id number] 0#1.00TIFF Normal [facility] Discharge Note - PTon 2023 Discharge Note - PT [id number] #1.00TIFF Normal [facility] Physician Orderon 01-29-2024 Physician Order [id number] #1.00TIFF Normal [facility] MR KNEE LEFT WO IV CONTRASTo [...] Questions Consultation Noteon 01-16-20 24 Consultation Note [id number] #1.00TIFF Normal [facility] Physician Referralon 024 Physician Referral [id number] 8#1.00TIFF Normal [facility] PT - Progress Noteson 2023 PT - Progress Notes [id number] #1.00TIFF Normal [facility] Ambulatory Visit Summaryon 0 12-20-2023 Ambulatory [...] PM EST With: Kaiser Anderson MD Where: [facility] [place] Normal [facility] Family Medicine Office/Clini c Noteon 12-20-2023 Family [...] for pain - Follow up PRN Ordered: [facility] External Ambulatory Referral 2. BMI 32.0-32.9,adult (Z68.32: [...] pain, # 20 tab(s), Refills(s) 0, Pharmacy: [id number], 162, cm, 12/20/23 15:18:00 EST, Height/Length Dosing, [...] vac - Not Given Patient Refuses Normal [facility] Comment on above: Result Comment: Elec [...] numbers. This can be done either in [place] or metric measurements. Note that charts and online BMI calculators are available to help you find your BMI quickly and easily without having to do these calculations yourself. To calculate your BMI in [place] ([place] measurements: 1. Measure your weight in [...] for Disease Control and Prevention: www.cdc.gov ? [place] Heart Association: www.heart.org ? National Heart, Lung, and Blood [place]: www.nhlbi.nih.gov Summary ? Body mass index (BMI) is a number that is calculated from a person's weight and height. ? BMI may help estimate how much of a person's weight is composed of fat. BMI can help identify those who may be at higher risk for certain medical problems. ? BMI can be measured using [place] measurements or metric measurements. ? BMI charts are used to identify whether you are underweight, normal weight, overweight, or obese. This information is not intended to replace advice given to you by your health care provider. Make sure you discuss any questions you have with your health care provider. Document Revised: 07/14/2020 Document Reviewed: 05/21/2020 [employer] Patient Education ? 2022 [employer]. [facility] Ambulatory Visit Summaryon 0 12-10-2023 Ambulatory Visit [...] PM EST With: Kaiser Anderson MD Where: [facility] Family Medicine Office/Clini c Noteon [...] to ER , had xray it couldn't roll 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 Pain location: left knee [...] vac - Not Given Patient Refuses Normal [facility] Comment on above: Result Comment: Elec [...] numbers. This can be done either in [place] or metric measurements. Note that charts and online BMI calculators are available to help you find your BMI quickly and easily without having to do these calculations yourself. To calculate your BMI in [place] ([place] measurements: 1. Measure your weight in [...] for Disease Control and Prevention: www.cdc.gov ? [place] Heart Association: www.heart.org ? National Heart, Lung, and Blood [place]: www.nhlbi.nih.gov Summary ? Body mass index (BMI) is a number that is calculated from a person's weight and height. ? BMI may help estimate how much of a person's weight is composed of fat. BMI can help identify those who may be at higher risk for certain medical problems. ? BMI can be measured using [place] measurements or metric measurements. ? BMI charts are used to identify whether you are underweight, normal weight, overweight, or obese. This information is not intended to replace advice given to you by your health care provider. Make sure you discuss any questions you have with your health care provider. Document Revised: 07/14/2020 Document Reviewed: 05/21/2020 [employer] Patient Education ? 2022 [employer]. [facility] Physician Referralon 024 Physician Referral [id number] 7#1.00TIFF [facility] XR knee LT 4V*on 12-05-2023 XR knee LT 4V* [facility] [employer] Other XR knee LT 4V* [facility] Other XR knee LT 4V* [address] [place] [address] [facility] Other XR knee LT 4V* [place] [address] No rt [facility] Other XR knee LT 4V* XRay Report [employer] Other XR knee LT 4V* Signed [employer] Other XR knee LT 4V* Patient: Elida Grover MR#: [id number] [facility] [employer] Other XR knee LT 4V* 4 [employer] Other XR knee LT 4V* : 1995 Acct:[id number] [employer] Other XR knee LT 4V* Age/Sex: 28 / F ADM Date: 12/05/23 [employer] Other XR knee LT 4V* Loc: XDUCLY Room: Type: [facility] [employer] Other XR knee LT 4V* Attending Dr: Erlinda TIDWELL [employer] Other XR knee LT 4V* Copies to: YAW Carney [employer] Other XR knee LT 4V* Ordering Provider: YAW Carney [employer] Other XR knee LT 4V* Date of Service: 12/05/23 [employer] Other XR knee LT 4V* XR/XR knee LT 4V*: Left knee pain, unspecified chronicity [employer] Other XR knee LT 4V* LEFT KNEE - 4 views N [employer] Other XR knee LT 4V* COMPARISON: None [facility] [employer] Other XR knee LT 4V* CLINICAL DATA: Patient's left knee was stepped on by a cow after patient fell 3 months ago. [employer] Other XR knee LT 4V* Continued pain below the patella. [employer] Other XR knee LT 4V* AP, lateral and both oblique views were obtained. There is no acute fracture or dislocation. The [employer] Other XR knee LT 4V* joint spaces are maintained. There are no prominent hypertrophy. There is a trace amount joint [employer] Other XR knee LT 4V* fluid. No soft tissue swelling is identified. [employer] Other XR knee LT 4V* XR/XR knee LT 4V* [employer] Other XR knee LT 4V* IMPRESSION: [employer] Other XR knee LT 4V* NO ACUTE BONY FINDINGS. [employer] Other XR knee LT 4V* Impression dictated by: Amy Molina M.D.12/05/2023 12:00 PM [employer] Other XR knee LT 4V* Dictation Location: [place] [address] [employer] Other XR knee LT 4V* Transcribed By: KELLY 12/05/23 1200 [employer] Other XR knee LT 4V* Dictated By: Amy Molina MD 12/05/23 1157 [employer] Other XR knee LT 4V* Signed By: [employer] Other XR knee LT 4V* 12/05/23 1200 [employer] Other XR knee LT 4V* [facility] [address] [place] [address] XRay Report Signed Patient: Elida Grover MR#: [id number] 4 : 1995 Acct:[id number] Age/Sex: 28 / F ADM Date: 12/05/23 [facility]: Type: [facility] Attending Dr: Erlinda TIDWELL Copies to: YAW [...] Amy Molina M.D.12/05/2023 12:00 PM Dictation Location: [place] [address] Transcribed By: [facility] 12/05/23 1200 Dictated By: Amy Molina MD 12/05/23 1157 Signed By: 12/05/23 1200 [facility] ANTIBODY ID PANELon 01-09-20 23 ANTIBODY ID PANEL Antibody ID Non-specific Diana Normal [facility] Comment on above: Performed By: #### A BID #### [facility] [address] [place] [address] Dr. Ilia Carrillo CBC AUTO DIFFon 01-03-2023 BASO # 0.0 103/ul Normal 0.0-0.1 [facility] Comment on above: Performed By: #### C BC #### [facility] [address] [place] [address] Dr. Ilia Carrillo Basophils/100 WBC (Bld) 0.2 % Normal 0.2-2.0 [facility] Comment on above: Performed By: #### C BC #### [facility] [address] [place] [address] Dr. Ilia Carrillo EO # 0.1 103/ul Normal 0.0-0.7 [facility] Comment on above: Performed By: #### C BC #### [facility] [address] [place] [address] Dr. Ilia Carrillo Eosinophils/100 WBC (Bld) 0.5 % Critically low 0.9-7.0 [facility] Comment on above: Performed By: #### C BC #### [facility] [address] [place] [address] Dr. Ilia Carrillo Erythrocyte distribution width (RBC) [Ratio] 13.7 % Normal 11.0-15.0 [facility] Comment on above: Performed By: #### C BC #### [facility] [address] [place] [address] Dr. Ilia Carirllo Hematocrit (Bld) [Volume fraction] 34.8 % Critically low 36.0-48.0 [facility] Comment on above: Performed By: #### C BC #### [facility] [address] [place] [address] Dr. Ilia Carrillo Hemoglobin (Bld) [Mass/Vol] 11.7 g/dL Critically low 12.0-16.0 [facility] Comment on above: Performed By: #### C BC #### [facility] [address] [place] [address] Dr. Ilia Carrillo IG # 0.06 10e3/ul Critically high 0.00-0.03 [facility] Comment on above: Performed By: #### C BC #### [facility] [address] [place] [address] Dr. Ilia Carrillo IG % 0.5 % Normal 0.0-0.5 [facility] Comment on above: Performed By: #### C BC #### [facility] [address] [place] [address] Dr. Ilia Carrillo LYMPH # 2.0 103/ul Normal 1.2-3.8 [facility] Comment on above: Performed By: #### C BC #### [facility] [address] [place] [address] Dr. Ilia Carrillo Lymphocytes/100 WBC (Bld) 15.2 % Critically low 20.5-60.0 [facility] Comment on above: Performed By: #### C BC #### [facility] [address] [place] [address] Dr. Ilia Carrillo MANUAL DIFF REQ NO Normal [facility] Comment on above: Performed By: #### C BC #### [facility] [address] [place] [address] Dr. Ilia Carrillo MCH (RBC) [Entitic mass] 30.9 pg Normal 26.7-34.0 [facility] Comment on above: Performed By: #### C BC #### [facility] [address] [place] [address] Dr. Ilia Carrillo MCHC (RBC) [Mass/Vol] 33.6 g/dL Normal 29.9-35.2 [facility] Comment on above: Performed By: #### C BC #### [facility] [address] [address] [address] Ilia Carrillo MCV (RBC) [Entitic vol] 91.8 fL Normal 81.0-99.0 [facility] Comment on above: Performed By: #### C BC #### [facility] [address] [address] [address] Ilia Carrillo MONO # 0.9 103/ul Critically high 0.3-0.8 [facility] Comment on above: Performed By: #### C BC #### [facility] [address] [place] [address] Dr. Ilia Carrillo Monocytes/100 WBC (Bld) 6.8 % Normal 1.7-12.0 [facility] Comment on above: Performed By: #### C BC #### [facility] [address] [place] [address] Dr. Ilia Carrillo NEUT # 10.1 103/ul Critically high 1.4-6.5 [facility] Comment on above: Performed By: #### C BC #### [facility] [address] [place] [address] Dr. Ilai Carrillo Neutrophils/100 WBC (Bld) 76.8 % Critically high 43.0-75.0 [facility] Comment on above: Performed By: #### C BC #### [facility] [address] [address] [address] Ilia Carrillo Platelet mean volume (Bld) [Entitic vol] 9.7 fL Normal 9.5-13.5 [facility] Comment on above: Performed By: #### C BC #### [facility] [address] [place] [address] Dr. Ilia Carrillo PLT 178 103/ul Normal 150-450 [facility] Comment on above: Performed By: #### C BC #### [facility] [address] [place] [address] Dr. Ilia Carrillo RBC 3.79 106/ul Critically low 4.20-5.40 [facility] Comment on above: Performed By: #### C BC #### [facility] [address] [place] [address] Dr. Ilia Carrillo WBC 13.2 103/ul Critically high 4.0-11.0 [facility] Comment on above: Performed By: #### C BC #### [facility] [address] [place] [address] Dr. Ilia Carrillo CBC AUTO DIFFon 01-02-2023 BASO # 0.0 103/ul Normal 0.0-0.1 [facility] Comment on above: Performed By: #### C BC #### [facility] [address] [place] [address] Dr. Ilia Carrillo Basophils/100 WBC (Bld) 0.2 % Normal 0.2-2.0 [facility] Comment on above: Performed By: #### C BC #### [facility] [address] [place] [address] Dr. Ilia Carrillo EO # 0.1 103/ul Normal 0.0-0.7 [facility] Comment on above: Performed By: #### C BC #### [facility] [address] [place] [address] Dr. Ilia Carrillo Eosinophils/100 WBC (Bld) 0.7 % Critically low 0.9-7.0 [facility] Comment on above: Performed By: #### C BC #### [facility] [address] [place] [address] Dr. Ilia Carrillo Erythrocyte distribution width (RBC) [Ratio] 13.7 % Normal 11.0-15.0 [facility] Comment on above: Performed By: #### C BC #### [facility] [address] [place] [address] Dr. Ilia Carrillo Hematocrit (Bld) [Volume fraction] 38.9 % Normal 36.0-48.0 [facility] Comment on above: Performed By: #### C BC #### [facility] [address] [place] [address] Dr. Ilia Carrillo Hemoglobin (Bld) [Mass/Vol] 13.4 g/dL Normal 12.0-16.0 [facility] Comment on above: Performed By: #### C BC #### [facility] [address] [place] [address] Dr. Ilia Carrillo IG # 0.05 10e3/ul Critically high 0.00-0.03 [facility] Comment on above: Performed By: #### C BC #### [facility] [address] [place] [address] Dr. Ilia Carrillo IG % 0.4 % Normal 0.0-0.5 [facility] Comment on above: Performed By: #### C BC #### [facility] [address] [place] [address] Dr. Ilia Carrillo LYMPH # 1.6 103/ul Normal 1.2-3.8 [facility] Comment on above: Performed By: #### C BC #### [facility] [address] [place] [address] Dr. Ilia Carrillo Lymphocytes/100 WBC (Bld) 14.2 % Critically low 20.5-60.0 [facility] Comment on above: Performed By: #### C BC #### [facility] [address] [place] [address] Dr. Ilia Carrillo MANUAL DIFF REQ NO Normal [facility] Comment on above: Performed By: #### C BC #### [facility] [address] [place] [address] Dr. Ilia Carrillo MCH (RBC) [Entitic mass] 30.8 pg Normal 26.7-34.0 [facility] Comment on above: Performed By: #### C BC #### [facility] [address] [place] [address] Dr. Ilia Carrillo MCHC (RBC) [Mass/Vol] 34.4 g/dL Normal 29.9-35.2 [facility] Comment on above: Performed By: #### C BC #### [facility] [address] [place] [address] Dr. Ilia Carrillo MCV (RBC) [Entitic vol] 89.4 fL Normal 81.0-99.0 [facility] Comment on above: Performed By: #### C BC #### [facility] [address] [place] [address] Dr. Ilia Carrillo MONO # 0.6 103/ul Normal 0.3-0.8 [facility] Comment on above: Performed By: #### C BC #### [facility] [address] [place] [address] Dr. Ilia Carrillo Monocytes/100 WBC (Bld) 5.5 % Normal 1.7-12.0 [facility] Comment on above: Performed By: #### C BC #### [facility] [address] [place] [address] Dr. Ilia Carrillo NEUT # 8.9 103/ul Critically high 1.4-6.5 [facility] Comment on above: Performed By: #### C BC #### [facility] [address] [place] [address] Dr. Ilia Carrillo Neutrophils/100 WBC (Bld) 79.0 % Critically high 43.0-75.0 [facility] Comment on above: Performed By: #### C BC #### [facility] [address] [place] [address] Dr. Ilia Carrillo Platelet mean volume (Bld) [Entitic vol] 10.7 fL Normal 9.5-13.5 [facility] Comment on above: Performed By: #### C BC #### [facility] [address] [place] [address] Dr. Ilia Carrillo PLT 210 103/ul Normal 150-450 [facility] Comment on above: Performed By: #### C BC #### [facility] [address] [place] [address] Dr. Ilia Carrillo RBC 4.35 106/ul Normal 4.20-5.40 [facility] Comment on above: Performed By: #### C BC #### [facility] [address] [place] [address] Dr. Ilia Carrillo WBC 11.3 103/ul Critically high 4.0-11.0 [facility] Comment on above: Performed By: #### C BC #### [facility] [address] [place] [address] Dr. Ilia Carrillo DRUG SCREEN RAPID (URINE)on 01-02-2023 AMP Negative Normal NEGATIVE [facility] Comment on above: Performed By: #### C BC #### [facility] [address] [place] [address] Dr. Ilia Carrillo BAR Negative Normal NEGATIVE [facility] Comment on above: Performed By: #### C BC #### [facility] [address] [place] [address] Dr. Ilia Carrillo BUP Negative Normal NEGATIVE [facility] Comment on above: Performed By: #### C BC #### [facility] [address] [place] [address] Dr. Ilia Carrillo BZO Negative Normal NEGATIVE [facility] Comment on above: Performed By: #### C BC #### [facility] [address] [place] [address] Dr. Ilia Carrillo MARY ANNE Negative Normal NEGATIVE [facility] Comment on above: Performed By: #### C BC #### [facility] [address] [place] [address] Dr. Ilia Carrillo CUT-OFFS SEE BELOW Normal [facility] Comment on above: Result Comment: AMP [...] ng/mL Performed By: #### C BC #### [facility] [address] [place] [address] Dr. Ilia Carrillo DRUG CUT HEADER DRUG CLASS TEST SYSTEM CUT-OFF CONCENTRATIONS ARE FOLLOWS: Normal [facility] Comment on above: Performed By: #### C BC #### [facility] [address] [address] [address] Ilia Carrillo mAMP Negative Normal NEGATIVE [facility] Comment on above: Performed By: #### C BC #### [facility] [address] [address] [address] Ilia Carrillo MTD Negative Normal NEGATIVE [facility] Comment on above: Performed By: #### C BC #### [facility] [address] [place] [address] Dr. Ilia Carrillo OPI Negative Normal NEGATIVE [facility] Comment on above: Performed By: #### C BC #### [facility] [address] [place] [address] Dr. Ilia Carrillo OXY Negative Normal NEGATIVE [facility] Comment on above: Performed By: #### C BC #### [facility] [address] [place] [address] Dr. Ilia Carrillo PCP Negative Normal NEGATIVE [facility] Comment on above: Performed By: #### C BC #### [facility] [address] [place] [address] Dr. Ilia Carrillo PPX Negative Normal NEGATIVE [facility] Comment on above: Performed By: #### C BC #### [facility] [address] [place] [address] Dr. Ilia Carrillo TCA Negative Normal NEGATIVE [facility] Comment on above: Performed By: #### C BC #### [facility] [address] [place] [address] Dr. Ilia Carrillo THC Negative Normal NEGATIVE [facility] Comment on above: Performed By: #### C BC #### [facility] [address] [place] [address] Dr. Ilia Carrillo TYPE AND SCREENon 01-02-2023 TYPE AND SCREEN Negative Normal [facility] Comment on above: Performed By: #### T NS #### [facility] [address] [place] [address] Dr. Ilia Carrillo UA (CLEAN/CATCH) LIGHT EQUIPMENT OPERATOR/MICRO I F IND.on 01-02-2023 Bilirubin Ql (U) Negative Normal NEGATIVE [facility] Comment on above: Performed By: #### U ACSIND #### [facility] [address] [address] [address] Ilia Carrillo Clarity (U) CLEAR Normal CLEAR [facility] Comment on above: Performed By: #### U ACSIND #### [facility] [address] [address] [address] Ilia Carrillo Color (U) LT. YELLOW Normal YELLOW [facility] Comment on above: Performed By: #### U ACSIND #### [facility] [address] [address] [address] Ilia Carrillo Glucose Ql (U) Negative Normal NEGATIVE [facility] Comment on above: Performed By: #### U ACSIND #### [facility] [address] [place] [address] Dr. Ilia Carrillo Hemoglobin Ql (U) Negative Normal NEGATIVE [facility] Comment on above: Performed By: #### U ACSIND #### [facility] [address] [place] [address] Dr. Ilia Carrillo Ketones Ql (U) Negative Normal NEGATIVE [facility] Comment on above: Performed By: #### U ACSIND #### [facility] [address] [address] [address] Ilia Carrillo LEUKOCYTES Negative Normal NEGATIVE [facility] Comment on above: Performed By: #### U ACSIND #### [facility] [address] [place] [address] Dr. Ilia Carrillo Nitrite Ql (U) Negative Normal NEGATIVE [facility] Comment on above: Performed By: #### U ACSIND #### [facility] [address] [address] [address] Ilia Carrillo pH (U) 6.0 [pH] Normal 5-9 [facility] Comment on above: Performed By: #### U ACSIND #### [facility] [address] [place] [address] Dr. Ilia Carrillo SPEC GRAVITY 1.025 Normal 1.005-<=1.02 5 [facility] Comment on above: Performed By: #### U ACSIND #### [facility] [address] [address] [address] Ilia Carrillo UA PROTEIN Negative Normal NEGATIVE/ TRACE [facility] Comment on above: Performed By: #### U ACSIND #### [facility] [address] [address] [address] Ilia Carrillo UR MICRO IND NOT INDICATED Normal [facility] Comment on above: Performed By: #### U ACSIND #### [facility] [address] [address] [address] Ilia Carrillo Urobilinogen Qn (U) 0.2 {Manfred'U}/dL Normal 0.2 - 1. 0 [facility] Comment on above: Performed By: #### U ACSIND #### [facility] [address] [place] [address] Dr. Ilia Carrillo GROUP B STREP CULTUREon 12-06 S. agalactiae Ag Ql (Unsp spec) Culture Observations: NEGATIVE FOR GROUP B STREPTOCOCCUS. Normal [facility] Comment on above: Performed By: #### U ACSIND #### [facility] [address] [address] [address] 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 Number: 1.0 Position: Breech [...] ECTOR MINOR Date: 2022-11-10 08:42 Normal [facility] TYPE AND SCREENon 10-31-2022 TYPE AND SCREEN Negative Normal [facility] Comment on above: Performed By: #### T NS #### [facility] [address] [address] [address] Ilia Carrillo GTT 3 HR PREGon 10-25-2022 Glucose [Mass/Vol] 81 mg/dL Normal 74-106 [facility] Comment on above: Performed By: #### U ACSIND #### [facility] [address] [address] [address] Ilia Carrillo Glucose [Mass/Vol] 166 mg/dL Normal [facility] Comment on above: Performed By: #### U ACSIND #### [facility] [address] [address] [address] Ilia Carrillo Glucose [Mass/Vol] 123 mg/dL Normal [facility] Comment on above: Performed By: #### U ACSIND #### [facility] [address] [address] [address] Ilia Carrillo Glucose [Mass/Vol] 103 mg/dL Normal [facility] Comment on above: Performed By: #### U ACSIND #### [facility] [address] [address] [address] Ilia Carrillo TYPE AND SCREENon 10-25-2022 TYPE AND SCREEN Negative Normal [facility] Comment on above: Performed By: #### T NS #### [facility] [address] [address] [address] Ilia Carrillo CBC AUTO DIFFon 10-21-2022 BASO # 0.0 103/ul Normal 0.0-0.1 [facility] Comment on above: Performed By: #### U ACSIND #### [facility] [address] [address] [address] Ilia Carrillo Basophils/100 WBC (Bld) 0.2 % Normal 0.2-2.0 [facility] Comment on above: Performed By: #### U ACSIND #### [facility] [address] [address] [address] Ilia Carrillo EO # 0.0 103/ul Normal 0.0-0.7 [facility] Comment on above: Performed By: #### U ACSIND #### [facility] [address] [address] [address] Ilia Carrillo Eosinophils/100 WBC (Bld) 0.5 % Critically low 0.9-7.0 [facility] Comment on above: Performed By: #### U ACSIND #### [facility] [address] [address] [address] Ilia Carrillo Erythrocyte distribution width (RBC) [Ratio] 12.6 % Normal 11.0-15.0 [facility] Comment on above: Performed By: #### U ACSIND #### [facility] [address] [address] [address] Ilia Carrillo Hematocrit (Bld) [Volume fraction] 36.0 % Normal 36.0-48.0 [facility] Comment on above: Performed By: #### U ACSIND #### [facility] [address] [address] [address] Ilia Carrillo Hemoglobin (Bld) [Mass/Vol] 12.3 g/dL Normal 12.0-16.0 [facility] Comment on above: Performed By: #### U ACSIND #### [facility] [address] [address] [address] Ilia Carrillo IG # 0.04 10e3/ul Critically high 0.00-0.03 [facility] Comment on above: Performed By: #### U ACSIND #### [facility] [address] [address] [address] Ilia Carrillo IG % 0.5 % Normal 0.0-0.5 [facility] Comment on above: Performed By: #### U ACSIND #### [facility] [address] [address] [address] Ilia Carrillo LYMPH # 1.3 103/ul Normal 1.2-3.8 [facility] Comment on above: Performed By: #### U ACSIND #### [facility] [address] [address] [address] Ilia Carrillo Lymphocytes/100 WBC (Bld) 15.5 % Critically low 20.5-60.0 [facility] Comment on above: Performed By: #### U ACSIND #### [facility] [address] [address] [address] Ilia Carrillo MANUAL DIFF REQ NO Normal [facility] Comment on above: Performed By: #### U ACSIND #### [facility] [address] [address] [address] Ilia Carrillo MCH (RBC) [Entitic mass] 30.4 pg Normal 26.7-34.0 [facility] Comment on above: Performed By: #### U ACSIND #### [facility] [address] [address] [address] Ilia Carrillo MCHC (RBC) [Mass/Vol] 34.2 g/dL Normal 29.9-35.2 [facility] Comment on above: Performed By: #### U ACSIND #### [facility] [address] [address] [address] Ilia Carrillo MCV (RBC) [Entitic vol] 89.1 fL Normal 81.0-99.0 [facility] Comment on above: Performed By: #### U ACSIND #### [facility] [address] [address] [address] Ilia Carrillo MONO # 0.3 103/ul Normal 0.3-0.8 [facility] Comment on above: Performed By: #### U ACSIND #### [facility] [address] [address] [address] Ilia Carrillo Monocytes/100 WBC (Bld) 3.8 % Normal 1.7-12.0 [facility] Comment on above: Performed By: #### U ACSIND #### [facility] [address] [address] [address] Ilia Carrillo NEUT # 6.5 103/ul Normal 1.4-6.5 [facility] Comment on above: Performed By: #### U ACSIND #### [facility] [address] [address] [address] Ilia Carrillo Neutrophils/100 WBC (Bld) 79.5 % Critically high 43.0-75.0 [facility] Comment on above: Performed By: #### U ACSIND #### [facility] [address] [address] [address] Ilia Carrillo Platelet mean volume (Bld) [Entitic vol] 9.2 fL Critically low 9.5-13.5 [facility] Comment on above: Performed By: #### U ACSIND #### [facility] [address] [address] [address] Ilia Carrillo PLT 212 103/ul Normal 150-450 [facility] Comment on above: Performed By: #### U ACSIND #### [facility] [address] [address] [address] Ilia Carrillo RBC 4.04 106/ul Critically low 4.20-5.40 [facility] Comment on above: Performed By: #### U ACSIND #### [facility] [address] [address] [address] Ilia Carrillo WBC 8.2 103/ul Normal 4.0-11.0 [facility] Comment on above: Performed By: #### U ACSIND #### [facility] [address] [address] [address] Ilia Carrillo GLUCOSE - 1HRon 10-21-2022 Glucose [Mass/Vol] 147 mg/dL Critically high 74-106 [facility] Comment on above: Performed By: #### P REGQNT #### [facility] [address] [address] [address] Ilia Carrillo PAP ACOG PANEL 2: 21 to 29on 10-19-2022 . . Normal [facility] Comment on above: Performed By: #### P REGQNT #### [facility] [address] [place] [address] Dr. Ilia Carrillo Age Gdln ACOG Testing - [facility] Comment on above: Performed By: #### P REGQNT #### [facility] [address] [address] [address] Ilia Carrillo DIAGNOSIS: Comment [facility] Comment on above: Result Comment: NEGA TIVE FOR INTRAEPITHELIAL LESION OR MALIGNANCY. THIS SPECIMEN WAS RESCREENED PART OF OUR STEAM PRESS OPERATOR PROGRAM. Performed By: #### P REGQNT #### [facility] [address] [address] [address] Ilia Carrillo Methodology: Comment Normal [facility] Comment on above: Result Comment: This liquid based ThinPrep(R) pap test was screened with the use of an image guided system. Performed By: #### P REGQNT #### [facility] [address] [place] [address] Dr. Ilia Carrillo Note: Comment [facility] Comment on above: [...] . Performed By: #### P REGQNT #### [facility] [address] [address] [address] Ilia Carrillo Performed by: Comment Normal [facility] Comment on above: Result Comment: Janeth Reynolds, Shroud Line Tier (ASCP) Performed By: #### P REGQNT #### [facility] [address] [place] [address] Dr. Ilia Carrillo QC reviewed by: Comment Normal [facility] Comment on above: Result Comment: Anna Russell, Supervisory Shroud Line Tier (ASCP) Performed By: #### P REGQNT #### [facility] [address] [place] [address] Dr. Ilia Carrillo Reflex Criteria: Comment Normal [facility] Comment on above: Result Comment: The HPV DNA reflex criteria were not met with this specimen result therefore, no HPV testing was performed. . Performed By: #### P REGQNT #### [facility] [address] [place] [address] Dr. Ilia Carrillo Specimen adequacy: Comment Normal [facility] Comment on above: Result Comment: Sati sfactory for evaluation. No endocervical component is identified. Performed By: #### P REGQNT #### [facility] [address] [place] [address] Dr. Ilia Carrillo CHLAMYDIA/GONOCOCCUS ABAD (SW AB/URINE/PAPon 10-13-2022 Chlamydia trachomatis, ABAD Negative Normal Negative [facility] Comment on above: Performed By: #### P REGQNT #### [facility] [address] [place] [address] Dr. Ilia Carrillo Neisseria gonorrhoeae, ABAD Negative Normal Negative [facility] Comment on above: Performed By: #### P REGQNT #### [facility] [address] [place] [address] Dr. Ilia Carrillo VAGINITIS/VAGINOSIS DNA PROB Mitesh 10-12-2022 Floresita species Negative Normal Negative [facility] Comment on above: Performed By: #### C BC #### [facility] [address] [address] [address] Ilia Carrillo Gardnerella vaginalis Negative Normal Negative [facility] Comment on above: Performed By: #### C BC #### [facility] [address] [address] [address] lIia Carrillo Trichomonas vaginalis Negative Normal Negative [facility] Comment on above: Performed By: #### C BC #### [facility] [address] [address] [address] Ilia Carrillo AFP MATERNAL FOR SPINA BIFID Aon 09-05-2022 AFP MoM 1.50 Normal [facility] Comment on above: Performed By: #### C BC #### [facility] [address] [address] [address] Ilia Carrillo AFP Value 85.2 ng/mL Normal [facility] Comment on above: Performed By: #### C BC #### [facility] [address] [address] [address] Ilia Carrillo AFP, Serum for Spina Bifida Report Normal [facility] Comment on above: Performed By: #### C BC #### [facility] [address] [address] [address] Ilia Carrillo Comment Comment Normal [facility] Comment on above: Result Comment: Richard Loomis, Ph.D., [facility] Director . References: Available Upon Request. . Multiples Of Median Cutoffs For AFP Elevations Munguia 2.5 Black 2.8 IDD 2.0 Twins 4.5 Abbreviation Definitions IDD - Insulin Dep Diabetes OSBR - Open Spina Bifida Risk . For further inquiries contact [facility] at [phone]. . This test was developed and its performance characteristics determined by [employer] It has not been cleared or approved by the Food and Drug Administration. Performed By: #### C BC #### [facility] [address] [place] [address] Dr. Ilia Carrillo Gest Age Collection Date 20.7 weeks Normal [facility] Comment on above: Performed By: #### C BC #### [facility] [address] [place] [address] Dr. Ilia Carrillo Gestat, Age Based on Ultrasound Normal [facility] Comment on above: Result Comment: 06:3 on 05/22/2022 Recalculations are not recommended when gestational dating by LMP and ultrasound are within 10 days. Performed By: #### C BC #### [facility] [address] [place] [address] Dr. Ilia Carrillo Insulin Dep Diabetes No Normal [facility] Comment on above: Performed By: #### C BC #### [facility] [address] [place] [address] Dr. Ilia Carrillo Interpretation Comment Normal [facility] Comment on above: Result Comment: Inte rpretation: [...] Customer Services to discuss available options. The [employer] recommends amniocentesis be offered to women age 35 and older. Performed By: #### C BC #### [facility] [address] [place] [address] Dr. Ilia Carrillo [age] Normal [facility] Comment on above: Performed By: #### C BC #### [facility] [address] [place] [address] Dr. Ilia Carrillo Multiple Gestation No Normal [facility] Comment on above: Performed By: #### C BC #### [facility] [address] [place] [address] Dr. Ilia Carrillo OSBR Risk 1 [place] [address] [facility] Comment on above: Performed By: #### C BC #### [facility] [address] [place] [address] Dr. Ilia Carrillo PDF . Normal [facility] Comment on above: Performed By: #### C BC #### [facility] [address] [place] [address] Dr. Ilia Carrillo Race Normal [facility] Comment on above: Performed By: #### C BC #### [facility] [address] [address] [address] Ilia Carrillo Test Results: Negative Normal [facility] Comment on above: Performed By: #### C BC #### [facility] [address] [address] [address] Ilia Carrillo US PREG ANATOMY SINGLEon [...] CHASE TRAN Date: 2022-08-27 16:15 Normal [facility] HEP B SURFACE ANTIGEN SCREEN on 07-04-2022 HBsAg Screen Negative Normal Negative [facility] Comment on above: Performed By: #### C BC #### [facility] [address] [address] [address] Ilia Carrillo HEPATITIS C VIRUS AB W/ REFL EX QUANTon 07-04-2022 HCV AB <0.1 Normal 0.0-0.9 [facility] Comment on above: Performed By: #### C BC #### [facility] [address] [place] [address] Dr. Ilia Carrillo Interpretation: Comment Normal [facility] Comment on above: Result Comment: Nega tive Not infected with HCV, unless recent infection is suspected or other evidence exists to indicate HCV infection. Performed By: #### C BC #### [facility] [address] [place] [address] Dr. Ilia Carrillo HIV 1 AND 2 WITH REFLEXon HIV Screen 4th Generation wRfx Non-Reactive Normal Non Reactive [facility] Comment on above: Result Comment: HIV Negative HIV-1/HIV-2 antibodies and HIV-1 p24 antigen were NOT detected. There is no laboratory evidence of HIV infection. Performed By: #### C BC #### [facility] [address] [place] [address] Dr. Ilia Carrillo RPR QUANTon 07-04-2022 Rapid Plasma Reagin, Quant Non-Reactive Normal NonRea<1:1 [facility] Comment on above: Result Comment: Plea se Note: This test does not meet current guidelines for screening and diagnosis of syphilis. This test is intended for following treatment response in patients being treated for syphilis infection. To screen for syphilis infection, a reflex cascade that includes both RPR and a treponema-specific assay should be utilized, such as Treponema pallidum (Syphilis) Screening Coos (328548) or Rapid Plasma Reagin (RPR) Test With Reflex to Quantitative RPR and Confirmatory Treponema pallidum Antibodies (479725). Performed By: #### C BC #### [facility] [address] [place] [address] Dr. Ilia Carrillo RUBELLA AB IGGon 07-04-2022 Rubella Antibodies, IgG 3.07 index Normal Immune >0.99 [facility] Comment on above: Result Comment: Non- immune <0.90 Equivocal 0.90 - 0.99 Immune >0.99 Performed By: #### C BC #### [facility] [address] [place] [address] Dr. Ilia Carrillo CBC AUTO DIFFon 07-03-2022 BASO # 0.0 103/ul Normal 0.0-0.1 [facility] Comment on above: Performed By: #### C BC #### [facility] [address] [place] [address] Dr. Ilia Carrillo Basophils/100 WBC (Bld) 0.2 % Normal 0.2-2.0 [facility] Comment on above: Performed By: #### C BC #### [facility] [address] [place] [address] Dr. Ilia Carrillo EO # 0.1 103/ul Normal 0.0-0.7 [facility] Comment on above: Performed By: #### C BC #### [facility] [address] [place] [address] Dr. Ilia Carrillo Eosinophils/100 WBC (Bld) 1.1 % Normal 0.9-7.0 [facility] Comment on above: Performed By: #### C BC #### [facility] [address] [place] [address] Dr. Ilia Carrillo Erythrocyte distribution width (RBC) [Ratio] 11.4 % Normal 11.0-15.0 [facility] Comment on above: Performed By: #### C BC #### [facility] [address] [place] [address] Dr. Ilia Carrillo Hematocrit (Bld) [Volume fraction] 35.2 % Critically low 36.0-48.0 [facility] Comment on above: Performed By: #### C BC #### [facility] [address] [place] [address] Dr. Ilia Carrillo Hemoglobin (Bld) [Mass/Vol] 12.4 g/dL Normal 12.0-16.0 [facility] Comment on above: Performed By: #### C BC #### [facility] [address] [place] [address] Dr. Ilia Carrillo IG # 0.03 10e3/ul Normal 0.00-0.03 [facility] Comment on above: Performed By: #### C BC #### [facility] [address] [place] [address] Dr. Ilia Carrillo IG % 0.3 % Normal 0.0-0.5 [facility] Comment on above: Performed By: #### C BC #### [facility] [address] [place] [address] Dr. Ilia Carrillo LYMPH # 2.1 103/ul Normal 1.2-3.8 [facility] Comment on above: Performed By: #### C BC #### [facility] [address] [place] [address] Dr. Ilia Carrillo Lymphocytes/100 WBC (Bld) 22.6 % Normal 20.5-60.0 [facility] Comment on above: Performed By: #### C BC #### [facility] [address] [place] [address] Dr. Ilia Carrillo MANUAL DIFF REQ NO Normal [facility] Comment on above: Performed By: #### C BC #### [facility] [address] [place] [address] Dr. Ilia Carrillo MCH (RBC) [Entitic mass] 30.6 pg Normal 26.7-34.0 [facility] Comment on above: Performed By: #### C BC #### [facility] [address] [place] [address] Dr. Ilia Carrillo MCHC (RBC) [Mass/Vol] 35.2 g/dL Normal 29.9-35.2 [facility] Comment on above: Performed By: #### C BC #### [facility] [address] [place] [address] Dr. Ilia Carrillo MCV (RBC) [Entitic vol] 86.9 fL Normal 81.0-99.0 [facility] Comment on above: Performed By: #### C BC #### [facility] [address] [place] [address] Dr. Ilia Carrillo MONO # 0.4 103/ul Normal 0.3-0.8 [facility] Comment on above: Performed By: #### C BC #### [facility] [address] [address] [address] Ilia Carrillo Monocytes/100 WBC (Bld) 4.8 % Normal 1.7-12.0 [facility] Comment on above: Performed By: #### C BC #### [facility] [address] [address] [address] Ilia Carrillo NEUT # 6.5 103/ul Normal 1.4-6.5 [facility] Comment on above: Performed By: #### C BC #### [facility] [address] [address] [address] Ilia Carrillo Neutrophils/100 WBC (Bld) 71.0 % Normal 43.0-75.0 [facility] Comment on above: Performed By: #### C BC #### [facility] [address] [place] [address] Dr. Ilia Carrillo Platelet mean volume (Bld) [Entitic vol] 8.7 fL Critically low 9.5-13.5 [facility] Comment on above: Performed By: #### C BC #### [facility] [address] [place] [address] Dr. Ilia Carrillo PLT 260 103/ul Normal 150-450 [facility] Comment on above: Performed By: #### C BC #### [facility] [address] [place] [address] Dr. Ilia Carrillo RBC 4.05 106/ul Critically low 4.20-5.40 [facility] Comment on above: Performed By: #### C BC #### [facility] [address] [place] [address] Dr. Ilia Carrillo WBC 9.2 103/ul Normal 4.0-11.0 [facility] Comment on above: Performed By: #### C BC #### [facility] [address] [place] [address] Dr. Ilia Carrillo CULTURE URINEon 07-03-2022 CULTURE URINE Culture Observations: MODERATE GROWTH OF MIXED GENITAL BETHANIE. NO POTENTIAL PATHOGENS SEEN. Normal [facility] Comment on above: Performed By: #### U RCX #### [facility] [address] [address] [address] Ilia Carrillo GLYCOHEMOGLOBIN A1Con 2021 ADA RECOMMENDATION SEE BELOW Normal [facility] Comment on above: Result Comment: ADA RECOMMENDED LIMIT 4.0 - 6.0 ADA THERAPEUTIC TARGET < 7.0 ACTION SUGGESTED > 7.0 Performed By: #### P REGQNT #### [facility] [address] [address] [address] Ilia Carrillo Glucose [Mass/Vol] 97 mg/dL Normal [facility] Comment on above: Performed By: #### P REGQNT #### [facility] [address] [address] [address] Ilia Carrillo HbA1c (Bld) [Mass fraction] 5.0 % Normal 4.5-6.2 [facility] Comment on above: Performed By: #### P REGQNT #### [facility] [address] [address] [address] Ilia Carrillo FADY BOX TEST PT SEND OUTo n 07-03-2022 SENT TO REF LAB 07/03/2022 Normal [facility] Comment on above: Performed By: #### N BOX #### [facility] [address] [address] [address] Ilia Carrillo TYPE AND SCREENon 07-03-2022 TYPE AND SCREEN Negative Normal [facility] Comment on above: Performed By: #### U ACSIND #### [facility] [address] [address] [address] Ilia Carrillo COVID Quick Testingon 2021 Result Positive [employer] Other US PREG TVon 05-23-2022 US PREG [...] ECTOR MINOR Date: 2022-05-23 21:22 Normal [facility] PREG QUANT HCGon 05-11-2022 HCG QUANT 2766 mIU/mL Normal [facility] Comment on above: Performed By: #### U ACSIND #### [facility] [address] [address] [address] Ilia Carrillo HCG RANGE SEE BELOW Normal [facility] Comment on above: Result Comment: 5-50 0-1 WEEK 40-300 1-2 WEEKS 100-1,000 2-3 WEEKS 500-6,000 3-4 WEEKS 5,000-200,000 1-2 MONTHS 10,000-100,000 2-3 MONTHS 3,000-50,000 2ND TRIMESTER 1,000-50,000 3RD TRIMESTER Performed By: #### U ACSIND #### [facility] [address] [address] [address] Ilia Carrillo PREG QUANT HCGon 05-09-2022 HCG QUANT 983 mIU/mL Normal [facility] Comment on above: Performed By: #### P REGQNT #### [facility] [address] [place] [address] Dr. Ilia Carrillo HCG RANGE SEE BELOW Normal [facility] Comment on above: Result Comment: 5-50 0-1 WEEK 40-300 1-2 WEEKS 100-1,000 2-3 WEEKS 500-6,000 3-4 WEEKS 5,000-200,000 1-2 MONTHS 10,000-100,000 2-3 MONTHS 3,000-50,000 2ND TRIMESTER 1,000-50,000 3RD TRIMESTER Performed By: #### P REGQNT #### [facility] [address] [place] [address] Dr. Ilia Carrillo Vital Signs Date Time Vital Sign Value Performing Clinician Facility 08-11-2024 08:53-0400 Body height 162.6 cm Viola HAIDER Work Phone: [facility] 08-11-2024 08:53-0400 Body mass index (BMI) [Ratio] 31.24 kg/m2 Viola Beck PA Work Phone: [facility] [employer] 08-11-2024 08:53-0400 Body weight 82.56 kg Viola Beck PA Work Phone: [facility] [employer] 08-11-2024 08:53-0400 Diastolic blood pressure 76 mm[Hg] Viola Beck PA Work Phone: [facility] [employer] 08-11-2024 08:53-0400 Systolic blood pressure 110 mm[Hg] Viola Beck PA Work Phone: [facility] [employer] 12-05-2023 10:50-0500 Body height 163.19 cm Erlinda Archer Other [employer] Other 12-05-2023 10:50-0500 Body mass index (BMI) [Ratio] 32.12 kg/m2 Erlinda Archer Other [facility] Other 12-05-2023 10:50-0500 Body temperature 98 [degF] Erlinda Suzi Other [facility] Other 12-05-2023 10:50-0500 Body weight 85.55 kg Erlindawillie Archer Other [facility] Other 12-05-2023 10:50-0500 Diastolic blood pressure 68 mm[Hg] Erlindawillie Archer Other [facility] Other 12-05-2023 10:50-0500 Respiratory rate 18 /min Erlinda Archer Other [facility] Other 12-05-2023 10:50-0500 SaO2% (BldA) [Mass fraction] 96 % Erlinda Archer Other [facility] Other 12-05-2023 10:50-0500 Systolic blood pressure 104 mm[Hg] Erlinda Archer Other [facility] Other 09-05-2022 15:07-0400 Body weight 84.[address] CHRISTOPHE MIRELES . [facility] Comment on above: Performed By: #### CBC #### [facility] [address] [place] [address] Dr. Ilia Carrillo 06-23-2022 17:05-0400 Body height 163.19 cm Cortney Chapman Other [facility] Other 06-23-2022 17:05-0400 Body mass index (BMI) [Ratio] 31.16 kg/m2 Cortney Adela Other [facility] Other 06-23-2022 17:05-0400 Body temperature 99.6 [degF] Cortney Adela Other [facility] Other 06-23-2022 17:05-0400 Body weight 83.01 kg Cortney Mclainault Other [facility] Other 06-23-2022 17:05-0400 Respiratory rate 18 /min Cortney Adela Other [facility] Other 06-23-2022 17:05-0400 SaO2% (BldA) [Mass fraction] 98 % Cortney Adela Other [facility] Other Encounters Encounter Date Encounter Type Care Provider Facility Start: 12-02-2024 End: 12-02-2024 ambulatory [facility] Facility[facility] Sarika inman Start: 10-15-2024 End: 10-15-2024 ambulatory ENA MORE Facility:[facility] Start: 09-08-2024 End: 09-08-2024 ambulatory CHRISTOPHE ANGELO Not Available Start: 08-11-2024 End: 08-11-2024 Bamboo flowsheet Viola [...] PAT ROCHE Not Available Start: 01-31-2024 End: 01-31-2024 ambulatory Pat Roche Facility:[facility] Start: 01-31-2024 End: 01-31-2024 Patient encounter procedure Pat Roche [facility] Start: 01-29-2024 End: 01-29-2024 ambulatory PAT ROCHE Not Available Start: 01-22-2024 End: 01-22-2024 ambulatory PAT ROCHE Not Available Start: 01-08-2024 End: 01-08-2024 ambulatory PAT ROCHE Not Available Start: 01-07-2024 End: 01-07-2024 ambulatory [facility] Facility[facility] Start: 12-20-2023 End: 12-20-2023 ambulatory [facility] Facility[facility] Start: 12-10-2023 End: 12-10-2023 ambulatory [facility] Facility:[facility] Start: 12-05-2023 Office outpatient visit 15 minutes Erlinda Archer [facility] Start: 12-05-2023 End: 12-05-2023 ambulatory Erlinda Germanmond Facility:[facility] Start: 12-05-2023 End: 12-05-2023 ambulatory OCCUPATIONAL HEALTH NURSE MANAGER-C Erlinda Archer Work Phone: [facility] Work Phone: Start: 12-05-2023 End: 12-05-2023 Patient encounter procedure OCCUPATIONAL HEALTH NURSE MANAGER-C Erlinda Archer Work Phone: [facility] Work Phone: Start: 10-30-2023 End: 10-30-2023 ambulatory CHRISTOPHE MIRELES Not Available Start: 01-08-2023 End: 01-08-[address] FLORINA [...] End: 07-04-[address] CHRISTOPHE MIRELES . Facility: Start: 06-23-2022 End: 06-23-2022 ambulatory Cortney Chapman Other [facility] Other Start: 06-23-2022 Office outpatient ne w 30 minutes Cortney Chapman [facility] Start: 05-22-2022 End: 05-23-[address] CHRISTOPHE MIRELES . Facility:[facility] Start: 05-11-2022 End: 05-12-[address] CHRISTOPHE MIRELES . Facility:[facility] Start: 05-09-2022 End: 05-10-[address] CHRISTOPHE MIRELES . Facility: Procedures Date Procedure Procedure Detail Performing Clinician Start: 08-11-2024 ALL CBC WITH AUTO DIFF Viola HAIDER Work Phone: Start: 12-05-2023 Radiologic examinati on of knee OCCUPATIONAL HEALTH NURSE MANAGER-Chip Archer Work Phone: Start: 01-02-2023 Extraction of Produc ts of Conception, Low Cervical, Open Approach DR CHRISTOPHE MIRELES . Start: 01-02-2023 section Fredycaroline Roche Plan of Treatment Date Care Activity Detail Author Start: 09-08-2024 End: 09-08-2024 Patient encounter procedure 09/08/2024 3:40 PM EST Office Visit [facility] [address] [address] Christophe Mireles, [address] [place] [address] [facility] Start: 08-11-2024 End: 08-11-2025 US for US PELVIS-TRANSVAG IF INDICATED Imaging Routine Amenorrhea Expected: 08/11/2024 (Approximate), Expires: 08/11/2025 [facility] Comment on above: Expected: 08/11/2024 (Approximate), Expires: 08/11/2025 Start: 08-11-2024 End: 08-11-2024 Patient encounter procedure 08/11/2024 8:30 AM EDT Office Visit [facility] [address] [address] Viola Beck PA [address] [place] [address] Arrived [facility] Comment on above: Arrived CBC W Auto Different ial panel - Blood CBC and differential Lab Routine Amenorrhea Ordered: 08/11/2024 [facility] Comment on above: Ordered: 08/11/2024 hCG, quantitative, hCG, quantitative, Lab Routine Amenorrhea Ordered: 08/11/2024 [facility] Comment on above: Ordered: 08/11/2024 Hemoglobin A1c/Hemoglobin.total in Blood Hemoglobin A1c Lab Routine Amenorrhea Ordered: 08/11/2024 [facility] Comment on above: Ordered: 08/11/2024 Prolactin Prolactin Lab Ro utine Amenorrhea Ordered: 08/11/2024 [facility] Comment on above: Ordered: 08/11/2024 Thyrotropin [Units/volume] in Serum or Plasma TSH Lab Routine Amenorrhea Ordered: 08/11/2024 [facility] Work Phone: Comment on above: Ordered: 08/11/2024 Immunizations Immunization Date Immunization Notes Care Provider Steven granda NEGATED: Highlighted row has not occurred!12-10-2023 influenza virus vaccine, unspecified formulation Pat Roche [facility] NEGATED: Highlighted row has not occurred!02-08-2023 influenza virus vaccine, unspecified formulation Pat Roche [facility] NEGATED: Highlighted row has not occurred!02-08-2023 SARS-CoV-2 mRNA (tozinameran 5y-11y) vaccine Pat Roche [facility] Payers Date Payer Category Payer Unknown [id number] 2023 Unknown [id number] 1996 Unknown [id number] 2.16.840.1.881306.3.579.2.593 1996 Unknown [id number] 2.16.840.1.362353.3.579.2.593 1996 Unknown [id number] 2.16.840.1.992807.3.579.2.593 1996 Unknown [id number] 2.16.840.1.964593.3.579.2.593 1996 Unknown [id number] 2.16.840.1.993334.3.579.2.593 1996 Unknown [id number] 2.16.840.1.755965.3.579.2.593 1996 Unknown [id number] 2.16.840.1.586271.3.579.2.593 1996 Unknown [id number] 2.16.840.1.953870.3.579.2.593 1996 Unknown [id number] 2.16.840.1.918771.3.579.2.593 1996 Unknown [id number] 2.16.840.1.598962.3.579.2.593 1996 Unknown [id number] 2.16.840.1.909574.3.579.2.593 1996 Unknown [id number] 2.16.840.1.293280.3.579.2.593 1996 Unknown [id number] 2.16.840.1.961928.3.579.2.593 1996 Unknown [id number] 2.16.840.1.665995.3.579.2.593 1996 Unknown [id number] 2.16.840.1.282343.3.579.2.593 1996 Unknown [id number] 2.16.840.1.014759.3.579.2.593 1996 Unknown [id number] 2.16.840.1.468978.3.579.2.593 1996 Unknown [id number] 2.16.840.1.810372.3.579.2.9 1996 Unknown [id number] 2.16.840.1.295533.3.579.2.1258 1996 Unknown [id number] 2.16.840.1.538427.3.579.2.1258 1996 Unknown [id number] 2.16.840.1.732119.3.579.2.1258 1996 Unknown [id number] 2.16.840.1.404976.3.579.2.1258 1996 Unknown [id number] 2.16.840.1.739511.3.579.2.1258 1996 Unknown [id number] 2.16.840.1.417004.3.579.2.1258 1996 Unknown [id number] 2.16.840.1.091349.3.579.2.1258 1996 Unknown [id number] 2.16.840.1.432375.3.579.2. 1996 Unknown [id number] 2.16.840.1.628326.3.579.2. 1996 Unknown [id number] 2.16.840.1.861978.3.579.2. 1996 Unknown [id number] 2.16.840.1.089461.3.579.2. 1996 Unknown [id number] 2.16.840.1.273458.3.579.2. 1996 Unknown [id number] 2.16.840.1.371098.3.579.2.727 1959 Blue Cross Blue Shield DZNAN [id number] 2.16.840.1.920921.19 1959 Self-pay 1959 Unknown [id number] 2.16. 840.1.250093.19 1959 Unknown [id number] Unknown [id number] 2.16.840.1.814060.3.579.2.593 Unknown [id number] 2.16.840.1.798472.3.579.2.531 Worker's Compensation [facility] [id number] Social History Date Type Detail Facility Start: 03-18-2024 Sex Assigned At F [facility] Start: 1995 Sex Assigned At Female F [facility] Start: 10-11-2023 End: 12-20-2023 Tobacco smoking status Never smoked tobacco (finding) [facility] Tobacco smoking status Never [facility] Start: 10-11-2023 Tobacco use and exposure Smokeless tobacco non-user [facility] Start: 03-18-2024 End: 08-11-2024 Alcoholic beverage intake Lifetime non-drinker (finding) [facility] Start: 03-18-2024 History of Social function [facility] Start: 1995 Sex assigned at Not on file [facility] Clinical Notes 06-23-2022 to 10-15-2024 MELIZA Amador - 08/11/2024 8:30 AM EDT Note Date & Type Note Facility 10-15-2024 Note Patient Education Infectious Disease Pharyngitis Pharyngitis is a sore throat (pharynx). This is when there is redness, pain, and swelling in your throat. Most of the time, this condition gets better on its own. In some cases, you may need medicine. What are the causes? An infection from a virus. ??? An infection from bacteria. ??? Allergies. What increases the risk? Being 5?24 years old. ??? Being in crowded environments. These include: ? Daycares. ? Schools. ? Dormitories. ??? Living in a place with cold temperatures outside. ??? Having a weakened disease-fighting (immune) system. What are the signs or symptoms? Symptoms may vary depending on the cause. Common symptoms include: ??? Sore throat. ??? Tiredness (fatigue). ??? Low-grade fever. ??? Stuffy nose. ??? Cough. ??? Headache. Other symptoms may include: ??? Glands in the neck (lymph nodes) that are swollen. ??? Skin rashes. ??? Film on the throat or tonsils. This can be caused by an infection from bacteria. ??? Vomiting. ??? Red, itchy eyes. ??? Loss of appetite. ??? Joint pain and muscle aches. ??? Tonsils that are temporarily bigger than usual (enlarged). How is this treated? Many times, treatment is not needed. This condition usually gets better in 3?4 days without treatment. If the infection is caused by a bacteria, you may be need to take antibiotics. Follow these instructions at home: Medicines ??? Take sycb-gec-pissfkx and prescription medicines only as told by your doctor. ??? If you were prescribed an antibiotic medicine, take it as told by your doctor. Do not stop taking the antibiotic even if you start to feel better. ??? Use throat lozenges or sprays to soothe your throat as told by your doctor. ??? Children can get pharyngitis. Do not give your child aspirin. Managing pain To help with pain, try: ??? Sipping warm liquids, such as: ? Broth. ? Herbal tea. ? Warm water. ??? Eating or drinking cold or frozen liquids, such as frozen ice pops. ??? Rinsing your mouth (gargle) with a salt water mixture 3?4 times a day or as needed. ? To make salt water, dissolve ??1 tsp (3?6 g) of salt in 1 cup (237 mL) of warm water. ? Do not swallow this mixture. ??? Sucking on hard candy or throat lozenges. ??? Putting a cool-mist humidifier in your bedroom at night to moisten the air. ??? Sitting in the bathroom with the door closed for 5?10 minutes while you run hot water in the shower. General instructions ??? Do not smoke or use any products that contain nicotine or tobacco. If you need help quitting, ask your doctor. ??? Rest as told by your doctor. ??? Drink enough fluid to keep your pee (urine) pale yellow. How is this prevented? Wash your hands often for at least 20 seconds with soap and water. If soap and water are not available, use hand group account director. ??? Do not touch your eyes, nose, or mouth with unwashed hands. Wash hands after touching these areas. ??? Do not share cups or eating utensils. ??? Avoid close contact with people who are sick. Contact a doctor if: ??? You have large, tender lumps in your neck. ??? You have a rash. ??? You cough up green, yellow-brown, or bloody spit. Get help right away if: ??? You have a stiff neck. ??? You drool or cannot swallow liquids. ??? You cannot drink or take medicines without vomiting. ??? You have very bad pain that does not go away with medicine. ??? You have problems breathing, and it is not from a stuffy nose. ??? You have new pain and swelling in your knees, ankles, wrists, or elbows. These symptoms may be an emergency. Get help right away. Call your local emergency services (911 in the [place] ??? Do not wait to see if the symptoms will go away. ??? Do not drive yourself to the hospital. Summary ??? Pharyngitis is a sore throat (pharynx). This is when there is redness, pain, and swelling in your throat. ??? Most of the time, pharyngitis gets better on its own. Sometimes, you may need medicine. ??? If you were prescribed an antibiotic medicine, take it as told by your doctor. Do not stop taking the antibiotic even if you start to feel better. This information is not intended to replace advice given to you by your health care provider. Make sure you discuss any questions you have with your health care provider. Document Revised: 01/18/2022 Document Reviewed: 01/18/2022 Elsevier Patient Education ? 2023 [employer]. Viral Respiratory Infection A viral respiratory infection is an illness that affects parts of the body that are used for breathing. These include the lungs, nose, and throat. It is caused by a germ called a virus. Some examples of this kind of infection are: ??? A cold. ??? The flu (influenza). ??? A respiratory syncytial virus (RSV) infection. What are the causes? This condition is caused by (more content not included)... [facility] 08-11-2024 History of Present illness Narrative Reason for Appointment: Patient ID: [...] of: MELIZA Amador documented in this encounter [facility] 12-05-2023 Evaluation note Encounter Date Diagnosis [...] no improvement in 5 to 7 days [facility] Other 02-28-2023 NoteDISCHARGE SUMMARY NOTE DATE: 01/12/2023 [...] when pain free and no longer on narcotics.[facility]02-28-2023 NoteOPERATIVE NOTE OPERATION DATE: 01/02/2023 PROCEDURE: Primary low transverse section. PREOPERATIVE DIAGNOSIS: 1. Intrauterine . 2. Breech presentation. 3. Decreasing movement per patient and office. POSTOPERATIVE DIAGNOSIS: 1. Intrauterine . 2. Breech presentation. 3. Decreasing movement per patient and office. ANESTHESIA: Spinal with Duramorph. SURGEON: Christophe Mireles D.O. MEDICAL INSTRUMENT TECHNICIAN: EFRAÍN Verdugo URINE OUTPUT: Yellow and clear. [...] TO PREOPERATIVE DIAGNOSIS: Risk of cord prolapse.[facility] 06-23-2022 Evaluation note* Encounter Date Diagnosis Assessment [...] COVID POSITIVE education handout discharge instructions. given. [facility] Other Evaluation + Plan note No data available for this section [facility] information available [facility] Work Phone: Evaluation note* Diagnosis Amenorrhea Absence of menstruation documented [facility] this [facility] - Reported* Type Description Date Surgical History wisdom teeth Hospitalization History see above [facility] Other Hospital Discharge instructions No data available for this section [facility] No data available for this section [facility] Summary Purpose Family History No Family [...] DATE CREATED AUTHOR AUTHOR'S ORGANIZ ATION 02/06/2024 [facility] DATE CREATED AUTHOR AUTHOR'S ORGANIZ ATION 09/09/2024 [facility] EPIC DATE CREATED AUTHOR AUTHOR'S ORGANIZ ATION 12/03/2024 [facility] Care Teams (unrecognized sec tion [...] BE BASED ON THE PRIMARY CLINICAL RECORDS. [employer] provides no warranty or guarantee of the accuracy or completeness of information in this document.
[2025-01-10 08:10] LABS: Progesterone 10.7 ng/mL (.)
== END 2025-01-08 15:21 | disposition home or self-care (01) ==
PROVIDERS: PCP Nurse Practitioner; Visit Provider Obstetrics & Gynecology
DX: N91.2 Amenorrhea, unspecified (principal); N92.6 Irregular menstruation, unspecified
CPT/HCPCS: 36415; 84144

== ENCOUNTER 2025-01-30 15:22 | Outpatient (RCR) | payer OTHER, BC, SELFPAY ==
--- OUTSIDE RECORDS SUMMARY | 2025-01-30 15:44 | XMS_ITS | CCD ---
Author Organization [facility] CliniSynm Care Team Providers Care Spanish Interpreter/Translator Name Role Phone Cortney Chapman Unavailable ANGELO [...] Unavailable ANGELO ., DR SAEED Consult[employer] Unavailable CHEROKEE, DR CHASE Tam Consulting Unavailable NADERER, DR [...] Medication Allergies] Propensity to adverse reactions (disorder) [facility] Repository Medications Current Medications Medication [...] pain, # 20 tab(s), Refills(s) 0, Pharmacy: [id number], 162, cm, 12/20/23 15:18:00 EST, Height/Length Dosing, [...] choosing us for your care. [facility] Medicine Office/Clini c Noteon 12-02-2024 Family Medicine [...] The patient reports managing body aches with tbhx-bgc-hcqdgaf medications such as DayQuil and NyQuil. There [...] pneumonia risk. Ordered: Influenza Type A&B POC 96217 Follow-up No qualifying data available Problem List/Past [...] 10:37:00) Influenza B POC: Negative (12/02/24 10:37:00) [facility] Comment on above: Result Comment: Elec tronically Signed By: Justin CABRALES, Kaiser Agarwal\.br\Date and Time Signed: 12/02/24 10:44 EST Provider Letteron 12-02-2024 Provider Letter Provider Letter December 02, 2024 [address] [place] [id number] : 1995 To Whom It May Concern, Please excuse above patient from work, due to medical Date of Illness: From: _12-01-24 To: _12-08-24 May Return to Work On: 12-09-24 Restrictions: _ Comments: _ Sincerely, Family Medicine [address] [address] [facility] Ambulatory Visit Summaryon 1 12-16-2023 Ambulatory Visit [...] these instructions at home: Medicines ??? Take wflj-ium-mjejach and prescription medicines only as told by [...] and water are not available, use hand health companion. ??? Do not touch your eyes, nose, [...] away if: (more content not included)... Normal [facility] Family Medicine Office/Clini c Noteon [...] No qualifying data available Patient Education Pharyngitis, Iovo-ue-Cddu Viral Respiratory Infection, Shox-Br-Oymt Problem List/Past Medical History Ongoing Knee pain, [...] - Not Given Patient Refuses Normal [facility] Comment on above: Result Comment: Elec [...] [Mass/Vol] 13.7 g/dL 12.0 - 16.0 g/dL [facility] IMMATURE GRANULOCYTES ABS AUTO 0.01 [facility] Immature granulocytes/100 WBC (Bld) 0.2 % 0.0 - 0.5 % [facility] Interpretation and review of laboratory results Abnormal [facility] LYMPHOCYTES ABSOLUTE AUTO 2.4 [facility] Lymphocytes/100 WBC (Bld) 39.4 % 20.5 - 60.0 % [facility] MCH (RBC) [Entitic mass] 29.8 pg 26.7 - 34.0 pg [facility] MCHC (RBC) [Mass/Vol] 33.7 g/dL 29.9 - 35.2 g/dL [facility] MCV (RBC) [Entitic vol] 88.7 fL 81.0 - 99.0 fL [facility] MONOCYTES ABSOLUTE AUTO 0.3 [facility] Monocytes/100 WBC (Bld) 4.8 % 1.7 - 12.0 % [facility] NEUTROPHILS ABSOLUTE AUTO 3.3 [facility] Neutrophils/100 WBC (Bld) 54.5 % 43.0 - 75.0 % [facility] Platelet mean volume (Bld) [Entitic vol] 8.8 fL Low 9.5 - 13.5 fL [facility]car e TB RBC 4.59 [facility] WBC 6.0 [facility] Healthcar e [facility] Healthcar e Consultation Noteon 03-20-20 24 Consultation Note [id number] #1.00TIFF Normal [facility] Consultation Noteon 02-18-20 24 Consultation Note [id number] #1.00TIFF Normal [facility] BMPon 01-31-2024 Creatinine [Mass/Vol] 0.8 mg/dL Normal 0.5-1.3 [facility] Comment on above: Performed By: #### 2 720866, [id number], [id number] ####[facility] [address] [place] [address] Urea nitrogen/Creatinine [Mass ratio] 19 No Units Normal - [facility] Comment on above: Performed By: #### 2 108561, [id number], 1759297 ####[facility] [address] [place] [address] Anion gap [Moles/Vol] 9 mmol/L Normal 6-16 [facility] Comment on above: Performed By: #### 2 188228, [id number], 8754169 ####[facility] [address] [place] [address] Calcium [Mass/Vol] 8.8 mg/dL Low 8.9-11.1 [facility] Comment on above: Performed By: #### 2 143512, [id number], 1958990 ####[facility] [address] [place] [address] Chloride [Moles/Vol] 108 mmol/L Normal 101-111 [facility] Comment on above: Performed By: #### 2 008809, 75767098, 5670507 ####[facility] [address] [facility] [place] [facility] [place] [address] CO2 [Moles/Vol] 28 mmol/L Normal 21-31 [facility] Comment on above: Performed By: #### 2 491051, 12926741, 2617070 ####[facility] [address] [place] [address] Glucose [Mass/Vol] 75 mg/dL Normal 55-199 [facility] Comment on above: Performed By: #### 2 988588, 80465495, 4590571 ####[facility] [address] [place] [address] Potassium [Moles/Vol] 4.0 mmol/L Normal 3.5-5.3 [facility] Comment on above: Performed By: #### 2 244627, 10051902, 6562376 ####[facility] [address] [place] [address] Sodium [Moles/Vol] 141 mmol/L Normal 135-145 [facility] Comment on above: Performed By: #### 2 313031, 28610844, 5815582 ####[facility] [address] [place] [address] Urea nitrogen [Mass/Vol] 15 mg/dL Normal 5-21 [facility] Comment on above: Performed By: #### 2 996392, 63234835, 2027447 ####[address] [address] CBC w/Indiceson 01-31-2024 Erythrocyte distribution width (RBC) [Ratio] 13.0 % Normal 10.9-14.2 [facility] Comment on above: Performed By: #### 2 643331, 08797578, 9500852 ####[address] [address] Hematocrit (Bld) [Volume fraction] 36.2 % Normal 34.0-46.0 [facility] Comment on above: Performed By: #### 2 162330, 14253280, 7662406 ####[address] [address] Hemoglobin (Bld) [Mass/Vol] 12.3 g/dL Normal 12.0-16.0 [facility] Comment on above: Performed By: #### 2 519115, 29406765, 9801816 ####[address] [address] MCH (RBC) [Entitic mass] 29.1 pg Normal 27.0-34.0 [facility] Comment on above: Performed By: #### 2 710341, 63514899, 5748505 ####[address] [address] MCHC (RBC) [Mass/Vol] 33.9 g/dL Normal 31.4-36.0 [facility] Comment on above: Performed By: #### 2 185911, 89031037, 9648969 ####[address] [address] MCV (RBC) [Entitic vol] 85.8 fL Normal 80.0-100.0 [facility] Comment on above: Performed By: #### 2 816420, 68527037, 4790816 ####[facility] [address] [place] [address] Platelet mean volume (Bld) [Entitic vol] 7.4 fL Normal 6.4-10.8 [facility] Comment on above: Performed By: #### 2 752754, 54396630, 3389884 ####[address] [address] Platelets (Bld) [#/Vol] 193.0 E9/L Normal 150.0-500.0 [facility] Comment on above: Performed By: #### 2 967970, 25352795, 3178234 ####[address] [address] RBC (Bld) [#/Vol] 4.2 E12/L Low 4.3-5.9 [facility] Comment on above: Performed By: #### 2 258617, 45619652, 2365348 ####[facility] [address] [place] [address] RBC size Nom (Bld) NORMAL Invalid Interpretation Code [facility] Comment on above: Performed By: #### 2 508328, 13616550, 1156481 ####[address] [address] WBC corrected for nucl RBC Auto (Bld) [#/Vol] 5.1 E9/L Normal 4.0-11.0 [facility] Comment on above: Performed By: #### 2 615547, 46537491, 1437319 ####[facility] [address] [place] [address] CHEMISTRYOrdered By: SYSTEM SYSTEM on 01-31-2024 Anion [...] Treatmenton 01-04 Consent for Treatment [id number] #1.00TIFF Normal [facility] HEMATOLOGYOrdered By: SYSTEM SYSTEM on [...] 01-31-2024 eGFR 103 mL/min/1.73 m2 Normal >=59 [facility] Comment on above: Order Comment: Order added by Discern Expert. Performed By: #### 2 523364, 71762776, 0537040 ####[facility] [address] [place] [address] Physician Orderon 01-30-2024 Physician Order [id number] 0#1.00TIFF Normal [facility] Discharge Note - PTon 2023 Discharge Note - PT [id number] #1.00TIFF Normal [facility] Physician Orderon 01-29-2024 Physician Order [id number] #1.00TIFF Normal [facility] MR KNEE LEFT WO IV [...] Questions Consultation Noteon 01-16-20 24 Consultation Note [id number] #1.00TIFF Normal [facility] Physician Referralon 024 Physician Referral [id number] 8#1.00TIFF Normal [facility] PT - Progress Noteson 2023 PT - Progress Notes [id number] #1.00TIFF Normal [facility] Ambulatory Visit Summaryon 0 12-20-2023 [...] PM EST With: Kaiser Anderson MD Where: [facility] Normal [facility] Family Medicine Office/Clini c Noteon [...] for pain - Follow up PRN Ordered: [place] External Ambulatory Referral 2. BMI 32.0-32.9,adult (Z68.32: [...] pain, # 20 tab(s), Refills(s) 0, Pharmacy: [facility] #[id number], 162, cm, 12/20/23 15:18:00 EST, Height/Length Dosing, [...] vac - Not Given Patient Refuses Normal [facility] Comment on above: Result Comment: [...] numbers. This can be done either in [place] or metric measurements. Note that charts and online BMI calculators are available to help you find your BMI quickly and easily without having to do these calculations yourself. To calculate your BMI in [place] ([place] measurements: 1. Measure your weight in [...] for Disease Control and Prevention: www.cdc.gov ? [place] Heart Association: www.heart.org ? National Heart, Lung, and Blood [place]: www.nhlbi.nih.gov Summary ? Body mass index (BMI) is a number that is calculated from a person's weight and height. ? BMI may help estimate how much of a person's weight is composed of fat. BMI can help identify those who may be at higher risk for certain medical problems. ? BMI can be measured using [place]i measurements or metric measurements. ? BMI charts are used to identify whether you are underweight, normal weight, overweight, or obese. This information is not intended to replace advice given to you by your health care provider. Make sure you discuss any questions you have with your health care provider. Document Revised: 07/14/2020 Document Reviewed: 05/21/2020 [employer] Patient Education ? 2022 [employer]. 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 Pain location: left knee [...] vac - Not Given Patient Refuses Normal [facility] Comment on above: Result Comment: [...] numbers. This can be done either in [place] or metric measurements. Note that charts and online BMI calculators are available to help you find your BMI quickly and easily without having to do these calculations yourself. To calculate your BMI in [place] ([place] measurements: 1. Measure your weight in [...] for Disease Control and Prevention: www.cdc.gov ? [place] Heart Association: www.heart.org ? National Heart, Lung, and Blood [place]: www.nhlbi.nih.gov Summary ? Body mass index (BMI) is a number that is calculated from a person's weight and height. ? BMI may help estimate how much of a person's weight is composed of fat. BMI can help identify those who may be at higher risk for certain medical problems. ? BMI can be measured using [place]i measurements or metric measurements. ? BMI charts are used to identify whether you are underweight, normal weight, overweight, or obese. This information is not intended to replace advice given to you by your health care provider. Make sure you discuss any questions you have with your health care provider. Document Revised: 07/14/2020 Document Reviewed: 05/21/2020 [employer] Patient Education ? 2022 [employer]. [facility] Physician Referralon 024 Physician Referral [id number] 7#1.00TIFF [facility] XR knee LT 4V*on 12-05-2023 XR knee LT 4V* [facility] [employer] Other XR knee LT 4V* [facility] [employer] Other XR knee LT 4V* [address] [place] [address] [employer] Other XR knee LT 4V* [place] [address] No rt [employer] Other XR knee LT 4V* XRay Report [employer] Other XR knee LT 4V* Signed [employer] Other XR knee LT 4V* Patient: Elida Grover MR#: [id number] [facility] [employer] Other XR knee LT 4V* 4 [employer] Other XR knee LT 4V* : 1995 Acct:[id number] [facility] Other XR knee LT 4V* Age/Sex: 28 / F ADM Date: 12/05/23 [facility] Other XR knee LT 4V* Loc: XDUCLY Room: Type: [facility] Other XR knee LT 4V* Attending Dr: Erlinda TIDWELL [facility] Other XR knee LT 4V* Copies to: YAW Carney [facility] Other XR knee LT 4V* Ordering Provider: YAW Carney [facility] Other XR knee LT 4V* Date of Service: 12/05/23 [facility] Other XR knee LT 4V* XR/XR knee LT 4V*: Left knee pain, unspecified chronicity [facility] Other XR knee LT 4V* LEFT KNEE - 4 views N [employer] Other XR knee LT 4V* COMPARISON: None [facility] [employer] Other XR knee LT 4V* CLINICAL DATA: Patient's left knee was stepped on by a cow after patient fell 3 months ago. [facility] Other XR knee LT 4V* Continued pain below the patella. [facility] Other XR knee LT 4V* AP, lateral and both oblique views were obtained. There is no acute fracture or dislocation. The [facility] Other XR knee LT 4V* joint spaces are maintained. There are no prominent hypertrophy. There is a trace amount joint [facility] Other XR knee LT 4V* fluid. No soft tissue swelling is identified. [facility] Other XR knee LT 4V* XR/XR knee LT 4V* [facility] Other XR knee LT 4V* IMPRESSION: [employer] Other XR knee LT 4V* NO ACUTE BONY FINDINGS. [facility] Other XR knee LT 4V* Impression dictated by: Amy Molina M.D.12/05/2023 12:00 PM [facility] Other XR knee LT 4V* Dictation Location: [place] [address] [facility] Other XR knee LT 4V* Transcribed By: KELLY 12/05/23 1200 [facility] Other XR knee LT 4V* Dictated By: Amy Molina MD 12/05/23 1157 [facility] Other XR knee LT 4V* Signed By: [employer] Other XR knee LT 4V* 12/05/[address] Other XR knee LT 4V* [facility] [place] [address] [place] [address] XRay Report Signed Patient: Elida Grover MR#: [id number] 4 : 1995 Acct:[id number] Age/Sex: 28 / F ADM Date: 12/05/23 [facility]: Type: [facility] Attending Dr: Erlinda TIDWELL Copies [...] M.D.12/05/2023 12:00 PM Dictation Location: [place] [address] Transcribed By: [facility] 12/05/23 1200 Dictated By: Amy Molina MD 12/05/23 1157 Signed By: 12/05/23 1200 [facility] ANTIBODY ID PANELon 01-09-20 23 ANTIBODY ID PANEL Antibody ID Non-specific Diana Normal [facility] Comment on above: Performed By: #### A BID #### [facility] [address] [place] [address] Dr. Ilia Carrillo CBC AUTO DIFFon 01-03-2023 BASO # 0.0 103/ul Normal 0.0-0.1 [facility] Comment on above: Performed By: #### C BC #### [facility] [address] [place] [address] Dr. Ilia Carrillo Basophils/100 WBC (Bld) 0.2 % Normal 0.2-2.0 [facility] Comment on above: Performed By: #### C BC #### [facility] [address] [place] [address] Dr. Ilia Carrillo EO # 0.1 103/ul Normal 0.0-0.7 [facility] Comment on above: Performed By: #### C BC #### [facility] [address] [place] [address] Dr. Ilia Carrillo Eosinophils/100 WBC (Bld) 0.5 % Critically low 0.9-7.0 [facility] Comment on above: Performed By: #### C BC #### [facility] [address] [place] [address] Dr. Ilia Carrillo Erythrocyte distribution width (RBC) [Ratio] 13.7 % Normal 11.0-15.0 [facility] Comment on above: Performed By: #### C BC #### [facility] [address] [place] [address] Dr. Ilia Carrillo Hematocrit (Bld) [Volume fraction] 34.8 % Critically low 36.0-48.0 [facility] Comment on above: Performed By: #### C BC #### [facility] [address] [place] [address] Dr. Ilia Carrillo Hemoglobin (Bld) [Mass/Vol] 11.7 g/dL Critically low 12.0-16.0 [facility] Comment on above: Performed By: #### C BC #### [facility] [address] [place] [address] Dr. Ilia Carrillo IG # 0.06 10e3/ul Critically high 0.00-0.03 [facility] Comment on above: Performed By: #### C BC #### [facility] [address] [place] [address] Dr. Ilia Carrillo IG % 0.5 % Normal 0.0-0.5 [facility] Comment on above: Performed By: #### C BC #### [facility] [address] [place] [address] Dr. Ilia Carrillo LYMPH # 2.0 103/ul Normal 1.2-3.8 [facility] Comment on above: Performed By: #### C BC #### [facility] [address] [place] [address] Dr. Ilia Carrillo Lymphocytes/100 WBC (Bld) 15.2 % Critically low 20.5-60.0 [facility] Comment on above: Performed By: #### C BC #### [facility] [address] [place] [address] Dr. Ilia Carrillo MANUAL DIFF REQ NO Normal [facility] Comment on above: Performed By: #### C BC #### [facility] [address] [place] [address] Dr. Ilia Carrillo MCH (RBC) [Entitic mass] 30.9 pg Normal 26.7-34.0 [facility] Comment on above: Performed By: #### C BC #### [facility] [address] [place] [address] Dr. Ilia Carrillo MCHC (RBC) [Mass/Vol] 33.6 g/dL Normal 29.9-35.2 [facility] Comment on above: Performed By: #### C BC #### [facility] [address] [address] [address] Ilia Carrillo MCV (RBC) [Entitic vol] 91.8 fL Normal 81.0-99.0 [facility] Comment on above: Performed By: #### C BC #### [facility] [address] [address] [address] Ilia Carrillo MONO # 0.9 103/ul Critically high 0.3-0.8 [facility] Comment on above: Performed By: #### C BC #### [facility] [address] [place] [address] Dr. Ilia Carrillo Monocytes/100 WBC (Bld) 6.8 % Normal 1.7-12.0 [facility] Comment on above: Performed By: #### C BC #### [facility] [address] [place] [address] Dr. Ilia Carrillo NEUT # 10.1 103/ul Critically high 1.4-6.5 [facility] Comment on above: Performed By: #### C BC #### [facility] [address] [place] [address] Dr. Ilia Carrillo Neutrophils/100 WBC (Bld) 76.8 % Critically high 43.0-75.0 [facility] Comment on above: Performed By: #### C BC #### [facility] [address] [address] [address] Ilia Carrillo Platelet mean volume (Bld) [Entitic vol] 9.7 fL Normal 9.5-13.5 [facility] Comment on above: Performed By: #### C BC #### [facility] [address] [place] [address] Dr. Ilia Carrillo PLT 178 103/ul Normal 150-450 [facility] Comment on above: Performed By: #### C BC #### [facility] [address] [place] [address] Dr. Ilia Carrillo RBC 3.79 106/ul Critically low 4.20-5.40 [facility] Comment on above: Performed By: #### C BC #### [facility] [address] [place] [address] Dr. Ilia Carrillo WBC 13.2 103/ul Critically high 4.0-11.0 [facility] Comment on above: Performed By: #### C BC #### [facility] [address] [place] [address] Dr. Ilia Carrlilo CBC AUTO DIFFon 01-02-2023 BASO # 0.0 103/ul Normal 0.0-0.1 [facility] Comment on above: Performed By: #### C BC #### [facility] [address] [place] [address] Dr. Ilia Carrillo Basophils/100 WBC (Bld) 0.2 % Normal 0.2-2.0 [facility] Comment on above: Performed By: #### C BC #### [facility] [address] [place] [address] Dr. Ilia Carrillo EO # 0.1 103/ul Normal 0.0-0.7 [facility] Comment on above: Performed By: #### C BC #### [facility] [address] [place] [address] Dr. Ilia Carrillo Eosinophils/100 WBC (Bld) 0.7 % Critically low 0.9-7.0 [facility] Comment on above: Performed By: #### C BC #### [facility] [address] [place] [address] Dr. Ilia Carrillo Erythrocyte distribution width (RBC) [Ratio] 13.7 % Normal 11.0-15.0 [facility] Comment on above: Performed By: #### C BC #### [facility] [address] [place] [address] Dr. Ilia Carrillo Hematocrit (Bld) [Volume fraction] 38.9 % Normal 36.0-48.0 [facility] Comment on above: Performed By: #### C BC #### [facility] [address] [place] [address] Dr. Ilia Carrillo Hemoglobin (Bld) [Mass/Vol] 13.4 g/dL Normal 12.0-16.0 [facility] Comment on above: Performed By: #### C BC #### [facility] [address] [place] [address] Dr. Ilia Carrillo IG # 0.05 10e3/ul Critically high 0.00-0.03 [facility] Comment on above: Performed By: #### C BC #### [facility] [address] [place] [address] Dr. Ilia Carrillo IG % 0.4 % Normal 0.0-0.5 [facility] Comment on above: Performed By: #### C BC #### [facility] [address] [place] [address] Dr. Ilia Carrillo LYMPH # 1.6 103/ul Normal 1.2-3.8 [facility] Comment on above: Performed By: #### C BC #### [facility] [address] [place] [address] Dr. Ilia Carrillo Lymphocytes/100 WBC (Bld) 14.2 % Critically low 20.5-60.0 [facility] Comment on above: Performed By: #### C BC #### [facility] [address] [place] [address] Dr. Ilia Carrillo MANUAL DIFF REQ NO Normal [facility] Comment on above: Performed By: #### C BC #### [facility] [address] [place] [address] Dr. Ilia Carrillo MCH (RBC) [Entitic mass] 30.8 pg Normal 26.7-34.0 [facility] Comment on above: Performed By: #### C BC #### [facility] [address] [place] [address] Dr. Ilia Carrillo MCHC (RBC) [Mass/Vol] 34.4 g/dL Normal 29.9-35.2 [facility] Comment on above: Performed By: #### C BC #### [facility] [address] [place] [address] Dr. Ilia Carrillo MCV (RBC) [Entitic vol] 89.4 fL Normal 81.0-99.0 [facility] Comment on above: Performed By: #### C BC #### [facility] [address] [place] [address] Dr. Ilia Crarillo MONO # 0.6 103/ul Normal 0.3-0.8 [facility] Comment on above: Performed By: #### C BC #### [facility] [address] [place] [address] Dr. Ilia Carrillo Monocytes/100 WBC (Bld) 5.5 % Normal 1.7-12.0 [facility] Comment on above: Performed By: #### C BC #### [facility] [address] [place] [address] Dr. Ilia Carrillo NEUT # 8.9 103/ul Critically high 1.4-6.5 [facility] Comment on above: Performed By: #### C BC #### [facility] [address] [place] [address] Dr. Ilia Carrillo Neutrophils/100 WBC (Bld) 79.0 % Critically high 43.0-75.0 [facility] Comment on above: Performed By: #### C BC #### [facility] [address] [place] [address] Dr. Ilia Carrillo Platelet mean volume (Bld) [Entitic vol] 10.7 fL Normal 9.5-13.5 [facility] Comment on above: Performed By: #### C BC #### [facility] [address] [place] [address] Dr. Ilia Carrillo PLT 210 103/ul Normal 150-450 [facility] Comment on above: Performed By: #### C BC #### [facility] [address] [place] [address] Dr. Ilia Carrillo RBC 4.35 106/ul Normal 4.20-5.40 [facility] Comment on above: Performed By: #### C BC #### [facility] [address] [place] [address] Dr. Ilia Carrillo WBC 11.3 103/ul Critically high 4.0-11.0 [facility] Comment on above: Performed By: #### C BC #### [facility] [address] [place] [address] Dr. Ilia Carrillo DRUG SCREEN RAPID (URINE)on 01-02-2023 AMP Negative Normal NEGATIVE [facility] Comment on above: Performed By: #### C BC #### [facility] [address] [place] [address] Dr. Ilia Carrillo BAR Negative Normal NEGATIVE [facility] Comment on above: Performed By: #### C BC #### [facility] [address] [place] [address] Dr. Ilia Carrillo BUP Negative Normal NEGATIVE [facility] Comment on above: Performed By: #### C BC #### [facility] [address] [place] [address] Dr. Ilia Carrillo BZO Negative Normal NEGATIVE [facility] Comment on above: Performed By: #### C BC #### [facility] [address] [place] [address] Dr. Ilia Carrillo MARY ANNE Negative Normal NEGATIVE [facility] Comment on above: Performed By: #### C BC #### [facility] [address] [place] [address] Dr. Ilia Carrillo CUT-OFFS SEE BELOW Normal [facility] Comment on above: Result Comment: AMP [...] ng/mL Performed By: #### C BC #### [facility] [address] [place] [address] Dr. Ilia Carrillo DRUG CUT HEADER DRUG CLASS TEST SYSTEM CUT-OFF CONCENTRATIONS ARE FOLLOWS: Normal [facility] Comment on above: Performed By: #### C BC #### [facility] [address] [address] [address] Ilia Carrillo mAMP Negative Normal NEGATIVE [facility] Comment on above: Performed By: #### C BC #### [facility] [address] [address] [address] Ilia Carrillo MTD Negative Normal NEGATIVE [facility] Comment on above: Performed By: #### C BC #### [facility] [address] [place] [address] Dr. Ilia Carrillo OPI Negative Normal NEGATIVE [facility] Comment on above: Performed By: #### C BC #### [facility] [address] [place] [address] Dr. Ilia Carrillo OXY Negative Normal NEGATIVE [facility] Comment on above: Performed By: #### C BC #### [facility] [address] [place] [address] Dr. Ilia Carrillo PCP Negative Normal NEGATIVE [facility] Comment on above: Performed By: #### C BC #### [facility] [address] [place] [address] Dr. Ilia Carrillo PPX Negative Normal NEGATIVE [facility] Comment on above: Performed By: #### C BC #### [facility] [address] [place] [address] Dr. Ilia Carrillo TCA Negative Normal NEGATIVE [facility] Comment on above: Performed By: #### C BC #### [facility] [address] [place] [address] Dr. Ilia Carrillo THC Negative Normal NEGATIVE [facility] Comment on above: Performed By: #### C BC #### [facility] [address] [place] [address] Dr. Ilia Carrillo TYPE AND SCREENon 01-02-2023 TYPE AND SCREEN Negative Normal [facility] Comment on above: Performed By: #### T NS #### [facility] [address] [place] [address] Dr. Ilia Carrillo UA (CLEAN/CATCH) SLIDE FORMING MACHINE OPERATOR/MICRO I F IND.on 01-02-2023 Bilirubin Ql (U) Negative Normal NEGATIVE [facility] Comment on above: Performed By: #### U ACSIND #### [facility] [address] [address] [address] Ilia Carrillo Clarity (U) CLEAR Normal CLEAR [facility] Comment on above: Performed By: #### U ACSIND #### [facility] [address] [address] [address] Ilia Carrillo Color (U) LT. YELLOW Normal YELLOW [facility] Comment on above: Performed By: #### U ACSIND #### [facility] [address] [address] [address] Ilia Carrillo Glucose Ql (U) Negative Normal NEGATIVE [facility] Comment on above: Performed By: #### U ACSIND #### [facility] [address] [place] [address] Dr. Ilia Carrillo Hemoglobin Ql (U) Negative Normal NEGATIVE [facility] Comment on above: Performed By: #### U ACSIND #### [facility] [address] [place] [address] Dr. Ilia Carrillo Ketones Ql (U) Negative Normal NEGATIVE [facility] Comment on above: Performed By: #### U ACSIND #### [facility] [address] [address] [address] Ilia Carrillo LEUKOCYTES Negative Normal NEGATIVE [facility] Comment on above: Performed By: #### U ACSIND #### [facility] [address] [place] [address] Dr. Ilia Carrillo Nitrite Ql (U) Negative Normal NEGATIVE [facility] Comment on above: Performed By: #### U ACSIND #### [facility] [address] [address] [address] Ilia Carrillo pH (U) 6.0 [pH] Normal 5-9 [facility] Comment on above: Performed By: #### U ACSIND #### [facility] [address] [place] [address] Dr. Ilia Carrillo SPEC GRAVITY 1.025 Normal 1.005-<=1.02 5 [facility] Comment on above: Performed By: #### U ACSIND #### [facility] [address] [address] [address] Ilia Carrillo UA PROTEIN Negative Normal NEGATIVE/ TRACE [facility] Comment on above: Performed By: #### U ACSIND #### [facility] [address] [address] [address] Ilia Carrillo UR MICRO IND NOT INDICATED Normal [facility] Comment on above: Performed By: #### U ACSIND #### [facility] [address] [address] [address] Ilia Carrillo Urobilinogen Qn (U) 0.2 {Manfred'U}/dL Normal 0.2 - 1. 0 [facility] Comment on above: Performed By: #### U ACSIND #### [facility] [address] [place] [address] Dr. Ilia Carrillo GROUP B STREP CULTUREon 12-06 S. agalactiae Ag Ql (Unsp spec) Culture Observations: NEGATIVE FOR GROUP B STREPTOCOCCUS. Normal [facility] Comment on above: Performed By: #### U ACSIND #### [facility] [address] [address] [address] Ilia Carrillo US PREG GROWTHon 12-18-2022 [...] CHASE TRAN Date: 2022-12-18 07:18 Normal [facility] US PREG GROWTHon 11-10-2022 US PREG GROWTH EXAMINATION: US PREG GROWTH HISTORY: Large for gestation age fetus COMPARISON: Ultrasound anatomy 08/25/2022 FINDINGS: Heart Rate: Present per felt hat steamer; no rate recorded. Number: 1.0 Position: Breech [...] ECTOR MINOR Date: 2022-11-10 08:42 Normal [facility] TYPE AND SCREENon 10-31-2022 TYPE AND SCREEN Negative Normal [facility] Comment on above: Performed By: #### T NS #### [facility] [address] [address] [address] Ilia Carrillo GTT 3 HR PREGon 10-25-2022 Glucose [Mass/Vol] 81 mg/dL Normal 74-106 [facility] Comment on above: Performed By: #### U ACSIND #### [facility] [address] [address] [address] Ilia Carrillo Glucose [Mass/Vol] 166 mg/dL Normal [facility] Comment on above: Performed By: #### U ACSIND #### [facility] [address] [address] [address] Ilia Carrillo Glucose [Mass/Vol] 123 mg/dL Normal [facility] Comment on above: Performed By: #### U ACSIND #### [facility] [address] [address] [address] Ilia Carrillo Glucose [Mass/Vol] 103 mg/dL Normal [facility] Comment on above: Performed By: #### U ACSIND #### [facility] [address] [address] [address] Ilia Carrillo TYPE AND SCREENon 10-25-2022 TYPE AND SCREEN Negative Normal [facility] Comment on above: Performed By: #### T NS #### [facility] [address] [address] [address] Ilia Carrillo CBC AUTO DIFFon 10-21-2022 BASO # 0.0 103/ul Normal 0.0-0.1 [facility] Comment on above: Performed By: #### U ACSIND #### [facility] [address] [address] [address] Ilia Carrillo Basophils/100 WBC (Bld) 0.2 % Normal 0.2-2.0 [facility] Comment on above: Performed By: #### U ACSIND #### [facility] [address] [address] [address] Ilia Carrillo EO # 0.0 103/ul Normal 0.0-0.7 [facility] Comment on above: Performed By: #### U ACSIND #### [facility] [address] [address] [address] Ilia Carrillo Eosinophils/100 WBC (Bld) 0.5 % Critically low 0.9-7.0 [facility] Comment on above: Performed By: #### U ACSIND #### [facility] [address] [address] [address] Ilia Carrillo Erythrocyte distribution width (RBC) [Ratio] 12.6 % Normal 11.0-15.0 [facility] Comment on above: Performed By: #### U ACSIND #### [facility] [address] [address] [address] Ilia Carrillo Hematocrit (Bld) [Volume fraction] 36.0 % Normal 36.0-48.0 [facility] Comment on above: Performed By: #### U ACSIND #### [facility] [address] [address] [address] Ilia Carrillo Hemoglobin (Bld) [Mass/Vol] 12.3 g/dL Normal 12.0-16.0 [facility] Comment on above: Performed By: #### U ACSIND #### [facility] [address] [address] [address] Ilia Carrillo IG # 0.04 10e3/ul Critically high 0.00-0.03 [facility] Comment on above: Performed By: #### U ACSIND #### [facility] [address] [address] [address] Ilia Carrillo IG % 0.5 % Normal 0.0-0.5 [facility] Comment on above: Performed By: #### U ACSIND #### [facility] [address] [address] [address] Ilia Carrillo LYMPH # 1.3 103/ul Normal 1.2-3.8 [facility] Comment on above: Performed By: #### U ACSIND #### [facility] [address] [address] [address] Ilia Carrillo Lymphocytes/100 WBC (Bld) 15.5 % Critically low 20.5-60.0 [facility] Comment on above: Performed By: #### U ACSIND #### [facility] [address] [address] [address] Ilia Carrillo MANUAL DIFF REQ NO Normal [facility] Comment on above: Performed By: #### U ACSIND #### [facility] [address] [address] [address] Ilia Carrillo MCH (RBC) [Entitic mass] 30.4 pg Normal 26.7-34.0 [facility] Comment on above: Performed By: #### U ACSIND #### [facility] [address] [address] [address] Ilia Carrillo MCHC (RBC) [Mass/Vol] 34.2 g/dL Normal 29.9-35.2 [facility] Comment on above: Performed By: #### U ACSIND #### [facility] [address] [address] [address] Ilia Carrillo MCV (RBC) [Entitic vol] 89.1 fL Normal 81.0-99.0 [facility] Comment on above: Performed By: #### U ACSIND #### [facility] [address] [address] [address] Ilia Carrillo MONO # 0.3 103/ul Normal 0.3-0.8 [facility] Comment on above: Performed By: #### U ACSIND #### [facility] [address] [address] [address] Ilia Carirllo Monocytes/100 WBC (Bld) 3.8 % Normal 1.7-12.0 [facility] Comment on above: Performed By: #### U ACSIND #### [facility] [address] [address] [address] Ilia Carrillo NEUT # 6.5 103/ul Normal 1.4-6.5 [facility] Comment on above: Performed By: #### U ACSIND #### [facility] [address] [address] [address] Ilia Carrillo Neutrophils/100 WBC (Bld) 79.5 % Critically high 43.0-75.0 [facility] Comment on above: Performed By: #### U ACSIND #### [facility] [address] [address] [address] Ilia Carrillo Platelet mean volume (Bld) [Entitic vol] 9.2 fL Critically low 9.5-13.5 [facility] Comment on above: Performed By: #### U ACSIND #### [facility] [address] [address] [address] Ilia Carrillo PLT 212 103/ul Normal 150-450 [facility] Comment on above: Performed By: #### U ACSIND #### [facility] [address] [address] [address] Ilia Carrillo RBC 4.04 106/ul Critically low 4.20-5.40 [facility] Comment on above: Performed By: #### U ACSIND #### [facility] [address] [address] [address] Ilia Carrillo WBC 8.2 103/ul Normal 4.0-11.0 [facility] Comment on above: Performed By: #### U ACSIND #### [facility] [address] [address] [address] Ilia Carrillo GLUCOSE - 1HRon 10-21-2022 Glucose [Mass/Vol] 147 mg/dL Critically high 74-106 [facility] Comment on above: Performed By: #### P REGQNT #### [facility] [address] [address] [address] Ilia Carrillo PAP ACOG PANEL 2: 21 to 29on 10-19-2022 . . Normal [facility] Comment on above: Performed By: #### P REGQNT #### [facility] [address] [place] [address] Dr. Ilia Carrillo Age Gdln ACOG Testing - [facility] Comment on above: Performed By: #### P REGQNT #### [facility] [address] [address] [address] Ilia Carrillo DIAGNOSIS: Comment [facility] Comment on above: Result Comment: NEGA TIVE FOR INTRAEPITHELIAL LESION OR MALIGNANCY. THIS SPECIMEN WAS RESCREENED PART OF OUR SENIOR REPORT DEVELOPER PROGRAM. Performed By: #### P REGQNT #### [facility] [address] [address] [address] Ilia Carrillo Methodology: Comment Normal [facility] Comment on above: Result Comment: This liquid based ThinPrep(R) pap test was screened with the use of an image guided system. Performed By: #### P REGQNT #### [facility] [address] [place] [address] Dr. Ilia Carrillo Note: Comment [facility] Comment on above: Result Comment: The Pap smear is a screening test designed to aid in the detection of premalignant and malignant conditions of the uterine cervix. It is not a diagnostic procedure and should not be used as the sole means of detecting cervical cancer. Both false-positive and false-negative reports do occur. . Performed By: #### P REGQNT #### [facility] [address] [address] [address] Ilia Carrillo Performed by: Comment Normal [facility] Comment on above: Result Comment: Janeth Reynolds, Cell Phone Repair Technician (ASCP) Performed By: #### P REGQNT #### [facility] [address] [place] [address] Dr. Ilia Carrillo QC reviewed by: Comment Normal [facility] Comment on above: Result Comment: Anna Russell, Supervisory Cell Phone Repair Technician (ASCP) Performed By: #### P REGQNT #### [facility] [address] [place] [address] Dr. Ilia Carrillo Reflex Criteria: Comment Normal [facility] Comment on above: Result Comment: The HPV DNA reflex criteria were not met with this specimen result therefore, no HPV testing was performed. . Performed By: #### P REGQNT #### [facility] [address] [place] [address] Dr. Ilia Carrillo Specimen adequacy: Comment Normal [facility] Comment on above: Result Comment: Sati sfactory for evaluation. No endocervical component is identified. Performed By: #### P REGQNT #### [facility] [address] [place] [address] Dr. Ilia Carrillo CHLAMYDIA/GONOCOCCUS ABAD (SW AB/URINE/PAPon 10-13-2022 Chlamydia trachomatis, ABAD Negative Normal Negative [facility] Comment on above: Performed By: #### P REGQNT #### [facility] [address] [place] [address] Dr. Ilia Carrillo Neisseria gonorrhoeae, ABAD Negative Normal Negative [facility] Comment on above: Performed By: #### P REGQNT #### [facility] [address] [place] [address] Dr. Ilia Carrillo VAGINITIS/VAGINOSIS DNA PROB Mitesh 10-12-2022 Floresita species Negative Normal Negative [facility] Comment on above: Performed By: #### C BC #### [facility] [address] [address] [address] Ilia Carrillo Gardnerella vaginalis Negative Normal Negative [facility] Comment on above: Performed By: #### C BC #### [facility] [address] [address] [address] Ilia Carrillo Trichomonas vaginalis Negative Normal Negative [facility] Comment on above: Performed By: #### C BC #### [facility] [address] [address] [address] Ilia Carrillo AFP MATERNAL FOR SPINA BIFID Aon 09-05-2022 AFP MoM 1.50 Normal [facility] Comment on above: Performed By: #### C BC #### [facility] [address] [address] [address] Ilia Carrillo AFP Value 85.2 ng/mL Normal [facility] Comment on above: Performed By: #### C BC #### [facility] [address] [address] [address] Ilia Carrillo AFP, Serum for Spina Bifida Report Normal [facility] Comment on above: Performed By: #### C BC #### [facility] [address] [address] [address] Ilia Carrillo Comment Comment Normal [facility] Comment on above: Result Comment: Richard Loomis, Ph.D., [facility] Director . References: Available Upon Request. . Multiples Of Median Cutoffs For AFP Elevations Munguia 2.5 Black 2.8 IDD 2.0 Twins 4.5 Abbreviation Definitions IDD - Insulin Dep Diabetes OSBR - Open Spina Bifida Risk . For further inquiries contact [facility] at [phone]. . This test was developed and its performance characteristics determined by [employer]. It has not been cleared or approved by the Food and Drug Administration. Performed By: #### C BC #### [facility] [address] [place] [address] Dr. Ilia Carrillo Gest Age Collection Date 20.7 weeks Normal [facility] Comment on above: Performed By: #### C BC #### [facility] [address] [place] [address] Dr. Ilia Carrillo Gestat, Age Based on Ultrasound Normal [facility] Comment on above: Result Comment: 06:3 on 05/22/2022 Recalculations are not recommended when gestational dating by LMP and ultrasound are within 10 days. Performed By: #### C BC #### [facility] [address] [place] [address] Dr. Ilia Carrillo Insulin Dep Diabetes No Normal [facility] Comment on above: Performed By: #### C BC #### [facility] [address] [place] [address] Dr. Ilia Carrillo Interpretation Comment Normal [facility] Comment on above: Result Comment: Inte [...] Customer Services to discuss available options. The [employer] recommends amniocentesis be offered to women age 35 and older. Performed By: #### C BC #### [facility] [address] [place], [place] [address] Dr. Ilia Carrillo [age] Normal [facility] Comment on above: Performed By: #### C BC #### [facility] [address] [place] [address] Dr. Ilia Carrillo Multiple Gestation No Normal [facility] Comment on above: Performed By: #### C BC #### [facility] [address] [place] [address] Dr. Ilia Carrillo OSBR Risk 1 [place] [address]34 [facility] Comment on above: Performed By: #### C BC #### [facility] [address] [place] [address] Dr. Ilia Carrillo PDF . Normal [facility] Comment on above: Performed By: #### C BC #### [facility] [address] [place] [address] Dr. Ilia Carrillo Race Normal [facility] Comment on above: Performed By: #### C BC #### [facility] [address] [address] [address] Ilia Carrillo Test Results: Negative Normal [facility] Comment on above: Performed By: #### C BC #### [facility] [address] [address] [address] Ilia Carrillo US PREG ANATOMY SINGLEon [...] CHASE TRAN Date: 2022-08-27 16:15 Normal [facility] HEP B SURFACE ANTIGEN SCREEN on 07-04-2022 HBsAg Screen Negative Normal Negative [facility] Comment on above: Performed By: #### C BC #### [facility] [address] [address] [address] Ilia Carrillo HEPATITIS C VIRUS AB W/ REFL EX QUANTon 07-04-2022 HCV AB <0.1 Normal 0.0-0.9 [facility] Comment on above: Performed By: #### C BC #### [facility] [address] [place] [address] Dr. Ilia Carrillo Interpretation: Comment Normal [facility] Comment on above: Result Comment: Nega tive Not infected with HCV, unless recent infection is suspected or other evidence exists to indicate HCV infection. Performed By: #### C BC #### [facility] [address] [place] [address] Dr. Ilia Carrillo HIV 1 AND 2 WITH REFLEXon HIV Screen 4th Generation wRfx Non-Reactive Normal Non Reactive [facility] Comment on above: Result Comment: HIV Negative HIV-1/HIV-2 antibodies and HIV-1 p24 antigen were NOT detected. There is no laboratory evidence of HIV infection. Performed By: #### C BC #### [facility] [address] [place] [address] Dr. Ilia Carrillo RPR QUANTon 07-04-2022 Rapid Plasma Reagin, Quant Non-Reactive Normal NonRea<1:1 [facility] Comment on above: Result Comment: Plea se Note: This test does not meet current guidelines for screening and diagnosis of syphilis. This test is intended for following treatment response in patients being treated for syphilis infection. To screen for syphilis infection, a reflex cascade that includes both RPR and a treponema-specific assay should be utilized, such as Treponema pallidum (Syphilis) Screening [place] (517790) or Rapid Plasma Reagin (RPR) Test With Reflex to Quantitative RPR and Confirmatory Treponema pallidum Antibodies (883268). Performed By: #### C BC #### [facility] [address] [place] [address] Dr. Ilia Carrillo RUBELLA AB IGGon 07-04-2022 Rubella Antibodies, IgG 3.07 index Normal Immune >0.99 [facility] Comment on above: Result Comment: Non- immune <0.90 Equivocal 0.90 - 0.99 Immune >0.99 Performed By: #### C BC #### [facility] [address] [place] [address] Dr. Ilia Carrillo CBC AUTO DIFFon 07-03-2022 BASO # 0.0 103/ul Normal 0.0-0.1 [facility] Comment on above: Performed By: #### C BC #### [facility] [address] [place] [address] Dr. Ilia Carrillo Basophils/100 WBC (Bld) 0.2 % Normal 0.2-2.0 [facility] Comment on above: Performed By: #### C BC #### [facility] [address] [place] [address] Dr. Ilia Carrillo EO # 0.1 103/ul Normal 0.0-0.7 [facility] Comment on above: Performed By: #### C BC #### [facility] [address] [place] [address] Dr. Ilia Carrillo Eosinophils/100 WBC (Bld) 1.1 % Normal 0.9-7.0 [facility] Comment on above: Performed By: #### C BC #### [facility] [address] [place] [address] Dr. Ilia Carrillo Erythrocyte distribution width (RBC) [Ratio] 11.4 % Normal 11.0-15.0 [facility] Comment on above: Performed By: #### C BC #### [facility] [address] [place] [address] Dr. Ilia Carrillo Hematocrit (Bld) [Volume fraction] 35.2 % Critically low 36.0-48.0 [facility] Comment on above: Performed By: #### C BC #### [facility] [address] [place] [address] Dr. Ilia Carrillo Hemoglobin (Bld) [Mass/Vol] 12.4 g/dL Normal 12.0-16.0 [facility] Comment on above: Performed By: #### C BC #### [facility] [address] [place] [address] Dr. Ilia Carrillo IG # 0.03 10e3/ul Normal 0.00-0.03 [facility] Comment on above: Performed By: #### C BC #### [facility] [address] [place] [address] Dr. Ilia Carrillo IG % 0.3 % Normal 0.0-0.5 [facility] Comment on above: Performed By: #### C BC #### [facility] [address] [place] [address] Dr. Ilia Carrillo LYMPH # 2.1 103/ul Normal 1.2-3.8 [facility] Comment on above: Performed By: #### C BC #### [facility] [address] [place] [address] Dr. Ilia Carrillo Lymphocytes/100 WBC (Bld) 22.6 % Normal 20.5-60.0 [facility] Comment on above: Performed By: #### C BC #### [facility] [address] [place] [address] Dr. Ilia Carrillo MANUAL DIFF REQ NO Normal [facility] Comment on above: Performed By: #### C BC #### [facility] [address] [place] [address] Dr. Ilia Carrillo MCH (RBC) [Entitic mass] 30.6 pg Normal 26.7-34.0 [facility] Comment on above: Performed By: #### C BC #### [facility] [address] [place] [address] Dr. Ilia Carrillo MCHC (RBC) [Mass/Vol] 35.2 g/dL Normal 29.9-35.2 [facility] Comment on above: Performed By: #### C BC #### [facility] [address] [place] [address] Dr. Ilia Carrillo MCV (RBC) [Entitic vol] 86.9 fL Normal 81.0-99.0 [facility] Comment on above: Performed By: #### C BC #### [facility] [address] [place] [address] Dr. Ilia Carrillo MONO # 0.4 103/ul Normal 0.3-0.8 [facility] Comment on above: Performed By: #### C BC #### [facility] [address] [address] [address] Ilia Carrillo Monocytes/100 WBC (Bld) 4.8 % Normal 1.7-12.0 [facility] Comment on above: Performed By: #### C BC #### [facility] [address] [address] [address] Ilia Carrillo NEUT # 6.5 103/ul Normal 1.4-6.5 [facility] Comment on above: Performed By: #### C BC #### [facility] [address] [address] [address] Ilia Carrillo Neutrophils/100 WBC (Bld) 71.0 % Normal 43.0-75.0 [facility] Comment on above: Performed By: #### C BC #### [facility] [address] [place] [address] Dr. Ilia Carrillo Platelet mean volume (Bld) [Entitic vol] 8.7 fL Critically low 9.5-13.5 [facility] Comment on above: Performed By: #### C BC #### [facility] [address] [place] [address] Dr. Ilia Carrillo PLT 260 103/ul Normal 150-450 [facility] Comment on above: Performed By: #### C BC #### [facility] [address] [place] [address] Dr. Ilia Carrillo RBC 4.05 106/ul Critically low 4.20-5.40 [facility] Comment on above: Performed By: #### C BC #### [facility] [address] [place] [address] Dr. Ilia Carrillo WBC 9.2 103/ul Normal 4.0-11.0 [facility] Comment on above: Performed By: #### C BC #### [facility] [address] [place] [address] Dr. Ilia Carrillo CULTURE URINEon 07-03-2022 CULTURE URINE Culture Observations: MODERATE GROWTH OF MIXED GENITAL BETHANIE. NO POTENTIAL PATHOGENS SEEN. Normal [facility] Comment on above: Performed By: #### U RCX #### [facility] [address] [address] [address] Ilia Carrillo GLYCOHEMOGLOBIN A1Con 2021 ADA RECOMMENDATION SEE BELOW Normal [facility] Comment on above: Result Comment: ADA RECOMMENDED LIMIT 4.0 - 6.0 ADA THERAPEUTIC TARGET < 7.0 ACTION SUGGESTED > 7.0 Performed By: #### P REGQNT #### [facility] [address] [address] [address] Ilia Carrillo Glucose [Mass/Vol] 97 mg/dL Normal [facility] Comment on above: Performed By: #### P REGQNT #### [facility] [address] [address] [address] Ilia Carrillo HbA1c (Bld) [Mass fraction] 5.0 % Normal 4.5-6.2 [facility] Comment on above: Performed By: #### P REGQNT #### [facility] [address] [address] [address] Ilia Carrillo FADY BOX TEST PT SEND OUTo n 07-03-2022 SENT TO REF LAB 07/03/2022 Normal [facility] Comment on above: Performed By: #### N BOX #### [facility] [address] [address] [address] Ilia Carrillo TYPE AND SCREENon 07-03-2022 TYPE AND SCREEN Negative Normal [facility] Comment on above: Performed By: #### U ACSIND #### [facility] [address] [address] [address] Ilia Carrillo COVID Quick Testingon 2021 Result Positive [facility] Other US PREG TVon 05-23-2022 US PREG [...] ECTOR MINOR Date: 2022-05-23 21:22 Normal [facility] PREG QUANT HCGon 05-11-2022 HCG QUANT 2766 mIU/mL Normal [facility] Comment on above: Performed By: #### U ACSIND #### [facility] [address] [address] [address] Ilia Carrillo HCG RANGE SEE BELOW Normal [facility] Comment on above: Result Comment: 5-50 0-1 WEEK 40-300 1-2 WEEKS 100-1,000 2-3 WEEKS 500-6,000 3-4 WEEKS 5,000-200,000 1-2 MONTHS 10,000-100,000 2-3 MONTHS 3,000-50,000 2ND TRIMESTER 1,000-50,000 3RD TRIMESTER Performed By: #### U ACSIND #### [facility] [address] [address] [address] Ilia Carrillo PREG QUANT HCGon 05-09-2022 HCG QUANT 983 mIU/mL Normal [facility] Comment on above: Performed By: #### P REGQNT #### [facility] [address] [place] [address] Dr. Ilia Carrillo HCG RANGE SEE BELOW Normal [facility] Comment on above: Result Comment: 5-50 0-1 WEEK 40-300 1-2 WEEKS 100-1,000 2-3 WEEKS 500-6,000 3-4 WEEKS 5,000-200,000 1-2 MONTHS 10,000-100,000 2-3 MONTHS 3,000-50,000 2ND TRIMESTER 1,000-50,000 3RD TRIMESTER Performed By: #### P REGQNT #### [facility] [address] [place] [address] Dr. Ilia Carrillo Vital Signs Date Time Vital Sign Value Performing Clinician Facility 08-11-2024 08:53-0400 Body height 162.6 cm Viola HAIDER Work Phone: [facility] 08-11-2024 08:53-0400 Body mass index (BMI) [Ratio] 31.24 kg/m2 Viola Beck PA Work Phone: [facility] [employer] 08-11-2024 08:53-0400 Body weight 82.56 kg Viola Beck PA Work Phone: [facility] [employer] 08-11-2024 08:53-0400 Diastolic blood pressure 76 mm[Hg] Viola Beck PA Work Phone: [facility] [employer] 08-11-2024 08:53-0400 Systolic blood pressure 110 mm[Hg] Viola Beck PA Work Phone: [facility] [employer] 12-05-2023 10:50-0500 Body height 163.19 cm Erlinda Archer Other [facility] Other 12-05-2023 10:50-0500 Body mass index (BMI) [Ratio] 32.12 kg/m2 Erlinda Archer Other [facility] Other 12-05-2023 10:50-0500 Body temperature 98 [degF] Erlinda Suzi Other [facility] Other 12-05-2023 10:50-0500 Body weight 85.55 kg Erlindawillie Archer Other [facility] Other 12-05-2023 10:50-0500 Diastolic blood pressure 68 mm[Hg] Erlindawillie Archer Other [facility] Other 12-05-2023 10:50-0500 Respiratory rate 18 /min Erlinda Archer Other [facility] Other 12-05-2023 10:50-0500 SaO2% (BldA) [Mass fraction] 96 % Erlinda Archer Other [facility] Other 12-05-2023 10:50-0500 Systolic blood pressure 104 mm[Hg] Erlinda Archer Other [facility] Other 09-05-2022 15:07-0400 Body weight 84.[address] CHRISTOPHE MIRELES . [facility] Comment on above: Performed By: #### CBC #### [facility] [address] [place] [address] Dr. Ilia Carrillo 06-23-2022 17:05-0400 Body height 163.19 cm Cortney Chapman Other [facility] Other 06-23-2022 17:05-0400 Body mass index (BMI) [Ratio] 31.16 kg/m2 Cortney Adela Other [facility] Other 06-23-2022 17:05-0400 Body temperature 99.6 [degF] Cortney Adela Other [facility] Other 06-23-2022 17:05-0400 Body weight 83.01 kg Cortney Mclainault Other [facility] Other 06-23-2022 17:05-0400 Respiratory rate 18 /min Cortney Adela Other [facility] Other 06-23-2022 17:05-0400 SaO2% (BldA) [Mass fraction] 98 % Cortney Adela Other [facility] Other Encounters Encounter Date Encounter Type Care Provider Facility Start: 12-02-2024 End: 12-02-2024 ambulatory [facility] Facility:[facility] Sarika inman Start: 10-15-2024 End: 10-15-2024 ambulatory ENA MORE Facility:[facility] Start: 09-08-2024 End: 09-08-2024 ambulatory CHRISTOPHE [...] Start: 01-31-2024 End: 01-31-2024 ambulatory Pat Roche Facility:[facility] Start: 01-31-2024 End: 01-31-2024 Patient encounter procedure Pat Roche [facility] Start: 01-29-2024 End: 01-29-2024 ambulatory PAT ROCHE Not Available Start: 01-22-2024 End: 01-22-2024 ambulatory PAT ROCHE Not Available Start: 01-08-2024 End: 01-08-2024 ambulatory PAT ROCHE Not Available Start: 01-07-2024 End: 01-07-2024 ambulatory [facility] Facility[facility] Start: 12-20-2023 End: 12-20-2023 ambulatory [facility] Facility[facility] Start: 12-10-2023 End: 12-10-2023 ambulatory [facility] Facility:[facility] Start: 12-05-2023 Office outpatient visit 15 minutes Erlinda Archer [facility] Start: 12-05-2023 End: 12-05-2023 ambulatory Erlinda Germanmond Facility:[facility] Start: 12-05-2023 End: 12-05-2023 ambulatory TIER OVER-C Erlinda Archer Work Phone: [facility] Work Phone: Start: 12-05-2023 End: 12-05-2023 Patient encounter procedure TIER OVER-C Erlinda Archer Work Phone: [facility] Work Phone: [...] 06-23-2022 End: 06-23-2022 ambulatory Cortney Chapman Other [facility] Other Start: 06-23-2022 Office outpatient ne w [...] Start: 12-05-2023 Radiologic examinati on of knee TIER OVER-Chip Archer Work Phone: Start: 01-02-2023 Extraction of Produc ts of Conception, Low Cervical, Open Approach DR CHRISTOPHE MIRELES . Start: 01-02-2023 section Fredycaroline Roche Plan of Treatment Date Care Activity Detail Author Start: 09-08-2024 End: 09-08-2024 Patient encounter procedure 09/08/2024 3:40 PM EST Office Visit [facility] [address] [place] [address] Christophe Mireles, [address] [place] [address] [facility] Start: 08-11-2024 End: 08-11-2025 US for US PELVIS-TRANSVAG IF INDICATED Imaging Routine Amenorrhea Expected: 08/11/2024 (Approximate), Expires: 08/11/2025 [facility] Comment on above: Expected: 08/11/2024 (Approximate), Expires: 08/11/2025 Start: 08-11-2024 End: 08-11-2024 Patient encounter procedure 08/11/2024 8:30 AM EDT Office Visit [facility] [address] [place] [address] Viola Beck PA [address] [place] [address] Arrived [facility] Comment on above: Arrived CBC W Auto Different ial panel - Blood CBC and differential Lab Routine Amenorrhea Ordered: 08/11/2024 [facility] Comment on above: Ordered: 08/11/2024 hCG, quantitative, hCG, quantitative, Lab Routine Amenorrhea Ordered: 08/11/2024 [facility] Comment on above: Ordered: 08/11/2024 Hemoglobin A1c/Hemoglobin.total in Blood Hemoglobin A1c Lab Routine Amenorrhea Ordered: 08/11/2024 [facility] Comment on above: Ordered: 08/11/2024 Prolactin Prolactin Lab Ro utine Amenorrhea Ordered: 08/11/2024 [facility] Comment on above: Ordered: 08/11/2024 Thyrotropin [Units/volume] in Serum or Plasma TSH Lab Routine Amenorrhea Ordered: 08/11/2024 [facility] Work Phone: Comment on above: Ordered: 08/11/2024 Immunizations Immunization Date Immunization Notes Care Provider Steven granda NEGATED: Highlighted row has not occurred!12-10-2023 influenza virus vaccine, unspecified formulation Pat Roche [facility] NEGATED: Highlighted row has not occurred!02-08-2023 influenza virus vaccine, unspecified formulation Pat Roche [facility] NEGATED: Highlighted row has not occurred!02-08-2023 SARS-CoV-2 mRNA (tozinameran 5y-11y) vaccine Pat Roche [facility] Payers Date Payer Category Payer Unknown [id number] 2023 Unknown [id number] 1996 Unknown [id number] 2.16.840.1.739046.3.579.2.593 1996 Unknown [id number] 2.16.840.1.581941.3.579.2.593 1996 Unknown [id number] 2.16.840.1.176489.3.579.2.593 1996 Unknown [id number] 2.16.840.1.119427.3.579.2.593 1996 Unknown [id number] 2.16.840.1.155030.3.579.2.593 1996 Unknown [id number] 2.16.840.1.077757.3.579.2.593 1996 Unknown [id number] 2.16.840.1.926478.3.579.2.593 1996 Unknown [id number] 2.16.840.1.694708.3.579.2.593 1996 Unknown [id number] 2.16.840.1.272313.3.579.2.593 1996 Unknown [id number] 2.16.840.1.400270.3.579.2.593 1996 Unknown [id number] 2.16.840.1.806167.3.579.2.593 1996 Unknown [id number] 2.16.840.1.098718.3.579.2.593 1996 Unknown [id number] 2.16.840.1.963094.3.579.2.593 1996 Unknown [id number] 2.16.840.1.909726.3.579.2.593 1996 Unknown [id number] 2.16.840.1.852709.3.579.2.593 1996 Unknown [id number] 2.16.840.1.120971.3.579.2.593 1996 Unknown [id number] 2.16.840.1.410334.3.579.2.593 1996 Unknown [id number] 2.16.840.1.469067.3.579.2.9 1996 Unknown [id number] 2.16.840.1.818358.3.579.2.1258 1996 Unknown [id number] 2.16.840.1.131939.3.579.2.1258 1996 Unknown [id number] 2.16.840.1.812030.3.579.2.1258 1996 Unknown [id number] 2.16.840.1.872048.3.579.2.1258 1996 Unknown [id number] 2.16.840.1.332745.3.579.2.1258 1996 Unknown [id number] 2.16.840.1.642946.3.579.2.1258 1996 Unknown [id number] 2.16.840.1.742583.3.579.2.1258 1996 Unknown [id number] 2.16.840.1.452745.3.579.2. 1996 Unknown [id number] 2.16.840.1.541372.3.579.2. 1996 Unknown [id number] 2.16.840.1.937298.3.579.2. 1996 Unknown [id number] 2.16.840.1.132143.3.579.2. 1996 Unknown [id number] 2.16.840.1.054533.3.579.2. 1996 Unknown [id number] 2.16.840.1.679147.3.579.2.727 1959 Blue Cross Blue Shield DZNAN [id number] 2.16.840.1.679932.19 1959 Self-pay 1959 Unknown [id number] 2.16. 840.1.958642.19 1959 Unknown [id number] Unknown [id number] 2.16.840.1.608704.3.579.2.593 Unknown [id number] 2.16.840.1.186861.3.579.2.531 Worker's Compensation [facility] [id number] Social History Date Type Detail Facility Start: 03-18-2024 Sex Assigned At F [facility] Start: 1995 Sex Assigned At Female F [facility] Start: 10-11-2023 End: 12-20-2023 Tobacco smoking status Never smoked tobacco (finding) [facility] Tobacco smoking status Never [facility] Start: 10-11-2023 Tobacco use and exposure Smokeless tobacco non-user [facility] Start: 03-18-2024 End: 08-11-2024 Alcoholic beverage intake Lifetime non-drinker (finding) [facility] Start: 03-18-2024 History of Social function [facility] Start: 1995 Sex assigned at [...] these instructions at home: Medicines ??? Take [id number]-[id number] and prescription medicines only as told by [...] and water are not available, use hand health companion. ??? Do not touch your eyes, nose, [...] Reviewed: 01/18/2022 Elsevier Patient Education ? 2023 [employer]. Viral Respiratory Infection A viral respiratory infection [...] is caused by (more content not included)... [facility] 08-11-2024 History of Present illness [...] of: MELIZA Amador documented in this encounter [facility] 12-05-2023 Evaluation note Encounter Date Diagnosis Assessment [...] no improvement in 5 to 7 days [facility] Other 02-28-2023 NoteDISCHARGE SUMMARY NOTE DATE: 01/12/2023 [...] when pain free and no longer on narcotics.[facility]02-28-2023 NoteOPERATIVE NOTE OPERATION DATE: 01/02/2023 PROCEDURE: Primary low transverse section. PREOPERATIVE DIAGNOSIS: 1. Intrauterine . 2. Breech presentation. 3. Decreasing movement per patient and office. POSTOPERATIVE DIAGNOSIS: 1. Intrauterine . 2. Breech presentation. 3. Decreasing movement per patient and office. ANESTHESIA: Spinal with Duramorph. SURGEON: Christophe Mireles D.O. GANG RIPSAW OPERATOR: EFRAÍN Verdugo URINE OUTPUT: Yellow and clear. [...] TO PREOPERATIVE DIAGNOSIS: Risk of cord prolapse.[facility] 06-23-2022 Evaluation note* Encounter Date Diagnosis [...] COVID POSITIVE education handout discharge instructions. given. [facility] Other Evaluation + Plan note No data available for this section [facility] information available [facility] Work Phone: Evaluation note* Diagnosis Amenorrhea Absence of menstruation documented in this encounter [facility] N[facility] - Reported* Type Description Date Surgical History wisdom teeth Hospitalization History see above [facility] Other Hospital Discharge instructions No data available for this section [facility] No data available for this section [facility] Summary Purpose Family History No Family [...] DATE CREATED AUTHOR AUTHOR'S ORGANIZ ATION 02/06/2024 [facility] DATE CREATED AUTHOR AUTHOR'S ORGANIZ ATION 09/09/2024 [facility] EPIC DATE CREATED AUTHOR AUTHOR'S ORGANIZ ATION 12/03/2024 [facility] Care Teams (unrecognized sec tion and [...] BE BASED ON THE PRIMARY CLINICAL RECORDS. [employer] provides no warranty or guarantee of the accuracy or completeness of information in this document.
[2025-01-30 16:32] LABS: HCG Quantitative 11702 mIU/mL
[2025-02-01 08:37] LABS: HCG Quantitative 17610 mIU/mL
== END 2025-02-02 13:06 | disposition home or self-care (01) ==
LOC: LAB 15:22
PROVIDERS: PCP Nurse Practitioner; Visit Provider Obstetrics & Gynecology
DX: N92.6 Irregular menstruation, unspecified (principal)
CPT/HCPCS: 36415; 84702

== ENCOUNTER 2025-02-20 06:42 | Outpatient (OUT) | payer OTHER, BC, SELFPAY ==
--- OUTSIDE RECORDS SUMMARY | 2025-02-20 06:45 | XMS_ITS | CCD ---
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 Name Role Phone Cortney Chapman Unavailable FADI ., DR SAEED Admitting Unavailable FADI ., DR SAEED Attending Unavailable NADERER, DR FLORINA White Primary Care Unavailable FADI ., DR SAEED Consulting Unavailable FADI ., DR SAEED Consulting Unavailable NADERER, DR FLORINA White Primary Care Unavailable FADI ., DR SAEED Attending Unavailable FADI ., DR SAEED Admitting Unavailable FADI ., DR SAEED Admitting Unavailable FADI ., DR SAEED Attending Unavailable NADERER, DR FLORINA White Primary Care Unavailable FADI ., DR SAEED Consulting Unavailable FADI ., DR SAEED Consulting Unavailable NADERER, DR FLORINA White Primary Care Unavailable FADI ., DR SAEED Attending Unavailable FADI ., DR SAEED Admitting Unavailable FADI ., DR SAEED Consulting Unavailable FADI ., DR SAEED Attending Unavailable FADI ., DR SAEED Admitting Unavailable NADERER, DR FLORINA White Primary Care Unavailable ZIEBER, DR ECTOR Sotelo Consulting Unavailable FADI ., DR SAEED Procedure Practitioner Unavail able KARASIK ., DR ESCOBAR Consulting Unavailabl e NADEREAshleigh, DR FLORINA White Primary Care Unavailable FADI ., DR SAEED Attending Unavailable FADI ., DR SAEED Admitting Unavailable FADI ., DR SAEED Consulting Unavailable SALVADOR MARIA Consulting Unavailable FADI ., DR SAEED Admitting Unavailable FADI ., DR SAEED Attending Unavailable NADERER, DR FLORINA White Primary Care Unavailable FADI ., DR SAEED Admitting Unavailable FADI ., DR SAEED Attending Unavailable NADERER, DR FLORINA White Primary Care Unavailable FADI ., DR SAEED Consulting Unavailable FADI ., DR SAEED Admitting Unavailable FADI ., DR SAEED Attending Unavailable NADERER, DR FLORINA White Primary Care Unavailable FADI ., DR SAEED Consulting Unavailable WEST, DR CHASE Tam Consulting Unavailable NADERER, DR FLORINA White Primary Care Unavailable FADI ., DR SAEED Attending Unavailable FADI ., DR SAEED Admitting Unavailable FADI ., DR SAEED Consulting Unavailable FADI ., DR SAEED Admitting Unavailable FADI ., DR SAEED Attending Unavailable NADERER, DR FLORINA White Primary Care Unavailable FADI ., DR SAEED Consulting Unavailable FADI ., DR SAEED Admitting Unavailable FADI ., DR SAEED Attending Unavailable NADERER, DR FLORINA White Primary Care Unavailable WEST, DR CHASE Tam Consulting Unavailable FADI ., DR SAEED Consulting Unavailable KIRAN ., VIOLA Consulting Unavailable NADERER, DR FLORINA White Primary Care Unavailable KIRAN ., VIOLA Attending Unavailable KIRAN ., VIOLA Admitting Unavailable KIRAN ., VIOLA Consulting Unavailable NADERER, DR FLORINA White Primary Care Unavailable KIRAN ., VIOLA Attending Unavailable KIRAN ., VIOLA Admitting Unavailable NADERER, DR FLORINA White Primary Care Unavailable FADI ., DR SAEED Attending Unavailable FADI ., DR SAEED Admitting Unavailable FADI ., DR SAEED Admitting Unavailable FADI ., DR SAEED Attending Unavailable NADERER, DR FLORINA White Primary Care Unavailable FADI ., DR SAEED Consulting Unavailable FADI ., DR SAEED Admitting Unavailable FADI ., DR SAEED Attending Unavailable NADERER, DR FLORINA White Primary Care Unavailable FADI ., DR SAEED Consulting Unavailable ZIEBER, DR ECTOR Sotelo Consulting Unavailable FADI ., DR SAEED Consulting Unavailable NADERER, DR FLORINA White Primary Care Unavailable FADI ., DR SAEED Attending Unavailable FADI ., DR SAEED Admitting Unavailable YAW Archer Attending Provider [phone] Erlinda Archer Unavailable Kaiser Anderson. Primary Care Physician [phone] Erlinda Archer Attending Unavailable Erlinda Archer Admitting Unavailable Unavailable Primary Care Provider UnavailKaiser Alves MD Primary Care Provider [phone] Kaiser Anderson Attending Pat Matute Referring Unavailable Pat Roche Attending Unavailable Pat Roche Admitting Unavailable Kaiser Anderson Attending Unavailable ENA MORE Attending Unavailable Kaiser Anderson Attending Unavailable Kaiser Anderson Attending Unavailable PAT ROCHE Attending Unavailable VIOLA BECK Attending Unavailable CHRISTOPHE MIRELES Attending Unavailable KELL CHRISTIANSON Attending Unavailable Allergies Allergy Classification Reported Allergen(s) Allergy Type Date of Onset Reaction(s) Facility (1 source) No Known Medication Allergies; Translations: [No Known Medication Allergies] Propensity to adverse reactions (disorder) [facility] Repository Medications Current Medications Medication Drug Class(es) [...] pain, # 20 tab(s), Refills(s) 0, Pharmacy: [facility] #[id number], 162, cm, 12/20/23 15:18:00 EST, Height/Length Dosing, 85.4, kg, 12/20/23 15:18:00 EST, Weight Dosing Start Date: 12/20/23 Status: Ordered Completed/Discontinued Medications Medication Drug Class(es) Dates Sig (Normalized) Sig (Original) Pre- (2 sources) Pre-Addis Not-Ta angelica/PRN Pre-Addis Active Problems Active Problems Problem Classification Problem Date Documented Da te Episodic/Chronic Disorders of lipid metabolism (2 sources) Hyperlipidemia, unspecified; Translations: [Mixed hyperlipidemia] Onset: 01-15-2023 02-08-2023 Chronic Malposition; malpresentation (4 sources) Maternal care for breech presentation, not applicable or unspecified; Translations: [MATERNAL CARE BREECH PRES NA/UNS] Onset: 12-22-2022 Episodic Menstrual disorders (16 sources) Irregular menstruation, unspecified; Translations: [Amenorrhea] Onset: [...] Results Test Name Value Interpretation Reference Range [facility] PREG QUANT HCGon 02-01-2 025 HCG QUANTITATIVE 91239 mIU/mL [facility]are Comment on above: 5-50 0.2-1 WEEK 50-500 1-2 WEEKS 100-5,000 2-3 WEEKS 500-10,000 3-4 WEEKS 1,000-50,000 4-5 WEEKS 10,000-100,000 5-6 WEEKS 15,000-200,000 6-8 WEEKS 10,000-100,000 2-3 MONTHS [facility] PREG QUANT HCGon 01-30-2 025 HCG QUANTITATIVE 81638 mIU/mL [facility] Comment on above: 5-50 0.2-1 WEEK 50-500 1-2 WEEKS 100-5,000 2-3 WEEKS 500-10,000 3-4 WEEKS 1,000-50,000 4-5 WEEKS 10,000-100,000 5-6 WEEKS 15,000-200,000 6-8 WEEKS 10,000-100,000 2-3 MONTHS [facility] e Ambulatory Visit Summaryon 0 12-02-2024 Ambulatory Visit [...] you for choosing us for your care. Normal [facility] Family Medicine Office/Clini c Noteon 12-02-2024 Family Medicine [...] The patient reports managing body aches with rnbp-agq-rqtytaa medications such as DayQuil and NyQuil. There [...] pneumonia risk. Ordered: Influenza Type A&B POC 90524 Follow-up No qualifying data available Problem List/Past [...] 10:37:00) Influenza B POC: Negative (12/02/24 10:37:00) [facility] Comment on above: Result Comment: Elec tronically Signed By: Kaiser Anderson MD\.br\Date and Time Signed: 12/02/24 10:44 EST Provider Letteron 12-02-2024 Provider Letter Provider Letter December 02, 2024 EL[address] [place] [id number] : 1995 To Whom It May Concern, Please excuse above patient from work, due to medical Date of Illness: From: _12-01-24 To: _12-08-24 May Return to Work On: 12-09-24 Restrictions: _ Comments: _ Sincerely, Family Medicine [address] [address] [facility] Ambulatory Visit Summaryon 1 12-16-2023 Ambulatory Visit Summary Ambulatory Visit Summary KIMMY ELIDA :1995 Visit Date:10/15/2024 Ambulatory Visit Instructions Your Diagnosis Viral pharyngitis BMI 32.0-32.9,adult Nonsmoker Obesity (BMI 30-39.9) Your Care Team Attending Physician - ENA MORE CNP A Primary Care Physician - Kaiser Anderson MD [...] these instructions at home: Medicines ??? 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 ??? Do not touch your eyes, nose, [...] away if: (more content not included)... Normal [facility] Family Medicine Office/Clini c Noteon 10-15-2024 Family [...] No qualifying data available Patient Education Pharyngitis, Rkdf-te-Qyrl Viral Respiratory Infection, Smxm-Hs-Otiv Problem List/Past Medical History Ongoing Knee pain, [...] vac - Not Given Patient Refuses Normal [facility] Comment on above: Result Comment: Elec tronically Signed By: ENA MORE CNP\Date and Time Signed: 10/15/24 14:34 EST HCG ( test) Ql (U)o n 09-08-2024 Interpretation and review of laboratory results Normal [facility] Preg Test, Ur [facility] WITH AUTO DIFFon BASOPHILS ABSOLUTE AUTO 0.0 [facility] Basophils/100 WBC (Bld) 0.3 % 0.2 - 2.0 % [facility] Eosinophils/100 WBC (Bld) 0.8 % Low 0.9 - 7.0 % [facility] Erythrocyte distribution width (RBC) [Ratio] 11.7 % 11.0 - 15.0 % [facility] Hematocrit (Bld) [Volume fraction] 40.7 % 36.0 - 48.0 % [facility] Hemoglobin (Bld) [Mass/Vol] 13.7 g/dL 12.0 - 16.0 g/dL [facility] IMMATURE GRANULOCYTES ABS AUTO 0.01 [facility] Immature granulocytes/100 WBC (Bld) 0.2 % 0.0 - 0.5 % [facility] Interpretation and review of laboratory results Abnormal [facility] LYMPHOCYTES ABSOLUTE AUTO 2.4 [facility] Lymphocytes/100 WBC (Bld) 39.4 % 20.5 - 60.0 % [facility] MCH (RBC) [Entitic mass] 29.8 pg 26.7 - 34.0 pg [facility] MCHC (RBC) [Mass/Vol] 33.7 g/dL 29.9 - 35.2 g/dL [facility] MCV (RBC) [Entitic vol] 88.7 fL 81.0 - 99.0 fL [facility] MONOCYTES ABSOLUTE AUTO 0.3 [facility] Monocytes/100 WBC (Bld) 4.8 % 1.7 - 12.0 % [facility] NEUTROPHILS ABSOLUTE AUTO 3.3 [facility] Neutrophils/100 WBC (Bld) 54.5 % 43.0 - 75.0 % [facility] Platelet mean volume (Bld) [Entitic vol] 8.8 fL Low 9.5 - 13.5 fL [facility] TBH EO # 0.1 [facility] PLT 224 [facility] RBC 4.59 [facility] WBC 6.0 [facility] PREG QUANT HCGon 024 HCG QUANTITATIVE <1 mIU/mL [facility] Comment on above: 5-50 0.2-1 WEEK 50-500 1-2 WEEKS 100-5,000 2-3 WEEKS 500-10,000 3-4 WEEKS 1,000-50,000 4-5 WEEKS 10,000-100,000 5-6 WEEKS 15,000-200,000 6-8 WEEKS 10,000-100,000 2-3 MONTHS [facility] PREG QUANT HCGon 024 HCG QUANTITATIVE <1 mIU/mL [facility] Comment on above: 5-50 0.2-1 WEEK 50-500 1-2 WEEKS 100-5,000 2-3 WEEKS 500-10,000 3-4 WEEKS 1,000-50,000 4-5 WEEKS 10,000-100,000 5-6 WEEKS 15,000-200,000 6-8 WEEKS 10,000-100,000 2-3 MONTHS [facility] PREG QUANT HCGon 024 HCG QUANTITATIVE <1 mIU/mL [facility] Comment on above: 5-50 0.2-1 WEEK 50-500 1-2 WEEKS 100-5,000 2-3 WEEKS 500-10,000 3-4 WEEKS 1,000-50,000 4-5 WEEKS 10,000-100,000 5-6 WEEKS 15,000-200,000 6-8 WEEKS 10,000-100,000 2-3 MONTHS [facility] Consultation Noteon 03-20-20 24 Consultation Note [id number] #1.00TIFF [facility] Consultation Noteon 02-18-20 Consultation Note [id number] #1.00TIFF Normal [facility] BMPon 01-31-2024 Creatinine [Mass/Vol] 0.8 mg/dL Normal 0.5-1.3 [facility] Comment on above: Performed By: #### 2 [id number], [id number], [id number] ####[facility] [address] [place] [address] Urea nitrogen/Creatinine [Mass ratio] 19 No Units Normal 10-20 [facility] Comment on above: Performed By: #### 2 570663, [id number], [id number] ####[facility] [address] [place] [address] Anion gap [Moles/Vol] 9 mmol/L Normal 6-16 [facility] Comment on above: Performed By: #### 2 727948, [id number], 0680711 ####[facility] [address] [place] [address] Calcium [Mass/Vol] 8.8 mg/dL Low 8.9-11.1 [facility] Comment on above: Performed By: #### 2 562708, [id number], 2724174 ####[facility] [address] [place] [address] Chloride [Moles/Vol] 108 mmol/L Normal 101-111 [facility] Comment on above: Performed By: #### 2 158835, [id number], 6498482 ####[facility] [address] [place] [address] CO2 [Moles/Vol] 28 mmol/L Normal 21-31 [facility] Comment on above: Performed By: #### 2 024760, [id number], 0105547 ####[facility] [address] [place] [address] Glucose [Mass/Vol] 75 mg/dL Normal 55-199 [facility] Comment on above: Performed By: #### 2 631116, [id number], 9112780 ####[facility] [address] [place] [address] Potassium [Moles/Vol] 4.0 mmol/L Normal 3.5-5.3 [facility] Comment on above: Performed By: #### 2 996103, 08561157, 0236005 ####[facility] [address] [place] [address] Sodium [Moles/Vol] 141 mmol/L Normal 135-145 [facility] Comment on above: Performed By: #### 2 086230, [id number], 2624421 ####[facility] [address] [place] [address] Urea nitrogen [Mass/Vol] 15 mg/dL Normal 5-21 [facility] Comment on above: Performed By: #### 2 048331, [id number], 3977243 ####[address] [address] CBC w/Indiceson 01-31-2024 Erythrocyte distribution width (RBC) [Ratio] 13.0 % Normal 10.9-14.2 [facility] Comment on above: Performed By: #### 2 903791, 15242361, 1646349 ####[address] [address] Hematocrit (Bld) [Volume fraction] 36.2 % Normal 34.0-46.0 [facility] Comment on above: Performed By: #### 2 572723, 75919317, 9667909 ####[address] [address] Hemoglobin (Bld) [Mass/Vol] 12.3 g/dL Normal 12.0-16.0 [facility] Comment on above: Performed By: #### 2 120042, 13564180, 5818271 ####[address] [address] MCH (RBC) [Entitic mass] 29.1 pg Normal 27.0-34.0 [facility] Comment on above: Performed By: #### 2 785418, 04785217, 9979237 ####[facility] [address] [place] [address] MCHC (RBC) [Mass/Vol] 33.9 g/dL Normal 31.4-36.0 [facility] Comment on above: Performed By: #### 2 164764, 21536798, 5591797 ####[facility] [address] [place] [address] MCV (RBC) [Entitic vol] 85.8 fL Normal 80.0-100.0 [facility] Comment on above: Performed By: #### 2 669811, 22214980, 3102870 ####[address] [place] [address] Platelet mean volume (Bld) [Entitic vol] 7.4 fL Normal 6.4-10.8 [facility] Comment on above: Performed By: #### 2 268278, 94545418, 1951826 ####[facility] [address] [place] [address] Platelets (Bld) [#/Vol] 193.0 E9/L Normal 150.0-500.0 [facility] Comment on above: Performed By: #### 2 723977, 84764116, 8616474 ####[address] [address] RBC (Bld) [#/Vol] 4.2 E12/L Low 4.3-5.9 [facility] Comment on above: Performed By: #### 2 765216, 30831096, 7994937 ####[facility] [address] [place] [address] RBC size Nom (Bld) NORMAL Invalid Interpretation Code [facility] Comment on above: Performed By: #### 2 217895, 82976973, 5985728 ####[address] [place] [address] WBC corrected for nucl RBC Auto (Bld) [#/Vol] 5.1 E9/L Normal 4.0-11.0 [facility] Comment on above: Performed By: #### 2 907469, 25400716, 6005901 ####[facility] [id number] CHEMISTRYOrdered By: SYSTEM SYSTEM on 01-31-2024 Anion [...] Treatmenton 01-04 Consent for Treatment [id number] #1.00TIFF Normal [facility] HEMATOLOGYOrdered By: SYSTEM SYSTEM on 01-31-2024 Erythrocyte [...] 01-31-2024 eGFR 103 mL/min/1.73 m2 Normal >=59 [facility] Comment on above: Order Comment: Order added by Discern Expert. Performed By: #### 2 528430, 98471806, 3979142 ####[facility] [address] [place] [address] Physician Orderon 01-30-2024 Physician Order [id number] 0#1.00TIFF Normal [facility] Discharge Note - PTon 2023 Discharge Note - PT [id number] #1.00TIFF Normal [facility] Physician Orderon 01-29-2024 Physician Order [id number] #1.00TIFF Normal [facility] Consultation Noteon 01-16-20 Consultation Note [id number] #1.00TIFF Normal [facility] Physician Referralon 024 Physician Referral [id number] 8#1.00TIFF Normal [facility] PT - Progress Noteson 2023 PT - Progress Notes [id number] #1.00TIFF Normal [facility] Ambulatory Visit Summaryon 0 12-20-2023 Ambulatory Visit [...] EST With: Kaiser Anderson MD Where: [facility] [place] Normal [facility] Family Medicine Office/Clini c Noteon 12-20-2023 Family [...] for pain - Follow up PRN Ordered: [facility] External Ambulatory Referral 2. BMI 32.0-32.9,adult (Z68.32: [...] pain, # 20 tab(s), Refills(s) 0, Pharmacy: [facility] #[id number], 162, cm, 12/20/23 15:18:00 EST, Height/Length Dosing, [...] - Not Given Patient Refuses Normal [facility] Comment on above: Result Comment: Elec [...] numbers. This can be done either in [place] ([place] or metric measurements. Note that charts and online BMI calculators are available to help you find your BMI quickly and easily without having to do these calculations yourself. To calculate your BMI in [place] ([place] measurements: 1. Measure your weight in [...] for Disease Control and Prevention: www.cdc.gov ? [place] Heart Association: www.heart.org ? National Heart, Lung, and Blood [place]: www.nhlbi.nih.gov Summary ? Body mass index (BMI) is a number that is calculated from a person's weight and height. ? BMI may help estimate how much of a person's weight is composed of fat. BMI can help identify those who may be at higher risk for certain medical problems. ? BMI can be measured using [place]ian measurements or metric measurements. ? BMI charts are used to identify whether you are underweight, normal weight, overweight, or obese. This information is not intended to replace advice given to you by your health care provider. Make sure you discuss any questions you have with your health care provider. Document Revised: 07/14/2020 Document Reviewed: 05/21/2020 [employer] Patient Education ? 2022 [employer] [facility] Ambulatory Visit Summaryon 0 12-10-2023 Ambulatory [...] EST With: Kaiser Anderson MD Where: [facility] [place] [facility] Family Medicine Office/Clini c Noteon 12-10-2023 [...] to ER , had xray it couldn't pickle sorter any issues. Pain location: left knee Intensity:06/14 [...] - Not Given Patient Refuses Normal [facility] Comment on above: Result Comment: Elec [...] numbers. This can be done either in [place] ([place] or metric measurements. Note that charts and online BMI calculators are available to help you find your BMI quickly and easily without having to do these calculations yourself. To calculate your BMI in [place] ([place] measurements: 1. Measure your weight in [...] for Disease Control and Prevention: www.cdc.gov ? [place] Heart Association: www.heart.org ? National Heart, Lung, and Blood [place]: www.nhlbi.nih.gov Summary ? Body mass index (BMI) is a number that is calculated from a person's weight and height. ? BMI may help estimate how much of a person's weight is composed of fat. BMI can help identify those who may be at higher risk for certain medical problems. ? BMI can be measured using [place]ian measurements or metric measurements. ? BMI charts are used to identify whether you are underweight, normal weight, overweight, or obese. This information is not intended to replace advice given to you by your health care provider. Make sure you discuss any questions you have with your health care provider. Document Revised: 07/14/2020 Document Reviewed: 05/21/2020 [employer] Patient Education ? 2022 [employer] [facility] Physician Referralon 024 Physician Referral [id number] 7#1.00TIFF [facility] XR knee LT 4V*on 12-05-2023 XR knee LT 4V* [facility] [employer] Other XR knee LT 4V* [facility] [employer] Other XR knee LT 4V* [address] [place] [address] 7write Other XR knee LT 4V* [place] [address] No rt [employer] Other XR knee LT 4V* XRay Report [employer] 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 [employer] Other XR knee LT 4V* Continued pain below the patella. [employer] Other XR knee LT 4V* AP, lateral and both oblique views were obtained. There is no acute fracture or dislocation. The [employer] Other XR knee LT 4V* joint spaces are maintained. There are no prominent hypertrophy. There is a trace amount joint [employer] Other XR knee LT 4V* fluid. No soft tissue swelling is identified. [employer] Other XR knee LT 4V* XR/XR knee LT 4V* [employer] Other XR knee LT 4V* IMPRESSION: [employer] [facility] [employer] Other XR knee LT 4V* NO ACUTE BONY FINDINGS. [employer] Other XR knee LT 4V* Impression dictated by: Amy Molina M.D.12/05/2023 12:00 PM [employer] Other XR knee LT 4V* Dictation Location: RADIO-PC-10 [employer] Other XR knee LT 4V* Transcribed By: PWS 12/05/23 1200 [employer] Other XR knee LT 4V* Dictated By: Amy Molina MD 12/05/23 1157 [employer] Other XR knee LT 4V* Signed By: [employer] Other XR knee LT 4V* 12/05/23 1200 [employer] Other XR knee LT 4V* [facility] Main [place] [address] [place] [address] XRay Report Signed Patient: Elida Grover MR#: [id number] 4 : 1995 Acct:[id number] Age/Sex: 28 / F ADM Date: 12/05/23 Loc: XDUCLY Room: Type: [facility] Attending Dr: Erlinda TIDWELL Copies to: [...] Amy Molina M.D.12/05/2023 12:00 PM Dictation Location: RADIO-PC-10 Transcribed By: KELLY 12/05/23 1200 Dictated By: Amy Molina MD 12/05/23 1157 Signed By: 12/05/23 1200 Normal [facility] Cytology Cervical or vaginal smear or scraping studyOrdered By: Chery Benítez on 10-30-2023 [facility] ANTIBODY ID PANELon 01-09-20 ANTIBODY ID PANEL Antibody ID Non-specific Diana Normal [facility] Comment on above: Performed By: #### A BID #### [facility] [address] [place] [address] Dr. Ilia Carrillo CBC AUTO DIFFon 01-03-2023 BASO # 0.0 103/ul Normal 0.0-0.1 [facility] Comment on above: Performed By: #### C BC #### [facility] [address] [place] [address] Dr. Ilia Carrillo Basophils/100 WBC (Bld) 0.2 % Normal 0.2-2.0 [facility] Comment on above: Performed By: #### C BC #### [facility] [address] [place] [address] Dr. Ilia Carrillo EO # 0.1 103/ul Normal 0.0-0.7 [facility] Comment on above: Performed By: #### C BC #### [facility] [address] [place] [address] Dr. Ilia Carrillo Eosinophils/100 WBC (Bld) 0.5 % Critically low 0.9-7.0 [facility] Comment on above: Performed By: #### C BC #### [facility] [address] [place] [address] Dr. Ilia Carrillo Erythrocyte distribution width (RBC) [Ratio] 13.7 % Normal 11.0-15.0 [facility] Comment on above: Performed By: #### C BC #### [facility] [address] [place] [address] Dr. Ilia Carrillo Hematocrit (Bld) [Volume fraction] 34.8 % Critically low 36.0-48.0 [facility] Comment on above: Performed By: #### C BC #### [facility] [address] [place] [address] Dr. Ilia Carrillo Hemoglobin (Bld) [Mass/Vol] 11.7 g/dL Critically low 12.0-16.0 [facility] Comment on above: Performed By: #### C BC #### [facility] [address] [place] [address] Dr. Ilia Carrillo IG # 0.06 10e3/ul Critically high 0.00-0.03 [facility] Comment on above: Performed By: #### C BC #### [facility] [address] [place] [address] Dr. Ilia Carrillo IG % 0.5 % Normal 0.0-0.5 [facility] Comment on above: Performed By: #### C BC #### [facility] [address] [place] [address] Dr. Ilia Carrillo LYMPH # 2.0 103/ul Normal 1.2-3.8 [facility] Comment on above: Performed By: #### C BC #### [facility] [address] [place] [address] Dr. Ilia Carrillo Lymphocytes/100 WBC (Bld) 15.2 % Critically low 20.5-60.0 [facility] Comment on above: Performed By: #### C BC #### [facility] [address] [place] [address] Dr. Ilia Carrillo MANUAL DIFF REQ NO Normal [facility] Comment on above: Performed By: #### C BC #### [facility] [address] [place] [address] Dr. Ilia Carrillo MCH (RBC) [Entitic mass] 30.9 pg Normal 26.7-34.0 [facility] Comment on above: Performed By: #### C BC #### [facility] [address] [place] [address] Dr. Ilia Carrillo MCHC (RBC) [Mass/Vol] 33.6 g/dL Normal 29.9-35.2 [facility] Comment on above: Performed By: #### C BC #### [facility] [address] [place] [address] Dr. Ilia Carrillo MCV (RBC) [Entitic vol] 91.8 fL Normal 81.0-99.0 [facility] Comment on above: Performed By: #### C BC #### [facility] [address] [address] [address] Ilia Carrillo MONO # 0.9 103/ul Critically high 0.3-0.8 [facility] Comment on above: Performed By: #### C BC #### [facility] [address] [address] [address] Ilia Carrillo Monocytes/100 WBC (Bld) 6.8 % Normal 1.7-12.0 [facility] Comment on above: Performed By: #### C BC #### [facility] [address] [address] [address] Ilia Carrillo NEUT # 10.1 103/ul Critically high 1.4-6.5 [facility] Comment on above: Performed By: #### C BC #### [facility] [address] [place] [address] Dr. Ilia Carrillo Neutrophils/100 WBC (Bld) 76.8 % Critically high 43.0-75.0 [facility] Comment on above: Performed By: #### C BC #### [facility] [address] [address] [address] Ilia Carrillo Platelet mean volume (Bld) [Entitic vol] 9.7 fL Normal 9.5-13.5 [facility] Comment on above: Performed By: #### C BC #### [facility] [address] [address] [address] Ilia Carrillo PLT 178 103/ul Normal 150-450 [facility] Comment on above: Performed By: #### C BC #### [facility] [address] [address] [address] Ilia Carrillo RBC 3.79 106/ul Critically low 4.20-5.40 [facility] Comment on above: Performed By: #### C BC #### [facility] [address] [address] [address] Ilia Carrillo WBC 13.2 103/ul Critically high 4.0-11.0 [facility] Comment on above: Performed By: #### C BC #### [facility] [address] [place] [address] Dr. Ilia Carrillo CBC AUTO DIFFon 01-02-2023 BASO # 0.0 103/ul Normal 0.0-0.1 [facility] Comment on above: Performed By: #### C BC #### [facility] [address] [place] [address] Dr. Ilia Carrillo Basophils/100 WBC (Bld) 0.2 % Normal 0.2-2.0 [facility] Comment on above: Performed By: #### C BC #### [facility] [address] [place] [address] Dr. Ilia Carrillo EO # 0.1 103/ul Normal 0.0-0.7 [facility] Comment on above: Performed By: #### C BC #### [facility] [address] [place] [address] Dr. Ilia Carrillo Eosinophils/100 WBC (Bld) 0.7 % Critically low 0.9-7.0 [facility] Comment on above: Performed By: #### C BC #### [facility] [address] [place] [address] Dr. Ilia Carrillo Erythrocyte distribution width (RBC) [Ratio] 13.7 % Normal 11.0-15.0 [facility] Comment on above: Performed By: #### C BC #### [facility] [address] [place] [address] Dr. Ilia Carrillo Hematocrit (Bld) [Volume fraction] 38.9 % Normal 36.0-48.0 [facility] Comment on above: Performed By: #### C BC #### [facility] [address] [place] [address] Dr. Ilia Carrillo Hemoglobin (Bld) [Mass/Vol] 13.4 g/dL Normal 12.0-16.0 [facility] Comment on above: Performed By: #### C BC #### [facility] [address] [place] [address] Dr. Ilia Carrillo IG # 0.05 10e3/ul Critically high 0.00-0.03 [facility] Comment on above: Performed By: #### C BC #### [facility] [address] [address] [address] Ilia Carrillo IG % 0.4 % Normal 0.0-0.5 [facility] Comment on above: Performed By: #### C BC #### [facility] [address] [place] [address] Dr. Ilia Carrillo LYMPH # 1.6 103/ul Normal 1.2-3.8 [facility] Comment on above: Performed By: #### C BC #### [facility] [address] [place] [address] Dr. Ilia Carrillo Lymphocytes/100 WBC (Bld) 14.2 % Critically low 20.5-60.0 [facility] Comment on above: Performed By: #### C BC #### [facility] [address] [place] [address] Dr. Ilia Carrillo MANUAL DIFF REQ NO Normal [facility] Comment on above: Performed By: #### C BC #### [facility] [address] [place] [address] Dr. Ilia Carrillo MCH (RBC) [Entitic mass] 30.8 pg Normal 26.7-34.0 [facility] Comment on above: Performed By: #### C BC #### [facility] [address] [place] [address] Dr. Ilia Carrillo MCHC (RBC) [Mass/Vol] 34.4 g/dL Normal 29.9-35.2 [facility] Comment on above: Performed By: #### C BC #### [facility] [address] [place] [address] Dr. Ilia Carrillo MCV (RBC) [Entitic vol] 89.4 fL Normal 81.0-99.0 [facility] Comment on above: Performed By: #### C BC #### [facility] [address] [place] [address] Dr. Ilia Carrillo MONO # 0.6 103/ul Normal 0.3-0.8 [facility] Comment on above: Performed By: #### C BC #### [facility] [address] [address] [address] Ilia Carrillo Monocytes/100 WBC (Bld) 5.5 % Normal 1.7-12.0 [facility] Comment on above: Performed By: #### C BC #### [facility] [address] [address] [address] Ilia Carrillo NEUT # 8.9 103/ul Critically high 1.4-6.5 [facility] Comment on above: Performed By: #### C BC #### [facility] [address] [place] [address] Dr. Ilia Carrillo Neutrophils/100 WBC (Bld) 79.0 % Critically high 43.0-75.0 [facility] Comment on above: Performed By: #### C BC #### [facility] [address] [place] [address] Dr. Ilia Carrillo Platelet mean volume (Bld) [Entitic vol] 10.7 fL Normal 9.5-13.5 [facility] Comment on above: Performed By: #### C BC #### [facility] [address] [place] [address] Dr. Ilia Carrillo PLT 210 103/ul Normal 150-450 [facility] Comment on above: Performed By: #### C BC #### [facility] [address] [place] [address] Dr. Ilia Carrillo RBC 4.35 106/ul Normal 4.20-5.40 [facility] Comment on above: Performed By: #### C BC #### [facility] [address] [place] [address] Dr. Ilia Carrillo WBC 11.3 103/ul Critically high 4.0-11.0 [facility] Comment on above: Performed By: #### C BC #### [facility] [address] [place] [address] Dr. Ilia Carrillo DRUG SCREEN RAPID (URINE)on 01-02-2023 AMP Negative Normal NEGATIVE [facility] Comment on above: Performed By: #### C BC #### [facility] [address] [place] [address] Dr. Ilia Carrillo BAR Negative Normal NEGATIVE [facility] Comment on above: Performed By: #### C BC #### [facility] [address] [place] [address] Dr. Ilia Carrillo BUP Negative Normal NEGATIVE [facility] Comment on above: Performed By: #### C BC #### [facility] [address] [place] [address] Dr. Ilia Carrillo BZO Negative Normal NEGATIVE [facility] Comment on above: Performed By: #### C BC #### [facility] [address] [place] [address] Dr. Ilia Carrillo MARY ANNE Negative Normal NEGATIVE [facility] Comment on above: Performed By: #### C BC #### [facility] [address] [place] [address] Dr. Ilia Carrillo CUT-OFFS SEE BELOW Normal [facility] Comment on above: Result Comment: AMP [...] ng/mL Performed By: #### C BC #### [facility] [address] [place] [address] Dr. Ilia Carrillo DRUG CUT HEADER DRUG CLASS TEST SYSTEM CUT-OFF CONCENTRATIONS ARE FOLLOWS: Normal [facility] Comment on above: Performed By: #### C BC #### [facility] [address] [place] [address] Dr. Ilia Carrillo mAMP Negative Normal NEGATIVE [facility] Comment on above: Performed By: #### C BC #### [facility] [address] [place] [address] Dr. Ilia Carrillo MTD Negative Normal NEGATIVE [facility] Comment on above: Performed By: #### C BC #### [facility] [address] [address] [address] Ilia Carrillo OPI Negative Normal NEGATIVE [facility] Comment on above: Performed By: #### C BC #### [facility] [address] [place] [address] Dr. Ilia Carrillo OXY Negative Normal NEGATIVE [facility] Comment on above: Performed By: #### C BC #### [facility] [address] [place] [address] Dr. Ilia Carrillo PCP Negative Normal NEGATIVE [facility] Comment on above: Performed By: #### C BC #### [facility] [address] [place] [address] Dr. Ilia Carrillo PPX Negative Normal NEGATIVE [facility] Comment on above: Performed By: #### C BC #### [facility] [address] [place] [address] Dr. Ilia Carrillo TCA Negative Normal NEGATIVE [facility] Comment on above: Performed By: #### C BC #### [facility] [address] [place] [address] Dr. Ilia Carrillo THC Negative Normal NEGATIVE [facility] Comment on above: Performed By: #### C BC #### [facility] [address] [place] [address] Dr. Ilia Carrillo TYPE AND SCREENon 01-02-2023 TYPE AND SCREEN Negative Normal [facility] Comment on above: Performed By: #### T NS #### [facility] [address] [place] [address] Dr. Ilia Carrillo UA (CLEAN/CATCH) ASSISTED LIVING HOME DIRECTOR/MICRO I F IND.on 01-02-2023 Bilirubin Ql (U) Negative Normal NEGATIVE [facility] Comment on above: Performed By: #### U ACSIND #### [facility] [address] [place] [address] Dr. Ilia Carrillo Clarity (U) CLEAR Normal CLEAR [facility] Comment on above: Performed By: #### U ACSIND #### [facility] [address] [address] [address] Ilia Carrillo Color (U) LT. YELLOW Normal YELLOW [facility] Comment on above: Performed By: #### U ACSIND #### [facility] [address] [place] [address] Dr. Ilia Carrillo Glucose Ql (U) Negative Normal NEGATIVE [facility] Comment on above: Performed By: #### U ACSIND #### [facility] [address] [place] [address] Dr. Ilia Carrillo Hemoglobin Ql (U) Negative Normal NEGATIVE [facility] Comment on above: Performed By: #### U ACSIND #### [facility] [address] [place] [address] Dr. Ilia Carrillo Ketones Ql (U) Negative Normal NEGATIVE [facility] Comment on above: Performed By: #### U ACSIND #### [facility] [address] [place] [address] Dr. Ilia Carrillo LEUKOCYTES Negative Normal NEGATIVE [facility] Comment on above: Performed By: #### U ACSIND #### [facility] [address] [place] [address] Dr. Ilia Carrillo Nitrite Ql (U) Negative Normal NEGATIVE [facility] Comment on above: Performed By: #### U ACSIND #### [facility] [address] [place] [address] Dr. Ilia Carrillo pH (U) 6.0 [pH] Normal 5-9 [facility] Comment on above: Performed By: #### U ACSIND #### [facility] [address] [place] [address] Dr. Ilia Carrillo SPEC GRAVITY 1.025 Normal 1.005-<=1.02 5 [facility] Comment on above: Performed By: #### U ACSIND #### [facility] [address] [place] [address] Dr. Ilia Carrillo UA PROTEIN Negative Normal NEGATIVE/ TRACE [facility] Comment on above: Performed By: #### U ACSIND #### [facility] [address] [place] [address] Dr. Ilia Carrillo UR MICRO IND NOT INDICATED Normal [facility] Comment on above: Performed By: #### U ACSIND #### [facility] [address] [address] [address] Ilia Carrillo Urobilinogen Qn (U) 0.2 {Manfred'U}/dL Normal 0.2 - 1. 0 [facility] Comment on above: Performed By: #### U ACSIND #### [facility] [address] [place] [address] Dr. Ilia Carrillo GROUP B STREP CULTUREon 12-06 S. agalactiae Ag Ql (Unsp spec) Culture Observations: NEGATIVE FOR GROUP B STREPTOCOCCUS. Normal [facility] Comment on above: Performed By: #### U ACSIND #### [facility] [address] [place] [address] Dr. Ilia Carrillo US PREG GROWTHon 12-18-2022 [...] CHASE TRAN Date: 2022-12-18 07:18 Normal [facility] US PREG GROWTHon 11-10-2022 US PREG GROWTH EXAMINATION: US PREG GROWTH HISTORY: Large for gestation age fetus COMPARISON: Ultrasound anatomy 08/25/2022 FINDINGS: Heart Rate: Present per edge stainer; no rate recorded. Number: 1.0 Position: Breech [...] ECTOR MINOR Date: 2022-11-10 08:42 Normal [facility] TYPE AND SCREENon 10-31-2022 TYPE AND SCREEN Negative Normal [facility] Comment on above: Performed By: #### T NS #### [facility] [address] [address] [address] Ilia Carrillo GTT 3 HR PREGon 10-25-2022 Glucose [Mass/Vol] 81 mg/dL Normal 74-106 [facility] Comment on above: Performed By: #### U ACSIND #### [facility] [address] [address] [address] Ilia Carrillo Glucose [Mass/Vol] 166 mg/dL Normal [facility] Comment on above: Performed By: #### U ACSIND #### [facility] [address] [address] [address] Ilia Carrillo Glucose [Mass/Vol] 123 mg/dL Normal [facility] Comment on above: Performed By: #### U ACSIND #### [facility] [address] [address] [address] Ilia Carrillo Glucose [Mass/Vol] 103 mg/dL Normal [facility] Comment on above: Performed By: #### U ACSIND #### [facility] [address] [address] [address] Ilia Carrillo TYPE AND SCREENon 10-25-2022 TYPE AND SCREEN Negative Normal [facility] Comment on above: Performed By: #### T NS #### [facility] [address] [address] [address] Ilia Carrillo CBC AUTO DIFFon 10-21-2022 BASO # 0.0 103/ul Normal 0.0-0.1 [facility] Comment on above: Performed By: #### U ACSIND #### [facility] [address] [place] [address] Dr. Ilia Carrillo Basophils/100 WBC (Bld) 0.2 % Normal 0.2-2.0 [facility] Comment on above: Performed By: #### U ACSIND #### [facility] [address] [place] [address] Dr. Ilia Carrillo EO # 0.0 103/ul Normal 0.0-0.7 [facility] Comment on above: Performed By: #### U ACSIND #### [facility] [address] [place] [address] Dr. Ilia Carrillo Eosinophils/100 WBC (Bld) 0.5 % Critically low 0.9-7.0 [facility] Comment on above: Performed By: #### U ACSIND #### [facility] [address] [place] [address] Dr. Ilia Carrillo Erythrocyte distribution width (RBC) [Ratio] 12.6 % Normal 11.0-15.0 [facility] Comment on above: Performed By: #### U ACSIND #### [facility] [address] [place] [address] Dr. Ilia Carrillo Hematocrit (Bld) [Volume fraction] 36.0 % Normal 36.0-48.0 [facility] Comment on above: Performed By: #### U ACSIND #### [facility] [address] [place] [address] Dr. Ilia Carrillo Hemoglobin (Bld) [Mass/Vol] 12.3 g/dL Normal 12.0-16.0 [facility] Comment on above: Performed By: #### U ACSIND #### [facility] [address] [address] [address] Ilia Carrillo IG # 0.04 10e3/ul Critically high 0.00-0.03 [facility] Comment on above: Performed By: #### U ACSIND #### [facility] [address] [address] [address] Ilia Carrillo IG % 0.5 % Normal 0.0-0.5 [facility] Comment on above: Performed By: #### U ACSIND #### [facility] [address] [address] [address] Ilia Carrillo LYMPH # 1.3 103/ul Normal 1.2-3.8 [facility] Comment on above: Performed By: #### U ACSIND #### [facility] [address] [address] [address] Ilia Carrillo Lymphocytes/100 WBC (Bld) 15.5 % Critically low 20.5-60.0 [facility] Comment on above: Performed By: #### U ACSIND #### [facility] [address] [address] [address] Ilia Carrillo MANUAL DIFF REQ NO Normal [facility] Comment on above: Performed By: #### U ACSIND #### [facility] [address] [address] [address] Ilia Carrillo MCH (RBC) [Entitic mass] 30.4 pg Normal 26.7-34.0 [facility] Comment on above: Performed By: #### U ACSIND #### [facility] [address] [address] [address] Ilia Carrillo MCHC (RBC) [Mass/Vol] 34.2 g/dL Normal 29.9-35.2 [facility] Comment on above: Performed By: #### U ACSIND #### [facility] [address] [address] [address] Ilia Carrillo MCV (RBC) [Entitic vol] 89.1 fL Normal 81.0-99.0 [facility] Comment on above: Performed By: #### U ACSIND #### [facility] [address] [address] [address] Ilia Carrillo MONO # 0.3 103/ul Normal 0.3-0.8 [facility] Comment on above: Performed By: #### U ACSIND #### [facility] [address] [address] [address] Ilia Carrillo Monocytes/100 WBC (Bld) 3.8 % Normal 1.7-12.0 [facility] Comment on above: Performed By: #### U ACSIND #### [facility] [address] [address] [address] Ilia Carrillo NEUT # 6.5 103/ul Normal 1.4-6.5 [facility] Comment on above: Performed By: #### U ACSIND #### [facility] [address] [address] [address] Ilia Carrillo Neutrophils/100 WBC (Bld) 79.5 % Critically high 43.0-75.0 [facility] Comment on above: Performed By: #### U ACSIND #### [facility] [address] [address] [address] Ilia Carrillo Platelet mean volume (Bld) [Entitic vol] 9.2 fL Critically low 9.5-13.5 [facility] Comment on above: Performed By: #### U ACSIND #### [facility] [address] [address] [address] Ilia Carrillo PLT 212 103/ul Normal 150-450 [facility] Comment on above: Performed By: #### U ACSIND #### [facility] [address] [address] [address] Ilia Carrillo RBC 4.04 106/ul Critically low 4.20-5.40 [facility] Comment on above: Performed By: #### U ACSIND #### [facility] [address] [address] [address] Ilia Carrillo WBC 8.2 103/ul Normal 4.0-11.0 [facility] Comment on above: Performed By: #### U ACSIND #### [facility] [address] [id number] Dr. Ilia Carrillo GLUCOSE - 1HRon 10-21-2022 Glucose [Mass/Vol] 147 mg/dL Critically high 74-106 T [facility] Comment on above: Performed By: #### P REGQNT #### [facility] [address] [place] [address] Dr. Ilia Carrillo PAP ACOG PANEL 2: 21 to 29on 10-19-2022 . . Normal [facility] Comment on above: Performed By: #### P REGQNT #### [facility] [address] [place] [address] Dr. Ilia Carrillo Age Gdln ACOG Testing 22- [facility] Comment on above: Performed By: #### P REGQNT #### [facility] [address] [place] [address] Dr. Ilia Carrillo DIAGNOSIS: Comment [facility] Comment on above: Result Comment: NEGA TIVE FOR INTRAEPITHELIAL LESION OR MALIGNANCY. THIS SPECIMEN WAS RESCREENED PART OF OUR JUSTOWRITER OPERATOR PROGRAM. Performed By: #### P REGQNT #### [facility] [address] [place] [address] Dr. Ilia Carrillo Methodology: Comment [facility] Comment on above: Result Comment: This liquid based ThinPrep(R) pap test was screened with the use of an image guided system. Performed By: #### P REGQNT #### [facility] [address] [place] [address] Dr. Ilia Carrillo Note: Comment [facility] Comment on above: Result Comment: The Pap smear is a screening test designed to aid in the detection of premalignant and malignant conditions of the uterine cervix. It is not a diagnostic procedure and should not be used as the sole means of detecting cervical cancer. Both false-positive and false-negative reports do occur. . Performed By: #### P REGQNT #### [facility] [address] [place] [address] Dr. Ilia Carrillo Performed by: Comment Normal [facility] Comment on above: Result Comment: Janeth Reynolds, Crown Pouncer (ASCP) Performed By: #### P REGQNT #### [facility] [address] [place] [address] Dr. Ilia Carrillo QC reviewed by: Comment Normal [facility] Comment on above: Result Comment: Anna Russell, Supervisory Crown Pouncer (ASCP) Performed By: #### P REGQNT #### [facility] [address] [place] [address] Dr. Ilia Carrillo Reflex Criteria: Comment Normal [facility] Comment on above: Result Comment: The HPV DNA reflex criteria were not met with this specimen result therefore, no HPV testing was performed. . Performed By: #### P REGQNT #### [facility] [address] [place] [address] Dr. Ilia Carrillo Specimen adequacy: Comment [facility] Comment on above: Result Comment: Sati sfactory for evaluation. No endocervical component is identified. Performed By: #### P REGQNT #### [facility] [address] [place] [address] Dr. Ilia Carrillo CHLAMYDIA/GONOCOCCUS ABAD (SW AB/URINE/PAPon 10-13-2022 Chlamydia trachomatis, ABAD Negative Normal Negative [facility] Comment on above: Performed By: #### P REGQNT #### [facility] [address] [place] [address] Dr. Ilia Carrillo Neisseria gonorrhoeae, ABAD Negative Normal Negative [facility] Comment on above: Performed By: #### P REGQNT #### [facility] [address] [place] [address] Dr. Ilia Carrillo VAGINITIS/VAGINOSIS DNA PROB Mitesh 10-12-2022 Floresita species Negative Normal Negative [facility] Comment on above: Performed By: #### C BC #### [facility] [address] [place] [address] Dr. Ilia Carrillo Gardnerella vaginalis Negative Normal Negative [facility] Comment on above: Performed By: #### C BC #### [facility] [address] [place] [address] Dr. Ilia Carrillo Trichomonas vaginalis Negative Normal Negative [facility] Comment on above: Performed By: #### C BC #### [facility] [address] [address] [address] Ilia Carrillo AFP MATERNAL FOR SPINA BIFID Aon 09-05-2022 AFP MoM 1.50 Normal [facility] Comment on above: Performed By: #### C BC #### [facility] [address] [address] [address] Ilia Carrillo AFP Value 85.2 ng/mL Normal [facility] Comment on above: Performed By: #### C BC #### [facility] [id number] Ilia Carrillo AFP, Serum for Spina Bifida Report Normal [facility] Comment on above: Performed By: #### C BC #### [facility] [address] [address] [address] Ilia Carrillo Comment Comment Normal [facility] Comment on above: Result Comment: Richard Loomis, Ph.D., [facility] Director . References: Available Upon Request. . Multiples Of Median Cutoffs For AFP Elevations Munguia 2.5 Black 2.8 IDD 2.0 Twins 4.5 Abbreviation Definitions IDD - Insulin Dep Diabetes OSBR - Open Spina Bifida Risk . For further inquiries contact [facility] at [phone]. . This test was developed and its performance characteristics determined by [employer]. It has not been cleared or approved by the Food and Drug Administration. Performed By: #### C BC #### [facility] [id number] Ilia Steinberg Age Collection Date 20.7 weeks Normal [facility] Comment on above: Performed By: #### C BC #### [facility] [id number] Ilia Carrillo Gestat, Age Based on Ultrasound Normal [facility] Comment on above: Result Comment: 06:3 on 05/22/2022 Recalculations are not recommended when gestational dating by LMP and ultrasound are within 10 days. Performed By: #### C BC #### [facility] [address] [address] [address] Ilia Carrillo Insulin Dep Diabetes No Normal [facility] Comment on above: Performed By: #### C BC #### [facility] [address] [address] [address] Ilia Carrillo Interpretation Comment Normal [facility] Comment on above: Result Comment: Inte rpretation: [...] Customer Services to discuss available options. The [place] [employer] [place] [employer] recommends amniocentesis be offered to women age 35 and older. Performed By: #### C BC #### [facility] [address] [place] [address] Dr. Ilia Carrillo [age] Normal [facility] Comment on above: Performed By: #### C BC #### [facility] [address] [address] [address] Ilia Carrillo Multiple Gestation No Normal [facility] Comment on above: Performed By: #### C BC #### [facility] [address] [place] [address] Dr. Ilia Carrillo OSBR Risk 1 [place] [address] [facility] Comment on above: Performed By: #### C BC #### [facility] [address] [address] [address] Ilia Carrillo PDF . Normal [facility] Comment on above: Performed By: #### C BC #### [facility] [address] [address] [address] Ilia Carrillo Race Normal [facility] Comment on above: Performed By: #### C BC #### [facility] [address] [place] [address] Dr. Ilia Carrillo Test Results: Negative Normal [facility] Comment on above: Performed By: #### C BC #### [facility] [id number] Ilia Carrillo US PREG ANATOMY SINGLEon [...] CHASE TRAN Date: 2022-08-27 16:15 Normal [facility] HEP B SURFACE ANTIGEN SCREEN on 07-04-2022 HBsAg Screen Negative Normal Negative [facility] Comment on above: Performed By: #### C BC #### [facility] [id number] Ilia Carrillo HEPATITIS C VIRUS AB W/ REFL EX QUANTon 07-04-2022 HCV AB <0.1 Normal 0.0-0.9 [facility] Comment on above: Performed By: #### C BC #### [facility] [address] [place] [address] Dr. Ilia Carrillo Interpretation: Comment Normal [facility] Comment on above: Result Comment: Nega tive Not infected with HCV, unless recent infection is suspected or other evidence exists to indicate HCV infection. Performed By: #### C BC #### [facility] [address] [place] [address] Dr. Ilia Carrillo HIV 1 AND 2 WITH REFLEXon HIV Screen 4th Generation wRfx Non-Reactive Normal Non Reactive [facility] Comment on above: Result Comment: HIV Negative HIV-1/HIV-2 antibodies and HIV-1 p24 antigen were NOT detected. There is no laboratory evidence of HIV infection. Performed By: #### C BC #### [facility] [address] [place] [address] Dr. Ilia Carrillo RPR QUANTon 07-04-2022 Rapid Plasma Reagin, Quant Non-Reactive Normal NonRea<1:1 [facility] Comment on above: Result Comment: Plea se Note: This test does not meet current guidelines for screening and diagnosis of syphilis. This test is intended for following treatment response in patients being treated for syphilis infection. To screen for syphilis infection, a reflex cascade that includes both RPR and a treponema-specific assay should be utilized, such as Treponema pallidum (Syphilis) Screening [place] (183379) or Rapid Plasma Reagin (RPR) Test With Reflex to Quantitative RPR and Confirmatory Treponema pallidum Antibodies (877226). Performed By: #### C BC #### [facility] [address] [place] [address] Dr. Ilia Carrillo RUBELLA AB IGGon 07-04-2022 Rubella Antibodies, IgG 3.07 index Normal Immune >0.99 [facility] Comment on above: Result Comment: Non- immune <0.90 Equivocal 0.90 - 0.99 Immune >0.99 Performed By: #### C BC #### [facility] [address] [place] [address] Dr. Ilia Carrillo CBC AUTO DIFFon 07-03-2022 BASO # 0.0 103/ul Normal 0.0-0.1 [facility] Comment on above: Performed By: #### C BC #### [facility] [address] [place] [address] Dr. Ilia Carrillo Basophils/100 WBC (Bld) 0.2 % Normal 0.2-2.0 [facility] Comment on above: Performed By: #### C BC #### [facility] [address] [place] [address] Dr. Ilia Carrillo EO # 0.1 103/ul Normal 0.0-0.7 [facility] Comment on above: Performed By: #### C BC #### [facility] [address] [place] [address] Dr. Ilia Carrillo Eosinophils/100 WBC (Bld) 1.1 % Normal 0.9-7.0 [facility] Comment on above: Performed By: #### C BC #### [facility] [address] [place] [address] Dr. Ilia Carrillo Erythrocyte distribution width (RBC) [Ratio] 11.4 % Normal 11.0-15.0 [facility] Comment on above: Performed By: #### C BC #### [facility] [address] [place] [address] Dr. Ilia Carrillo Hematocrit (Bld) [Volume fraction] 35.2 % Critically low 36.0-48.0 [facility] Comment on above: Performed By: #### C BC #### [facility] [address] [place] [address] Dr. Ilia Carrillo Hemoglobin (Bld) [Mass/Vol] 12.4 g/dL Normal 12.0-16.0 [facility] Comment on above: Performed By: #### C BC #### [facility] [address] [place] [address] Dr. Ilia Carrillo IG # 0.03 10e3/ul Normal 0.00-0.03 [facility] Comment on above: Performed By: #### C BC #### [facility] [address] [place] [address] Dr. Ilia Carrillo IG % 0.3 % Normal 0.0-0.5 [facility] Comment on above: Performed By: #### C BC #### [facility] [address] [place] [address] Dr. Ilia Carrillo LYMPH # 2.1 103/ul Normal 1.2-3.8 [facility] Comment on above: Performed By: #### C BC #### [facility] [address] [place] [address] Dr. Ilia Carrillo Lymphocytes/100 WBC (Bld) 22.6 % Normal 20.5-60.0 [facility] Comment on above: Performed By: #### C BC #### [facility] [address] [place] [address] Dr. Ilia Carrillo MANUAL DIFF REQ NO Normal [facility] Comment on above: Performed By: #### C BC #### [facility] [address] [place] [address] Dr. Ilia Carrillo MCH (RBC) [Entitic mass] 30.6 pg Normal 26.7-34.0 [facility] Comment on above: Performed By: #### C BC #### [facility] [address] [place] [address] Dr. Ilia Carrillo MCHC (RBC) [Mass/Vol] 35.2 g/dL Normal 29.9-35.2 [facility] Comment on above: Performed By: #### C BC #### [facility] [address] [place] [address] Dr. Ilia Carrillo MCV (RBC) [Entitic vol] 86.9 fL Normal 81.0-99.0 [facility] Comment on above: Performed By: #### C BC #### [facility] [address] [place] [address] Dr. Ilia Carrillo MONO # 0.4 103/ul Normal 0.3-0.8 [facility] Comment on above: Performed By: #### C BC #### [facility] [address] [place] [address] Dr. Ilia Carrillo Monocytes/100 WBC (Bld) 4.8 % Normal 1.7-12.0 [facility] Comment on above: Performed By: #### C BC #### [facility] [address] [address] [address] Ilia Carrillo NEUT # 6.5 103/ul Normal 1.4-6.5 [facility] Comment on above: Performed By: #### C BC #### [facility] [address] [address] [address] Ilia Carrillo Neutrophils/100 WBC (Bld) 71.0 % Normal 43.0-75.0 [facility] Comment on above: Performed By: #### C BC #### [facility] [address] [address] [address] Ilia Carrillo Platelet mean volume (Bld) [Entitic vol] 8.7 fL Critically low 9.5-13.5 [facility] Comment on above: Performed By: #### C BC #### [facility] [address] [address] [address] Ilia Carrillo PLT 260 103/ul Normal 150-450 [facility] Comment on above: Performed By: #### C BC #### [facility] [address] [place] [address] Dr. Ilia Carrillo RBC 4.05 106/ul Critically low 4.20-5.40 [facility] Comment on above: Performed By: #### C BC #### [facility] [address] [place] [address] Dr. Ilia Carrillo WBC 9.2 103/ul Normal 4.0-11.0 [facility] Comment on above: Performed By: #### C BC #### [facility] [address] [place] [address] Dr. Ilia Carrillo CULTURE URINEon 07-03-2022 CULTURE URINE Culture Observations: MODERATE GROWTH OF MIXED GENITAL BETHANIE. NO POTENTIAL PATHOGENS SEEN. Normal [facility] Comment on above: Performed By: #### U RCX #### [facility] [address] [place] [address] Dr. Ilia Carrillo GLYCOHEMOGLOBIN A1Con 2021 ADA RECOMMENDATION SEE BELOW Normal [facility] Comment on above: Result Comment: ADA RECOMMENDED LIMIT 4.0 - 6.0 ADA THERAPEUTIC TARGET < 7.0 ACTION SUGGESTED > 7.0 Performed By: #### P REGQNT #### [facility] [address] [address] [address] Ilia Carrillo Glucose [Mass/Vol] 97 mg/dL Normal [facility] Comment on above: Performed By: #### P REGQNT #### [facility] [address] [address] [address] Ilia Carrillo HbA1c (Bld) [Mass fraction] 5.0 % Normal 4.5-6.2 [facility] Comment on above: Performed By: #### P REGQNT #### [facility] [address] [address] [address] Ilia Carrillo FADY BOX TEST PT SEND OUTo n 07-03-2022 SENT TO REF LAB 07/03/2022 Normal [facility] Comment on above: Performed By: #### N BOX #### [facility] [address] [place] [address] Dr. Ilia Carrillo TYPE AND SCREENon 07-03-2022 TYPE AND SCREEN Negative Normal [facility] Comment on above: Performed By: #### U ACSIND #### [facility] [address] [place] [address] Dr. Ilia Carrillo COVID Quick Testingon 2021 Result Positive [employer] Other US PREG TVon 05-23-2022 US PREG [...] by: ECTOR MINOR Date: 2022-05-23 21:22 Normal [facility] PREG QUANT HCGon 05-11-2022 HCG QUANT 2766 mIU/mL Normal [facility] Comment on above: Performed By: #### U ACSIND #### [facility] [address] [place] [address] Dr. Ilia Carrillo HCG RANGE SEE BELOW Normal [facility] Comment on above: Result Comment: 5-50 0-1 WEEK 40-300 1-2 WEEKS 100-1,000 2-3 WEEKS 500-6,000 3-4 WEEKS 5,000-200,000 1-2 MONTHS 10,000-100,000 2-3 MONTHS 3,000-50,000 2ND TRIMESTER 1,000-50,000 3RD TRIMESTER Performed By: #### U ACSIND #### [facility] [address] [place] [address] Dr. Ilia Carrillo PREG QUANT HCGon 05-09-2022 HCG QUANT 983 mIU/mL Normal [facility] Comment on above: Performed By: #### P REGQNT #### [facility] [address] [place] [address] Dr. Ilia Carrillo HCG RANGE SEE BELOW Normal [facility] Comment on above: Result Comment: 5-50 0-1 WEEK 40-300 1-2 WEEKS 100-1,000 2-3 WEEKS 500-6,000 3-4 WEEKS 5,000-200,000 1-2 MONTHS 10,000-100,000 2-3 MONTHS 3,000-50,000 2ND TRIMESTER 1,000-50,000 3RD TRIMESTER Performed By: #### P REGQNT #### [facility] [address] [place] [address] Dr. Ilia Carrillo Vital Signs Date Time Vital Sign Value Performing Clinician Facility 09-08-2024 16:41-0500 Body height 162.6 cm [employer] Work Phone: [facility] 09-08-2024 16:41-0500 Body mass index (BMI) [Ratio] 31.58 kg/m2 [employer] Work Phone: [facility] 09-08-2024 16:41-0500 Body weight 83.46 kg [employer] Work Phone: [facility] 09-08-2024 16:41-0500 Diastolic blood pressure 72 mm[Hg] Christophe Fadi DO Work Phone: [facility] 09-08-2024 16:41-0500 Systolic blood pressure 108 mm[Hg] Christophe Fadi DO Work Phone: [facility] 08-11-2024 08:53-0400 Body height 162.6 cm Viola Kiran PA Work Phone: [facility] 08-11-2024 08:53-0400 Body mass index (BMI) [Ratio] 31.24 kg/m2 Viola Sumrall PA Work Phone: [facility] 08-11-2024 08:53-0400 Body weight 82.56 kg Viola Kiran PA Work Phone: [facility] 08-11-2024 08:53-0400 Diastolic blood pressure 76 mm[Hg] Viola Kiran PA Work Phone: [facility] 08-11-2024 08:53-0400 Systolic blood pressure 110 mm[Hg] Viola Kiran PA Work Phone: [facility] 12-05-2023 10:50-0500 Body height 163.19 cm Erlinda Archer Other [employer] Other 12-05-2023 10:50-0500 Body mass index (BMI) [Ratio] 32.12 kg/m2 Erlinda Archer Other [employer] Other 12-05-2023 10:50-0500 Body temperature 98 [degF] Erlindawillie Archer Other [employer] Other 12-05-2023 10:50-0500 Body weight 85.55 kg Erlinda Archer Other [employer] Other 12-05-2023 10:50-0500 Diastolic blood pressure 68 mm[Hg] Erlinda Archer Other [employer] Other 12-05-2023 10:50-0500 Respiratory rate 18 /min Erlinda Archer Other [employer] Other 12-05-2023 10:50-0500 SaO2% (BldA) [Mass fraction] 96 % Erlinda Archer Other [employer] Other 12-05-2023 10:50-0500 Systolic blood pressure 104 mm[Hg] Erlinda Archer Other [employer] Other 09-05-2022 15:07-0400 Body weight 84.[address] CHRISTOPHE MIRELES . [facility] Comment on above: Performed By: #### CBC #### [facility] [address] [place] [address] Dr. Ilia Carrillo 06-23-2022 17:05-0400 Body height 163.19 cm Cortney Chapman Other [employer] Other 06-23-2022 17:05-0400 Body mass index (BMI) [Ratio] 31.16 kg/m2 Cortney Chapman Other [employer] Other 06-23-2022 17:05-0400 Body temperature 99.6 [degF] Cortney Chapman Other [employer] Other 06-23-2022 17:05-0400 Body weight 83.01 kg Cortney Chapman Other [employer] Other 06-23-2022 17:05-0400 Respiratory rate 18 /min Cortney Chapman Other [employer] Other 06-23-2022 17:05-0400 SaO2% (BldA) [Mass fraction] 98 % Cortney Mclainault Other [employer] Other Encounters Encounter Date Encounter Type Care Provider Facility Start: 02-10-2025 End: 02-10-2025 Bamboo flowsheet Kellolivia Christianson PUMPER GAGER APPRENTICE Work Phone: [facility] Start: 02-10-2025 End: 02-10-2025 Bamboo flowsheet Kell Meghan PUMPER GAGER APPRENTICE Work Phone: [facility] Start: 02-10-2025 End: 02-10-2025 ambulatory KELL MEGHAN Not Available Start: 02-01-2025 End: 02-01-2025 Clinisync Result Encounter Christophe Fadi DO Work Phone: [facility] Unsolicited Start: 02-01-2025 End: 02-01-2025 Clinisync Result Encounter Christophe Fadi DO Work Phone: [facility] Unsolicited Start: 01-30-2025 End: 01-30-2025 Clinisync Result Encounter Christophe Fadi DO Work Phone: [facility] Unsolicited Start: 01-30-2025 End: 01-30-2025 Clinisync Result Encounter Christophe Fadi DO Work Phone: [facility] Unsolicited Start: 12-02-2024 End: 12-02-2024 ambulatory [facility] Facility:[facility] Sarika inman Start: 10-15-2024 End: 10-15-2024 ambulatory ENA MORE Facility:[facility] [place] Start: 09-08-2024 End: 09-08-2024 Office outpatient visit 15 minutes Christophe Fadi DO Work Phone: [facility] Comment on above: Irregular menses; Amenorrhea Start: 09-08-2024 End: 09-08-2024 ambulatory CHRISTOPHE FADI Not Available Start: 09-08-2024 End: 09-08-2024 Bamboo flowsheet Christophe Fadi DO Work Phone: [facility] Start: 09-08-2024 End: 09-08-2024 Bamboo flowsheet Christophe Fadi DO Work Phone: [facility] Start: 08-11-2024 [...] 08-11-2024 ambulatory VIOLA BECK Not Available Start: 08-04-2024 End: 08-04-2024 Clinisync Result Encounter Christophe Fadi DO Work Phone: [facility] Unsolicited Start: 08-04-2024 End: 08-04-2024 Clinisync Result Encounter Christophe Fadi DO Work Phone: [facility] Unsolicited Start: 07-30-2024 End: 07-30-2024 Clinisync Result Encounter Christophe Fadi DO Work Phone: [facility] Unsolicited Start: 07-30-2024 End: 07-30-2024 Clinisync Result Encounter Christophe Fadi DO Work Phone: [facility] Unsolicited Start: 07-28-2024 End: 07-28-2024 Clinisync Result Encounter Christophe Fadi DO Work Phone: [facility] Unsolicited Start: 07-28-2024 End: 07-28-2024 Clinisync Result Encounter Christophe Mireles DO Work Phone: [facility] Unsolicited Start: 03-18-2024 End: 03-18-2024 ambulatory PAT ROCHE Not Available Start: 01-31-2024 End: 01-31-2024 ambulatory Pat Roche Facility:[facility] Start: 01-31-2024 End: 01-31-2024 Patient encounter procedure Pat Roche [facility] Start: 01-07-2024 End: 01-07-2024 ambulatory [facility] Facility:[facility] [place] Start: 12-20-2023 End: 12-20-2023 ambulatory [facility] Facility: [facility] [place] Start: 12-10-2023 End: 12-10-2023 ambulatory [facility] Facility:[facility] [place] Start: 12-05-2023 Office outpatient visit 15 minutes Erlinda Archer [facility] Start: 12-05-2023 End: 12-05-2023 ambulatory Erlinda Archer Facility:[facility] Start: 12-05-2023 End: 12-05-2023 ambulatory PUMPER GAGER APPRENTICE-C Erlinda Archer Work Phone: [facility] Work Phone: Start: 12-05-2023 End: 12-05-2023 Patient encounter procedure PUMPER GAGER APPRENTICE-C Erlinda Suzi Work Phone: [facility] Work Phone: Start: 01-08-2023 End: 01-08-[address] FLORINA [...] 06-23-2022 End: 06-23-2022 ambulatory Cortney Chapman Other [place] [employer] Other Start: 06-23-2022 Office outpatient ne w 30 minutes Cortney Chapman [facility] Start: 05-22-2022 End: 05-23-[address] CHRISTOPHE MIRELES . Facility: Start: 05-11-2022 End: 05-12-[address] CHRISTOPHE MIRELES . Facility:[facility] Start: 05-09-2022 End: 05-10-[address] CHRISTOPHE MIRELES . Facility: Procedures Date Procedure Procedure Detail Performing Clinician Start: 02-01-2025 [facility] QU[facility] HCG Core y Fadi DO Work Phone: Start: 01-30-2025 [facility] PREG QUANT HCG Core y Fadi DO Work Phone: Start: 09-08-2024 Urine test visual color cmprsn meths Christophe Fadi DO Work Phone: Start: 10-07-2024 ALL CBC WITH AUTO DIFF Viola HAIDER Work Phone: Start: 08-04-2024 [facility] PREG QUANT HCG Core y Fadi DO Work Phone: Start: 07-30-2024 [facility] PREG QUANT HCG Core y Fadi DO Work Phone: Start: 07-28-2024 [facility] PREG QUANT HCG Core y Fadi DO Work Phone: Start: 12-05-2023 Radiologic examinati on of knee YAW Archer Work Phone: Start: 10-30-2023 Cytp cerv/vag auto t hin layer prep mnl screen Christophe Mireles DO Work Phone: Start: 01-02-2023 Extraction of Produc ts of Conception, Low Cervical, Open Approach DR CHRISTOPHE MIRELES . Start: 01-02-2023 section Dolores reveles Roche Plan of Treatment Date Care Activity Detail Author Start: 03-05-2025 End: 03-05-2025 ambulatory 03/05/2025 2:30 PM EDT Initial [facility] [address] [place] [address] [facility] Start: 03-05-2025 End: 03-05-2025 Professional / ancillary services management 03/05/2025 2:00 PM EDT Ancillary Procedure [facility] [address] [place] [address] [facility] Start: 02-10-2025 End: 02-10-2025 Patient encounter procedure 02/10/2025 11:30 AM EDT Routine [facility] [address] [place] [address] Kell Christianson, PUMPER GAGER APPRENTICE [address] [place] [id number] Arrived [facility] Comment on above: Arrived Start: 09-08-2024 End: 09-08-2024 Patient encounter procedure [facility] Comment on above: Arrived Start: 08-11-2024 End: 08-11-2025 US for US PELVIS-TRANSVAG IF INDICATED Imaging Routine Amenorrhea Expected: 08/11/2024 (Approximate), Expires: 08/11/2025 [facility] Comment on above: Expected: 08/11/2024 (Approximate), Expires: 08/11/2025 Start: 08-11-2024 End: 08-11-2024 Patient encounter procedure 08/11/2024 8:30 AM EDT Office Visit [facility] [address] [place] [id number] Viola Beck PA [address] [place] [address] Arrived [facility] Comment on above: Arrived CBC W Auto Different ial panel - Blood CBC and differential Lab Routine Amenorrhea Ordered: 08/11/2024 [facility] Comment on above: Ordered: 08/11/2024 hCG, quantitative, hCG, quantitative, Lab Routine Amenorrhea Ordered: 08/11/2024 [facility] Comment on above: Ordered: 08/11/2024 Hemoglobin A1c/Hemoglobin.total in Blood Hemoglobin A1c Lab Routine Amenorrhea Ordered: 08/11/2024 [facility] Comment on above: Ordered: 08/11/2024 Prolactin Prolactin Lab Ro utine Amenorrhea Ordered: 08/11/2024 [facility] Comment on above: Ordered: 08/11/2024 Thyrotropin [Units/volume] in Serum or Plasma TSH Lab Routine Amenorrhea Ordered: 08/11/2024 [facility] Work Phone: Comment on above: Ordered: 08/11/2024 Immunizations Immunization Date Immunization Notes Care Provider Fa cility NEGATED: Highlighted row has not occurred!12-10-2023 influenza virus vaccine, unspecified formulation Pat Roche [facility] NEGATED: Highlighted row has not occurred!02-08-2023 influenza virus vaccine, unspecified formulation Pat Roche [facility] NEGATED: Highlighted row has not occurred!02-08-2023 SARS-CoV-2 mRNA (tozinamerachase 5y-11y) vaccine Pat Roche [facility] Payers Date Payer Category Payer Blue Cross Blue Shield [id number] [id number] 2024 Unknown [id number] 2024 Unknown [id number] 2023 Private Health Insurance [employer] [id number] .[id number] 5 2023 Unknown [id number]. 1.13.693 .2.7.3.548065.315 1996 Unknown [id number] 2.16.840.1.393121.3.579 .2.593 1996 Unknown [id number] 2.16.840.1.177025.3.579 .2.593 1996 Unknown [id number] 2.16.840.1.250951.3.579 .2.593 1996 Unknown [id number] 2.16.840.1.463848.3.579 .2.593 1996 Unknown [id number] 2.16.840.1.928820.3.579 .2.593 1996 Unknown [id number] 2.16.840.1.817732.3.579 .2.593 1996 Unknown [id number] 2.16.840.1.871447.3.579 .2.593 1996 Unknown [id number] 2.16.840.1.716590.3.579 .2.593 1996 Unknown [id number] 2.16.840.1.292391.3.579 .2.593 1996 Unknown [id number] 2.16.840.1.002463.3.579 .2.593 1996 Unknown [id number] 2.16.840.1.069337.3.579 .2.593 1996 Unknown [id number] 2.16.840.1.593472.3.579 .2.593 1996 Unknown [id number] 2.16.840.1.415037.3.579 .2.593 1996 Unknown [id number] 2.16.840.1.876516.3.579 .2.593 1996 Unknown [id number] 2.16.840.1.991709.3.579 .2.593 1996 Unknown [id number] 2.16.840.1.772215.3.579 .2.593 1996 Unknown [id number] 2.16.840.1.551660.3.579 .2.593 1996 Unknown [id number] 2.16.840.1.616937.3.579 .2.727 1996 Unknown [id number] 2.16.840.1.435151.3.579 .2.727 1996 Unknown [id number] 2.16.840.1.252318.3.579 .2.727 1996 Unknown [id number] 2.16.840.1.796050.3.579 .2.727 1996 Unknown [id number] 2.16.840.1.541192.3.579 .2.727 1996 Unknown [id number] 2.16.840.1.538596.3.579 .2.727 1996 Unknown [id number] 2.16.840.1.434629.3.579 .2.1259 1996 Unknown [id number] 2.16.840.1.480374.3.579 .2.1259 1996 Unknown [id number] 2.16.840.1.432625.3.579 .2.1259 1996 Unknown [id number] 2.16.840.1.220103.3.579 .2.1259 1958 [facility] CHRISTIANA [id number] 2.16.840.1.730144.19 1959 Self-pay 1959 Unknown [id number] 2.16.840.1.324515.19 1959 Unknown [id number] Unknown [id number] 2.16.840.1.868081.3.579 .2.593 Unknown [id number] 2.16.840.1.779839.3.579 .2.531 Worker's Compensation [facility] Ind [id number] Social History Date Type Detail Facility Start: 03-18-2024 Sex Assigned At F [facility] Start: 1995 Sex Assigned At Female F [facility] Start: 10-11-2023 End: 12-20-2023 Tobacco smoking status Never smoked tobacco (finding) [facility] Tobacco smoking status Never [facility] Start: 10-11-2023 Tobacco use and exposure Smokeless tobacco non-user [facility] Start: 03-18-2024 End: 09-08-2024 Alcoholic beverage intake Lifetime non-drinker (finding) [facility] Start: 03-18-2024 History of Social function [facility] Start: 1995 Sex assigned at Not on file N [facility] Clinical Notes 06-23-2022 to 10-15-2024 Brenda Quiles - 09/08/2024 3:40 PM MELIZA Wetzel - 08/11/2024 8:30 AM EDT Note Date [...] these instructions at home: Medicines ??? 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 ??? Do not touch your eyes, nose, [...] provider. Document Revised: 01/18/2022 Document Reviewed: 01/18/2022 [employer] Patient Education ? 2023 [employer]. Viral Respiratory Infection A viral respiratory infection [...] is caused by (more content not included)... [facility] 09-08-2024 History of Present illness Narrative Reason for Appointment: Patient ID: Elida Grover is a 29 y.o. female who presents for Menstrual Problem Patient presents today for menstrual problems. MEDICATIONS No current outpatient medications ALLERGIES No [...] SYSTEMS Review of Systems: Review of Systems All other systems reviewed and are negative. OBJECTIVE Objective: Physical Exam Constitutional: Appearance: Normal appearance. She is well-developed. Cardiovascular: Rate and Rhythm: Normal rate and regular rhythm. Pulmonary: Effort: Pulmonary effort is normal. Breath sounds: Normal breath sounds. Abdominal: General: Bowel sounds are normal. There is no distension. Palpations: Abdomen is soft. Tenderness: There is no abdominal tenderness. There is no guarding or rebound. Musculoskeletal: General: No swelling. Normal range of motion. Right lower leg: No edema. Left lower leg: No edema. Neurological: Mental Status: She is alert and oriented to person, place, and time. Skin: General: Skin is warm and dry. Psychiatric: Mood and Affect: Mood normal. Behavior: Behavior normal. Vitals and nursing note reviewed. Exam conducted with a outdoor advertising leasing agent present. Vitals: Estimated body mass index is 31.58 kg/m as calculated from the following: Height as of this encounter: 5' 4 . Weight as of this encounter: 184 lb. BP: 108/72 Patient's last menstrual period was 08/08/2024. ASSESSMENT & PLAN Patient presents today for irregular cycles & test in office was negative. Patient to start Femara with next cycle. Patient given direct extension to Lead Manufacturing Engineering Tech to call when cycle starts to be given instructions. Patient to follow up in 4 months if not conceived at that time. Documented by Tressa Ray LPN on behalf of: Christophe Mireles DO documented in this encounter [facility] 08-11-2024 History of Present illness Narrative Reason [...] has appointment scheduled next month with DR iMreles Documented by MELIZA Amador on behalf of: MELIZA Amador documented in this encounter [facility] 12-05-2023 Evaluation note Encounter Date [...] no improvement in 5 to 7 days [employer] Other 02-28-2023 NoteDISCHARGE SUMMARY NOTE DATE: 01/12/2023 [...] pain free and no longer on narcotics.[facility] [id number] NoteOPERATIVE NOTE OPERATION DATE: 01/02/2023 PROCEDURE: Primary low transverse section. PREOPERATIVE DIAGNOSIS: 1. Intrauterine . 2. Breech presentation. 3. Decreasing movement per patient and office. POSTOPERATIVE DIAGNOSIS: 1. Intrauterine . 2. Breech presentation. 3. Decreasing movement per patient and office. ANESTHESIA: Spinal with Duramorph. SURGEON: Christophe Mireles D.O. DIRECTOR SAFETY: EFRAÍN Verdugo URINE OUTPUT: Yellow and clear. [...] TO PREOPERATIVE DIAGNOSIS: Risk of cord prolapse.[facility] 06-23-2022 Evaluation note* Encounter Date Diagnosis [...] COVID POSITIVE education handout discharge instructions. given. [employer] Other Evaluation + Plan note No data available for this section [facility] information available [facility] Work Phone: Evaluation note* Diagnosis Amenorrhea Absence of menstruation documented [facility] Diagnosis Irregular menses Irregular menstrual cycle Amenorrhea Absence of menstruation documented in this encounter [facility] Narrative - Reported* Type Description Date Surgical History wisdom teeth Hospitalization History see above [employer] Other Hospital Discharge instructions No data available for this section [facility] No data available for this section [facility] Summary Purpose Family History No [...] and content) DATE CREATED AUTHOR 01/15/2023 [facility] DATE CREATED AUTHOR AUTHOR'S ORGANIZ ATION 02/06/2024 [facility] DATE CREATED AUTHOR AUTHOR'S ORGANIZ ATION 12/03/2024 [facility] DATE CREATED AUTHOR AUTHOR'S ORGANIZ ATION 02/11/2025 [facility] [employer] Care Teams (unrecognized sec tion and content) Team Status: Inactive Member Role Status Dates Erlinda Archer NP-C Attending Provider Active S tart: December 05, 2023 End: December 05, 2023 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 [facility] [employer] [facility]. provides no warranty or guarantee of the accuracy or completeness of information in this document.
--- NOTE | 2025-02-20 06:46 | US_ITS ---
The [address] [address] Patient Name: ELIDA ONEAL MRN: [id number] date: 1995 Sex: F Assigned Patient Location: US Current Patient Location: Accession/Order Number: [id number] Exam Date: 02/20/2025 07:56 Report Date: 02/20/2025 07:58 At the request of: CHRISTOPHE STEPHENS DO Procedure: US right upper quadrant LIMITED RIGHT UPPER QUADRANT ABDOMINAL ULTRASOUND CLINICAL HISTORY: patient with right upper quadrant pain, cramping and nausea COMPARISON: None The gallbladder is physiologically distended. There are small echogenic shadowing gallstones measuring up to 9 mm in size. No wall thickening or pericholecystic fluid is seen. No intra- or extrahepatic biliary dilatation is evident. The common duct measures 2 - 3 mm. The liver is normal in echogenicity. No intrahepatic masses are seen. There is appropriate hepatopetal flow within the main portal vein. The pancreas shows no significant sonographic abnormality. Cursory evaluation of the right kidney reveals no hydronephrosis or fluid within Mcbride's pouch. US/US right upper quadrant IMPRESSION: CHOLELITHIASIS. NO OTHER ACUTE FINDINGS. Impression dictated by: Amy Molina M.D.02/20/2025 7:58 AM Dictation Location: [place] [address] Electronically authenticated by: [id number] Y Date: 02/20/2025 07:58
== END 2025-02-20 06:43 | disposition home or self-care (01) ==
LOC: US 06:42
PROVIDERS: PCP Nurse Practitioner; Visit Provider Obstetrics & Gynecology
DX: R10.9 Unspecified abdominal pain (principal); R11.0 Nausea; K80.20 Calculus of gallbladder without cholecystitis without obstruction
CPT/HCPCS: 76705

== ENCOUNTER 2025-03-13 06:07 | Day surgery (SDC) | payer OTHER, BC, SELFPAY ==
[2025-03-13 06:20] VITALS: BP 102/57; PULSE 72; TEMP 36.2; O2SAT 98; BMI 32.5
[2025-03-13 06:21] LABS: Basophils Percent Auto 0.5 % (0.2-2.0); Eosinophils Absolute Auto 0.1 10^3/uL (0.0-0.7); Eosinophils Percent Auto 2.3 % (0.9-7.0); Hematocrit 39.2 % (36.0-48.0); Hemoglobin 13.4 g/dL (12.0-16.0); Immature Granulocytes Abs Auto 0.01 10^3/uL (0.00-0.03); Immature Granulocytes Pct Auto 0.2 % (0.0-0.5); Lymphocytes Absolute Auto 2.4 10^3/uL (1.2-3.8); Lymphocytes Percent Auto 43.3 % (20.5-60.0); Mean Corpuscular HGB Conc 34.2 g/dL (29.9-35.2); Mean Corpuscular Hemoglobin 30.1 pg (26.7-34.0); Mean Corpuscular Volume 88.1 fL (81.0-99.0); Mean Platelet Volume 8.5 fL (9.5-13.5); Monocytes Absolute Auto 0.4 10^3/uL (0.3-0.8); Neutrophils Absolute Auto 2.6 10^3/uL (1.4-6.5); Neutrophils Percent Auto 46.7 % (43.0-75.0); Platelet Count 208 10^3/uL (150-450); Red Blood Count 4.45 10^6/uL (4.20-5.40); Red Cell Distribution Width 11.9 % (11.0-15.0); White Blood Count 5.6 10^3/uL (4.0-11.0)
[2025-03-13] MEDS: LACTATED RINGER'S SOLUTION 1,000 ML 50 ML IV ×4 (06:46→09:05)
[2025-03-13 07:02] LABS: HCG Quantitative 5584 mIU/mL
--- NOTE | 2025-03-13 08:17 | P.ON_ITS ---
Brief Operative Note Date of procedure: 03/13/25 Pre-op diagnosis general: missed Post-op diagnosis: same as pre-op Procedure: NAME OF PROCEDURE: [D&C suction ] PROCEDURE: The patient was taken back to the OR where she was given general anesthesia without difficulty. She was then placed in dorsal lithotomy position, prepped and draped in the normal sterile fashion. A weighted speculum was placed in the patient's vagina and the anterior lip of the cervix was identified and grasped with a single-tooth tenaculum. The patient was then gently dilated using Hegar dilators after we had sounded roughly to 9 cm. The suction curette was then tested. The suction curette was then placed in the patient's uterus and products of conception were removed using an 10-Pakistani suction curette. ?Excellent hemostasis was noted. The patient tolerated the procedure well. Sponge, lap, and needle counts were correct x 2. All instruments were then removed from the patient's vagina. The patient was taken to the Recovery Room in stable condition . ?? Anesthesia: MAC Surgeon: Nnamdi Aponte Estimated blood loss (mL): 5 Pathology: other (poc) Condition: stable Disposition: PACU Urinary Catheter Management Urinary Catheter Management Urethral: Cath placed during this visit: no
[2025-03-13 08:21] VITALS: BP 98/62; PULSE 98; TEMP 36.4; O2SAT 94
[2025-03-13 08:36] VITALS: BP 103/62; PULSE 75; O2SAT 96
[2025-03-13 08:51] VITALS: BP 97/44; PULSE 70; O2SAT 100
[2025-03-13] MEDS: KETOROLAC TROMETHAMINE 30 MG/ML VIAL IVP (09:01)
[2025-03-13 09:06] VITALS: BP 105/64; PULSE 67; O2SAT 100
[2025-03-13] MEDS: RHO(D) IMMUNE GLOBULIN 1,500 UNIT SYRINGE 1500 UNIT IM (09:10)
== END 2025-03-13 09:20 | disposition home or self-care (01) ==
PROVIDERS: PCP Nurse Practitioner; Visit Provider Obstetrics & Gynecology
PROC: (CPT 01965; principal; 2025-03-13 07:30)
DX: O02.1 Missed abortion (principal)
CPT/HCPCS: 01965; 59820; 36415; 84702; 85025; 86900; 86901; J1100; J1885; J2250; J2405; J2590; J2704; J2791; J3010

== ENCOUNTER 2025-03-28 08:06 | Outpatient (RCR) | payer BC, OTHER, SELFPAY ==
[2025-03-28 09:31] LABS: HCG Quantitative 18 mIU/mL
== END 2025-04-06 10:53 | disposition home or self-care (01) ==
LOC: LAB 08:06
PROVIDERS: PCP Nurse Practitioner; Visit Provider Obstetrics & Gynecology
DX: O03.9 Complete or unspecified spontaneous abortion without complication (principal)
CPT/HCPCS: 36415; 84702

== ENCOUNTER 2025-04-09 15:17 | Outpatient (OUT) | payer OTHER, BC, SELFPAY ==
--- OUTSIDE RECORDS SUMMARY | 2025-03-31 09:30 | XMS_ITS | Encounter Summary ---
Author Organization [facility] Address [id number] [address] [place] [address] Care Team Providers Care Chief Executive Or Managing Director Name Role Phone Nadira Ramirez APRN-GEAR LAPPING MACHINE OPERATOR Primary Care Provider [phone] Reason for Referral * Misc (Routine) - Pending Review Specialty Diagnoses / Procedures Referred By Contac t Referred To Contact Diagnoses Biliary colic Procedures Unlisted Procedure / Surgery Jean-Paul Crouch MD [address] [place] [address] Phone: tel: fax: Referral ID Status Reason Start Date Expiration Date V isits Requested Visits Authorized [id number] Pending Review 03/31/2025 03/31/2026 1 1 Reason for Visit * Reason Comments Cholelithiasis GALLBLADDER, REF BY CONRAD CALDERÓN LPN Encounter Details Date Type Department Care Team (Late st Contact Info) Description 03/31/2025 9:30 AM EDT Office Visit [facility] [address] [place] [address] Jean-Paul Crouch MD [address] [place] [address] Biliary colic (Primary Dx) Social History Tobacco Use Types Packs/Day Years Used Date Smoking Tobacco: Never Smokeless Tobacco: Never Tobacco Cessation:Counseling Given: Not Answered Alcohol Use Standard Drinks/Week Comments Never 0 (1 standard drink = 0.6 oz pur e alcohol) Comments Unknown Sex and Gender Information Value Date Recorded Sex Assigned at Not on file Legal Sex Female 11:14 AM EDT Gender Identity Not on file Sexual Orientation Not on file documented as of this encounter Last Filed Vital Signs Vital Sign Reading Time Taken Comments Blood Pressure - - Pulse - - Temperature - - Respiratory Rate - - Oxygen Saturation - - Inhaled Oxygen Concentration - - Weight 86.6 kg (191 lb) 03/31/2025 9:15 AM EDT Height 165.1 cm (5' 5 ) 03/31/2025 9:15 AM EDT Body Mass Index 31.78 03/31/2025 9:15 AM EDT documented in this encounter Progress Notes * Jean-Paul Crouch MD - 03/31/2025 9:30 AM EDT Images from the original note were not included. Chief Complaint: Right upper quadrant pain History of Present Illness: Rylee Grover is a 29 y.o. female who presents to the office with right upper quadrant pain. She notes episodic right upper quadrant pain that started in February. The pain is localized to the right upperquadrant. It was associated with nausea and vomiting. It occurs when she eats greasy or fatty food.Yesterday she had a flare-up that lasted for most of the night until this morning. Gallbladder ultrasound was performed at [place], this showed cholelithiasis without any evidence of acute cholecystitis. She was a nonsmoker. Past surgical history includes . She works at [employer] Reports recent miscarriage. HPI Review of Systems Constitutional: Negative for fever and chills. Respiratory: Negative for shortness of breath. Cardiovascular: Negative for chest pain and palpitations. Gastrointestinal: Positive for nausea, vomiting and abdominal pain. Genitourinary: Negative for dysuria and difficulty urinating. Skin: Negative for rash and wound. Allergic/Immunologic: Negative for immunocompromised state. Neurological: Negative for weakness and light-headedness. Hematological: Does not bruise/bleed easily. Psychiatric/Behavioral: Negative for behavioral problems and confusion. History reviewed. No pertinent past medical history. Past Surgical History: Procedure Laterality Date DILATION AND CURETTAGE OF UTERUS 03/13/2025 at [facility] No Known Allergies Current Outpatient Medications: pediatric multivitamin (FRUITY CHEWS) tablet,chewable, Chew 1 tablet and swallow in the morning., Disp: , Rfl: Social History Socioeconomic History Marital status: Spouse name: Not on file Number of children: Not on file Years of education: Not on file Highest education level: Not on file Occupational History Not on file Tobacco Use Smoking status: Never Smokeless tobacco: Never Vaping Use Vaping status: Never Used Substance and Sexual Activity Alcohol use: Never Drug use: Never Sexual activity: Defer Other Topics Concern Not on file Social History Narrative Not on file Social Drivers of Health Financial Resource Strain: Not on file Food Insecurity: Not on file Transportation Needs: Not on file Physical Activity: Not on file Stress: Not on file Social Connections: Not on file Interpersonal Safety: Not on file Housing Instability: Not on file History reviewed. No pertinent family history. Physical Exam Vitals reviewed. Constitutional: Appearance: Normal appearance. HENT: Head: Normocephalic and atraumatic. Eyes: Pupils: Pupils are equal, round, and reactive to light. Cardiovascular: Rate and Rhythm: Normal rate. Pulmonary: Effort: Pulmonary effort is normal. Abdominal: General: There is no distension. Palpations: Abdomen is soft. Tenderness: There is no abdominal tenderness. Musculoskeletal: General: No swelling. Skin: General: Skin is warm and dry. Neurological: Mental Status: She is alert and oriented to person, place, and time. Mental status is at baseline. Psychiatric: Mood and Affect: Mood normal. Behavior: Behavior normal. Vital Signs: Height 165.1 cm (5' 5 ), weight 86.6 kg (191 lb). Respiratory Source: No data recorded Admission Weight: Weight: 86.6 kg (191 lb) Labs: No results found for: WBC , HGB , HCT , MCV , PLT No results found for: GLU , CALCIUM , NA , K , CO2 , CL , BUN , CREATININE No results found for: AMYLASE No results found for: LIPASE No results found for: ALT , AST , GGT , ALKPHOS , LABBILI No results found for: INR , PROTIME Imaging: Ultrasound gallbladder at [place] positive for cholelithiasis. Report reviewed as below The gallbladder is physiologically distended. There are small echogenic shadowing gallstones measuring up to 9 mm in size. No wall thickening or pericholecystic fluid is seen. No intra- or extrahepatic biliary dilatation is evident. The common duct measures 2 - 3 mm. The liver is normal in echogenicity. No intrahepatic masses are seen. There is appropriate hepatopetal flow within the main portal vein. The pancreas shows no significant sonographic abnormality. Cursory evaluation of the right kidney reveals no hydronephrosis or fluid within Mcbride's pouch. Assessment: Rylee Grover is a 29 y.o.female with biliary colic Biliary colic [K80.50] Plan: Schedule for robotic cholecystectomy Evaluation included: Preparing to see the patient (e.g., review of tests) Obtaining and/or reviewing separately obtained history Performing a medically appropriate examination and/or evaluation Counseling and educating the patient/family/caregiver Referring and communicating with other health nursing care partner Jean-Paul Crouch MD [facility] General Surgery [place] documented in this encounter Plan of Treatment Upcoming Encounters Date Type Department Care Team (Late st Contact Info) Description 04/27/2025 8:00 AM EDT Hospital Encounter [facility] Surgery [address] [place] [address] Jean-Paul Crouch MD [address] [place] [phone] 04/27/2025 8:00 AM EDT Anesthesia Event [facility] Surgery [address] [place] [address] Ryan Sorenson, DO [address] [place] [address] 04/27/2025 8:00 AM EDT - 04/27/2025 9:30 AM EDT Surgery [facility] Surgery [address] [place] [address] Jean-Paul Crouch MD [address] [phone] DAVINCI CHOLECYSTECTOMY [23849 (CPT ) +1 more] 05/04/2025 10:30 AM EDT Office Visit [facility] [address] [place] [phone] Brenda Rose, MOTOR VEHICLE DISPATCHER-GEAR LAPPING MACHINE OPERATOR [address] [place], [place] [phone] Scheduled Orders Name Type Priority Associated Diagnoses Orde r Schedule Unlisted Procedure / Surgery Procedures Routine Biliary colic 1 Occurrences starting 03/31/2025 until 03/31/2026 Scheduled Procedures Name Priority Associated Diagnoses Date/Ti me DAVINCI CHOLECYSTECTOMY Biliary dyskinesia 04/27/2025 8:00 AM EDT documented as of this encounter Results * Liver panel (03/31/2025 10:58 AM EDT) TOTAL PROTEIN 7.3 6.0 - 8.0 g/dL 03/31/2025 7:18 PM EDT [facility] ALBUMIN 4.4 3.2 - 5.3 g/dL 03/31/2025 7:18 PM EDT [facility] BILIRUBIN,TOTAL 0.3 0.3 - 1.2 mg/dL 03/31/2025 7:18 PM EDT [facility] ALKALINE PHOSPHATASE 49 39 - 130 U/L 03/31/2025 7:18 PM EDT [facility] AST 17 <=41 U/L 03/31/2025 7:18 PM EDT [facility] ALT 12 <=31 U/L 03/31/2025 7:18 PM EDT [facility] BILIRUBIN,DIRECT <0.1 <=0.4 mg/dL 03/31/2025 7:18 PM EDT [facility] Blood Venous blood / Unknown Venipuncture / Unknown 03/31/2025 10:58 AM EDT 03/31/2025 10:58 AM EDT Jean-Paul Crouch MD LAB BLOOD ORDERABLES Final Result [facility] [address] [place] [address], * Basic Metabolic Panel (03/31/2025 10:58 AM EDT) SODIUM 139 134 - 146 mmol/L 03/31/2025 7:18 PM EDT [facility] POTASSIUM 4.2 3.5 - 5.0 mmol/L 03/31/2025 7:18 PM EDT [facility] CHLORIDE 105 98 - 109 mmol/L 03/31/2025 7:18 PM EDT [facility] CARBON DIOXIDE 27 22 - 32 mmol/L 03/31/2025 7:18 PM EDT [facility] ANION GAP 7 5 - 15 mmol/L 03/31/2025 7:18 PM EDT [facility] BLOOD UREA NITROGEN 12 5 - 23 mg/dL 03/31/2025 7:18 PM EDT [facility] CREATININE 0.66 0.40 - 1.00 mg/dL 03/31/2025 7:18 PM EDT [facility] Comment:METHOD TRACEABLE TO IDMS STANDARD GLUCOSE 87 65 - 99 mg/dL 03/31/2025 7:18 PM EDT [facility] CALCIUM 9.7 8.5 - 10.5 mg/dL 03/31/2025 7:18 PM EDT [facility] EGFR Non-Race Dependent >90 >=60 ml/min/1.7 3sq.m 03/31/2025 7:18 PM EDT [facility] Comment: Reported eGFR is based on the CKD-EPI 2020 equation that does not use a race coefficient. Blood Venous blood / Unknown Venipuncture / Unknown 03/31/2025 10:58 AM EDT 03/31/2025 10:58 AM EDT Jean-Paul Crouch MD LAB BLOOD ORDERABLES Final Result [facility] [address] [place] [address], * CBC auto differential (03/31/2025 10:58 AM EDT) WBC 6.0 4 - 11 x10E9/L 03/31/2025 1:40 PM EDT [facility] RBC Count 4.89 3.8 - 5.2 X10E12/L 03/31/2025 1:40 PM EDT [facility] Hemoglobin 14.8 11.7 - 15.5 g/dL 03/31/2025 1:40 PM EDT [facility] Hematocrit 43.1 35 - 47 % 03/31/2025 1:40 PM EDT [facility] MCV 88 80 - 100 fL 03/31/2025 1:40 PM EDT [facility] MCH 30.2 27 - 34 pg 03/31/2025 1:40 PM EDT [facility] MCHC 34.2 32 - 36 g/dL 03/31/2025 1:40 PM EDT [facility] RDW 12.4 11.5 - 15 % 03/31/2025 1:40 PM EDT [facility] Platelet Count 223 150 - 450 X10E9/L 03/31/2025 1:40 PM EDT [facility] MPV 7.9 7 - 12 fL 03/31/2025 1:40 PM EDT [facility] Neutrophils Relative 49.6 % 03/31/2025 1:40 PM EDT [facility] Lymphocytes Relative 41.9 % 03/31/2025 1:40 PM EDT [facility] Monocytes Relative 6.0 % 03/31/2025 1:40 PM EDT [facility] Eosinophils Relative 2.1 % 03/31/2025 1:40 PM EDT [facility] Basophils Relative 0.4 % 03/31/2025 1:40 PM EDT [facility] Neutrophils Absolute (A) 3.0 1.5 - 6.6 10*3/uL 03/31/2025 1:40 PM EDT [facility] Lymphocytes Absolute 2.5 1.0 - 3.5 10*3/uL 03/31/2025 1:40 PM EDT [facility] Monocytes Absolute 0.4 0.0 - 0.9 10*3/uL 03/31/2025 1:40 PM EDT [facility] Eosinophils Absolute 0.1 0.0 - 0.4 10*3/uL 03/31/2025 1:40 PM EDT [facility] Basophils Absolute 0.0 0.0 - 0.2 10*3/uL 03/31/2025 1:40 PM EDT [facility] Differential Type AUTOMATED DIFFERENTIAL 03/31/2025 1:40 PM EDT [facility] Blood Venous blood / Unknown Venipuncture / Unknown 03/31/2025 10:58 AM EDT 03/31/2025 10:58 AM EDT Jean-Paul Crouch MD LAB BLOOD ORDERABLES Final Result [facility] [address] [facility] [address] [place] [address], documented in this encounter Visit Diagnoses Diagnosis Biliary colic- Primary Calculus of gallbladder without mention of cholecystitis or obstruction documented in this encounter Care Teams Chief Executive Or Managing Director Relationship Specialty Start Date End Date Nadira Ramirez, MOTOR VEHICLE DISPATCHER-GEAR LAPPING MACHINE OPERATOR [address] [place] [address] [place] [address] PCP - General Nurse Practitioner 03/31/25 documented as of this encounter
--- OUTSIDE RECORDS SUMMARY | 2025-04-06 15:00 | XMS_ITS | Encounter Summary ---
Author Organization [facility] [facility] tem Address [id number] [address] [place] [address] Care Team Providers Care Manager Clinical Pharmacy Name Role Phone JamesTessieStanley SANDERSON-POLISHING MACHINE TENDER Primary Care Provider [phone] Encounter Details Date Type Department Care Team (Late st Contact Info) Description 04/06/2025 3:00 PM EDT Procedure visit [facility] - Pre Admit [address] [place] [phone] Social History Tobacco Use Types Packs/Day Years Used Date Smoking Tobacco: Never Smokeless Tobacco: Never Alcohol Use Standard Drinks/Week Comments Never 0 (1 standard drink = 0.6 oz pur e alcohol) Comments No Sex and Gender Information Value Date Recorded [...] - Inhaled Oxygen Concentration - - Weight 87.5 kg (193 lb) 04/06/2025 11:04 AM EDT Height 165.1 cm (5' 5 ) 04/06/2025 11:04 AM EDT Body Mass Index 32.12 04/06/2025 11:04 AM EDT documented in this encounter Miscellaneous Notes * Perioperative Nursing Note - Kamryn Guadarrama RN - 04/06/2025 3:00 PM EDT Preoperative Education Checklist- General Surgery date: 04/20/25 Surgery time: 0800 a.m. Arrival time: 0610 a.m. 1. Bring a photo ID and your insurance card with you the day of surgery. You will check in at the main lobby of the [facility]- registration desk is straight ahead as soon as you walk in. Tell them you are here for surgery. 2. If you have a Living Will/Durable Power of Shape Brick Molder for Health Care that is not on file here, please bring a copy the day of surgery. 3. Please shower/bathe the night before surgery with the provided soap or wipes. Do not shower the morning of surgery- you will do use wipes when you arrive here at the hospital before getting into your surgical gown. Do not shave the area of your procedure for 2 days prior to your surgery. 4. NO powder, lotion, perfume/cologne, aftershave, make-up, deodorant, or hair products after you have bathed. 5. NO nail micronesian/acrylic on at least one finger. If you are having a hand, wrist or foot surgery then all nail micronesian and artificial/acrylic nails must be removed from that hand or foot. 6. Avoid ALL Aspirin and non-steroidal anti-inflammatory drugs and certain vitamins (Ibuprofen, Advil, Aleve, Excedrin, Meloxicam, Celebrex, fish/krill oil, etc.) for 7 days prior to surgery as instructed by your surgeon and/or your prescribing doctor. Tylenol IS ALLOWED. If you are on Ticlid, Xarelto, Eliquis, Pradaxa, Plavix or Coumadin, please check with your prescribing doctor for instructions for when to stop them. 7. If you use an inhaler, continue to use it routinely. 8. Nothing to eat or drink (not even water, gum, mints, or hard candy!) AFTER midnight prior to your surgery. 9. Take only medications that you are instructed to on the morning of surgery with a TINY SIP OF WATER. 10. Choose a responsible adult that will be able to drive you home when you are discharged from your hospital stay for your surgery and can stay with you in your home for 24 hours after your procedure. You must NOT drive any vehicle or operate any machinery for 24 hours after surgery. 11. When you dress for your appointment, please wear loose fitting clothing that is appropriate to accommodate your surgical area procedure. BRING WITH YOU ANY DEVICES YOU MAY NEED: VANCE hose, ice machine, sling/swath, brace or special shoe, oversized zip-up or button up shirt, CPAP machine if staying overnight. 12. Do NOT wear jewelry, watches, or any piercings or metal for surgery- leave these valuables and money at home. 13. Do NOT wear contact lenses for surgery- glasses are okay if needed. 14. The anesthesiologist will talk with you the day of surgery and will ask you to sign a Consent Form. 15. Refrain from smoking or any type of tobacco use for at least 8 hours and marijuana for 24 hoursprior to arrival for your surgery. 16. Notify your surgeon if you develop any illness before your surgery. 17. If you are staying overnight, please DO NOT BRING your home medications with you. 18. If you have any questions prior to surgery, please call the Preadmission Testing office at [phone], Mon.-Fri. 7 a.m.-3 p.m. Leave a voicemail if needed. Pre-Surgery Instructions: Medication Instructions pediatric multivitamin (FRUITY CHEWS) tablet,chewable Stop taking 0 days prior to procedure How to Avoid an Infection after Your Surgery Your doctor will give you specific instructions, but remember: -ALWAYS wash hands before caring for your incision. -No picking, scratching, or rubbing your incision. -No creams, lotion, powder, rubbing alcohol or hydrogen peroxide on the incision (can harm the tissue and slow healing). -Your doctor will give you specific instructions for what type of dressing you will need and how often it will need changed for infection purposes. -No tight clothing on incision. -Do not allow anyone to touch your incision unless they are cleaning, checking, or redressing it (be sure they wash their hands first). -No contact of your incision with pets; avoid sleeping with pets. -Take full course of antibiotic if prescribed for you after surgery- do not stop unless directed pia your physician. You may also be given an antibiotic prior to your surgery to help prevent surgical site infections. -Eat a healthy and varied diet including proteins, fruits, and vegetables to help promote wound healing and keep blood sugars under control if you are diabetic. -Smoking slows the healing process by decreasing the amount of oxygen in your blood that is needed for tissue healing. Try to avoid or stop smoking if possible. LOOK at your incision each morning and each night to check the progress of healing. Some soreness, numbness, itching and/or mild bruising around the incision is normal. Call your doctor if you noticeany of the following: -Increased redness or hardening around the incision area. -Increased pain at the incision site. -Incision feels hot to the touch. -Swelling or pulling apart of the incision edges. -Yellow or green drainage or foul odor coming from the incision. -Bleeding from the incision (apply pressure as needed). -Fever higher than 101 degrees Fahrenheit for more than 4 hours. SHOWERING: Your doctor will give you specific instructions, but remember: -Be careful getting into and out of the shower. -Showers should be quick (5 minutes or less). -Use a clean washcloth to gently wash your incision with soap and water and pat the area dry with aclean towel. -No re-using wash cloths or towels; get a fresh one to clean your incision. -Do not soak in the bathtub, go swimming or use a hot tub (Jacuzzi), or perform activities where your incision is submerged in water or exposed to any fluids or substances until instructed by your doctor. -If your have the sticky strips (steri-strips) over the incision, it is OK to shower with them. Do not remove them. Let them fall off on their own. If you have a question, call your doctor???s office. Go to the follow-up appointment with your doctor. documented in this encounter Plan of Treatment Upcoming Encounters Date Type Department Care Team (Late st Contact Info) Description 04/27/2025 8:00 AM EDT Hospital Encounter [facility] - Surgery [address] [place] [address] Jean-Paul Crouch MD [address] [place] [address] 04/27/2025 8:00 AM EDT Anesthesia Event [facility] - Surgery [address] [place] [address] Ryan Sorenson, DO [address] [place] [address] 04/27/2025 8:00 AM EDT - 04/27/2025 9:30 AM EDT Surgery [facility] Surgery [address] [facility] [place] [address] Jean-Paul Crouch MD [address] [place] [address] DAVINCI CHOLECYSTECTOMY [30065 (CPT ) +1 more] 05/04/2025 10:30 AM EDT Office Visit [facility] General Surgery [address] [place] [phone] Brenda Rose MEDICAL ANTHROPOLOGIST-POLISHING MACHINE TENDER [address] [place], [place] [id number] Scheduled Procedures Name Priority Associated Diagnoses Date/Ti me DAVINCI CHOLECYSTECTOMY Biliary dyskinesia 04/27/2025 8:00 AM EDT documented as of this encounter Visit Diagnoses Not on filedocumented in this encounter Care Teams Manager Clinical Pharmacy Relationship Specialty Start Date End Date Nadira Ramirez, MEDICAL ANTHROPOLOGIST-POLISHING MACHINE TENDER [address] [place] [address] [place] [address] PCP - General Nurse Practitioner 03/31/25 documented as of this encounter
--- OUTSIDE RECORDS SUMMARY | 2025-04-09 15:25 | XMS_ITS | Encounter Summary ---
Author Organization [facility] Address [address] [place] [address] Care Team Providers Care Site Manager Name Role Phone Kaiser Anderson MD Primary Care Provider [phone] Encounter Details Date Type Department Care Team (Late st Contact Info) Description 03/12/2025 Abstract [facility] [address] [place] [address] [place] [address] Tressa Ray LPN Social History Tobacco Use Types Packs/Day Years Used Date Smoking Tobacco: Never Smokeless Tobacco: Never Alcohol Use Standard Drinks/Week Comments Never 0 (1 standard drink = 0.6 oz pur e alcohol) Comments Yes Sex and Gender Information Value Date Recorded Sex Assigned at Not on file Legal Sex Female 11:47 PM EDT Gender Identity Not on file Sexual Orientation Not on file documented as of this encounter Plan of Treatment Not on file documented as of this encounter Visit Diagnoses Not on filedocumented in this encounter Care Teams Site Manager Relationship Specialty Start Date End Date Kaiser Anderson MD [address] [place] [address] PCP - General Family Medicine 03/05/25 documented as of this encounter
--- OUTSIDE RECORDS SUMMARY | 2025-04-09 15:25 | XMS_ITS | Encounter Summary ---
Author Organization [employer] s tem Address [id number] [address] [place] [address] Care Team Providers Care Shredder Operator Name Role Phone Nadira Ramirez Terrence GIRARDN-WET MACHINE OPERATOR Primary Care Provider [phone] Encounter Details Date Type Department Care Team (Late st Contact Info) Description 04/01/2025 Telephone [facility] [address] [place] [address] Erin Prieto CMA Social History Tobacco Use Types Packs/Day Years [...] on file documented as of this encounter Miscellaneous Notes * Telephone Encounter - Erin Prieto CMA - 04/01/2025 2:39 PM EDT ----- Message from Jean-Paul Crouch MD sent at 03/31/2025 8:20 PM EDT ----- Regarding: Please let patient know that labs were normal. Thank you ----- Message ----- From: Marylu, Background User Sent: 03/31/2025 1:40 PM EDT To: Jean-Paul Crouch MD * Telephone Encounter - Erin Prieto CMA - 04/01/2025 2:39 PM EDT Spoke with patient regarding lab results. Patient verbally understood with no further questions. documented in this encounter Plan of Treatment Upcoming Encounters Date Type Department Care Team (Late st Contact Info) Description 04/27/2025 8:00 AM EDT Hospital Encounter [facility] Surgery [address] [place] [address] Jean-Paul Crouch MD [address] [place] [address] 04/27/2025 8:00 AM EDT Anesthesia Event [facility] [address] [place] [address] Ryan Sorenson, DO [address] [place] [address] 04/27/2025 8:00 AM EDT - 04/27/2025 9:30 AM EDT Surgery [facility] Surgery [address] [place] [address] Jean-Paul Crouch MD [address] [facility] [place] [address] DAVINCI CHOLECYSTECTOMY [[id number] (CPT ) +1 more] 05/04/2025 10:30 AM EDT Office Visit [facility] General Surgery [address] [place] [phone] Brenda Rose, [employer]FF [employer] [facility] [facility] OFFICER-WET MACHINE OPERATOR [address] [place], [place] [address] Scheduled Procedures Name Priority Associated Diagnoses Date/Ti me DAVINCI CHOLECYSTECTOMY Biliary dyskinesia 04/27/2025 8:00 AM EDT documented as of this encounter Visit Diagnoses Not on filedocumented in this encounter Care Teams Shredder Operator Relationship Specialty Start Date End Date Nadira Ramirez, [facility] [employer] OFFICER-WET MACHINE OPERATOR [address] [place] [address] PCP - General Nurse Practitioner 03/31/25 documented as of this encounter
--- OUTSIDE RECORDS SUMMARY | 2025-04-09 15:25 | XMS_ITS | Encounter Summary ---
Author Organization [id number] [address] [place] [address] Care Team Providers Care Hospitalist Nocturnist Physician Name Role Phone Nadira Ramirez KIN-VICE PRINCIPAL Primary Care Provider [phone] Encounter Details Date Type Department Care Team (Late st Contact Info) Description 04/08/2025 Telephone [facility] General Surgery [address] [place] [phone] Rosa Gaytan RMA Social History Tobacco Use Types Packs/Day Years [...] encounter Miscellaneous Notes * Telephone Encounter - JOCE San - 04/08/2025 12:30 PM EDT I called Rylee and rescheduled her procedure from 04/20/25 to 04/27/[address] Crouch. Arrival time is 6:10 am - surgery time is 8:00 am. The patient was fine with moving her surgery day. documented in this encounter Plan of Treatment Upcoming Encounters Date Type Department Care Team (Late Contact Info) Description 04/27/2025 8:00 AM EDT Hospital Encounter [facility] - Surgery [address] [place] [phone] Jean-Paul Crouch MD [address] [place] [phone] 04/27/2025 8:00 AM EDT Anesthesia Event [facility] - Surgery [address] [place] [phone] Ryan Sorenson, DO [address] [facility] [place] [address] 04/27/2025 8:00 AM EDT - 04/27/2025 9:30 AM EDT Surgery [facility] - Surgery [address] [place] [phone] Jean-Paul Crouch MD [address] [place] [address] DAVINCI CHOLECYSTECTOMY [[id number] (CPT ) +1 more] 05/04/2025 10:30 AM EDT Office Visit [facility] General Surgery [address] [place] [phone] Brenda Rose DIRECTOR OF PRECLINICAL RESEARCH-VICE PRINCIPAL [address] [place], [place] [phone] Scheduled Procedures Name Priority Associated Diagnoses Date/Ti me DAVINCI CHOLECYSTECTOMY Biliary dyskinesia 04/27/2025 8:00 AM EDT documented as of this encounter Visit Diagnoses Not on filedocumented in this encounter Care Teams Hospitalist Nocturnist Physician Relationship Specialty Start Date End Date Nadira Ramirez, DIRECTOR OF PRECLINICAL RESEARCH-VICE PRINCIPAL [facility] [place] [address] PCP - General Nurse Practitioner 03/31/25 documented as of this encounter
--- OUTSIDE RECORDS SUMMARY | 2025-04-09 15:25 | XMS_ITS | Encounter Summary ---
Author Organization [facility] Address [address] [place] [address] Care Team Providers Care Gum Puller Name Role Phone Kaiser Anderson MD Primary Care Provider [phone] Encounter Details Date Type Department Care Team (Late st Contact Info) Description 02/27/2025 Results Follow-Up [facility] [address] [place] [address] Florencia Rolon LPN [address] [place] [address] Social History Tobacco Use Types Packs/Day Years [...] as of this encounter Miscellaneous Notes * Result Encounter Note - Florencia Rolon LPN - 03/10/2025 11:15 AM EDT Pt talked to other nurse * Result Encounter Note - Florencia Rolon LPN - 02/27/2025 12:06 PM EDT Attempted to call pt but she did not answer. Left voicemail for pt to call office back documented in this encounter Plan of Treatment Not on file documented as of this encounter Visit Diagnoses Not on filedocumented in this encounter Care Teams Gum Puller Relationship Specialty Start Date End Date Kaiser Anderson MD [address] [place] [address] PCP - General Family Medicine 03/05/25 documented as of this encounter
--- OUTSIDE RECORDS SUMMARY | 2025-04-09 15:25 | XMS_ITS | Encounter Summary ---
Author Organization [facility] Address [address] [place] [address] Care Team Providers Care Mobile Sales Expert Name Role Phone Kaiser Anderson MD Primary Care Provider [phone] Encounter Details Date Type Department Care Team (Late st Contact Info) Description 03/13/2025 Abstract [facility] [address] [place] [phone] Nnamdi Aponte, DO [address] [facility] [address] [place], [place] [phone] Social History Tobacco Use Types Packs/Day Years [...] on filedocumented in this encounter Care Teams Mobile Sales Expert Relationship Specialty Start Date End Date Kaiser Anderson MD [address] [place], [place] [phone] PCP - General Family Medicine 03/05/25 documented as of this encounter
--- OUTSIDE RECORDS SUMMARY | 2025-04-09 15:25 | XMS_ITS | Clinical Summary ---
Author Organization [facility] Address [address] [place] [address] Care Team Providers Care Button Grader Name Role Phone Kaiser Anderson MD Primary Care Provider [phone] Allergies No known active allergies Medications metoclopramide (Reglan) 10 MG tabletIndicati ons:Nausea Take 1 tablet (10 mg) by mouth in the morning and 1 tablet (10 mg) at noon and 1 tablet (10 mg) in the evening. Take before meals. Take 1 tablet by mouth 30 minutes prior to meals 3 times daily as needed for nausea.. 90 tablet 11 5 03/25/20 25 Discontinued Active Problems Problem Noted Date Diagnosed Date Amenorrhea 09/23/2024 Irregular menses 09/23/2024 Encounters Date Type Department Care Team Description 03/28/2025 Clinisync Result Encounter [facility] External Department Unsolicited Christophe Aponte DO 03/25/2025 3:20 PM EDT Office Visit [facility] [place] [address] [place] [address] Christophe Aponte DO Postoperative follow-up; Miscarriage 03/25/2025 Telephone [facility] [place] [address] [place] [address] Amy Gupta LPN 03/25/2025 Bamboo flowsheet [facility] [place] [address] [place] [address] Christophe Aponte, DO 03/19/2025 Travel 03/13/2025 Abstract [facility] [address] [place] [address] Christophe Aponte, DO 03/13/2025 Abstract [facility] [address] [place] [address] Christophe Aponte, DO 03/13/2025 Abstract [facility] [address] [place] [address] Christophe Aponte, DO 03/13/2025 External Result Encounter [facility] External Department Unsolicited Christophe Aponte, DO 03/13/2025 Clinisync Result Encounter [facility] External Department Unsolicited Christophe Aponte, DO 03/12/2025 Abstract [facility] [address] [place] [address] Tressa Ray, BRANCH DIRECTOR 03/11/2025 3:00 PM EDT Ancillary Procedure [facility] [address] [place] [address] Missed menses; Abdominal cramping 03/10/2025 Travel 03/05/2025 2:00 PM EDT Ancillary Procedure [facility] [address] [place] [address] Missed menses 03/02/[address] [facility] [address] [place] [address] Chery Benítez MA 02/28/2025 Travel 02/27/2025 Results Follow-Up [facility] [address] [place] [address] Florencia Rolon, BRANCH DIRECTOR 02/20/2025 Clinisync Result Encounter [facility] External Department Unsolicited Christophe Aponte, DO 02/10/2025 11:30 AM EDT Routine [facility] [address] [place] [address] Kell Christianson, SANDRA First trimester ; 7 weeks gestation of ; Abdominal cramping; Nausea; Missed menses 02/10/2025 Bamboo flowsheet [facility] [address] [place] [address] Kell Christianson NP 02/10/2025 Travel 02/09/[address] [facility] [address] [place] [address] Chery Benítez MA Error (VOID this visit) 02/01/2025 Clinisync Result Encounter [facility] External Department Unsolicited Christophe Aponte, DO 01/30/2025 Clinisync Result Encounter [facility] External Department Unsolicited Christophe Aponte, DO 01/30/2025 [address]phone [facility] [address] [place] [address] Chery Benítez MA 01/08/2025 Clinisync Result Encounter [facility] External Department Unsolicited FadiChristophe iglesias, DO from Last 3 Months Family History Medical History Relation Name Comments Diabetes Father Carlos [place] Hypertension Father Carlos [place] Hyperlipidemia Mother Relation Name Status Comments Father Carlos [place] Maternal Grandfather Maternal Grandmother Mother Paternal Grandmother Social History Tobacco Use Types Packs/Day Years [...] on file Sexual Orientation Not on file Last Filed Vital Signs Vital Sign Reading Time Taken Comments Blood Pressure 100/80 03/25/2025 3:54 PM EDT Pulse - - Temperature 36.4 C (97.6 F) 01/29/2024 1:04 PM EDT Respiratory Rate - - Oxygen Saturation - - Inhaled Oxygen Concentration - - Weight 88.8 kg (195 lb 12 oz) 03/25/2025 3:54 PM EDT Height 162.6 cm (5' 4 ) 09/08/2024 4:41 PM EST Body Mass Index 33.6 09/08/2024 4:41 PM EST Plan of Treatment Not on file Procedures Procedure Name Priority Date/Time Associated Diagnosis Comments [facility] PREG QUANT HCG Routine 03/28/2025 8: 16 AM EDT PATHOLOGY REQUEST FOR LAB ABDIAS Routine 03/13/2025 8:13 AM EDT ALL ABO/RH TYPE Routine 03/13/2025 6:15 AM EDT TB[facility] PREG QUANT HCG Routine 03/13/2025 6: 15 AM EDT ALL CBC WITH AUTO DIFF Routine 03/13/2025 6:15 AM EDT US OB TRANSVAGINAL Routine 03/11/2025 4: 00 PM EDT Missed menses Abdominal cramping US OB TRANSVAGINAL Routine 03/08/2025 8: 56 PM EDT Missed menses US RIGHT UPPER QUADRANT 02/20/2025 7:58 AM EDT POCT URINALYSIS DIPSTICK Routine 02/10/2025 11:31 AM EDT First trimester TBH PREG QUANT HCG Routine 02/01/2025 7: 52 AM EDT [facility] PREG QUANT HCG Routine 01/30/2025 3: 37 PM EDT ALL PROGESTERONE Routine 01/08/2025 3:31 PM EST from Last 3 Months Results * [facility] PREG QUANT HCG (03/28/2025 8:16 AM EDT) Only the most recent of4 resultswithin the time period is included. HCG QUANTITATIVE 18 mIU/mL TB Comment: 5-50 0.2-1 WEEK 50-500 1-2 WEEKS 100-5,000 2-3 WEEKS 500-10,000 3-4 WEEKS 1,000-50,000 4-5 WEEKS 10,000-100,000 5-6 WEEKS 15,000-200,000 6-8 WEEKS 10,000-100,000 2-3 MONTHS 03/28/2025 8:16 AM EDT 03/28/2025 8:16 AM EDT Narrative [facility] - 03/28/2025 9:31 AM EDT us Christophe Fadi DO [facility] Final Result [facility] TB * PATHOLOGY REQUEST FOR LAB ABDIAS (03/13/2025 8:13 AM EDT) PATHOLOGY REQUEST FOR LAB ABDIAS 03/19/2025 8:32 AM EDT [facility] Comment:See report. Scanned copy available in EMR. Other Topography unknown / Unknown 03/13/2025 8:13 AM EDT 03/13/2025 1:05 PM EDT Case [facility] - 03/19/2025 8:32 AM EDT POC Christophe Fadi DO LAB BLOOD ORDERABLES Final Resul t Performing Organization Address City/[facility] Co de Phone Number [facility] [address] [place] [address], [facility] [address] [place] [address] * (ABNORMAL) ALL CBC WITH AUTO DIFF (03/13/2025 6:15 AM EDT) TBH WBC 5.6 4.0 - 11.0 10 3/uL TBH TBH RBC 4.45 4.20 - 5.40 10 6/uL TBH TBH HGB 13.4 12.0 - 16.0 g/dL TBH TBH HCT 39.2 36.0 - 48.0 % TBH TBH MCV 88.1 81.0 - 99.0 fL TBH TBH MCH 30.1 26.7 - 34.0 pg TBH TBH MCHC 34.2 29.9 - 35.2 g/dL TBH TBH RDW 11.9 11.0 - 15.0 % TBH TBH PLT 208 150 - 450 10 3/uL TBH TBH MPV 8.5(L) 9.5 - 13.5 fL TBH NEUTROPHILS PERCENT AUTO 46.7 43.0 - 75.0 % TBH LYMPHOCYTES PERCENT AUTO 43.3 20.5 - 60.0 % TBH MONOCYTES PERCENT AUTO 7.0 1.7 - 12.0 % TBH TBH EO % 2.3 0.9 - 7.0 % TBH BASOPHILS PERCENT AUTO 0.5 0.2 - 2.0 % TBH IMMATURE GRANULOCYTES PCT AUTO 0.2 0.0 - 0.5 % TBH NEUTROPHILS ABSOLUTE AUTO 2.6 1.4 - 6.5 10 3/uL TBH LYMPHOCYTES ABSOLUTE AUTO 2.4 1.2 - 3.8 10 3/uL TBH MONOCYTES ABSOLUTE AUTO 0.4 0.3 - 0.8 10 3/uL TBH TBH EO # 0.1 0.0 - 0.7 10 3/uL TBH BASOPHILS ABSOLUTE AUTO 0.0 0.0 - 0.1 10 3/uL TBH IMMATURE GRANULOCYTES ABS AUTO 0.01 0.00 - 0.03 10 3/uL TBH 03/13/2025 6:15 AM EDT 03/13/2025 6:16 AM EDT Narrative [facility] - 03/13/2025 6:21 AM EDT us Christophe Fadi DO CLIN[facility] Final Result [facility] TB * ALL ABO/RH TYPE (03/13/2025 6:15 AM EDT) BLOOD TYPE O Negative TBH 03/13/2025 6:15 AM EDT 03/13/2025 6:16 AM EDT Narrative [facility] - 03/13/2025 7:29 AM EDT [facility] , us Christophe Fadi DO CLINISYNC Final Result [facility] TB * US OB transvaginal (03/11/2025 4:00 PM EDT) Only the most recent of2 resultswithin the time period is included. Anatomical Region Laterality Modality Body Ultrasound 03/15/2025 8:21 PM EDT Narrative 03/15/2025 8:21 PM EDT EXAM: US OB TRANSVAGINAL HISTORY: Viability. LMP 01/02/2025. . COMPARISON: U/S Ob 03/05/2025 TECHNIQUE: Two-dimensional transvaginal grayscale, color and M-mode Doppler ultrasound imaging of the pelvis was performed. FINDINGS: The uterus demonstrates a normal homogeneous echotexture. Multiple nabothian cysts are visualized within the cervix. The cervical os is closed. The right ovary measures 2.6 x 1.3 x 2.4 cm and demonstrates a normal echotexture. There is normal color Doppler flow. The left ovary measures 4.3 x 2.1 x 3.7 cm and demonstrates a normal echotexture with a corpus luteal cyst. There is normal color Doppler flow. No fluid is present within the cul-de-sac. There is a single intrauterine gestational sac with a 0.3 cm nonshadowing, echogenic focus. A mean sac measurement of 2.8 cm, correlating to a gestational age of 7 weeks 5 days (+/- 5 days). There is no subchorionic hemorrhage visualized. There is no definite pole. IMPRESSION: 1. Single intrauterine gestational sac 11 weeks, 6 days by LMP. Today's ultrasound measurements correlate with a gestational age of 7 weeks 5 days (+/- 5 days). A subcentimeter echogenic focus within the gestational sac may represent an abnormal pole or yolk sac. The previously visualized intrauterine gestation is not appreciated on today's exam, consistent with an intrauterine demise. This was visualized on the prior study dated 03/08/2025. Interpreted by: Electronically signed by ZOË IRWIN II, MD, PHD at 15-Mar-2025 08:20:24 PM [facility] Procedure Note Zoë Irwin MD - 03/15/2025 EXAM: US OB TRANSVAGINAL HISTORY: Viability. LMP 01/02/2025. . COMPARISON: U/S Ob 03/05/2025 TECHNIQUE: Two-dimensional transvaginal grayscale, color and M-modeDoppler ultrasound imaging of the pelvis was performed. FINDINGS: The uterus demonstrates a normal homogeneous echotexture. Multiplenabothian cysts are visualized within the cervix. The cervical os isclosed. The right ovary measures 2.6 x 1.3 x 2.4 cm and demonstrates a normalechotexture. There is normal color Doppler flow. The left ovary measures 4.3 x 2.1 x 3.7 cm and demonstrates a normalechotexture with a corpus luteal cyst. There is normal color Dopplerflow. No fluid is present within the cul-de-sac. There is a single intrauterine gestational sac with a 0.3 cm nonshadowing,echogenic focus. A mean sac measurement of 2.8 cm, correlating to agestational age of 7 weeks 5 days (+/- 5 days). There is no subchorionichemorrhage visualized. There is no definite pole. IMPRESSION: 1. Single intrauterine gestational sac 11 weeks, 6 days by LMP. Today'sultrasound measurements correlate with a gestational age of 7 weeks 5days (+/- 5 days). A subcentimeter echogenic focus within the gestationalsac may represent an abnormal pole or yolk sac. The previouslyvisualized intrauterine gestation is not appreciated on today's exam,consistent with an intrauterine demise. This was visualized on theprior study dated 03/08/2025. Interpreted by: Electronically signed by ZOË IRWIN II, MD, PHD 08:20:24 PM [facility] us Christophe Aponte DO IMG OB US PROCEDURES Final Resul t * US RIGHT UPPER QUADRANT (02/20/2025 7:58 AM EDT) Anatomical Region Laterality Modality Other 02/20/2025 7:58 AM EDT Narrative 02/20/2025 8:01 AM EDT The [address] [address] Ultrasound Report Signed Patient: ELIDA GROVER MR#: [id number] : 1995 Acct:[id number] Age/Sex: 29 / F ADM Date: 02/20/25 Loc: US Attending Dr: Christophe Aponte D.O. Ordering Physician: Christophe Aponte D.O. Date of Service: 02/20/25 Procedure(s): US right upper quadrant Accession Number(s): [id number] cc: Christophe Aponte D.O.; [place] [address] Patient Name: ELIDA GROVER MRN: [id number] date: 1995 Sex: F Assigned Patient Location: US Current Patient Location: US Accession/Order Number: [id number] Exam Date: 02/20/2025 07:56 Report Date: 02/20/2025 07:58 At the request of: CHRISTOPHE APONTE DO Procedure: US right upper quadrant LIMITED RIGHT UPPER QUADRANT ABDOMINAL ULTRASOUND CLINICAL HISTORY: patient with right upper quadrant pain, cramping and nausea COMPARISON: None The gallbladder is physiologically distended. There are [...] no hydronephrosis or fluid within Mcbride's pouch. US/US right upper quadrant IMPRESSION: CHOLELITHIASIS. NO OTHER ACUTE FINDINGS. Impression dictated by: Amy Molina M.D.02/20/2025 7:58 AM Dictation Location: [place] [address] Electronically authenticated by: [id number] Y Date: 02/20/2025 07:58 Dictated By: Amy Molina M.D. Signed By: 02/20/25 0801 DD/ 0758 TD/TT: Fine Grader: Procedure Note Radiology, Radiologist, - 02/20/2025 [place] [address] Ultrasound Report Signed Patient: ELIDA GROVER MMR#: [id number] : 1995Acct:[id number] Age/Sex: 29 / FADM Date: 02/20/25 Loc: US Attending Dr: Christophe Aponte D.O. Ordering Physician: Christophe Aponte D.O. Date of Service: 02/20/25 Procedure(s): US right upper quadrant Accession Number(s): [id number] cc: Christophe Aponte D.O.; [place] [address] Patient Name: ELIDA GROVER MRN: [id number] date: 1995 Sex: F Assigned Patient Location: US Current Patient Location: US Accession/Order Number: [id number] Exam Date: 02/20/2025 07:56 Report Date: 02/20/2025 07:58 At the request of: CHRISTOPHE APONTE DO Procedure: US right upper quadrant LIMITED RIGHT UPPER QUADRANT ABDOMINAL ULTRASOUND CLINICAL HISTORY: patient with right upper quadrant pain,cramping and nausea COMPARISON: None The gallbladder is physiologically distended. There are small echogenic shadowing gallstones measuring up to 9 mm in size. No wall thickening or pericholecystic fluid is seen. No intra- or extrahepatic biliarydilatation is evident. The common duct measures 2 - 3 mm. The liver is normal in echogenicity. No intrahepatic masses are seen. There is appropriate hepatopetal flow within the main portal vein. The pancreas shows no significant sonographic abnormality. Cursory evaluation of the rightkidney reveals no hydronephrosis or fluid within Mcbride's pouch. US/US right upper quadrant IMPRESSION: CHOLELITHIASIS. NO OTHER ACUTE FINDINGS. Impression dictated by: Amy Molina M.D.02/20/2025 7:58 AM Dictation Location: [place] [address] Electronically authenticated by: [id number] Y Date: 7:58 Dictated By: Amy Molina M.D. Signed By:02/20/25 0801 DD/ 0758 TD/TT: Fine Grader: [facility] Fadi DO [facility] IMAGING Final Result * POCT urinalysis dipstick manually resulted (02/10/2025 11:31 AM EDT) Color, UA Yellow Clarity, UA Clear Glucose, UA Negative Negative - 2000(110) ++++ mg/dL Bilirubin, UA Negative Negative - 4(70) +++ mg/dL Ketones, UA Negative Negative - 160(16) ++++ mg/dL Spec Grav, UA 1.010 1 - 1.03 Blood, UA Negative Negative - 50 Dario/mcL pH, UA 5.5 5 - 9 Protein, UA Negative Negative - 2000(20) ++++ mg/dL Urobilinogen, UA 0.2 0.2 - 12 mg/dL Leukocytes, UA Negative Negative - 500+++ Danilo/mcL Nitrite, UA Negative Negative - Positive Urine 02/10/2025 11:3 1 AM EDT [facility] DO POINT OF CARE TEST ENTER/EDIT OR DERABLES Final Result * ALL PROGESTERONE (01/08/2025 3:31 PM EST) PROGESTERONE 10.7 . ng/mL TBH Comment: Follicular phase 0.1 - 0.9 Luteal phase 1.8 - 23.9 Ovulation phase 0.1 - 12.0 First trimester 11.0 - 44.3 Second trimester 25.4 - 83.3 Third trimester 58.7 - 214.0 Postmenopausal 0.0 - 0.1 Performed at: - [facility] [id number] Industrial Maintenance Technician: Garett Rocha PhD, Phone: [phone] 01/08/2025 3:31 PM EST 01/08/2025 3:32 PM EST Narrative [facility] - 01/10/2025 8:10 AM EST Christophe Aponte DO [facility] Final Result [facility] TB from Last 3 Months Insurance [employer] Care Teams Button Grader Relationship Specialty Start Date End Date Kaiser Anderson MD [address] [place] [address] PCP - General Family Medicine 03/05/25
--- OUTSIDE RECORDS SUMMARY | 2025-04-09 15:25 | XMS_ITS | Clinical Summary ---
Author Organization [facility] marinanow s tem Address [id number] [address] [place] [address] Care Team Providers Care Wash Box Operator Name Role Phone Nadira Ramirez Trerence GIRARDN-PROCESS EQUIPMENT OPERATOR Primary Care Provider [phone] Allergies No known active allergies Medications pediatric multivitamin (FRUITY CHEWS) tablet,chewable Chew 1 tablet and swallow in the morning. Active Active Problems No known active problems Encounters Date Type Department Care Team Description 04/08/2025 Telephone [facility] [address] [place] [address] Rosa Gaytan RMA 04/06/2025 3:00 PM EDT Procedure visit [facility] - Pre Admit [address] [place] [address] 04/01/2025 Telephone [facility] [address] [place] [address] Erin Prieto CMA 03/31/2025 9:30 AM EDT Office Visit [facility] General Surgery [address] [place] [address] Jean-Paul Crouch MD Biliary colic (Primary Dx) 03/31/2025 Travel 02/20/2025 7:05 AM EDT Ancillary Procedure [facility] External Film Storage [address] [place] [phone] Pain from Last 3 Months Family History Medical History Relation Name Comments No Known Problems Father No Known Problems Mother Relation Name Status Comments Father Alive Mother Alive Social History Tobacco Use Types Packs/Day Years [...] Mass Index 32.12 04/06/2025 11:04 AM EDT Plan of Treatment Upcoming Encounters Date Type Department Care Team (Late st Contact Info) Description 04/27/2025 8:00 AM EDT Hospital Encounter [facility] Surgery [address] [place] [address] Jean-Paul Crouch MD [address] [place] [address] 04/27/2025 8:00 AM EDT Anesthesia Event [facility] Surgery [address] [place] [address] Ryan Sorenson, DO [address] [place] [address] 04/27/2025 8:00 AM EDT - 04/27/2025 9:30 AM EDT Surgery [facility] Surgery [address] [place] [address] Jean-Paul Crouch MD [address] [place] [address] DAVINCI CHOLECYSTECTOMY [[id number] (CPT ) +1 more] 05/04/2025 10:30 AM EDT Office Visit [facility] [address] [place] [phone] Brenda Rose, SHEET METAL WORKER SUPERVISOR-PROCESS EQUIPMENT OPERATOR [address] [place] [id number] Scheduled Procedures Name Priority Associated Diagnoses Date/Ti me DAVINCI CHOLECYSTECTOMY Biliary dyskinesia 04/27/2025 8:00 AM EDT Health Maintenance Due Date Last Done Comments Depression Screening 2008 Adult BMI Follow Up Plan 2014 Pap Smear 2017 Influenza Vaccine 07/06/2025 Adult BMI Screening 04/06/2026 04/06/2025 Tobacco Screening 04/06/2026 04/06/2025 DTaP,Tdap and Td Vaccines (2 - Tdap) 01/04/2033 03/0 12/2022 Medical Devices Not on file Procedures Procedure Name Priority Date/Time Associated Diagnosis Comments LIVER PANEL Routine 03/31/2025 10:58 AM EDT Biliary colic BASIC METABOLIC PANEL Routine 03/31/2025 10:58 AM EDT Biliary colic CBC WITH AUTO DIFFERENTIAL Routine 03/31/2025 10:58 AM EDT Biliary colic US ABDOMEN LMTD Routine 02/20/2025 7:05 AM EDT Pain from Last 3 Months Results * CBC auto differential (03/31/2025 10:58 AM EDT) WBC 6.0 4 - 11 x10E9/L 03/31/2025 1:40 PM EDT [facility] RBC Count 4.89 3.8 - 5.2 X10E12/L 03/31/2025 1:40 PM EDT [facility] Hemoglobin 14.8 11.7 - 15.5 g/dL 03/31/2025 1:40 PM EDT [facility] Hematocrit 43.1 35 - 47 % 03/31/2025 1:40 PM EDT [facility] MCV 88 80 - 100 fL 03/31/2025 1:40 PM EDT [facility] MCH 30.2 27 - 34 pg 03/31/2025 1:40 PM EDT [facility] MCHC 34.2 32 - 36 g/dL 03/31/2025 1:40 PM EDT [facility] RDW 12.4 11.5 - 15 % 03/31/2025 1:40 PM EDT [facility] Platelet Count 223 150 - 450 X10E9/L 03/31/2025 1:40 PM EDT [facility] MPV 7.9 7 - 12 fL 03/31/2025 1:40 PM EDT [facility] Neutrophils Relative 49.6 % 03/31/2025 1:40 PM EDT [facility] Lymphocytes Relative 41.9 % 03/31/2025 1:40 PM EDT [facility] Monocytes Relative 6.0 % 03/31/2025 1:40 PM EDT [facility] Eosinophils Relative 2.1 % 03/31/2025 1:40 PM EDT [facility] Basophils Relative 0.4 % 03/31/2025 1:40 PM EDT [facility] Neutrophils Absolute (A) 3.0 1.5 - 6.6 10*3/uL 03/31/2025 1:40 PM EDT [facility] Lymphocytes Absolute 2.5 1.0 - 3.5 10*3/uL 03/31/2025 1:40 PM EDT [facility] Monocytes Absolute 0.4 0.0 - 0.9 10*3/uL 03/31/2025 1:40 PM EDT [facility] Eosinophils Absolute 0.1 0.0 - 0.4 10*3/uL 03/31/2025 1:40 PM EDT [facility] Basophils Absolute 0.0 0.0 - 0.2 10*3/uL 03/31/2025 1:40 PM EDT [facility] Differential Type AUTOMATED DIFFERENTIAL 03/31/2025 1:40 PM EDT [facility] Blood Venous blood / Unknown Venipuncture / Unknown 03/31/2025 10:58 AM EDT 03/31/2025 10:58 AM EDT Jean-Paul Crouch MD LAB BLOOD ORDERABLES Final Result [facility] [address] [place] [address], * Liver panel (03/31/2025 10:58 AM EDT) TOTAL PROTEIN 7.3 6.0 - 8.0 g/dL 03/31/2025 7:18 PM EDT [facility] ALBUMIN 4.4 3.2 - 5.3 g/dL 03/31/2025 7:18 PM EDT [facility] BILIRUBIN,TOTAL 0.3 0.3 - 1.2 mg/dL 03/31/2025 7:18 PM EDT [facility] ALKALINE PHOSPHATASE 49 39 - 130 U/L 03/31/2025 7:18 PM EDT [facility] AST 17 <=41 U/L 03/31/2025 7:18 PM EDT [facility] ALT 12 <=31 U/L 03/31/2025 7:18 PM EDT [facility] BILIRUBIN,DIRECT <0.1 <=0.4 mg/dL 03/31/2025 7:18 PM EDT [facility] Blood Venous blood / Unknown Venipuncture / Unknown 03/31/2025 10:58 AM EDT 03/31/2025 10:58 AM EDT Jean-Paul Crouch MD LAB BLOOD ORDERABLES Final Result [facility] [address] [place] [address], * Basic Metabolic Panel (03/31/2025 10:58 AM EDT) SODIUM 139 134 - 146 mmol/L 03/31/2025 7:18 PM EDT [facility] POTASSIUM 4.2 3.5 - 5.0 mmol/L 03/31/2025 7:18 PM EDT [facility] CHLORIDE 105 98 - 109 mmol/L 03/31/2025 7:18 PM EDT [facility] CARBON DIOXIDE 27 22 - 32 mmol/L 03/31/2025 7:18 PM EDT [facility] ANION GAP 7 5 - 15 mmol/L 03/31/2025 7:18 PM EDT [facility] BLOOD UREA NITROGEN 12 5 - 23 mg/dL 03/31/2025 7:18 PM EDT [facility] CREATININE 0.66 0.40 - 1.00 mg/dL 03/31/2025 7:18 PM EDT [facility] Comment:METHOD TRACEABLE TO IDMS STANDARD GLUCOSE 87 65 - 99 mg/dL 03/31/2025 7:18 PM EDT [facility] CALCIUM 9.7 8.5 - 10.5 mg/dL 03/31/2025 7:18 PM EDT [facility] EGFR Non-Race Dependent >90 >=60 ml/min/1.7 3sq.m 03/31/2025 7:18 PM EDT [facility] Comment: Reported eGFR is based on the CKD-EPI 2020 equation that does not use a race coefficient. Blood Venous blood / Unknown Venipuncture / Unknown 03/31/2025 10:58 AM EDT 03/31/2025 10:58 AM EDT us Jean-Paul Crouch MD LAB BLOOD ORDERABLES Final Result [facility] [address] [place] [address], [place] [phone] * Ultrasound abdomen limited (02/20/2025 7:05 AM EDT) us Scanning Provider External IMG US ORDERABLES Fin al Result from Last 3 Months Insurance [employer] Care Teams Wash Box Operator Relationship Specialty Start Date End Date Nadira Ramirez, SHEET METAL WORKER SUPERVISOR-PROCESS EQUIPMENT OPERATOR [address] [place], [place] [address] [address] PCP - General Nurse Practitioner 03/31/25
--- OUTSIDE RECORDS SUMMARY | 2025-04-09 15:25 | XMS_ITS | Encounter Summary ---
Author Organization [facility] [employer] [facility] tem Address [id number] [address] [place] [address] Care Team Providers Care Assistant Oceanographer Name Role Phone Nadira Ramirez KIN-SENIOR CHEMICAL ENGINEER Primary Care Provider [phone] Encounter Details Date Type Department Care Team (Latest Contact Info) Description 03/31/2025 Travel Social History Tobacco Use Types Packs/Day Years [...] as of this encounter Plan of Treatment Upcoming Encounters Date Type Department Care Team (Late st Contact Info) Description 04/27/2025 8:00 AM EDT Hospital Encounter [facility] - Surgery [address] [place] [address] Jean-Paul Crouch MD [address] [place] [address] 04/27/2025 8:00 AM EDT Anesthesia Event [facility] Surgery [address] [place] [address] Ryan Sorenson, DO [address] [place] [address] 04/27/2025 8:00 AM EDT - 04/27/2025 9:30 AM EDT Surgery [facility] - Surgery [address] [place] [address] Jean-Paul Crouch MD [address] [place] [address] DAVINCI CHOLECYSTECTOMY [[id number] (CPT ) +1 more] 05/04/2025 10:30 AM EDT Office Visit [facility] General Surgery [address] [facility] [place] [address] Brenda Rose APRN-SENIOR CHEMICAL ENGINEER [address] [place] [address] Scheduled Procedures Name Priority Associated Diagnoses Date/Ti me DAVINCI CHOLECYSTECTOMY Biliary dyskinesia 04/27/2025 8:00 AM EDT documented as of this encounter Visit Diagnoses Not on filedocumented in this encounter Care Teams Assistant Oceanographer Relationship Specialty Start Date End Date Nadira Ramirez, [employer] DESIGNER-SENIOR CHEMICAL ENGINEER [address] [place], [place] [address] [address] PCP - General Nurse Practitioner 03/31/25 documented as of this encounter
--- OUTSIDE RECORDS SUMMARY | 2025-04-09 15:25 | XMS_ITS | Encounter Summary ---
Author Organization [facility] Address [address] [place] [address] Care Team Providers Care Body And Fender Worker Name Role Phone Kaiser Anderson MD Primary Care Provider [phone] Encounter Details Date Type Department Care Team (Late st Contact Info) Description 03/28/2025 Clinisync Result Encounter [facility] External Department Unsolicited Nnamdi Aponte, DO [address] [facility] [place] [address] Social History Tobacco Use Types Packs/Day Years [...] on file documented as of this encounter Procedures Procedure Name Priority Date/Time Associated Diagnosis Comments [facility] PREG QUANT HCG Routine 03/28/2025 8: 16 AM EDT documented in this encounter Results * [facility] PREG QUANT HCG (03/28/2025 8:16 AM EDT) HCG QUANTITATIVE 18 mIU/mL [facility] Comment: 5-50 0.2-1 WEEK 50-500 1-2 WEEKS 100-5,000 2-3 WEEKS 500-10,000 3-4 WEEKS 1,000-50,000 4-5 WEEKS 10,000-100,000 5-6 WEEKS 15,000-200,000 6-8 WEEKS 10,000-100,000 2-3 MONTHS 03/28/2025 8:16 AM EDT 03/28/2025 8:16 AM EDT Narrative [facility] - 03/28/2025 9:31 AM EDT Nnamdi Fadi DO [facility] Final [facility] documented in this encounter Visit Diagnoses Not on filedocumented in this encounter Care Teams Body And Fender Worker Relationship Specialty Start Date End Date Kaiser Anderson MD [address] [place] [address] PCP - General Family Medicine 03/05/25 documented as of this encounter
--- OUTSIDE RECORDS SUMMARY | 2025-04-09 15:26 | XMS_ITS | Encounter Summary ---
Author Organization [facility] Address [address] [facility] [place] [address] Care Team Providers Care Steel Engraver Name Role Phone Kaiser Anderson MD Primary Care Provider [phone] Encounter Details Date Type Department Care Team (Late st Contact Info) Description 03/07/2024 Abstract [facility] [address] [place] [address] Ignacio Najera DO [address] [place] [address] Social History Tobacco Use Types Packs/Day Years [...] on filedocumented in this encounter Care Teams Steel Engraver Relationship Specialty Start Date End Date Kasier Anderson MD [address] [place] [address] PCP - General Family Medicine 03/05/25 documented as of this encounter
--- OUTSIDE RECORDS SUMMARY | 2025-04-09 15:26 | XMS_ITS | Encounter Summary ---
Author Organization [facility] Address [address] [place] [address] Care Team Providers Care Steam Press Operator Name Role Phone Kaiser Anderson MD Primary Care Provider Encounter Details Date Type Department Care Team (Late st Contact Info) Description 03/13/2025 Abstract [facility] [address] [place] [phone] Nnamdi Aponte, DO [address] [facility] [address] [place] [place], [place] [id number] Social History Tobacco Use Types Packs/Day Years [...] on filedocumented in this encounter Care Teams Steam Press Operator Relationship Specialty Start Date End Date Kaiser Anderson MD [address] [place], [place] [phone] PCP - General Family Medicine 03/05/25 documented as of this encounter
--- OUTSIDE RECORDS SUMMARY | 2025-04-09 15:26 | XMS_ITS | Encounter Summary ---
Author Organization [facility] Address [address] [place] [address] Care Team Providers Care Retail Zone Specialist Name Role Phone Kaiser Anderson MD Primary Care Provider [phone] Encounter Details Date Type Department Care Team (Late st Contact Info) Description 03/25/2025 Telephone [facility] OB [address] [place] [address] [place] [address] Amy Gupta LPN Social History Tobacco Use Types Packs/Day [...] encounter Miscellaneous Notes * Telephone Encounter - Amy Gupta LPN - 03/25/2025 4:07 PM EDT Please refer to Dr Abreu for eval of gallbladder documented in this encounter Plan of Treatment Not on file documented as of this encounter Visit Diagnoses Not on filedocumented in this encounter Care Teams Retail Zone Specialist Relationship Specialty Start Date End Date Kaiser Anderson MD [address] [place] [address] PCP - General Family Medicine 03/05/25 documented as of this encounter
--- OUTSIDE RECORDS SUMMARY | 2025-04-09 15:26 | XMS_ITS | Encounter Summary ---
Author Organization [facility] Address [address] [facility] [place] [address] Care Team Providers Care Fiberglass Technician Name Role Phone Kaiser Anderson MD Primary Care Provider [phone] Encounter Details Date Type Department Care Team (Late st Contact Info) Description 03/07/2024 Abstract [facility] [address] [place] [address] Annalise Brice, GREG [address] [place], [place] Social History Tobacco Use Types Packs/Day Years [...] on filedocumented in this encounter Care Teams Fiberglass Technician Relationship Specialty Start Date End Date Kaiser Anderson MD [address] [place] [address] PCP - General Family Medicine 03/05/25 documented as of this encounter
--- OUTSIDE RECORDS SUMMARY | 2025-04-09 15:26 | XMS_ITS | Encounter Summary ---
Author Organization [facility] Address [address] [place] [address] Care Team Providers Care Land Conservation Specialist Name Role Phone Kaiser Anderson MD Primary Care Provider [phone] Encounter Details Date Type Department Care Team (Late st Contact Info) Description 03/03/2024 Orders Only [facility] [address] [place] [address] Ignacio Najera, [address] [place] [address] Acute pain of left knee (Primary Dx) Social History Tobacco Use Types [...] documented as of this encounter Visit Diagnoses Diagnosis Acute pain of left knee- Primary documented in this encounter Care Teams Land Conservation Specialist Relationship Specialty Start Date End Date Kaiser Anderson MD [address] [place] [address] PCP - General Family Medicine 03/05/25 documented as of this encounter
--- OUTSIDE RECORDS SUMMARY | 2025-04-09 15:26 | XMS_ITS | Encounter Summary ---
Author Organization [facility] Address [address] [place] [address] Care Team Providers Care Trimmer Sawyer Name Role Phone Kaiser Anderson MD Primary Care Provider [phone] Encounter Details Date Type Department Care Team (Late st Contact Info) Description 03/13/2025 Abstract [facility] OB [address] [place] [phone] Nnamdi Aponte, DO [address] [facility] [address] [place], [place] [phone] Social History Tobacco Use Types Packs/Day Years [...] on filedocumented in this encounter Care Teams Trimmer Sawyer Relationship Specialty Start Date End Date Kaiser Anderson MD [address] [place], [place] [phone] PCP - General Family Medicine 03/05/25 documented as of this encounter
--- OUTSIDE RECORDS SUMMARY | 2025-04-09 15:26 | XMS_ITS | Encounter Summary ---
Author Organization [facility] Address [address] [facility] [place] [address] Care Team Providers Care Mop Maker Name Role Phone Kaiser Anderson MD Primary Care Provider [phone] Encounter Details Date Type Department Care Team (Late st Contact Info) Description 01/29/2024 Abstract [facility] [address] [place] [address] Ignacio Najera DO [address] [place] [address] Social History Tobacco Use Types Packs/Day Years [...] on filedocumented in this encounter Care Teams Mop Maker Relationship Specialty Start Date End Date Kaiser Anderson MD [address] [place] [address] PCP - General Family Medicine 03/05/25 documented as of this encounter
[2025-04-09 16:16] LABS: HCG Quantitative 6 mIU/mL
== END 2025-04-09 15:18 | disposition home or self-care (01) ==
LOC: LAB 15:23
PROVIDERS: PCP Nurse Practitioner; Visit Provider Obstetrics & Gynecology
DX: N92.6 Irregular menstruation, unspecified (principal)
CPT/HCPCS: 36415; 84702

== ENCOUNTER 2025-09-24 15:35 | Outpatient (OUT) | payer OTHER, BC, SELFPAY ==
--- OUTSIDE RECORDS SUMMARY | 2025-09-24 15:41 | XMS_ITS | Clinical Summary ---
Author Organization [employer] [facility] tem Address [facility]-[id number] [address] [place] [address] Care Team Providers Care Automation Clerk Name Role Phone Nadira Ramirez Terrence PR MANAGER-MEMBERSHIP SALES REPRESENTATIVE Primary Care Provider [phone] Allergies No known active allergies Medications MedicationSigDispense QuantityRefillsLast FilledStart DateEnd DateStatus pediatric multivitamin (FRUITY CHEWS) tablet,chewable Chew 1 tablet and swallow in the morning.Active docusate sodium (COLACE) 100 mg capsule Take 1 capsule (100 mg total) by mouth in the morning and 1 capsule (100 mg total) before bedtime. 10 capsule 5Active acetaminophen (TYLENOL EXTRA STRENGTH) 500 mg tablet Take 2 tablets (1,000 mg total) by mouth every 6 (six) hours. 30 tablet 5Active ibuprofen (MOTRIN) 600 mg tablet Take 1 tablet (600 mg total) by mouth every 6 (six) hours. 30 tablet 5Active Active Problems No known active problems Family History Medical HistoryRelationNameCommentsNo Known ProblemsFatherNo Known Problems MotherRelationNameStatusCommentsFatherAliveMotherAlive Social History Tobacco UseTypesPacks/DayYears UsedDateSmoking Tobacco: NeverSmokeless Tobacco: Never Tobacco Cessation:Counseling Given: Not Answered Alcohol UseStandard Drinks/WeekCommentsYes0 (1 standard drink = 0.6 oz pure alcohol)occasionallyCommentsNoSex and Gender InformationValueDate RecordedSex Assigned at BirthNot on fileLegal ShuQhbwhy70/23/2025 11:14 AM EDT Gender IdentityNot on fileSexual OrientationNot on file Last Filed Vital Signs Vital SignReadingTime TakenCommentsBlood Gurijuvq89/59005/04/2025 10:21 AM EDT Msxfc721604/27/2025 10:01 AM CGFEdmikfkkyuy36.6 ??C (97.9 ??F)04/27/2025 9:04 AM EDTRespiratory Dpqk181804/27/2025 10:01 AM EDTOxygen Ctjdidtpts910%04/27/2025 10:01 AM EDTInhaled Oxygen Concentration--Eratgt93.2 kg (190 lb)05/04/2025 10:21 AM IKTUqtmkv479.6 cm (5' 4 )05/04/2025 10:21 AM EDTBody Mass Index32.61 05/04/2025 10:21 AM EDT Plan of Treatment Health MaintenanceDue DateLast DoneCommentsDepression Witoxhacn14/12/2008dult BMI Follow Up Plan2014Pap Smear2017Influenza Hcpdkpb1107/06/2025dult BMI Egwggzthe64Tobacco Jgmtztgmw76DTaP,Tdap and Td Vaccines (2 - Tdap)/12/2022 Medical Devices Not on file Insurance Care Teams Team MemberRelationshipSpecialtyStart DateEnd Date Nadira Ramirez, PR MANAGER-MEMBERSHIP SALES REPRESENTATIVE [address] [place] [address] [place] [address] PCP - GeneralNurse Practitioner03/31/25
--- OUTSIDE RECORDS SUMMARY | 2025-09-24 15:41 | XMS_ITS | Clinical Summary ---
Author Organization [facility] Address [address] [place] [address] Care Team Providers Care Apprentice Machinist Outside Name Role Phone Kaiser Anderson MD Primary Care Provider [phone] Allergies No known active allergies Medications No known medications Active Problems ProblemNoted DateDiagnosed LvtnDuccsscwme04/19/2024Irregular wqnjau8709/23/2024 Encounters DateTypeDepartmentCare QarhTldqxavdmbx43/14/2025Telephone [facility] [address] [place] [address] [place] [address] Tressa Ray LPN from Last 3 Months Family History Medical HistoryRelationNameCommentsDiabetesFatherChris leckHypertensionFather Carlos leckHyperlipidemiaMotherRelationNameStatusCommentsFatherChris leckMaternal GrandfatherDeceasedMaternal GrandmotherDeceasedMotherPaternal Grandmother Social History Tobacco UseTypesPacks/DayYears UsedDateSmoking Tobacco: NeverSmokeless Tobacco: Never Tobacco Cessation:Counseling Given: Not Answered Alcohol UseStandard Drinks/WeekCommentsNever0 (1 standard drink = 0.6 oz pure alcohol)CommentsNoSex and Gender InformationValueDate RecordedSex Assigned at BirthNot on fileLegal YmoVzixoc54/15/2023 11:47 PM EDTGender IdentityNot on fileSexual OrientationNot on file Last Filed Vital Signs Vital SignReadingTime TakenCommentsBlood Sgqyyada348/80003/25/2025 3:54 PM EDT Pulse--Qghgphbdujj93.4 ??C (97.6 ??F)01/29/2024 1:04 PM EDTRespiratory Rate-- Oxygen Saturation--Inhaled Oxygen Concentration--Fsrunk71.8 kg (195 lb 12 oz) 03/25/2025 3:54 PM OJRPnielg273.6 cm (5' 4 )09/08/2024 4:41 PM ESTBody Mass Index33.6111/08/2023 4:41 PM EST Plan of Treatment Not on file Insurance Care Teams Team MemberRelationshipSpecialtyStart DateEnd Date Kaiser Anderson MD [address] [place] [address] PCP - GeneralFamily Medicine03/05/25
--- OUTSIDE RECORDS SUMMARY | 2025-09-24 15:41 | XMS_ITS | CCD ---
Author Organization [facility] Care Team Providers Care Slider Assembler Name Role Phone Cortney Chapman Unavailable FADI [...] Unavailable FADI ., DR SAEED Consulting Unavailable FRANCO ., VIOLA Consulting Unavailable NADERER, DR FLORINA White Primary Care Unavailable FRANCO ., VIOLA Attending Unavailable FRANCO ., VIOLA Admitting Unavailable FRANCO ., VIOLA Consulting Unavailable NADERER, DR FLORINA White Primary Care Unavailable FRANCO ., VIOLA Attending Unavailable FRANCO ., VIOLA Admitting Unavailable NADERER, DR FLORINA [...] Unavailable ZIEBER, DR ECTOR Sotelo Consulting Unavailable FAID ., DR SAEED Consulting Unavailable NADERER, DR FLORINA White Primary Care Unavailable FADI ., DR SAEED Attending Unavailable FADI ., DR SAEED Admitting Unavailable YAW Archer Attending Provider Erlinda Archer Unavailable Kaiser Anderson. Primary Care Physician Unavailable Primary Care Provider Kaiser Coppola MD Primary Care Provider Kaiser Anderson Attending Unavailable Ignacio Najera Referring Unavailable Ignacio Najera Attending Unavailable Ignacio Najera Admitting Unavailable Kaiser Anderson Attending Unavailable ENA MORE Attending Unavailable Kaiser Anderson Attending Unavailable Kaiser Anderson Attending Unavailable Kaiser Anderson MD Primary Care Provider [phone] Nnamdi Mireles Attending Unavailable Fadi, Nnamdi Admitting Unavailable Nnamdi Mireles DO Attending Provider Bert DIRECTOR OF INSTRUCTION-LUMBER PULLER, German L Primary Care Provider MICHAEL CHRISTIANSON Attending Unavailable VIOLA GAMEZ Attending Unavailable FADI, NNAMDI Attending Unavailable NNAMDI MIRELES Attending Unavailable LEONA, MENNATALLAH M Attending Unavailable BERT, GERMAN L Primary Care Unavailable BRENDA ROSE Attending Unavailable BERT, GERMAN L Referring Unavailable BERT, GERMAN L Primary Care Unavailable BERT, GERMAN L Primary Care Unavailable LEONA, MENNATALLAH M Referring Unavailable BERT, GERMAN L Referring Unavailable BERT, GERMAN L Primary Care Unavailable BERT, GERMAN L Primary Care Unavailable LEONA, MENNATALLAH M Admitting Unavailable LEONA, MENNATALLAH M Attending Unavailable ELONA, MENNATALLAH M Referring Unavailable Allergies Allergy ClassificationReported Allergen(s)Allergy TypeDate of OnsetReaction(s) Facility (1 source)No Known Medication Allergies; Translations: [No Known Medication Allergies]Propensity to adverse reactions (disorder)[facility] Rep[facility] Medications Current Medications MedicationDrug Class(es)DatesSig (Normalized)Sig (Original)acetaminophen 500 mg oral tablet (3 sources)Start: 64-10-4067jrkl 2 tablets by mouth every six hoursacetaminophen (TYLENOL EXTRA STRENGTH) 500 mg tablet Take 2 tablets (1,000 mg total) by mouth every6 (six) hours. 30 tablet 04/27/2025 Activedocusate sodium 100 mg oral capsule (3 sources)Start: 52-98-2271mpws 1 capsule by mouth in the morning, then take 1 capsule by mouth at bedtimedocusate sodium (COLACE) 100 mg capsule Take 1 capsule (100 mg total) by mouth in the morning and 1capsule (100 mg total) before bedtime. 10 capsule 04/27/2025 Activeibuprofen 600 mg oral tablet (3 sources)Nonsteroidal Anti-inflammatory DrugStart: 23-48-7048exli 1 tablet by mouth every six hoursibuprofen (MOTRIN) 600 mg tablet Take 1 tablet (600 mg total) by mouth every 6 (six) hours. 30 tablet 04/27/2025 ActiveOne A Day Women's Complete oral tablet (1 source)Start: 24-76-3015xipk 1 tablet by mouth once dailyOne A Day Women's Complete oral tablet Refill(s) 0 Start Date: 02/08/23 Status: Orderedpediatric multivitamin (FRUITY CHEWS) tablet,chewable (6 sources)pediatric multivitamin (FRUITY CHEWS) tablet,chewable Chew 1 tablet and swallow in the morning. ActivetraMADol hydrochloride 50 mg oral tablet (1 source)Opioid AgonistStart: 97-91-6773nkoj 1 tablet by mouth every four hours as needed for paintraMADOL 50 mg Tab 50 mg = 1 tab(s), Oral, q4hr, PRN for pain, # 20 tab(s), Refills(s) 0, Pharmacy:[id number], 162, cm, 12/20/23 15:18:00 EST, Height/Length Dosing, 85.4, kg, 12/20/23 15:18:00 EST, Weight Dosing Start Date: 12/20/23 Status: Ordered Completed/Discontinued Medications MedicationDrug Class(es)DatesSig (Normalized)Sig (Original)metoclopramide 10 mg oral tablet (9 sources)Dopamine-2 Receptor AntagonistStart: 02-10-2025 End: 36-50-1845wsicjcikolnryf (Reglan) 10 MG tablet Indications: Nausea Take 1 tablet (10 mg) by mouth in the morning and 1 tablet (10 mg) at noon and 1 tablet (10 mg) in the evening. Take before meals. Take 1 tablet by mouth 30 minutes prior to meals 3 times daily as needed for nausea.. 90 tablet 11 02/10/2025 DiscontinuedPre-Addis (2 sources)Pre-Addis Not-Taking/PRNPre-Addis Active Problems Active Problems Problem ClassificationProblemDateDocumented DateEpisodic/ChronicAbdominal pain (2 sources)Finding of sensation of abdomen; Translations: [Unspecified abdominal pain]76-38-0955KqhzbumnUgpkaeo tract disease (6 sources)Biliary colic; Translations: [Calculus of bile duct without cholangitis or cholecystitis without obstruction]Onset: [id number] EpisodicDisorders of lipid metabolism (2 sources)Hyperlipidemia, unspecified; Translations: [Mixed hyperlipidemia] Onset: 023673-12-0211RaxmsfiYgfsvcezdsf; malpresentation (4 sources)Maternal care for breech presentation, not applicable or unspecified; Translations: [MATERNAL CARE BREECH PRES NA/UNS]Onset: 07-46-3280Lhobjgtj Menstrual disorders (20 sources)Irregular menstruation, unspecified; Translations: [Amenorrhea] Onset: 53-46-5695CoksbghIwmolk and vomiting (2 sources)Nausea; Translations: [Nausea]01-51-8219XetzcxxpXxmnv aftercare (2 sources)Surgical follow-up; Translations: [Encounter for follow-up examination after completed treatment for conditions other than malignant neoplasm]86-19-6027PdpvzjpjGityd complications of ; puerperium affecting management of mother (1 source)Endocrine, nutritional and metabolic diseases complicating childbirth; Translations: [ENDOCRN NUTR MET DZ COMP CHILDBIRTH]Onset: 21-24-4032Edrvafiv Other complications of (5 sources)Other specified related conditions, third trimester; Translations: [OTH SPEC PREG RELATEDCOND 3RD TRI]Onset: 85-70-1844ZwxdonhiTuoin complications of (1 source)Decreased movements, third trimester, not applicable or unspecified; Translations: [DECR MOVEMENTS 3RD TRI NA/UNS]Onset: 72-99-6990LunrdbxcReluk complications of (4 sources)Maternal care for excessive growth, third trimester, not applicable or unspecified; Translations: [MAT CARE EXCSS FTL GRTH 3RD TRI UNS] Onset: 75-41-9721QeapqtpqZdpjg non-traumatic joint disorders (1 source)Pain in left kneeEpisodicOther and delivery including normal (20 sources)Encounter for routine follow-up; Translations: [Single live ]Onset: 93-20-5695IkgvvtdtIiovx screening for suspected conditions (not mental disorders or infectious disease) (14 sources)Encounter for screening for diabetes mellitus; Translations: [Encounter for screening for malignantneoplasm of cervix]Onset: 07-04-2022 EpisodicResidual codes; unclassified (1 source)38 weeks gestation of ; Translations: [38 WEEKS GESTATION OF ]Onset: 21-48-6513RotszildKbywthqo codes; unclassified (1 source)Type O blood, Rh negative; Translations: [TYPE O BLOOD RH NEGATIVE] Onset: 04-25-9933JucipyvbMtfjfubs codes; unclassified (1 source)36 weeks gestation of ; Translations: [36 WEEKS GESTATION OF ]Onset: 01-70-3357UdtklidgMxorzviz codes; unclassified (1 source)31 weeks gestation of ; Translations: [31 WEEKS GESTATION OF ]Onset: 09-69-8246HscdajrxGnisezmx codes; unclassified (1 source)Unspecified blood type, Rh negative; Translations: [UNSPECIFIED BLOOD TYPE RH NEGATIVE]Onset: 66-88-2985PumsbjfjGfqnedqp codes; unclassified (1 source)29 weeks gestation of ; Translations: [29 WEEKS GESTATION OF ]Onset: 74-24-6486MexxhjzvJxqpiijm codes; unclassified (1 source)Acquired absence of other specified parts of digestive tract; Translations: [Acquired absence of other specified parts of digestive tract] Onset: 42-70-8587GsvrvzoeDyhvkewl codes; unclassified (1 source)Pain, unspecified; Translations: [Pain, unspecified]Onset: 04-01-2025 EpisodicResidual codes; unclassified (2 sources)Gestation period, 7 weeks; Translations: [Less than 8 weeks gestation of ]96-79-6147DhharxjfUkjwhozuerc (2 sources)Miscarriage; Translations: [Complete or unspecified spontaneous without complication]30-62-9162HorszldnIaxrazs and strains (1 source)Sprain of unspecified site of left knee, initial encounterEpisodic Unclassified (1 source)PERSONAL HISTORY OF COVID-19; Translations: [PERSONAL HISTORY OF COVID-19]Onset: 98-63-0908Chvsianvoiuf (1 source)Pain of knee iddjle73-44-0045Lzptjqztgyuh (1 source)Autogenerated ProblemOnset: 806282-56-8198Qbhkhmxfznyg (1 source)POST-OP VISITOnset: 02-30-4340Qjkljyplbluc (1 source)CholelithiasisOnset: 03-31-2025 Past or Other Problems Problem ClassificationProblemDateDocumented DateEpisodic/ChronicImmunizations and screening for infectious disease (6 sources)Encounter for screening for human papillomavirus (HPV); Translations: [Contact with and (suspected)exposure to infections with a predominantly sexual mode of transmission]Onset: 12-66-1928MhhfoauxIrdic female genital disorders (1 source)Other specified noninflammatory disorders of vagina; Translations: [OTH SPEC NONINFLAMMATORY D/O VAGINA]Onset: 39-98-1009YqlgfexxTnzrlajapumy (2 sources)Unclassified (1 source)Exposure to COVID-19 virus Z20.822Viral infection (1 source)COVID-19 Results Test NameValueInterpretationReference RangeFacilityPOCT , URINE (NUCG) on 40-89-9284Dtbv HCG ( test) Ql (U)NegativeNormalNegative, IndeterminateProParkview Regional HospitalComment on above:Performed By: #### NUCG #### [facility] [address] [place] [address] VIRTBH PREG QUANT HCGon 93-56-2290WLJ BDLZNTPEVGWI7zUR/mLNOMS HealthcareComment on above:5-50 0.2-1 WEEK 50-500 1-2 WEEKS 100-5,000 2-3 WEEKS 500-10,000 3-4 WEEKS 1,000-50,000 4-5 WEEKS 10,000-100,000 5-6 WEEKS 15,000-200,000 6-8 WEEKS 10,000-100,000 2-3 MONTHS CLINISYNCNOMS HealthcareBASIC METABOLIC PANELon 59-22-5455Liavt gap [Moles/Vol]7 mmol/LNormal5-15ProParkview Regional HospitalComment on above:Performed By: #### BMP #### [facility] ([facility]) [address] [place] [address] VIRCalcium [Mass/Vol]9.7 mg/dLNormal8.5-10.5PFirelands Regional Medical Center South CampusComment on above:Performed By: #### BMP #### [facility] ([facility]) [address] [place] [address] VIRChloride [Moles/Vol]105 mmol/XHeaqwz09-213VpiVdrbflParkview Regional HospitalComment on above:Performed By: #### BMP #### [facility] ([facility]) [address] [place] [address] VIRCO2 [Moles/Vol]27 mmol/DRzeeir12-92OjaNrwugbFirelands Regional Medical Center South CampusComment on above:Performed By: #### BMP #### [facility] ([facility]) [address] [place] [address] VIRCreatinine [Mass/Vol]0.66 mg/dLNormal0.40-1.00ProParkview Regional HospitalComment on above:Result Comment: METHOD TRACEABLE TO IDMS STANDARDPerformed By: #### BMP #### [facility] ([facility]) [address] [place] [address] VIREGFR (CKD-EPI) NON-RACE DEPENDENT>^90Normal>=60ProParkview Regional HospitalComment on above:Result Comment: Reported eGFR is based on the CKD-EPI 2020 equation that does not use a race coefficient.Performed By: #### BMP #### [facility] ([facility]) [address] [place] [address] VIRGlucose [Mass/Vol]87 mg/pFAmrebt28-14FrtZxxqigParkview Regional HospitalComment on above:Performed By: #### BMP #### [facility] ([facility]) [address] [place] [address] VIRPotassium [Moles/Vol]4.2 mmol/LNormal3.5-5.0ProParkview Regional HospitalComment on above:Performed By: #### BMP #### [facility] ([facility]) [address] [place] [address] VIRSodium [Moles/Vol]139 mmol/RIypxzt160-580IdgLhopav [facility]remont HospitalComment on above:Performed By: #### BMP #### [facility] ([facility]) [address] [place] [address] VIRUrea nitrogen [Mass/Vol]12 mg/dLNormal5-23ProParkview Regional HospitalComment on above:Performed By: #### BMP #### [facility] ([facility]) [address] [place] [address] VIRCBC WITH AUTO DIFFERENTIALon 85-76-3144FVCOZDLTM ABSOLUTE COUNT (10*3/UL) BY AUTOMATED COUNT0.0 10*3/uLNormal0.0-0.2PFirelands Regional Medical Center South CampusComaspirus iron river hospital on above:Performed By: #### CBCA #### [facility] ([facility]) [address] [place] [address] VIRBASOPHILS RELATIVE PERCENT BY AUTOMATED COUNT0.4 %Normal [facility] HospitalComment on above:Performed By: #### CBCA #### [facility] ([facility]) [address] [place] [address] VIRCELLAVISION DIFFERENTIAL TYPEAUTOMATED DIFFERENTIALNormal [facility] HospitalComment on above:Performed By: #### CBCA #### [facility] ([facility]) [address] [place] [address] VIREosinophils (Bld) [#/Vol]0.1 10*3/uLNormal0.0-0.4T[facility] City HospitalComment on above:Performed By: #### CBCA #### [facility] ([facility]) [address] [place] [address] VIREOSINOPHILS RELATIVE PERCENT BY AUTOMATED COUNT2.1 %Normal [facility] HospitalComment on above:Performed By: #### CBCA #### [facility] ([facility]) [address] [place] [address] VIRErythrocyte distribution width (RBC) [Ratio]12.4 %Normal 11.5-15T[facility] City HospitalComment on above:Performed By: #### CBCA #### [facility] ([facility]) [address] [place] [address] VIRHematocrit (Bld) [Volume fraction]43.1 %Uawddt74-42QymNhkipmParkview Regional HospitalComment on above:Performed By: #### CBCA #### [facility] ([facility]) [address] [place] [address] VIRHemoglobin (Bld) [Mass/Vol]14.8 g/qQJylhgs91.7-15.5PFirelands Regional Medical Center South CampusComment on above:Performed By: #### CBCA #### [facility] ([facility]) [address] [place] [address] VIRLYMPHOCYTES ABSOLUTE COUNT (10*3/UL) BY AUTOMATED COUNT2.5 10*3/uLNormal1.0-3.5PFirelands Regional Medical Center South CampusComment on above:Performed By: #### CBCA #### [facility] ([facility]) [address] [place] [address] VIRLYMPHOCYTES RELATIVE PERCENT BY AUTOMATED COUNT41.9 %Normal [facility] HospitalComment on above:Performed By: #### CBCA #### [facility] ([facility]) [address] [place] [address] VIRMCH (RBC) [Entitic mass]30.2 htGagzna85-68WqsObnjpuParkview Regional HospitalComment on above:Performed By: #### CBCA #### [facility] ([facility]) [address] [place] [address] VIRMCHC (RBC) [Mass/Vol]34.2 g/aJAjwujp36-04BvjIcnvujParkview Regional HospitalComment on above:Performed By: #### CBCA #### [facility] ([facility]) [address] [place] [address] VIRMCV (RBC) [Entitic vol]88 gJFslyie95-264FqzBqeimt [facility] HospitalComment on above:Performed By: #### CBCA #### [facility] ([facility]) [address] [place] [address] VIRMONOCYTES ABSOLUTE COUNT (10*3/UL) BY AUTOMATED COUNT0.4 10*3/uLNormal0.0-0.9T[facility] City HospitalComment on above:Performed By: #### CBCA #### [facility] ([facility]) [address] [place] [address] VIRMONOCYTES RELATIVE PERCENT BY AUTOMATED COUNT6.0 %Normal [facility] HospitalComment on above:Performed By: #### CBCA #### [facility] ([facility]) [address] [place] [address] VIRNEUTROPHILS ABSOLUTE COUNT BY AUTOMATED COUNT3.0 10*3/uL Normal1.5-6.6T[facility] HospitalComment on above:Performed By: #### CBCA #### [facility] ([facility]) [address] [place] [address] VIRNEUTROPHILS RELATIVE PERCENT BY AUTOMATED COUNT49.6 %Normal [facility] HospitalComment on above:Performed By: #### CBCA #### [facility] ([facility]) [address] [place] [address] VIRPlatelet mean volume (Bld) [Entitic vol]7.9 fLNormal7-12 [facility] HospitalComment on above:Performed By: #### CBCA #### [facility] ([facility]) [address] [place] [address] VIRPlatelets (Bld) [#/Vol]223 10*3/lYLcinox508-065YxsXwzykb [facility] HospitalComment on above:Performed By: #### CBCA #### [facility] ([facility]) [address] [place] [address] VIRRBC COUNT4.89 X10E12/LNormal3.8-5.2PFirelands Regional Medical Center South CampusComment on above:Performed By: #### CBCA #### [facility] ([facility]) [address] [place] [address] VIRWBC (Bld) [#/Vol]6.0 10*3/uLNormal4-11ProParkview Regional HospitalComment on above:Performed By: #### CBCA #### [facility] ([facility]) [address] [place] [address] VIRLIVER PANELon 97-91-1575Txgufax [Mass/Vol]4.4 g/dLNormal 3.2-5.3PFirelands Regional Medical Center South CampusComment on above:Performed By: #### LIVR #### [facility] ([facility]) [address] [place] [address] VIRALP [Catalytic activity/Vol]49 U/AKkouna73-797ZyuXrjuxuParkview Regional HospitalComment on above:Performed By: #### LIVR #### [facility] ([facility]) [address] [place] [address] VIRALT [Catalytic activity/Vol]12 U/LNormal<=31PFirelands Regional Medical Center South CampusComment on above:Performed By: #### LIVR #### [facility] ([facility]) [address] [place] [address] VIRAST [Catalytic activity/Vol]17 U/LNormal<=41ProParkview Regional HospitalComment on above:Performed By: #### LIVR #### [facility] ([facility]) [address] [place] [address] VIRBilirubin [Mass/Vol]0.3 mg/dLNormal0.3-1.2PFirelands Regional Medical Center South CampusComment on above:Performed By: #### LIVR #### [facility] ([facility]) [address] [place] [address] VIRBilirubin.indirect [Mass/Vol]mg/dLNormal<=0.4ProParkview Regional HospitalComment on above:Performed By: #### LIVR #### [facility] ([facility]) [address] [place] [address] VIRProtein [Mass/Vol]7.3 g/dLNormal6.0-8.0ProParkview Regional HospitalComment on above:Performed By: #### LIVR #### [facility] ([facility]) [address] [place] [address] VIRPATHOLOGY REQUEST FOR LAB CORPon [id number] REQUEST FOR LAB CORPSaint John's Breech Regional Medical CenterComment on above:See report. Scanned copy available in EMR.POCRegional Medical CenterALL CBC WITH AUTO DIFFon [id number] ABSOLUTE PPTE4EMCN HealthcareBasophils/100 WBC (Bld)0.5 %0.2 - 2.0 %NOMS HealthcareEosinophils/100 WBC (Bld)2.3 %0.9 - 7.0 %NOM HealthcareErythrocyte distribution width (RBC) [Ratio]11.9 %11.0 - 15.0 %NOMS HealthcareHematocrit (Bld) [Volume fraction]39.2 %36.0 - 48.0 %NOM HealthcareHemoglobin (Bld) [Mass/Vol]13.4 g/dL12.0 - 16.0 g/dLNOAudrain Medical CenterIMMATURE GRANULOCYTES ABS AUTO 0.01NOMS HealthcareImmature granulocytes/100 WBC (Bld)0.2 %0.0 - 0.5 %NOM HealthcareInterpretation and review of laboratory resultsAbnormalNOAudrain Medical Center LYMPHOCYTES ABSOLUTE AUTO2.4NOMS [facility] Christ HospitalLymphocytes/100 WBC (Bld)43.3 %20.5 - 60.0 %[facility] HospitalH (RBC) [Entitic mass]30.1 pg26.7 - 34.0 pgNOSainte Genevieve County Memorial HospitalHC (RBC) [Mass/Vol]34.2 g/dL29.9 - 35.2 g/dLNOMS HealthcareMCV (RBC) [Entitic vol]88.1 fL81.0 - 99.0 fLNOMS HealthcareMONOCYTES ABSOLUTE AUTO0.4NOMS HealthcareMonocytes/100 WBC (Bld)7 %1.7 - 12.0 %NOMS HealthcareNEUTROPHILS ABSOLUTE AUTO2.6NOMS HealthcareNeutrophils/100 WBC (Bld)46.7 %43.0 - 75.0 %NOMS HealthcarePlatelet mean volume (Bld) [Entitic vol]8.5 fLLow9.5 - 13.5 fLNOMS HealthcareTBH EO #0.1NOMS HealthcareTBH FUH111GMQY HealthcareTBH RBC4.45NOMS HealthcareTBH WBC5.6NOMS HealthcareCLINISYNCNOMS HealthcarePathology Request for Lab Corpon [id number] Request for Lab CorpNormalThe Critical Access Hospital Physician GroupComment on above:Order Comment: POCResult Comment: See report. Scanned copy available in EMR. PERFORMED BY: [place] [address] PATHOLOGIST BEEF RIBBER ALEXEY FLOOD M.D.Performed By: #### PATH TO [facility] #### [place] [address] USAUS OB TRANSVAGINALon [id number] OB TRANSVAGINALEXAM: US OB TRANSVAGINAL HISTORY: Viability. LMP 01/02/2025. [...] weeks 5 days (+/- 5 days). There isno subchorionic hemorrhage visualized. There is no definite pole. IMPRESSION: 1. Single intrauterine gestational sac 11 weeks, 6 days by LMP. Today's ultrasound measurements correlate with a gestational age of 7 weeks 5 days (+/- 5 days). A subcentimeter echogenic focus withinthe gestational sac may represent an abnormal pole or yolk sac. The previously visualized intrauterine gestation is not appreciated on today's exam, consistent with an intrauterine demise. This was visualized on the prior study dated 03/08/2025. Interpreted by: Electronically signed by ZOË NGUYEN II, MD, PHD at 15-Mar-2025 08:20:24 PM [facility] TeleradiologyNormalNot AvailableComment on above:Order Comment: US OB VIABILITY PLEASE PERFORM TRANSVAGINAL ULTRASOUND IF INDICATED Patient's last menstrual period was 12/19/2024.US OB TRANSVAGINALon 82-47-3434DM OB TRANSVAGINALEXAM: US OB TRANSVAGINAL HISTORY: Dating. LMP 01/02/2025. . COMPARISON: None TECHNIQUE: Two-dimensional transvaginal grayscale and color Doppler ultrasound imaging of the pelvis was performed. FINDINGS: The uterus demonstrates a normal homogeneous echotexture. The cervical os is closed. Multiple nabothian cysts are visualized within the cervix. The right ovary measures 2.6 x 1.2 x 1.3 cm and demonstrates a normal echotexture. There is normal color Doppler flow. The left ovary measures 2.9 x 2.5 x 2.5 cm and demonstrates a normal echotexture. There is normal color Doppler flow. No fluid is present within the cul-de-sac. There is a single intrauterine gestation identified without heart tones. A mean crown-rump length measurement of 0.24 cm, correlates to a gestational age of 5 weeks 5 days (+/- 4 days). There is no subchorionic hemorrhage visualized. A yolk sac is not visualized. IMPRESSION: 1. Single intrauterine gestation 11 weeks, 0 days by LMP. Today's ultrasound measurements correlatewith a gestational age of 5 weeks 5 days (+/- 4 days). There are no heart tones or yolk sac identified. This likely represents an intrauterine demise. Correlation with beta hCG values is recommended. The ordering physician was notified of the findings by the performing technologist at the conclusion of the exam. 2. Normal color Doppler evaluation of the bilateral ovaries. Interpreted by: Electronically signed by ZOË NGUYEN II, MD, PHD at 08-Mar-2025 08:55:27 PM [facility] TeleradiologyNormalNot AvailableComment on above:Order Comment: US OB TRANSVAGINAL Patient's last menstrual period was 12/19/2024.US RIGHT UPPER QUADRANTon [id number] [address] Ultrasound Report Signed Patient: ELIDA GROVER MR#: [id number] : 1995 Acct:[id number] Age/Sex: 29 / F ADM Date: 02/20/25 Loc: US Attending Dr: Nnamdi Mireles D.O. Ordering Physician: Nnamdi Mireles D.O. Date of Service: 02/20/25 Procedure(s): US right upper quadrant Accession Number(s): [id number] cc: Nnamdi Mireles D.O.; GERMAN NOEL [place] [id number] Patient Name: ELIDA GROVER MRN: [id number] date: 1995 Sex: F Assigned Patient Location: US Current Patient Location: US Accession/Order Number: [id number] Exam Date: 02/20/2025 07:56 Report Date: 02/20/2025 07:58 At the request of: NNAMDI MIRELES DO Procedure: US right upper quadrant LIMITED [...] Amy Molina M.D.02/20/2025 7:58 AM Dictation Location: [place] [address] Electronically authenticated by: [id number] Y Date: 02/20/2025 07:58 Dictated By: Amy Molina M.D. Signed By: 02/20/25 0801 DD/ 0758 TD/TT: Harbor Master:TBHRadiology, Radiologist, MD - 02/20/2025 [place] [address] Ultrasound Report Signed Patient: ELIDA GROVER MR#: [id number] : 1995 Acct:[id number] Age/Sex: 29 / F ADM Date: 02/20/25 Loc: US Attending Dr: Nnamdi Mireles D.O. Ordering Physician: Nnamdi Mireles D.O. Date of Service: 02/20/25 Procedure(s): US right upper quadrant Accession Number(s): [id number] cc: Nnamdi Mireles D.O.; GER[place] NOEL [place] [id number] Patient Name: ELIDA GROVER MRN: [id number] date: 1995 Sex: F Assigned Patient Location: US Current Patient Location: US Accession/Order Number: [id number] Exam Date: 02/20/2025 07:56 Report Date: 02/20/2025 07:58 At the request of: NNAMDI MIRELES DO Procedure: US right upper quadrant LIMITED [...] Amy Molina M.D.02/20/2025 7:58 AM Dictation Location: [place] [address] Electronically authenticated by: [id number] Y Date: 02/20/2025 07:58 Dictated By: Amy Molina M.D. Signed By: 02/20/25 0801 DD/ 0758 TD/TT: Harbor Master: BOSTON SANATORIUMLisandro The Christ HospitalRadiology Study observation (narrative)LUCÍA JordanUS RIGHT UPPER QUADRANTOrdered By: Radiologist Radiology on 15-87-5557PYNWSaint John's [facility]ree[facility] Work Phone: Urinalysis macro (dipstick) panel (U)on 02-10-2025 Bilirubin, UANegativeNegative - 4(70) +++ mg/dLNOMS HealthcareBlood, UANegative Negative - 50 Dario/mcLNOMS HealthcareClarity, UAClearNOUT HealthcareColor, UA YellowNOMS HealthcareGlucose, UANegativeNegative - 2000(110) ++++ mg/dLNOUT HealthcareInterpretation and review of laboratory resultsNormalNOAudrain Medical Center Ketones, UANegativeNegative - 160(16) ++++ mg/dLNOMS HealthcareLeukocytes, UA NegativeNegative - 500+++ Danilo/mcLNOMS HealthcareNitrite, UANegativeNegative - PositiveNOMS HealthcarepH, UA5.55 - 9NOMS HealthcareProtein, UANegativeNegative - 2000(20) ++++ mg/dLNOMS HealthcareSpec Grav, UA1.011 - 1.03NOMS Healthcare Urobilinogen, UA0.20.2 - 12 mg/dLNOMS HealthcareNOMS HealthcareTBH PREG QUANT HCGon 17-76-3894ORS GGVUJEHLBEZE88430kDV/mLNOMS HealthcareComment on above:5-50 0.2-1 WEEK 50-500 1-2 WEEKS 100-5,000 2-3 WEEKS 500-10,000 3-4 WEEKS 1,000-50,000 4-5 WEEKS 10,000-100,000 5-6 WEEKS 15,000-200,000 6-8 WEEKS 10,000-100,000 2-3 [facility] PREG QUANT HCGon 63-70-4207UEO RZIHSSWQTYBQ60025 mIU/mLNOMS HealthcareComment on above:5-50 0.2-1 WEEK 50-500 1-2 WEEKS 100-5,000 2-3 WEEKS 500-10,000 3-4 WEEKS 1,000-50,000 4-5 WEEKS 10,000-100,000 5-6 WEEKS 15,000-200,000 6-8 WEEKS 10,000-100,000 2-3 MONTHS [facility] PennsylvaniaAmbulatory Visit Summaryon 07-57-6834Otfmtlwhgi Visit SummaryAmbulatory Visit Summary ELIDA GROVER :1995 Visit Date:12/02/2024 [...] you for choosing us for your care. [facility] Medicine Office/Clinic Noteon 82-00-4385Mtmkbx Medicine Office/Clinic NoteMassachusetts General Hospital Medicine Office/Clinic Note Chief Complaint Sick Visit [...] The patient reports managing body aches with rlxf-wpg-ljcxxbb medications such as DayQuil and NyQuil. There [...] onset. For symptomatic relief, the patient was advisedto use DayQuil and NyQuil. Tessalon Perles was prescribed for managing cough symptoms. Monitoring for severe symptoms such as increased chest pain or shortness of breath is advised, and an ER visit was recommended if symptoms escalate, particularly concerning for pneumonia risk. Ordered: Influenza Type A&B POC 15006 Follow-up No qualifying data available Problem List/Past [...] (12/02/24 10:37:00) Influenza B POC: Negative (12/02/24 10:37:00)[facility] Comment on above:Result Comment: Electronically Signed By: Justin CABRALES, Kaiser Agarwal\.br\Date and Time Signed: 12/02/24 10:44 ESTProvider Letteron 12-02-2024 Provider LetterProvider Letter December 02, 2024 ELIDA GROVER [address] [place] [phone] : 1995 To Whom It May Concern, Please excuse above patient from work, due to medical Date of Illness: From: _12-01-24 To: _12-08-24 May Return to Work On: 12-09-24 Restrictions: _ Comments: _ Sincerely, Family Medicine [address] [address] AoxrxaOpilhn Liberty Medical CenterAmbulatory Visit Summaryon 20-81-9738Ojlnnqmwtx Visit SummaryAmbulatory Visit Summary ELIDA GROVER :1995 Visit Date:10/15/2024 [...] these instructions at home: Medicines ??? Take oiya-ojc-lvvgvpa and prescription medicines only as told by [...] and water are not available, use hand tree pruner. ??? Do not touch your eyes, nose, [...] help right away if: (more content not included)...[facility] Medicine Office/Clinic Noteon 44-45-6090Rxmkbh Medicine Office/Clinic NoteMassachusetts General Hospital Medicine Office/Clinic Note Chief Complaint Acute Sick [...] medical support in addressing this problem. Your BMIand weight management will be followed at subsequent [...] medical support in addressing this problem. Your BMIand weight management will be followed at subsequent visits. Follow-up No qualifying data available Patient Education Pharyngitis, Bmvr-va-Dowx Viral Respiratory Infection, Mfpp-Kz-Gqim Problem List/Past Medical History Ongoing Knee pain, [...] (todmitrynameran 5y-11y) vac - Not Given Patient RefusesNormalKeenan Private HospitalComment on above:Result Comment: Electronically Signed By: ENA MORE CNP.feliz\Date and Time Signed: 10/15/24 14:34 ESTHCG ( test) Ql (U)on 87-09-4765Cwdlzwfgtmerct and review of laboratory resultsNormal NOMS HealthcarePreg Test, UrNegativeNegativeNOMS HealthcareNOMS HealthcareUS PELVIS W/ TRANSVAGINALon 45-42-2354[place]dmSher[place] [address] Ultrasound Report Signed Patient: ELIDA GROVER MR#: [id number] : 1995 Acct:[id number] Age/Sex: 29 / F ADM Date: 08/18/24 Loc: US Attending Dr: Viola Gamez Ordering Physician: Viola Gamez Date of Service: 08/18/24 Procedure(s): US pelvis w/ transvaginal Accession Number(s): [id number] cc: Viola Gamez; [place] [address] Patient Name: ELIDA GROVER MRN: [id number] date: 1995 Sex: F Assigned Patient Location: US Current Patient Location: Accession/Order Number: [id number] Exam Date: 08/18/2024 15:35 Report Date: 08/19/2024 07:31 At the request of: VIOLA GAMEZ Procedure: US pelvis w/ transvaginal EXAMINATION: US pelvis w/ transvaginal HISTORY: Amenorrhea N91.2 COMPARISON: No relevant comparison available. FINDINGS: Transabdominal and transvaginal images The uterus is normal in size, contour and echotexture measuring 7.4 x 3.9 x 5.2 cm, anteverted. Multiple areas of anechoic echogenicity in the cervix likely nabothian cysts. Endometrium measures 4.5 mm, normal. The right ovary is normal measuring 3.0 x 2.2 x 2.2 cm. Normal color and Doppler flow. Normal follicles The left ovary is normal measuring 2.9 x 2.6 x 2.8 cm. Normal color and Doppler flow. Normal follicles. Area of avascular hypoechogenicity measuring 1.4 x 1.3 x 1.4 cm immediately adjacent to the left ovary, possibly an exophytic cyst US/US pelvis w/ transvaginal IMPRESSION: No acute abnormality Electronically authenticated by: CHASE WINSLOW Date: 08/19/2024 07:31 Dictated By: Chase Winslow M.D. Signed By: 08/19/2433 DD/ TD/TT: Harbor Master:TBHRadiology, Radiologist, - 08/19/2024 [place] [address] Ultrasound Report Signed Patient: ELIDA GROVER MR#: [id number] : 1995 Acct:[id number] Age/Sex: 29 / F ADM Date: 08/18/24 Loc: US Attending Dr: Viola Gamez Ordering Physician: Viola Gamez Date of Service: 08/18/24 Procedure(s): US pelvis w/ transvaginal Accession Number(s): [id number] cc: Viola Gamez; GER[place] NOEL [place] [id number] Patient Name: ELIDA GROVER MRN: [id number] date: 1995 Sex: F Assigned Patient Location: US Current Patient Location: Accession/Order Number: [id number] Exam Date: 08/18/2024 15:35 Report Date: 08/19/2024 07:31 At the request of: VIOLA GAMEZ Procedure: US pelvis w/ transvaginal EXAMINATION: US pelvis w/ transvaginal HISTORY: Amenorrhea N91.2 COMPARISON: No relevant comparison available. FINDINGS: Transabdominal and transvaginal images The uterus is normal in size, contour and echotexture measuring 7.4 x 3.9 x 5.2 cm, anteverted. Multiple areas of anechoic echogenicity in the cervix likely nabothian cysts. Endometrium measures 4.5 mm, normal. The right ovary is normal measuring 3.0 x 2.2 x 2.2 cm. Normal color and Doppler flow. Normal follicles The left ovary is normal measuring 2.9 x 2.6 x 2.8 cm. Normal color and Doppler flow. Normal follicles. Area of avascular hypoechogenicity measuring 1.4 x 1.3 x 1.4 cm immediately adjacent to the left ovary, possibly an exophytic cyst US/US pelvis w/ transvaginal IMPRESSION: No acute abnormality Electronically authenticated by: CHASE WINSLOW Date: 08/19/2024 07:31 Dictated By: Chase Winslow M.D. Signed By: 08/19/2433 DD/ 0 TD/TT: Harbor Master: LUCÍA HealthcareRadiology Study observation (narrative)NOMS HealthcareUS PELVIS W/ TRANSVAGINALOrdered By: Radiologist Radiology on 05-54-6679SWUMSaint John's Breech [facility] Center Work Phone: aLL CBC WITH AUTO DIFFon 94-20-0045DKVUFPTAQ ABSOLUTE AUTO0.0NOMS HealthcareBasophils/100 WBC (Bld)0.3 %0.2 - 2.0 %[facility] Eosinophils/100 WBC (Bld)0.8 %Low0.9 - 7.0 %[facility] Medical CenterErythrocyte distribution width (RBC) [Ratio]11.7 %11.0 - 15.0 %[facility] HealthcareHematocrit (Bld) [Volume fraction]40.7 %36.0 - 48.0 %[facility] Medical CenterHemoglobin (Bld) [Mass/Vol]13.7 g/dL12.0 - 16.0 g/dLSaint John's Breech Regional Medical CenterIMMATURE GRANULOCYTES ABS AUTO 0.01NOMS [facility] Christ HospitalImmature granulocytes/100 WBC (Bld)0.2 %0.0 - 0.5 %[facility] Medical CenterInterpretation and review of laboratory resultsAbnormalNOAudrain Medical Center LYMPHOCYTES ABSOLUTE AUTO2.4NOAudrain Medical CenterLymphocytes/100 WBC (Bld)39.4 %20.5 - 60.0 %[facility] Medical CenterMCH (RBC) [Entitic mass]29.8 pg26.7 - 34.0 pgSaint John's Breech Regional Medical CenterMCHC (RBC) [Mass/Vol]33.7 g/dL29.9 - 35.2 g/dLSaint John's Breech Regional Medical CenterMCV (RBC) [Entitic vol]88.7 fL81.0 - 99.0 fLSaint John's Breech Regional Medical CenterMONOCYTES ABSOLUTE AUTO0.3NOUT HealthcareMonocytes/100 WBC (Bld)4.8 %1.7 - 12.0 %[facility] CenterNEUTROPHILS ABSOLUTE AUTO3.3NOMS HealthcareNeutrophils/100 WBC (Bld)54.5 %43.0 - 75.0 %[facility] Medical CenterPlatelet mean volume (Bld) [Entitic vol]8.8 fLLow9.5 - 13.5 fLSaint John's Breech Regional Medical CenterTB EO #0.1NOMS HealthcareTB VOB807AGXS The Christ HospitalTB RBC4.59NOMS The Christ HospitalTB WBC6.0NOAudrain Medical CenterCLINISYNCNOMS HealthcareTBH PREG QUANT HCGon 59-58-1223DQM QUANTITATIVE<1mIU/mLNOMS HealthcareComment on above:5-50 0.2-1 WEEK 50-500 1-2 WEEKS 100-5,000 2-3 WEEKS 500-10,000 3-4 WEEKS 1,000-50,000 4-5 WEEKS 10,000-100,000 5-6 WEEKS 15,000-200,000 6-8 WEEKS 10,000-100,000 2-3 MONTHS CLINISYNCNOUT HealthcareTB PREG QUANT HCGon 44-77-3635RDC QUANTITATIVE<1mIU/mL NOMS HealthcareComment on above:5-50 0.2-1 WEEK 50-500 1-2 WEEKS 100-5,000 2-3 WEEKS 500-10,000 3-4 WEEKS 1,000-50,000 4-5 WEEKS 10,000-100,000 5-6 WEEKS 15,000-200,000 6-8 WEEKS 10,000-100,000 2-3 MONTHS CLINISYSCNOUT HealthcareTB PREG QUANT HCGon 07-38-0321FNC QUANTITATIVE<1mIU/mL [facility] HealthcareComment on above:5-50 0.2-1 WEEK 50-500 1-2 WEEKS 100-5,000 2-3 WEEKS 500-10,000 3-4 WEEKS 1,000-50,000 4-5 WEEKS 10,000-100,000 5-6 WEEKS 15,000-200,000 6-8 WEEKS 10,000-100,000 2-3 MONTHS CLINISYENCOMPASS HEALTH HealthcareConsultation Noteon 15-94-7127Zzrshszkeyyj Note [id number]#1.00TIFFSumma HealthConsultation Noteon 52-42-9965Mxiztjbfnnxp Note [id number]#1.00TIFFort Hamilton HospitalBMPon 36-90-1817Mxafyuscxm [Mass/Vol]0.8 mg/dLNormal0.5-1.3Fisher [facility]. Washington Pediatric HospitalComment on above:Performed By: #### 9851784, [id number], 6322664 ####[facility] [address] [facility], [place] [address]Zhml nitrogen/Creatinine [Mass ratio]19 No OfsxfMjehfr90-16PuebfcKeenan Private HospitalComment on above:Performed By: #### 9969947, 05946703, 1840216 ####[facility] [address] [place], [place] [address]Qffdl gap [Moles/Vol]9 mmol/LNormal6-16Keenan Private HospitalComment on above: Performed By: #### 9713796, 07420530, 6567924 ####[place] [address] [place], [place] [address]Lnwfipo [Mass/Vol]8.8 mg/dLLow 8.9-11.1Fisher [facility]. [facility] Pediatric HospitalComment on above:Performed By: #### 5266473, 57540246, 1396277 ####[place] [address] [place], [place] [address]Npwyubhu [Moles/Vol]108 mmol/EXheqmd974-056ZufypqKeenan Private HospitalComment on above:Performed By: #### 1007496, 74430004, 2688795 ####[address] [address]UW[address] [Moles/Vol]28 mmol/VQrcsnx99-99AmvdonKeenan Private HospitalComment on above: Performed By: #### 3030791, 93974719, 9768033 ####[place] [address] [place], [place] [address]Tejmllv [Mass/Vol]75 mg/dLNormal 55-199Keenan Private HospitalComment on above:Performed By: #### 1411879, 09953571, 2210236 ####[place] [address] [place], [place] [address]Rqqnhgopl [Moles/Vol]4.0 mmol/LNormal3.5-5.3FSouthern [place] Medical CenterComment on above:Performed By: #### 0819856, 87898136, 0530314 ####[facility] [address] [place] [address] Sodium [Moles/Vol]141 mmol/TRlcahp587-365PwwxkaKeenan Private HospitalComment on above:Performed By: #### 8318979, 21964923, 1964591 ####[facility] [address] [place], [place] [address]Caex nitrogen [Mass/Vol]15 mg/dLNormal5-21Keenan Private HospitalComment on above:Performed By: #### 5131909, 39715668, 2476845 ####[address] [address]GZA w/Indiceson 31-05-4622Odrehygvodr distribution width (RBC) [Ratio]13.0 %Jxpgkj97.9-14.2FSouthern Ohio Medical CenterComment on above:Performed By: #### 9449220, 44592237, 2106035 ####[address] [address]Xsccmelsxx (Bld) [Volume fraction]36.2 %Hqrpbl49.0-46.0Keenan Private HospitalComment on above: Performed By: #### 5706148, 47316923, 6283664 ####[address] [address]Kkovuwqmhr (Bld) [Mass/Vol]12.3 g/dL Hspbmb34.0-16.0Keenan Private HospitalComment on above:Performed By: #### 2191609, 84852390, 6959188 ####[address] [address]ELU (RBC) [Entitic mass]29.1 vzCwxopi55.0-34.0 [facility]an Private HospitalComment on above:Performed By: #### 1257722, 12700217, 1027564 ####[place] [address] [place], [place] [address]EYUF (RBC) [Mass/Vol]33.9 g/kYZhzklh69.4-36.0Ke[facility]an Private HospitalComment on above:Performed By: #### 0916959, 51587438, 4007578 ####[address] [address]BMD (RBC) [Entitic vol]85.8 oRGuauqo72.0-100.0Ke[facility]an Private HospitalComment on above:Performed By: #### 8811502, 27847628, 0983594 ####[address] [address]Kbbypqmp mean volume (Bld) [Entitic vol]7.4 fLNormal6.4-10.8Keenan Private HospitalComment on above: Performed By: #### 4279085, 37974730, 2022691 ####[address] [address]Jegyzzmxn (Bld) [#/Vol]193.0 E9/L Faczcr584.0-500.0Ke[facility]an Private HospitalComment on above:Performed By: #### 3948574, 48036705, 1104413 ####[address] [address]BCG (Bld) [#/Vol]4.2 E12/LLow4.3-5.9Ke[facility]an Private HospitalComment on above:Performed By: #### 1246377, 83662201, 6658057 ####[address] [address]W[place] size Nom (Bld)NORMALInvalid Interpretation CodeKeenan Private Hospital Comment on above:Performed By: #### 0906014, 94305081, 3871524 ####[address] [address]HSM corrected for nucl RBC Auto (Bld) [#/Vol]5.1 E9/LNormal4.0-11.0Ke[facility]an Private HospitalComment on above:Performed By: #### 9420243, 70209073, 6453575 ####[address], [place] [address]MBPWFHKKKSohcohx By: SYSTEM SYSTEM on 56-97-7085Bnrtc gap [Moles/Vol]9 mmol/LNormal6 - 16 mEq/LRemisol Chem Calcium [Mass/Vol]8.8 mg/dLLow8.9 - 11.1 mg/dLRemisol ChemChloride [Moles/Vol] 108 mmol/XPxczmn858 - 111 mmol/LRemisol ChemCO2 [Moles/Vol]28 mmol/QLgkzho86 - 31 mmol/LRemisol ChemCreatinine [Mass/Vol]0.8 mg/dLNormal0.5 - 1.3 mg/dLRemisol QbknuBVK179 mL/min/1.73 z4Hsyvik>=59mL/min/1.73 s8Gwnadfi ChemGlucose [Mass/Vol] 75 mg/qSTfpcdi23 - 199 mg/dLRemisol ChemPotassium [Moles/Vol]4.0 mmol/LNormal3.5 - 5.3 mmol/LRemisol ChemSodium [Moles/Vol]141 mmol/LEnhexb251 - 145 mmol/L Remisol ChemUrea nitrogen [Mass/Vol]15 mg/dLNormal5 - 21 mg/dLRemisol ChemUrea nitrogen/Creatinine [Mass ratio]19 mg/jkNuhmsk64 - 20Remisol ChemConsent for Treatmenton 98-85-9340Yclwtol for Treatment [id number]#1.00APOLLO BEACHNormalKeenan Private HospitalHEMATOLOGYOrdered By: SYSTEM SYSTEM on 07-04-9032Eitnsxxtehw distribution width (RBC) [Ratio]13.0 %Ketxkm59.9 - 14.2 %Remisol HemeHematocrit (Bld) [Volume fraction]36.2 %Rmcaaj27.0 - 46.0 %Remisol HemeHemoglobin (Bld) [Mass/Vol]12.3 g/mVJlrxxy09.0 - 16.0 gm/dLRemisol HemeMCH (RBC) [Entitic mass]29.1 gaCkkboo44.0 - 34.0 pgRemisol HemeMCHC (RBC) [Mass/Vol]33.9 g/yZKaubaq31.4 - 36.0 gm/dL Remisol HemeMCV (RBC) [Entitic vol]85.8 gRDpfaty30.0 - 100.0 fLRemisol Heme Platelet mean volume (Bld) [Entitic vol]7.4 fLNormal6.4 - 10.8 fLRemisol Heme Platelets (Bld) [#/Vol]193.0 E9/FXrnklk475.0 - 500.0 E9/LRemisol HemeRBC (Bld) [#/Vol]4.2 E12/LLow4.3 - 5.9 E12/LRemisol HemeRBC size Nom (Bld)NORMAL *NA* (01/31/24 3:48 PM)Invalid Interpretation CodeRemisol HemeWBC corrected for nucl RBC Auto (Bld) [#/Vol]5.1 E9/LNormal4.0 - 11.0 E9/LRemisol HemeeGFRon 01-31-2024 dIHC792 mL/min/1.73 l8Sukdmg>=59Keenan Private HospitalComment on above: Order Comment: Order added by Discern Expert.Performed By: #### 0019021, 22867948, 4132385 ####[facility] [address] [place], [place] [address]Yrljecirg Orderon 81-68-3703Nlcshdypr Order [id number]#1.00TIFFort Hamilton HospitalDischarge Note - PTon 88-56-3809Nsdutukdr Note - PT [id number]#1.00[facility] HospitalPhysician Orderon 24-11-4551Hkphgsomo Order [id number]#1.00[facility] HospitalConsultation Noteon 13-63-8410Auzfyajbztsa Note [id number]#1.00[facility] HospitalPhysician Referralon 93-45-4271Hvizgmvnh Referral [id number]#1.00[facility] HospitalPT - Progress Noteson 28-90-6649ST - Progress Notes [id number]#1.00[facility] HospitalAmbulatory Visit Summaryon 73-70-7489Nkpmnecdcc Visit Summary ELIDA GROVER :1995 Visit Date:12/20/2023 [...] PM EST With: Kaiser Anderson MD Where: [facility] Family Medicine [facility] Medicine Office/Clinic Noteon 01-31-2023Apioby Medicine Office/Clinic NoteHPI Staff Elida is a 28 year old [...] for pain - Follow up PRN Ordered: [facility] External Ambulatory Referral 2. BMI 32.0-32.9,adult (Z68.32: [...] pain, # 20 tab(s), Refills(s) 0, Pharmacy: [id number], 162, cm, 12/20/23 15:18:00 EST, Height/Length Dosing, [...] (tozinameran 5y-11y) vac - Not Given Patient RefusesNormalFisher Mt. Washington Pediatric HospitalComment on above:Result Comment: Electronically Signed By: Justin CABRALES, Kaiser Pfeiffer.br\Date and Time Signed: 12/20/23 15:38 ESTPatient Education on 31-00-0463Huscdqf EducationNutrition BMI for Adults What is BMI? Body mass index (BMI) is a number that is calculated from a person's weight and height. BMI can help estimate how much of a person's weight is composed of fat. BMI does not measure body fat directly.Rather, it is an alternative to procedures that [...] your height. Both height and weight are measured,and the BMI is calculated from those numbers. This can be done either in [place] ([place] or metric measurements. Note that charts and online BMI calculators are available to help you find your BMI quickly and easily without having to do these calculations yourself. To calculate your BMI in [place] ([place] measurements: 1. Measure your weight in [...] meters squared number. In this example: 70 ?3.1 = 22.6. This is your BMI. What [...] for Disease Control and Prevention: www.cdc.gov ? [place] Heart Association: www.heart.org ? National Heart, Lung, and Blood [place]: www.nhlbi.nih.gov Summary ? Body mass index (BMI) is a number that is calculated from a person's weight and height. ? BMI may help estimate how much of a person's weight is composed of fat. BMI can help identify those who may be at higher risk for certain medical problems. ? BMI can be measured using [place] measurements or metric measurements. ? BMI charts are used to identify whether you are underweight, normal weight, overweight, or obese. This information is not intended to replace advice given to you by your health care provider. Make sure you discuss any questions you have with your health care provider. Document Revised: 07/14/2020 Document Reviewed: 05/21/2020 [employer] Patient Education ? 2022 [employer] Ambulatory Visit Summaryon 52-15-2398Kupfwmxebf Visit Summary ELIDA GROVER :1995 Visit Date:12/10/2023 [...] PM EST With: Kaiser Anderson MD Where: [facility] Family Medicine [facility] Medicine Office/Clinic Noteon 47-67-8289Xtznsk Medicine Office/Clinic NoteHPI Staff Elida is a 28 year old female presenting for acute visit Pain characteristics: Back in September helped her uncle with a cow issues and a cow threw her back and stepped on her lower leg and it got caught in a got, Getting uncomfortable to sleep and time to do something about it.Went to ER , had xray it couldn't 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 Pain location: left knee Intensity:8/10 Onset: September Medication used: ibuprofen, tylenol, ice, [...] can radiate up and down. Bending it makesit worse. Sitting makes it better. OTC meds [...] (tozinameran 5y-11y) vac - Not Given Patient RefusesSumma HealthComment on above:Result Comment: Electronically Signed By: Justin CABRALES, Kaiser Pfeiffer.br\Date and Time Signed: 12/10/23 07:21 ESTPatient Education on 95-63-2493Mppqofk EducationNutrition BMI for Adults What is BMI? Body mass index (BMI) is a number that is calculated from a person's weight and height. BMI can help estimate how much of a person's weight is composed of fat. BMI does not measure body fat directly.Rather, it is an alternative to procedures that [...] your height. Both height and weight are measured,and the BMI is calculated from those numbers. This can be done either in [place] ([place] or metric measurements. Note that charts and online BMI calculators are available to help you find your BMI quickly and easily without having to do these calculations yourself. To calculate your BMI in [place] ([place] measurements: 1. Measure your weight in [...] meters squared number. In this example: 70 ?3.1 = 22.6. This is your BMI. What [...] for Disease Control and Prevention: www.cdc.gov ? [place] Heart Association: www.heart.org ? National Heart, Lung, and Blood [place]: www.nhlbi.nih.gov Summary ? Body mass index (BMI) is a number that is calculated from a person's weight and height. ? BMI may help estimate how much of a person's weight is composed of fat. BMI can help identify those who may be at higher risk for certain medical problems. ? BMI can be measured using [place] measurements or metric measurements. ? BMI charts are used to identify whether you are underweight, normal weight, overweight, or obese. This information is not intended to replace advice given to you by your health care provider. Make sure you discuss any questions you have with your health care provider. Document Revised: 07/14/2020 Document Reviewed: 05/21/2020 [employer] Patient Education ? 2022 [employer] Physician Referralon [id number] Referral [id number]#1.00TIFFSumma HealthXR knee LT 4V*on [id number] knee LT 4V*[facility] [employer] Other XR knee LT 4V*[facility] [employer] Other XR knee LT 4V*1111 [facility] Tus reQRdos Other XR knee LT 4V*[place], [place] [address] Tus reQRdos Other XR knee LT 4V*[facility] Tus reQRdos Other XR knee LT 4V*[facility] Tus reQRdos Other XR knee LT 4V*Patient: Elida Grover MR#: [id number] [facility] [employer] Other XR knee LT 4V*[facility] Tus reQRdos Other XR knee LT 4V*: 1995 Acct:[id number] Tus reQRdos Other XR knee LT 4V*Age/Sex: 28 / F ADM Date: 12/05/23[employer] Other XR knee LT 4V*Loc: XDUCLY Room: [facility] Other XR knee LT 4V*Attending Dr: Erlinda Archer NP-[employer] Other XR knee LT 4V*Copies to: Erlinda Archer NPSULLIVAN COUNTY MEMORIAL HOSPITALLophius Biosciences Other XR knee LT 4V*Ordering Provider: YAW Carney [employer] Other XR knee LT 4V*Date of Service: 12/05/23[employer] Other XR knee LT 4V* XR/XR knee LT 4V*: Left knee pain, unspecified chronicityHacksneck Tus reQRdos Other XR knee LT 4V*LEFT KNEE - 4 viewsNoGeoSentric Other XR knee LT 4V*COMPARISON: [facility] Tus reQRdos Other XR knee LT 4V*CLINICAL DATA: Patient's left knee was stepped on by a cow after patient fell 3 months ago.[employer] Other XR knee LT 4V*Continued pain below the patella.[employer] Other XR knee LT 4V*AP, lateral and both oblique views were obtained. There is no acute fracture or dislocation. [employer] Other XR knee LT 4V*joint spaces are maintained. There are no prominent hypertrophy. There is a trace amount jointMotorwayBuddy Other XR knee LT 4V*fluid. No soft tissue swelling is identified.[employer] Other XR knee LT 4V* XR/XR knee LT 4V* [employer] Other XR knee LT 4V*IMPRESSION:[employer] Other XR knee LT 4V*NO ACUTE BONY FINDINGS.[employer] Other XR knee LT 4V*Impression dictated by: Amy Molina M.D.12/05/2023 12:00 [facility] Tus reQRdos Other XR knee LT 4V*Dictation Location: [id number] Tus reQRdos Other XR knee LT 4V*Transcribed By: [facility] 12/05/[address] [place] [address] Tus reQRdos Other XR knee LT 4V*Dictated By: Amy Molina MD 12/05/[address] [place] [address] Tus reQRdos Other XR knee LT 4V*Signed By:[employer] Other XR knee LT 4V*12/05/[address] [place] [address] Tus reQRdos Other Cytology Cervical or vaginal smear or scraping study Ordered By: Chery Benítez on [id number] HealthcareANTIBODY ID PANELon [id number] ID PANELAntibody ID Non-specific AbyNormalThe [facility] NorthComment on above:Performed By: #### ABID #### [facility] [address] [place] [address] Dr. Ilia Vera AUTO DIFFon [id number] #0.0 103/ulNormal0.0-0.1[facility] OhioComment on above:Performed By: #### CBC #### [facility] [address] [place] [address] Dr. Ilia Hymanphils/100 WBC (Bld)0.2 %Normal0.2-2.0The [facility] Comment on above:Performed By: #### CBC #### [facility] [address] [place] [address] Dr. Ilia Freeman #0.1 103/ulNormal0.0-0.7The [facility] NorthComment on above: Performed By: #### CBC #### [facility] [address] [place] [address] Dr. Ilia Hebertosinophils/100 WBC (Bld)0.5 %Critically low0.9-7.0The [facility] NorthComment on above:Performed By: #### CBC #### [facility] [address] [place] [address] Dr. Ilia Hebertrythrocyte distribution width (RBC) [Ratio]13.7 %Onyimq88.0-15.0 The [facility] NorthComment on above:Performed By: #### CBC #### [facility] [address] [place] [address] Dr. Ilia CarrilloHematocrit (Bld) [Volume fraction]34.8 %Critically low36.0-48.0 [facility] OhioComment on above:Performed By: #### CBC #### [facility] [address] [place] [address] Dr. Ilia CarrilloHemoglobin (Bld) [Mass/Vol]11.7 g/dLCritically low12.0-16.0The [facility] NorthComment on above:Performed By: #### CBC #### [facility] [address] [place] [address] Dr. Ilia Gagnon #0.06 10e3/ulCritically high0.00-0.03The [facility] Comment on above:Performed By: #### CBC #### [facility] [address] [place] [address] Dr. Ilia Gagnon %0.5 %Normal0.0-0.5The [facility] NorthComment on above: Performed By: #### CBC #### [facility] [address] [place] [address] Dr. Ilia Winter #2.0 103/ulNormal1.2-3.8The [facility] NorthComment on above:Performed By: #### CBC #### [facility] [address] [place] [address] Dr. Yilan ChangLymphocytes/100 WBC (Bld)15.2 %Critically low20.5-60.0The [facility] NorthComment on above:Performed By: #### CBC #### [facility] [address] [place] [address] Dr. Ilia BurlesonUAL DIFF REQNONormalThe [facility] NorthComment on above: Performed By: #### CBC #### [facility] [address] [place] [address] Dr. Ilia Perdomo (RBC) [Entitic mass]30.9 ipDtrzcb27.7-34.0The [facility] NorthComment on above:Performed By: #### CBC #### [facility] [address] [place] [address] Dr. Ilia Perdomo (RBC) [Mass/Vol]33.6 g/iMEjfwia03.9-35.2The [facility] NorthComment on above:Performed By: #### CBC #### [facility] [address] [place] [address] Dr. Ilia Perdomo (RBC) [Entitic vol]91.8 xQAycpam55.0-99.0The [facility] NorthComment on above:Performed By: #### CBC #### [facility] [address] [place] [address] Dr. Ilia Draper #0.9 103/ulCritically high0.3-0.8ThMercy Hospital Comment on above:Performed By: #### CBC #### [facility] [address] [place] [address] Dr. Ilia Bobocytes/100 WBC (Bld)6.8 %Normal1.7-12.0[facility] Comment on above:Performed By: #### CBC #### [facility] [address] [place] [address] Dr. Ilia Falk #10.1 103/ulCritically high1.4-6.5ThMercy Hospital Comment on above:Performed By: #### CBC #### [facility] [address] [place] [address] Dr. Ilia Manleyutrophils/100 WBC (Bld)76.8 %Critically high43.0-75.0The [facility] NorthComment on above:Performed By: #### CBC #### [facility] [address] [place] [address] Dr. Ilia Fulet mean volume (Bld) [Entitic vol]9.7 fLNormal9.5-13.5The [facility] NorthComment on above:Performed By: #### CBC #### [facility] [address] [place] [address] Dr. Ilia CarrilloPLT178 103/ktNhjwwp167-873Pli [facility] NorthComment on above: Performed By: #### CBC #### [facility] [address] [place] [address] Dr. Ilia CarrilloRBC3.79 106/ulCritically low4.20-5.40The [facility] NorthComment on above:Performed By: #### CBC #### [facility] [address] [place] [address] Dr. Ilia CarrilloWBC13.2 103/ulCritically high4.0-11.0The [facility] NorthComment on above:Performed By: #### CBC #### [facility] [address] [place] [address] Dr. Ilia Vera AUTO DIFFon 20-29-3859DHVW #0.0 103/ulNormal0.0-0.1The [facility] NorthComment on above:Performed By: #### CBC #### [facility] [address] [place] [address] Dr. Ilia CarrilloBasophils/100 WBC (Bld)0.2 %Normal0.2-2.0The [facility] Comment on above:Performed By: #### CBC #### [facility] [address] [place] [address] Dr. Ilia Freeman #0.1 103/ulNormal0.0-0.7The [facility] NorthComment on above: Performed By: #### CBC #### [facility] [address] [address] [address] Ilia Hebertosinophils/100 WBC (Bld)0.7 %Critically low0.9-7.0The [facility] NorthComment on above:Performed By: #### CBC #### [facility] [address] [place] [address] Dr. Ilia Hebertrythrocyte distribution width (RBC) [Ratio]13.7 %Wqgwge64.0-15.0 The [facility] NorthComment on above:Performed By: #### CBC #### [facility] [address] [place] [address] Dr. Ilia CarrilloHematocrit (Bld) [Volume fraction]38.9 %Uiwxjf90.0-48.0The [facility] NorthComment on above:Performed By: #### CBC #### [facility] [address] [place] [address] Dr. Ilia CarrilloHemoglobin (Bld) [Mass/Vol]13.4 g/wRQskjlo58.0-16.0The [facility] Hospitalment on above:Performed By: #### CBC #### [facility] [address] [place] [address] Dr. Ilia Gagnon #0.05 10e3/ulCritically high0.00-0.03The [facility] Comment on above:Performed By: #### CBC #### [facility] [address] [place] [address] Dr. Ilia Gagnon %0.4 %Normal0.0-0.5The [facility] NorthComment on above: Performed By: #### CBC #### [facility] [address] [place] [address] Dr. Ilia QuinterosH #1.6 103/ulNormal1.2-3.8The [facility] Hospitalment on above:Performed By: #### CBC #### [facility] [address] [place] [address] Dr. Ilia Nammphocytes/100 WBC (Bld)14.2 %Critically low20.5-60.0The [facility] Hospitalment on above:Performed By: #### CBC #### [facility] [address] [address] [address] Ilia Hou DIFF REQNONormalThe [facility] NorthComment on above: Performed By: #### CBC #### [facility] [address] [address] [address] Ilia Perdomo (RBC) [Entitic mass]30.8 waWemdce58.7-34.0The [facility] NorthComment on above:Performed By: #### CBC #### [facility] [address] [address] [address] Ilia Perdomo (RBC) [Mass/Vol]34.4 g/eFSavjml51.9-35.2The [facility] Hospitalment on above:Performed By: #### CBC #### [facility] [address] [place] [address] Dr. Ilia Perdomo (RBC) [Entitic vol]89.4 wZMwarvc84.0-99.0[facility] OhioComment on above:Performed By: #### CBC #### [facility] [address] [place] [address] Dr. Ilia Draper #0.6 103/ulNormal0.3-0.8The [facility] on above:Performed By: #### CBC #### [facility] [address] [place] [address] Dr. Ilia Bobocytes/100 WBC (Bld)5.5 %Normal1.7-12.0[facility] Comment on above:Performed By: #### CBC #### [facility] [address] [address] [address] Ilia Falk #8.9 103/ulCritically high1.4-6.5The [facility] Comment on above:Performed By: #### CBC #### [facility] [address] [place] [address] Dr. Ilia Manleyutrophils/100 WBC (Bld)79.0 %Critically high43.0-75.0The Longview HospitalComment on above:Performed By: #### CBC #### [facility] [address] [address] [address] Ilia Fulet mean volume (Bld) [Entitic vol]10.7 fLNormal9.5-13.5The [facility] NorthComment on above:Performed By: #### CBC #### [facility] [address] [address] [address] Ilia CarrilloPLT210 103/uzLstntm575-917Zta [facility] NorthComaspirus iron river hospital on above: Performed By: #### CBC #### [facility] [address] [place] [address] Dr. Ilia CarrilloRBC4.35 106/ulNormal4.20-5.40[facility] on above:Performed By: #### CBC #### [facility] [address] [place] [address] Dr. Ilia CarrilloWBC11.3 103/ulCritically high4.0-11.0[facility] OhioComaspirus [facility] river hospital on above:Performed By: #### CBC #### [facility] [address] [place] [address] Dr. Ilia CarrilloDRUG SCREEN RAPID (URINE)on 98-58-7971EXUSpczdgdaUnoxadPQPHDVPY [facility] on above:Performed By: #### CBC #### [facility] [address] [place] [address] Dr. Ilia GunterNegativeNormalNEGATIVESelect Medical Special[facility] OhioComaspirus [facility] hospital on above: Performed By: #### CBC #### [facility] [address] [place] [address] Dr. Ilia RossPNegativeNormalNEGATIVESelect Medical Special[facility] OhioComasp[facility] on above: Performed By: #### CBC #### [facility] [address] [place] [address] Dr. Ilia LaughlinZONegativeNormalNEGATIVESelect Medical Special[facility] OhioComasp[facility] on above: Performed By: #### CBC #### [facility] [address] [place] [address] Dr. Ilia HuertaCNegativeNormalNEGATIVESelect Medical Special[facility] Southeast OhioComment on above: Performed By: #### CBC #### [facility] [address] [place] [address] Dr. Ilia HammondMercy Health West HospitalComment on above: Result Comment: AMP (Amphetamine): 500ng/mL, BAR (Barbituates): 200 ng/mL, BZO (Benzodiazepines): 150 ng/mL, BUP (Buprenorphine): 10 ng/mL, MARY ANNE (Cocaine): 150 ng/mL, mAMP (Methamphetamine): 500 ng/mL, MTD (Methadone): 200 ng/mL, OPI (Opiates): 100 ng/mL, OXY (Oxycodone): 100 ng/mL, PCP (Phencyclidine): 25 ng/mL, PPX (Propoxyphene): 300 ng/mL, THC (Cannabinoids): 50 ng/mL, TCA (Trycyclic Antidepressants): 300 ng/mLPerformed By: #### CBC #### [facility] [address] [place] [address] Dr. Ilia CarrilloDRUG CUT HEADERDRUG CLASS TEST SYSTEM CUT-OFF CONCENTRATIONS ARE FOLLOWS:NormalThe [facility] NorthComaspirus iron river hospital on above:Performed By: #### CBC #### [facility] [address] [place] [address] Dr. Ilia CarrillomAMPNegativeNormalNEGATIVESelect Medical Special[facility] OhioComaspirus [facility] on above: Performed By: #### CBC #### [facility] [address] [place] [address] Dr. Ilia CarrilloMTDNegativeNormalNEGATIVESelect Medical Special[facility] OhioComaspirus [facility] on above: Performed By: #### CBC #### [facility] [address] [place] [address] Dr. Ilia RossINegativeNormalNEGATIVESelect Medical Special[facility] OhioComasp[facility] on above: Performed By: #### CBC #### [facility] [address] [place] [address] Dr. Ilia CarrilloOXYNegativeNormalNEGATIVESelect Medical Specialty Hospital - Southeast OhioComment on above: Performed By: #### CBC #### [facility] [address] [address] [address] Ilia CarrilloPCPNegativeNormalNEGATIVESelect Medical [facility] Southeast OhioComment on above: Performed By: #### CBC #### [facility] [address] [place] [address] Dr. Ilia CarrilloPPXNegativeNormalNEGATIVESelect Medical Special[facility] OhioComaspirus [facility] on above: Performed By: #### CBC #### [facility] [address] [address] [address] Ilia CarrilloTCANegativeNormalNEGATIVEWyandot Memorial Hospital on above: Performed By: #### CBC #### [facility] [address] [place] [address] Dr. Ilia CarrilloTHCNegativeNormalNEGATIVEWyandot Memorial Hospital on above: Performed By: #### CBC #### [facility] [address] [place] [address] Dr. Ilia Sandoval AND SCREENon 08-62-4863KQWV AND SCREENNegativeNormalThe [facility] NorthComaspirus iron river hospital on above:Performed By: #### TNS #### [facility] [address] [place] [address] Dr. Ilia Hicks (CLEAN/CATCH) WOOD HANDLER/MICRO IF IND.on 16-06-1152Cakpshhii Ql (U) NegativeNormalNEGATIVEWyandot Memorial Hospital on above:Performed By: #### UACSIND #### [facility] [address] [place] [address] Dr. Ilia Talbert (U)CLEARNormalCLEARSelect Medical Specialty Hospital - Southeast OhioComment on above: Performed By: #### UACSIND #### [facility] [address] [place] [address] Dr. Ilia Stuart (U)LT. YELLOWNormalYELLOWSelect Medical Specialty Hospital - Southeast OhioComaspirus iron river hospital on above:Performed By: #### UACSIND #### [facility] [address] [place] [address] Dr. Ilia CarrilloGlucose Ql (U)NegativeNormalNEGATIVEThe Longview HospitalComment on above:Performed By: #### UACSIND #### [facility] [address] [address] [address] Ilia CarrilloHemoglobin Ql (U)NegativeNormalNEGMadison Health Comment on above:Performed By: #### UACSIND #### [facility] [address] [address] [address] Ilia CarrilloKetones Ql (U)NegativeNormalNEGATIVESelect Medical Special[facility] OhioComment on above:Performed By: #### UACSIND #### [facility] [address] [place] [address] Dr. Ilia CarrilloLEUKOCYTESNegativeNormalNEGATIVESelect Medical Specialty Hospital [facility] OhioComment on above:Performed By: #### UACSIND #### [facility] [address] [place] [address] Dr. Ilia CarrilloNitrite Ql (U)NegativeNormalNEGATIVESelect Medical Specialty [facility] - Southeast OhioComment on above:Performed By: #### UACSIND #### [facility] [address] [place] [address] Dr. Ilia CarrillopH (U)6.0 [pH]Normal5-9[facility] OhioComment on above: Performed By: #### UACSIND #### [facility] [address] [place] [address] Dr. Ilia CarrilloSPEC GRAVITY1.151Zwtdyy6.005-<=1.025The [facility] NorthComment on above:Performed By: #### UACSIND #### [facility] [address] [place] [address] Dr. Ilia Hicks PROTEINNegativeNormalNEGATIVE/ TRACESelect Medical Specialty [facility] [place] Comment on above:Performed By: #### UACSIND #### [facility] [address] [place] [address] Dr. Ilia Mei MICRO INDNOT INDICATEDMemorial HospitalComment on above:Performed By: #### UACSIND #### [facility] [address] [place] [address] Dr. Ilia Del Cidinogen Qn (U)0.2 {Manfred'U}/dLNormal0.2 - 1.0The [facility] NorthComment on above:Performed By: #### UACSIND #### [facility] [address] [place] [address] Dr. Ilia CarrilloGROUP B STREP CULTUREon 12-18-2022S. agalactiae Ag Ql (Unsp spec) Culture Observations: NEGATIVE FOR GROUP B STREPTOCOCCUS.NormalThe [facility] NorthComment on above: Performed By: #### UACSIND #### [facility] [address] [address] [address] 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 Number: 1.0 Position: [...] Electronically authenticated by: ECTOR MINOR Date: 2022-11-10 08:42Memorial HospitalTYPE AND SCREENon 26-22-6274QLTY AND SCREENNegativeMemorial HospitalComment on above:Performed By: #### TNS #### [facility] [address] [place] [address] Dr. Ilia CarrilloGTT 3 HR PREGon 60-51-8980Rbfdybw [Mass/Vol]81 mg/zFCfyjcw44-127 [facility] OhioComment on above:Performed By: #### UACSIND #### [facility] [address] [place] [address] Dr. Ilia CarrilloGlucose [Mass/Vol]166 mg/dLMemorial HospitalComment on above:Performed By: #### UACSIND #### [facility] [address] [place] [address] Dr. Ilia CarrilloGlucose [Mass/Vol]123 mg/dLMemorial HospitalComment on above:Performed By: #### UACSIND #### [facility] [address] [place] [address] Dr. Ilia CarrilloGlucose [Mass/Vol]103 mg/dLMemorial HospitalComment on above:Performed By: #### UACSIND #### [facility] [address] [place] [address] Dr. Ilia Sandoval AND SCREENon 72-80-0741NRAN AND SCREENNegativeNormalThe [facility] NorthComment on above:Performed By: #### TNS #### [facility] [address] [place] [address] Dr. Ilia MorilloC AUTO DIFFon [id number] #0.0 103/ulNormal0.0-0.1The [facility] NorthComment on above:Performed By: #### UACSIND #### [facility] [address] [place] [address] Dr. Ilia CarrilloBasophils/100 WBC (Bld)0.2 %Normal0.2-2.0The [facility] Comment on above:Performed By: #### UACSIND #### [facility] [address] [place] [address] Dr. Ilia Freeman #0.0 103/ulNormal0.0-0.7The [facility] NorthComment on above: Performed By: #### UACSIND #### [facility] [address] [place] [address] Dr. Ilia Hebertosinophils/100 WBC (Bld)0.5 %Critically low0.9-7.0The [facility] Hospitalment on above:Performed By: #### UACSIND #### [facility] [address] [place] [address] Dr. Ilia Hebertrythrocyte distribution width (RBC) [Ratio]12.6 %Lxzelu08.0-15.0 The [facility] NorthComment on above:Performed By: #### UACSIND #### [facility] [address] [place] [address] Dr. Ilia CarrilloHematocrit (Bld) [Volume fraction]36.0 %Rsvrxb72.0-48.0The [facility] NorthComment on above:Performed By: #### UACSIND #### [facility] [address] [place] [address] Dr. Ilia CarrilloHemoglobin (Bld) [Mass/Vol]12.3 g/qJCnmmzt03.0-16.0The [facility] NorthComment on above:Performed By: #### UACSIND #### [facility] [address] [address] [address] Ilia Gagnon #0.04 10e3/ulCritically high0.00-0.03The [facility] Comment on above:Performed By: #### UACSIND #### [facility] [address] [address] [address] Ilia Gagnon %0.5 %Normal0.0-0.5The [facility] NorthComment on above: Performed By: #### UACSIND #### [facility] [address] [address] [address] Ilia Winter #1.3 103/ulNormal1.2-3.8The [facility] NorthComment on above:Performed By: #### UACSIND #### [facility] [address] [place] [address] Dr. Ilia Quinteroshocytes/100 WBC (Bld)15.5 %Critically low20.5-60.0The [facility] NorthComment on above:Performed By: #### UACSIND #### [facility] [address] [address] [address] Ilia BurlesonUAL DIFF REQNONormalThe [facility] NorthComment on above: Performed By: #### UACSIND #### [facility] [address] [address] [address] Ilia Perdomo (RBC) [Entitic mass]30.4 ypGojmch05.7-34.0The [facility] NorthComment on above:Performed By: #### UACSIND #### [facility] [address] [place] [address] Dr. Ilia Perdomo (RBC) [Mass/Vol]34.2 g/oLWgbyqc95.9-35.2The [facility] NorthComment on above:Performed By: #### UACSIND #### [facility] [address] [place] [address] Dr. Ilia Perdomo (RBC) [Entitic vol]89.1 jNYxrjpy05.0-99.0The [facility] NorthComment on above:Performed By: #### UACSIND #### [facility] [address] [place] [address] Dr. Ilia Draper #0.3 103/ulNormal0.3-0.8The [facility] NorthComment on above:Performed By: #### UACSIND #### [facility] [address] [place] [address] Dr. Ilia Bobocytes/100 WBC (Bld)3.8 %Normal1.7-12.0The [facility] Comment on above:Performed By: #### UACSIND #### [facility] [address] [place] [address] Dr. Ilia Falk #6.5 103/ulNormal1.4-6.5The [facility] NorthComment on above:Performed By: #### UACSIND #### [facility] [address] [place] [address] Dr. Ilia Manleyutrophils/100 WBC (Bld)79.5 %Critically high43.0-75.0The [facility] NorthComment on above:Performed By: #### UACSIND #### [facility] [address] [place] [address] Dr. Ilia Corea mean volume (Bld) [Entitic vol]9.2 fLCritically low 9.5-13.5The [facility] NorthComment on above:Performed By: #### UACSIND #### [facility] [address] [place] [address] Dr. Ilia MazariegosT212 103/leUczxfs745-302Clf [facility] NorthComment on above: Performed By: #### UACSIND #### [facility] [address] [place] [address] Dr. Ilia CarrilloRBC4.04 106/ulCritically low4.20-5.40The [facility] NorthComment on above:Performed By: #### UACSIND #### [facility] [address] [place] [address] Dr. Ilia CarrilloWBC8.2 103/ulNormal4.0-11.0[facility] on above: Performed By: #### UACSIND #### [facility] [address] [place] [address] Dr. Ilia CarrilloGLUCOSE - 1HRon 01-59-7263Msupmcj [Mass/Vol]147 mg/dLCritically fgnx85-784HgkWyandot Memorial Hospital on above:Performed By: #### PREGQNT #### [facility] [address] [place] [address] Dr. Ilia Haque ACOG PANEL 2: 21 to 29on 10-19-2022..NormalThe [facility] on above:Performed By: #### PREGQNT #### [address] [address] Dr[address] Ilia Castro Gdln ACOG Rghervd01-93FnvfahLehMemorial Health System [facility] on above:Performed By: #### PREGQNT #### [facility] [address] [place] [address] Dr. Ilia CarrilloDIAGNOSIS:CommentLima City Hospital on above: Result Comment: NEGATIVE FOR INTRAEPITHELIAL LESION OR MALIGNANCY. THIS SPECIMEN WAS RESCREENED PART OF OUR BLOOD BANK LABORATORY TECHNOLOGIST PROGRAM.Performed By: #### PREGQNT #### [address] [address] Dr[address] Ilia CarrilloMethodology:CommentLima City Hospital on above: Result Comment: This liquid based ThinPrep(R) pap test was screened with the use of an image guided system.Performed By: #### PREGQNT #### [address] [address] [address] Ilia CarrilloNote:CommentLima City Hospital on above:Result Comment: The Pap smear is a screening test designed to aid in the detection of premalignant and malignant conditions of the uterine cervix. It is not a diagnostic procedure and should not be used as the sole means of detecting cervical cancer. Both false-positive and false-negative reports do occur. .Performed By: #### PREGQNT #### [facility] [address] [place] [address] Dr. Ilia CarrilloPerformed by:CommentLima City Hospital on above: Result Comment: Brenda Reynolds, Cabin Cleaner (ASCP)Performed By: #### PREGQNT #### [facility] [address] [place] [address] Dr. Ilia CarrilloQC reviewed by:[facility] on above:Result Comment: Amanda Russell, Supervisory Cabin Cleaner (ASCP) Performed By: #### PREGQNT #### [facility] [address] [place] [address] Dr. Ilia CarrilloReflex Criteria:[facility] on above:Result Comment: The HPV DNA reflex criteria were not met with this specimen result therefore, no HPV testing was performed. .Performed By: #### PREGQNT #### [facility] [address] [place] [address] Dr. Ilia CarrilloSpecimen adequacy:[facility] on above:Result Comment: Satisfactory for evaluation. No endocervical component is identified.Performed By: #### PREGQNT #### [address] [address] Dr[address] Ilia CarrilloCHLAMYDIA/GONOCOCCUS ABAD (SWAB/URINE/PAPon 38-33-6441Uhnsjmdyw trachomatis, NAANegativeNormalNegativeThe [facility] NorthComaspirus iron river hospital on above: Performed By: #### PREGQNT #### [facility] [address] [place] [address] Dr. Ilia CarrilloNeisseria gonorrhoeae, NAANegativeNormalNegativeThe [facility] NorthComaspirus iron river hospital on above:Performed By: #### PREGQNT #### [facility] [address] [place] [address] Dr. Ilia CarrilloVAGINITIS/VAGINOSIS DNA PROBEon 74-04-0640Qvpknkf speciesNegative NormalNegativeThe [facility] on above:Performed By: #### CBC #### [facility] [address] [address] [address] Ilia Santanaerella vaginalisNegativeShriners Hospitals For ChildrenalNegSalem Regional Medical Center Comment on above:Performed By: #### CBC #### [facility] [address] [address] [address] Ilia Roberts vaginalisNegativeBoswellNegSalem Regional Medical Center Comment on above:Performed By: #### CBC #### [facility] [address] [address] [address] Ilia Darling MATERNAL FOR SPINA BIFIDAon 45-12-7723BCS MoM1.50Memorial HospitalComment on above:Performed By: #### CBC #### [facility] [address] [address] [address] Ilia Darling Value85.2 ng/mLNormalSelect Medical Specialty Hospital - Southeast OhioComment on above: Performed By: #### CBC #### [facility] [address] [address] [address] Ilia Darling, Serum for Spina BifidaReportMemorial Hospital Comment on above:Performed By: #### CBC #### [facility] [address] [address] [address] Ilia RiveraCleveland Clinic Mentor HospitalComment on above:Result Comment: Paulette Loomis, Ph.D., [facility] Director . References: Available Upon Request. . Multiples Of Median Cutoffs For AFP Elevations Munguia 2.5 Black 2.8 IDD 2.0 Twins 4.5 Abbreviation Definitions IDD - Insulin Dep Diabetes OSBR - Open Spina Bifida Risk . For further inquiries contact [employer] [facility] at [phone]. . This test was developed and its performance characteristics determined by [employer]. It has not been cleared or approved by the Food and Drug Administration.Performed By: #### CBC #### [facility] [address] [address] [address] Ilia Serna Age Collection Date20.7 weeksMem[facility] Comment on above:Performed By: #### CBC #### [facility] [address] [place] [address] Dr. Ilia Hess, Age Based onUltrasThe [facility] on above:Result Comment: 06:3 on 05/22/2022 Recalculations are not recommended when gestational dating by LMP and ultrasound are within 10 days.Performed By: #### CBC #### [facility] [address] [place] [address] Dr. Ilia CarrilloInsulin Dep DiabetesKing's Daughters Medical Center OhioComaspirus iron river hospital on above:Performed By: #### CBC #### [facility] [address] [place] [address] Dr. Ilia CarrilloInterpretationEast [facility] Regional Hospital on above: Result Comment: Interpretation: Screen Negative . This result is screen [...] Customer Services to discuss available options. The [employer] recommends amniocentesis be offered to women age 35 and older.Performed By: #### CBC #### [facility] [address] [place] [address] Dr. Ilia Lai Age [age] yrMemorial HospitalComaspirus iron river hospital on above:Performed By: #### CBC #### [facility] [address] [place] [address] Dr. Ilia Vinsonltipljing Ohio[facility] O'Bleness HospitalComaspirus iron river hospital on above: Performed By: #### CBC #### [facility] [address] [place] [address] Dr. Ilia CarrilloOSBR Risk 1 [id number] HospitalComaspirus iron river hospital on above: Performed By: #### CBC #### [facility] [address] [place] [address] Dr. Ilia Haney.NormalSelect Medical Specialty Hospital - Southeast OhioComment on above:Performed By: #### CBC #### [facility] [address] [address] [address] Ilia DavisanNVeterans Health AdministrationComment on above: Performed By: #### CBC #### [facility] [address] [address] [address] Ilia CarrilloTest Results:NegativeNormalThe [facility] NorthComment on above: Performed By: #### CBC #### [facility] [address] [address] [address] Ilia CarrilloUS PREG ANATOMY SINGLEon [id number] PREG ANATOMY SINGLE EXAMINATION: US PREG ANATOMY [...] August 05, 2007. Electronically authenticated by: CHASE WINSLOW Date: 2022-08-27 16:15NVeterans Health AdministrationHEP B SURFACE ANTIGEN SCREENon 55-99-7303AEeHw ScreenNegative NormalNegativeThe Knox Community Hospitalment on above:Performed By: #### CBC #### [facility] [address] [place] [address] Dr. Ilia CarrilloHEPATITIS C VIRUS AB W/ REFLEX QUANTon [id number] AB<0.1Normal 0.0-0.9The [facility] on above:Performed By: #### CBC #### [facility] [address] [place] [address] Dr. Ilia CarrilloInterpretation:CommentNormalThe [facility] on above:Result Comment: Negative Not infected with HCV, unless recent infection is suspected or other evidence exists to indicate HCV infection.Performed By: #### CBC #### [address] [address] Dr[address] Ilia CarrilloHIV 1 AND 2 WITH REFLEXon 62-31-8812JSO Screen 4th Generation wRfxNon-ReactiveNormalNon ReactiveThe [facility] NorthComment on above:Result Comment: HIV Negative HIV-1/HIV-2 antibodies and HIV-1 p24 antigen were NOT detected. There is no laboratory evidence of HIV infection.Performed By: #### CBC #### [address] [address] Dr[address] Ilia CarrilloRPR QUANTon 68-93-4431Ajeog Plasma Reagin, QuantNon-Reactive NormalNonRea<1:1The [facility] on above:Result Comment: Please Note: This test does not meet current guidelines for screening and diagnosis of syphilis. This test is intended for following treatment response in patients being treated for syphilis infection. To screen for syphilis infection, a reflex cascade that includes both RPR and a treponema-specific assay should be utilized, such as Treponema pallidum (Syphilis) Screening [place] (834160) or Rapid Plasma Reagin (RPR) Test With Reflex to Quantitative RPR and Confirmatory Treponema pallidum Antibodies (713649).Performed By: #### CBC #### [address] [address] Dr[address] Ilia Logan AB IGGon 19-11-9269Gnmtyvg Antibodies, IgG3.07 index NormalImmune >0.99[facility] Southeast OhioComment on above:Result Comment: Non- immune <0.90 Equivocal 0.90 - 0.99 Immune >0.99Performed By: #### CBC #### [facility] [address] [address] [address] Ilia Vera AUTO DIFFon 54-08-2022WUJJ #0.0 103/ulNormal0.0-0.1The [facility] NorthComment on above:Performed By: #### CBC #### [facility] [address] [address] [address] Ilia CarrilloBasophils/100 WBC (Bld)0.2 %Normal0.2-2.0[facility] Comment on above:Performed By: #### CBC #### [facility] [address] [address] [address] Ilia Freeman #0.1 103/ulNormal0.0-0.7The [facility] NorthComment on above: Performed By: #### CBC #### [facility] [address] [address] [address] Ilia Hebertosinophils/100 WBC (Bld)1.1 %Normal0.9-7.0[facility] Comment on above:Performed By: #### CBC #### [facility] [address] [place] [address] Dr. Ilia Hebertrythrocyte distribution width (RBC) [Ratio]11.4 %Xkhkrq46.0-15.0 [facility] OhioComment on above:Performed By: #### CBC #### [facility] [address] [place] [address] Dr. Ilia CarrilloHematocrit (Bld) [Volume fraction]35.2 %Critically low36.0-48.0 [facility] OhioComment on above:Performed By: #### CBC #### [facility] [address] [place] [address] Dr. Ilia CarrilloHemoglobin (Bld) [Mass/Vol]12.4 g/iPTiqjhw76.0-16.0The [facility] NorthComment on above:Performed By: #### CBC #### [facility] [address] [place] [address] Dr. Ilia Gagnon #0.03 10e3/ulNormal0.00-0.03The [facility] NorthComment on above:Performed By: #### CBC #### [facility] [address] [place] [address] Dr. Ilia Gagnon %0.3 %Normal0.0-0.5The [facility] NorthComment on above: Performed By: #### CBC #### [facility] [address] [place] [address] Dr. Ilia Winter #2.1 103/ulNormal1.2-3.8The [facility] NorthComment on above:Performed By: #### CBC #### [facility] [address] [place] [address] Dr. Ilia Quinteroshocytes/100 WBC (Bld)22.6 %Stlbrh16.5-60.0The [facility] NorthComment on above:Performed By: #### CBC #### [facility] [address] [place] [address] Dr. Ilia Hou DIFF REQNONormalThe [facility] NorthComment on above: Performed By: #### CBC #### [facility] [address] [place] [address] Dr. Ilia Perdomo (RBC) [Entitic mass]30.6 paTktlsm63.7-34.0The [facility] NorthComment on above:Performed By: #### CBC #### [facility] [address] [place] [address] Dr. Ilia Perdomo (RBC) [Mass/Vol]35.2 g/yIAyclvs18.9-35.2The [facility] NorthComment on above:Performed By: #### CBC #### [facility] [address] [place] [address] Dr. Ilia Perdomo (RBC) [Entitic vol]86.9 aVKlrrau22.0-99.0The [facility] NorthComment on above:Performed By: #### CBC #### [facility] [address] [place] [address] Dr. Ilia Draper #0.4 103/ulNormal0.3-0.8The [facility] NorthComment on above:Performed By: #### CBC #### [facility] [address] [place] [address] Dr. Ilia Bobocytes/100 WBC (Bld)4.8 %Normal1.7-12.0The [facility] Comment on above:Performed By: #### CBC #### [facility] [address] [place] [address] Dr. Ilia Falk #6.5 103/ulNormal1.4-6.5The [facility] NorthComment on above:Performed By: #### CBC #### [facility] [address] [place] [address] Dr. Ilia Manleyutrophils/100 WBC (Bld)71.0 %Bswpld59.0-75.0The [facility] NorthComment on above:Performed By: #### CBC #### [facility] [address] [place] [address] Dr. Ilia Corea mean volume (Bld) [Entitic vol]8.7 fLCritically low 9.5-13.5The [facility] NorthComment on above:Performed By: #### CBC #### [facility] [address] [place] [address] Dr. Ilia MazariegosT260 103/rwSqzozn503-176Fqa [facility] NorthComment on above: Performed By: #### CBC #### [facility] [address] [place] [address] Dr. Ilia PalmerC4.05 106/ulCritically low4.20-5.40The [facility] NorthComment on above:Performed By: #### CBC #### [facility] [address] [place] [address] Dr. Ilia MarrBC9.2 103/ulNormal4.0-11.0The [facility] NorthComment on above: Performed By: #### CBC #### [facility] [address] [place] [address] Dr. Ilia Austin URINEon 44-45-5661NBGZFJF URINECulture Observations: MODERATE GROWTH OF MIXED GENITAL BETHANIE. NO POTENTIAL PATHOGENS SEEN.NormalSelect Medical Specialty Hospital - Southeast OhioComment on above:Performed By: #### URCX #### [facility] [address] [place] [address] Dr. Ilia CarrilloGLYCOHEMOGLOBIN A1Con 07-16-3645DHM RECOMMENDATIONSEE BELOWNormal The [facility] NorthComaspirus iron river hospital on above:Result Comment: ADA RECOMMENDED LIMIT 4.0 - 6.0 ADA THERAPEUTIC TARGET < 7.0 ACTION SUGGESTED > 7.0Performed By: #### PREGQNT #### [facility] [address] [place] [address] Dr. Ilia CarrilloGlucose [Mass/Vol]97 mg/dLNoElyria Memorial HospitalComment on above:Performed By: #### PREGQNT #### [facility] [address] [place] [address] Dr. Ilia CarrilloHbA1c (Bld) [Mass fraction]5.0 %Normal4.5-6.2The [facility] Community Hospitalment on above:Performed By: #### PREGQNT #### [facility] [address] [place] [address] Dr. Ilai Barros BOX TEST PT SEND OUTon [id number] TO REF LAB07/03/2022 NormalWyandot Memorial Hospital on above:Performed By: #### NBOX #### [facility] [address] [place] [address] Dr. Ilia CarrilloTYPE AND SCREENon 49-73-4602BLXU AND SCREENNegativeNoElyria Memorial HospitalComaspirus iron river hospital on above:Performed By: #### UACSIND #### [facility] Laboratory [address] [place] [address] Dr. Ilia Mortensen Quick Testingon 86-65-2598GqvkbfTxiryupmXapbz Tus reQRdos Other US PREG TVon 19-57-0078KF PREG TVEXAMINATION: US PREG TV HISTORY: Routine care COMPARISON: [...] Electronically authenticated by: ECTOR MINOR Date: 2022-05-23 21:22[facility] HospitalPREG QUANT HCGon 58-31-3502KWV [id number] mIU/mLNVeterans Health AdministrationComment on above:Performed By: #### UACSIND #### [facility] Laboratory [address] [place] [address] Dr. Ilia LOPEZ [facility] North Health CenterComment on above: Result Comment: 5-50 0-1 WEEK 40-300 1-2 WEEKS 100-1,000 2-3 WEEKS 500-6,000 3-4 WEEKS 5,000-200,000 1-2 MONTHS 10,000-100,000 2-3 MONTHS 3,000-50,000 2ND TRIMESTER 1,000-50,000 3RD TRIMESTERPerformed By: #### UACSIND #### [facility] Laboratory [address] [place] [address] Dr. Ilia Mitchell QUANT HCGon 71-22-8418UKI [id number] mIU/mLNVeterans Health AdministrationComment on above:Performed By: #### PREGQNT #### [facility] Laboratory [address] [place] [address] Dr. Ilia LOPEZ [facility] Health CenterComment on above: Result Comment: 5-50 0-1 WEEK 40-300 1-2 WEEKS 100-1,000 2-3 WEEKS 500-6,000 3-4 WEEKS 5,000-200,000 1-2 MONTHS 10,000-100,000 2-3 MONTHS 3,000-50,000 2ND TRIMESTER 1,000-50,000 3RD TRIMESTERPerformed By: #### PREGQNT #### [facility] Laboratory [address] [address] [address] Ilia Carrillo Vital Signs Date TimeVital SignValuePerforming RrljzdjnpEacodbtc17-25-5738 10:21-0400Body xhazfn353.6 cmBrenda Rose DIRECTOR OF INSTRUCTION-LUMBER PULLER Work Phone: [facility]06-30-2025 10:21-0400Body mass index (BMI) [Ratio]32.61 kg/u6TcnqtduBrenda Rose DIRECTOR OF INSTRUCTION-LUMBER PULLER Work Phone: [facility]06-30-2025 10:21-0400Body ooaisn14.18 kgBrenda Rose DIRECTOR OF INSTRUCTION-LUMBER PULLER Work Phone: [facility]06-30-2025 10:21-0400Diastolic blood kwpqulcm53 mm[Hg]Brenda Rose DIRECTOR OF INSTRUCTION-LUMBER PULLER Work Phone: [facility]06-30-2025 10:21-0400Systolic blood dymyzdqf92 mm[Hg]Brenda Rose DIRECTOR OF INSTRUCTION-LUMBER PULLER Work Phone: [facility]06-02-2025 11:04-0400Body ajvnht438.[address]06-02-2025 11:04-0400Body mass index (BMI) [Ratio]32.12 kg/m2Pmh [address] [place], [place] 4927206-02-2025 11:04-0400Body .[address] [place], [place] 4927205-27-2025 09:15-0400Body vlqeds537.1 cmJean-Paul Crouch MD Work Phone: [facility]05-27-2025 09:15-0400Body mass index (BMI) [Ratio]31.78 kg/w2YrdgrmwvjevJean-Paul Crouch MD Work Phone: [facility]05-27-2025 09:15-0400Body dinsdl28.64 kgJean-Paul Crouch MD Work Phone: [facility]05-21-2025 15:54-0400Body mass index (BMI) [Ratio]33.6 kg/y1Tvbsv Fadi DO Work Phone: [facility] CenterFczyxcokqy86-93-3653 15:54-0400Body .79 kgCorey Fadi DO Work Phone: [phone] [place], [place] [address]Thqysixekr39-46-9735 15:54-0400Diastolic blood uzwabwyp45 mm[Hg]Nnamdi Fadi DO Work Phone: [phone] [place], [place] [address]Oxvmxzwryh84-65-8167 15:54-0400Systolic blood vqhrhrro625 mm[Hg]Nnamdi Fadi DO Work Phone: [phone] [place], [place] [address]Dpyeoguybu13-50-3199 11:25-0400Body mass index (BMI) [Ratio]32.96 kg/z3KjfslaweMichael Christianson CHANGE ATTENDANT Work Phone: [phone] [place], [place] [address]Sbnwfvaklu09-03-8101 11:25-0400Body mdocvs35.09 kgMichael Christianson CHANGE ATTENDANT Work Phone: [phone] [place], [place] [address]Qvaxvkvjlu58-40-4560 11:25-0400Diastolic blood dpodksrf09 mm[Hg]Michael Christianson CHANGE ATTENDANT Work Phone: [phone] [place], [place] [address]Zdkglwckul39-04-8634 11:25-0400Systolic blood rrujqnix515 mm[Hg]Michael Christianson CHANGE ATTENDANT Work Phone: [phone] [place], [place] [address]Mkpffusuvy53-46-8668 16:41-0500Body byojau860.6 cmCorey Fadi DO Work Phone: [phone] [place], [place] [address]Rgjjexqxyf07-86-0673 16:41-0500Body mass index (BMI) [Ratio]31.58 kg/b3Ulmoh Fadi DO Work Phone: [phone] CenterBenebhpouv84-27-9559 16:41-0500Body malmxe51.46 kgCorey Fadi DO Work Phone: [facility] CenterEuadiasyil76-48-6772 16:41-0500Diastolic blood mjfdivsz78 mm[Hg]Nnamdi Fadi DO Work Phone: [facility] CenterWtdpzfrrnz23-27-7988 16:41-0500Systolic blood dznirhhl090 mm[Hg]Nnamdi Fadi DO Work Phone: [facility] CenterMlwabruqjc59-14-6258 08:53-0400Body .6 Pebbles Gamez PA Work Phone: [facility] CenterDzgddpmvgf05-43-8644 08:53-0400Body mass index (BMI) [Ratio]31.24 kg/m2Viola Lopezey PA Work Phone: [facility] CenterMhvqiviwat89-60-1106 08:53-0400Body .56 kgViola Gamez PA Work Phone: [facility] CenterVrratqwbjp17-45-8426 08:53-0400Diastolic blood fabgejrp03 mm[Hg]Viola Gamez PA Work Phone: [facility] CenterQqjutzngzg30-08-9036 08:53-0400Systolic blood frnrbkro722 mm[Hg]Viola Gamez PA Work Phone: [facility] CenterRtcpssmrgk13-04-4599 10:50-0500Body owymvo259.19 Eligio Archer Other [employer] Other 01-31-2024 10:50-0500Body mass index (BMI) [Ratio] 32.12 kg/h6LvzxnpErlinda Archer Other [employer] Other 01-31-2024 10:50-0500Body isieiucmvav73 [degF]Erlinad Archer Other [employer] Other 01-31-2024 10:50-0500Body joipsi19.55 kgErlinda Archer Other [employer] Other 01-31-2024 10:50-0500Diastolic blood ejqvjifb42 mm[Hg] Erlinda Archer Other [employer] Other 01-31-2024 10:50-0500Respiratory rate18 /minErlinda Archer Other [employer] Other 01-31-2024 10:50-7902YfI9% (BldA) [Mass fraction]96 % Erlinda Archer Other [employer] Other 01-31-2024 10:50-0500Systolic blood aaprzblm918 mm[Hg] Erlinda Archer Other [employer] Other 11-01-2022 15:07-0400Body qfawyz86.3696 kgDR NNAMDI MIRELES .The [facility] NorthComment on above:Performed By: #### CBC #### [facility] Laboratory [address] [place] [address] Dr. Ilia Carrillo08-19-2022 17:05-0400Body afajif942.19 cmSwhit Chapman Other [employer] Other 08-19-2022 17:05-0400Body mass index (BMI) [Ratio] 31.16 kg/p4RzryzwzncCortney Chapman Other [employer] Other 08-19-2022 17:05-0400Body mgvucpyedqy60.6 [degF] Cortney Chapman Other [employer] Other 08-19-2022 17:05-0400Body katplz43.01 kgStjil Chapman Other [employer] Other 08-19-2022 17:05-0400Respiratory rate18 /minSwhit Cahpman Other noActionX Tus reQRdos Other 08-19-2022 17:05-2238RxN1% (BldA) [Mass fraction]98 % Cortney Chapman Other noActionX Tus reQRdos Other Encounters Encounter DateEncounter TypeCare ProviderFacilityStart: 06-02-2025 End: 87-81-0549Sxiiqvodi encounterJackie Mixon [facility] SurgeryStart: 05-07-2025 End: 75-18-1199Pfunffnyd encounterErin Andrade [facility] SurgeryStart: 05-04-2025 End: 42-44-8137Znqhga follow up visit [facility] GIRARDN-LUMBER PULLER Work Phone: [facility] General SurgeryComment on above: Status post laparoscopic cholecystectomy (Primary Dx)Start: 05-04-2025 End: 61-40-2267loxttmquabMYRHIGGGroup Health [facility] Start: 04-27-2025 End: 60-35-7733Jdvwdcptdz and management of inpatientTriHealth Bethesda North Hospitaltart: 04-09-2025 End: 32-35-2623Xawsgbosg Result EncounterCorey Fadi DO Work Phone: noms External Department UnsolicitedStart: 04-09-2025 End: 89-64-9641Texrcdmks Result EncounterCorey Fadi DO Work Phone: noms External Department UnsolicitedStart: 04-06-2025 End: 53-99-4117Pmbdgxh encounter procedurePmh Pre-Admission Testing [address] [place] [address] - Pre AdmitStart: 04-06-2025 End: 47-57-3060ahlyaybakdXJZFSt. Charles Medical Center – Madras HospitalStart: 55-29-4847xdgkctksbwOMDMLFYLQWWDoctors Hospital of Laredo PPGStart: 04-01-2025 End: 14-85-1609Gvquqvbeg encounterLauren Conner NUÑEZProMedica Physicians General SurgeryStart: 46-15-1103hkcehklqiiWMNM L [facility] Centertart: 03-31-2025 End: 70-38-1399Ywdlbo outpatient new 30 minutesJean-Paul Crouch MD Work Phone: [facility] Systemca Physicians General SurgeryComment on above: Biliary colic (Primary Dx)Start: 03-31-2025 End: 38-56-6851qkofmglopqUMVKNPIRAHLJohn A. Andrew Memorial Hospital Ambulatory P[facility] Start: 03-25-2025 End: 57-65-0243Zsumdi follow up visit related to original pxCorey Fadi DO Work Phone: NOJA BCP OBComment on above:Postoperative follow-up; MiscarriageStart: 03-25-2025 End: 53-48-3710gjilbirswvXWAMB FAZIONot AvailableStart: 03-25-2025 End: 52-46-1386Tdjxbq flowsheetCorey Fadi DO Work Phone: NOXG BCP OBStart: 03-25-2025 End: 22-48-5033Cxtyxu flowsheetCorey Fadi DO Work Phone: NOMS BCP OBStart: 03-13-2025 End: 10-35-8046Hrjeqksmf Result EncounterCorey Fadi DO Work Phone: NOMS External Department UnsolicitedStart: 03-13-2025 End: 52-78-1633Tpiwkboac Result EncounterCorey Fadi DO Work Phone: NOFY External Department UnsolicitedStart: 03-13-2025 End: 34-49-2046Gykeruce Result EncounterCorey Fadi DO Work Phone: NOMS External Department UnsolicitedStart: 03-13-2025 End: 81-31-7937vophdabbfeYuxkg FazioFacility:[facility] Start: 03-13-2025 End: 88-45-0988Qowkzzsw ReferredCorey Fadi DO Work Phone: [facility] Ctr-LAB Path Spec [facility] HospStart: 03-11-2025 End: 62-23-2434jzrottxgowCWTTIAUO EBERLYNot AvailableStart: 03-05-2025 End: 10-15-0929soufvhmueaPwgc Bcp Ob Fadi NurseNOMS BCP OBComment on above:GA: 20h4hMszgh: 02-20-2025 End: 45-25-5612Rgfeuuezr Result EncounterCorey Fadi DO Work Phone: NOMS External Department UnsolicitedStart: 02-20-2025 End: 19-69-5245Kzbgfvnwe Result EncounterCorey Fadi DO Work Phone: NOMS External Department UnsolicitedStart: 02-10-2025 End: 26-92-0330Psqzdb flowsPriscilla Christianson CHANGE ATTENDANT Work Phone: NOMS BCP OBStart: 02-10-2025 End: 99-79-5293Bammdt flowsheetMichael Christianson CHANGE ATTENDANT Work Phone: NOMS BCP OBStart: 02-10-2025 End: 99-74-1874Ywsqnvpf flow sheetMichael Christianson CHANGE ATTENDANT Work Phone: NOMS Todd OBGYNComment on above:First trimester ([facility]); 7 weeks gestation of ([facility]); Abdominal cramping; Nausea; Missed mensesStart: 02-10-2025 End: 49-64-0699whpkujexdjXAWBCCZZ EBERLYNot AvailableStart: 02-01-2025 End: 02-38-3868Vkxlqtxfz Result EncounterCorey Fadi DO Work Phone: NOMS External Department UnsolicitedStart: 02-01-2025 End: 26-30-1256Exfqbbquj Result EncounterCorey Fadi DO Work Phone: noMS External Department UnsolicitedStart: 01-30-2025 End: 50-94-9340Vhemtdrsh Result EncounterCorey Fadi DO Work Phone: noMS External Department UnsolicitedStart: 01-30-2025 End: 39-38-8161Jcegzqrki Result EncounterCorey Fadi DO Work Phone: noms External Department UnsolicitedStart: 12-02-2024 End: 54-84-4254cxhebingsvCeauvc Stefano AndersonFacility:[facility] BellevueStart: 10-15-2024 End: 00-62-3608taxlhdffinMGUEPU A MICHELLEANNFacility:[facility] BellevueStart: 09-08-2024 End: 10-76-0733Ucoeuk outpatient visit 15 minutesCorey Fadi DO Work Phone: [facility] OBComment on above:Irregular menses; AmenorrheaStart: 09-08-2024 End: 73-11-0848cfwdhbrdjrADOSD FAZIONot AvailableStart: 09-08-2024 End: 86-99-9170Pbrrje flowsheetCorey Fadi DO Work Phone: noMS BCP OBStart: 09-08-2024 End: 25-69-5978Oetnlu flowsheetCorey Fadi DO Work Phone: NOMS BCP OBStart: 08-19-2024 End: 64-96-6635Buzzyxykj Result EncounterViola HAIDER Work Phone: noMS External Department UnsolicitedStart: 08-19-2024 End: 90-64-7056Rranasrzd Result EncounterViola HAIDER Work Phone: noMS External Department UnsolicitedStart: 08-11-2024 End: 30-04-4858Mehljc flowsSkye HAIDER Work Phone: NOMS BCP OBStart: 08-11-2024 End: 03-84-8026Vorbff Marifer HAIDER Work Phone: NOMS BCP OBStart: 08-11-2024 End: 90-03-0040Vgcskwchr Result EncounterAmy Franco HAIDER Work Phone: noms External Department UnsolicitedStart: 08-11-2024 End: 93-78-4865Jozqjw outpatient visit 15 minutesAmy Franco HAIDER Work Phone: noms BCP OBComment on above:AmenorrheaStart: 08-11-2024 End: 67-06-9323biabtatxnuSVZ Jewels AvailableStart: 08-04-2024 End: 76-72-8915Jurmauxzz Result EncounterCorey Fadi DO Work Phone: noms External Department UnsolicitedStart: 08-04-2024 End: 85-62-7046Phpqufbpq Result EncounterCorey Fadi DO Work Phone: noms External Department UnsolicitedStart: 07-30-2024 End: 85-54-7571Oscvxnxel Result EncounterCorey Fadi DO Work Phone: NOSF External Department UnsolicitedStart: 07-30-2024 End: 49-38-2162Onxnsjnxk Result EncounterCorey Fadi DO Work Phone: noms External Department UnsolicitedStart: 07-28-2024 End: 45-11-4188Imugzehsw Result EncounterCorey Fadi DO Work Phone: noms External Department UnsolicitedStart: 07-28-2024 End: 28-42-6025Tfpqvshbb Result EncounterCorey Fadi DO Work Phone: noms External Department UnsolicitedStart: 01-31-2024 End: 41-72-6599knllpablcjIslfgmo T PowersFacility:FTMCStart: 01-31-2024 End: 36-18-4217Qtmkhno encounter procedureMichael T Najera [facility] Start: 01-07-2024 End: 30-80-4621sllcjopjuhUmdoqt E. RossFacility:[facility] BellevueStart: 12-20-2023 End: 92-30-0857nzczktcvdvUkgpaz Stefano AndersonFacility:[facility] BellevueStart: 12-10-2023 End: 62-60-0008edrnccojcsFsvaxb E. RossFacility:[facility] BellevueStart: 12-05-2023 Office outpatient visit 15 Pepper ArcherFPG Urgent Care ClydeStart: 12-05-2023 End: 08-42-7348btjjwvgzumTP-Chip Archer Work Phone: [facility] Work Phone: Start: 12-05-2023 End: 43-61-4756Fdyhqwi encounter procedureNP-Chip Archer Work Phone: [facility] Work Phone: Start: 01-08-2023 End: 16-45-5797prhefadxvbJU FLORINA White NADERERFacility:J2Rxcwl: 01-02-2023 End: 45-61-8851Cxcjtehncb and management of inpatientDR NNAMDI FADI .Facility:H1 Start: 12-18-2022 End: 68-01-7969sizhehwmswEAZ RAMEY .Facility:K3Dtvvs: 12-16-2022 End: 91-82-4408nhirfltaivUR CHASE Tam WESTFacility:I5Scgcw: 11-10-2022 End: 08-35-9988libutaliiuPA NNAMDI FADI .Facility:P1Donee: 10-31-2022 End: 97-47-4193iahcrdoklhAX NNAMDI FADI .Facility:S8Hgirz: 10-25-2022 End: 69-88-9867gsjkilihkpJF NNAMDI FADI .Facility:F2Cjyee: 10-21-2022 End: 04-61-3525wozatnzdahVA NNAMDI FADI .Facility:I3Vshme: 10-10-2022 End: 66-05-5366jphloopznqRFM FRANCO .Facility:Z8Ojfqm: 08-30-2022 End: 19-09-3867rapdzecewwVL NNAMDI FADI .Facility:T1Iydin: 08-25-2022 End: 25-07-0365tjhwlyoqmvSV NNAMDI FADI .Facility:L5Jjzaq: 09-49-1428rkmyverdbu DR NNAMDI MIRELES .Facility:Y2Vzufy: 07-03-2022 End: 09-32-0076cewoainaoxPS NNAMDI FADI .Facility:B4Apmyu: 06-23-2022 End: 41-06-9567nuhmgexmchTfkthbdhv Breault Other [facility] Tus reQRdos Other Start: 63-44-3898Szxsqq outpatient new 30 minutes Cortney ChapmanFPG Urgent Care ClydeStart: 05-22-2022 End: 11-67-0050geundnilgxPK NNAMDI FADI .Facility:P9Tlsuk: 05-11-2022 End: 47-36-4902krirqnwfsnNH NNAMDI LACKEYO .Facility:L2Tenql: 05-09-2022 End: 99-41-7749rhuutlccveUM NNAMDI LACKEYO .Facility: Procedures DateProcedureProcedure DetailPerforming ClinicianStart: 83-36-6425H[facility] PREG QUANT HCGCorey Fadi DO Work Phone: Start: 69-13-3958SKPAHPYZW REQUEST FOR LAB CORPCorey Fadi DO Work Phone: Start: 30-22-5826MQE CBC WITH AUTO DIFFCorey Fadi DO Work Phone: Start: 63-28-5162FG RIGHT UPPER QUADRANTCorey Fadi DO Work Phone: Start: 40-68-8196Whyca dip stick/tablet rgnt non-auto w/o micrscpCorey Fadi DO Work Phone: Start: 58-90-2308JQU PREG QUANT HCGCorey Fadi DO Work Phone: Start: 70-55-8612JNQ PREG QUANT HCGCorey Fadi DO Work Phone: Start: 22-41-9722Vwzve test visual color cmprsn methsCorey Fadi DO Work Phone: Start: 33-12-3759KY PELVIS W/ TRANSVAGINALAmy Franco HAIDER Work Phone: Start: 76-01-3206PBP CBC WITH AUTO DIFFAmy Franco HAIDER Work Phone: Start: 33-68-4003VPL PREG QUANT HCGCorey Fadi DO Work Phone: Start: 43-81-5792OXF PREG QUANT HCGCorey Fadi DO Work Phone: Start: 84-67-3419HMY PREG QUANT HCGCorey Fadi DO Work Phone: Start: 66-14-4867Wbnyxyvwfg examination of kneeNP-C Erlinda Archer Work Phone: Start: 11-95-1975Unsh cerv/vag auto thin layer prep mnl screenCorey Fadi DO Work Phone: Start: 34-33-3441Rqzadzgaqs of Products of Conception, Low Cervical, Open ApproachDR NNAMDI FADI .Start: 30-89-3485Dxhegbze section Ignacio Najera History of cholecystectomyStatus post laparoscopic cholecystectomyBrenda Rose DIRECTOR OF INSTRUCTION-LUMBER PULLER Work Phone: Plan of Treatment DateCare ActivityDetailAuthorStart: 09-65-8901TAsS,Tdap and Td Vaccines (2 - Tdap)DTaP,Tdap and Td Vaccines (2 - Tdap)[facility] SystemStart: 93-51-7188Kkimw BMI ScreeningAdult BMI ScreeningProMemorial Health Systemca Health SystemStart: 44-92-3470Rksnmag ScreeningTobacco ScreeningMagruder Memorial Hospitalca Health SystemStart: 17-18-3564Debzk BMI ScreeningAdult BMI ScreeningProMedica Wayne Hospital SystemStart: 12-76-8189Vdvjine ScreeningTobacco ScreeningMagruder Memorial Hospitalca [facility] SystemStart: 01-09-3730Uepul BMI ScreeningAdult BMI ScreeningProMedica Health SystemStart: 94-16-3888Ivipsxk ScreeningTobacco ScreeningAshtabula General Hospital SystemStart: 18-90-6923Yxkmo BMI ScreeningAdult BMI ScreeningAshtabula General Hospital SystemStart: 03-61-7942Prsrkel ScreeningTobacco ScreeningAshtabula General Hospital SystemStart: 75-34-4125Imksmjclt vaccinationInfluenza VaccineAshtabula General Hospital SystemStart: 05-04-2025 End: 99-92-5274Hxwrsuv encounter wdehfnefe79/30/2025 10:30 AM EDT Office Visit [facility] General Surgery [address] [address] Brenda Rose, DIRECTOR OF INSTRUCTION-[facility] [address] [place], [place] [address] [facility] SurgeryStart: 04-20-2025 End: 22-09-7072Svnuuyqop to same day surgery [facility] - SurgeryComment on above:DAVINCI CHOLECYSTECTOMY [20290 (CPT )]DAVINCI CHOLECYSTECTOMY [07338 (CPT ) +1 more]Start: 04-20-2025 End: 72-84-1544Ujpsudrwrz vrzpxtxujilo57/16/2025 8:00 AM EDT Anesthesia Event [facility] [address] [place] [address] Ryan Sorenson, DO [address] [facility], [place] [address] [facility] SurgeryStart: 04-20-2025 End: 80-18-5101Acryhtwcskx surg cholecystectomyDAVINCI CHOLECYSTECTOMY Biliary dyskinesia 04/20/2025 8:00 AM EDTFREMONT SURGERYStart: 75-45-0260Tdqwcphsaj hospital visit by idlyskzwo85/16/2025 8:00 AM EDT Hospital Encounter [facility] [address] [place] [address] Jean-Paul Crouch MD [address] [place] [address] [place] - SurgeryStart: 04-06-2025 End: 58-04-0726Wkxfxnx encounter pvmoccseu65/02/2025 3:00 PM EDT Procedure visit [facility] Admit [address] [place] [address] [phone] - Pre AdmitStart: 03-25-2025 End: 12-51-9165Dbrhcpc encounter procedureNOMS BCP OBComment on above:Arrived Start: 36-36-0595AikcvikenSelect Medical OhioHealth Rehabilitation Hospitaltart: 03-11-2025 End: 04-82-6193Ajbvadtcxslh / ancillary services lelckkypzn06/07/2025 3:00 PM EDT Ancillary Procedure [facility] BCP OB [address] [place] [address] MUXP BCP OBStart: 03-05-2025 End: 45-19-8296pshcrjqsul55/01/2025 2:30 PM EDT Initial [facility] BCP OB [address] [place] [address] LDAM BCP OBStart: 03-05-2025 End: 93-21-9249Hbhhaflvcusl / ancillary services wlbogrxvgg85/01/2025 2:00 PM EDT Ancillary Procedure [facility] BCP OB [address] [place] [address] UHTG BCP OBStart: 02-27-2025 End: 01-03-6588PS Pelvis transvaginalUS OB transvaginal Imaging Routine Missed menses Expected: 02/27/2025, Expires: 05/29/2025[facility] Work Phone: comment on above:Expected: 02/27/2025, Expires: 05/29/2025Start: 02-10-2025 End: 63-49-4956XW GallbladderUS gallbladder Imaging Routine Abdominal cramping Nausea Expected: 02/10/2025, Expires: 02/10/2026[facility] Work Phone: comment on above:Expected: 02/10/2025, Expires: 02/10/2026Start: 02-10-2025 End: 68-33-3399Ewbamew encounter lfslfeswo08/08/2025 11:30 AM EDT Routine [facility] BCP [facility] [address] [facility] [address] Michael Christianson, CHANGE ATTENDANT [address] [place] [address] ArrivedMOUNTAINSTAR HEALTHCARE BCP OBComment on above:ArrivedStart: 09-08-2024 End: 16-42-3802Yvpdcye encounter procedureNOUT BCP OBComment on above:Arrived Start: 08-11-2024 End: 47-51-0441RC for pregnancyUS PELVIS-TRANSVAG IF INDICATED Imaging Routine Amenorrhea Expected: 08/11/2024 (Approximate), Expires: 08/11/2025NOMS HealthcareComment on above:Expected: 08/11/2024 (Approximate), Expires: 08/11/2025Start: 08-11-2024 End: 91-41-2865Ocmtaeh encounter mnzebbyyx73/07/2024 8:30 AM EDT Office Visit [facility] BCP OB [address] [facility] [address] [place] [address] Viola Gamez PA [address] [place], [place] [id number] ArrivedMOUNTAINSTAR HEALTHCARE BCP OBComment on above:ArrivedStart: 2017 Screening for malignant neoplasm of cervixPap SmearProDayton Va Medical Center SystemStart: 22-44-2485Fidrx BMI Follow Up PlanAdult BMI Follow Up PlanAshtabula General Hospital SystemStart: 11-91-1793Fhoqbzbdkg ScreeningDepression ScreeningProDayton Va Medical Center System End: 49-63-9567Svqgy metabolic 2000 panel - Serum or PlasmaBasic Metabolic Panel Lab Routine Biliary colic 1 Occurrences starting 03/31/2025 until 03/31/2026 [facility] SystemComment on above:1 Occurrences starting 03/31/2025 until 6CBC W Auto Differential panel - BloodCBC and differential Lab Routine Amenorrhea Ordered: 08/11/2024[facility] CenterComment on above:Ordered: 08/11/2024 End: 40-59-3345YXL W Auto Differential panel - BloodCBC auto differential Lab Routine Biliary colic 1 Occurrences starting 03/31/2025 until 03/31/2026 [facility] Work Phone: Comment on above:1 Occurrences starting 03/31/2025 until 03/31/2026 End: 24-14-6948fYM, quantitativehCG, quantitative Lab Routine Miscarriage weekly until less than 5 for 4 Occurrences starting 03/25/2025 until 03/25/2026[facility] Work Phone: comment on above:weekly until less than 5 for 4 Occurrences starting 03/25/2025 until 03/25/2026hCG, quantitative, pregnancyhCG, quantitative, Lab Routine Amenorrhea Ordered: 08/11/2024[facility]Ordered: 08/11/2024Hemoglobin A1c/Hemoglobin.total in BloodHemoglobin A1c Lab Routine Amenorrhea Ordered: 08/11/2024[facility] Comment on above:Ordered: 08/11/2024 End: [id number] panelLiver panel Lab Routine Biliary colic 1 Occurrences starting 03/31/2025 until 03/31/2026[facility] Occurrences starting 03/31/2025 until 03/31/2026ProlactinProlactin Lab Routine Amenorrhea Ordered: 08/11/2024[facility]:Ordered: 08/11/2024Thyrotropin [Units/volume] in Serum or PlasmaTSH Lab Routine Amenorrhea Ordered: 08/11/2024[facility] Work Phone: comment on above:Ordered: 08/11/2024 End: [id number] Procedure / SurgeryUnlisted Procedure / Surgery Procedures Routine Biliary colic 1 Occurrences starting 03/31/2025 until 03/31/2026[facility] Occurrences starting 03/31/2025 until 03/31/2026US Pelvis transvaginalUS OB transvaginal Imaging Routine Missed menses 03/05/2025 1:40 PM EDTNOUT Healthcare Immunizations Immunization DateImmunizationNotesCare ProviderFacilityNEGATED: Highlighted row has not occurred![id number] virus vaccine, unspecified formulation Ignacio Najera [phone] [place] [facility] NEGATED: Highlighted row has not occurred!85-52-3746zjonpxzdt virus vaccine, unspecified formulationIgnacio Najera [phone]-PgqhtPromedica [facility] NEGATED: Highlighted row has not occurred!96-15-7886BZHW-CoV-2 mRNA (tozinameran 5y-11y) vaccineMicsilvinaabdirizak Najera [phone]-XrmhpPromedica [facility] Hospital Payers DatePayer CategoryPayerPolicy [id number] [facility] Managed Care - [id number] [facility] 1.2.840.009655.1.13.693.2.7.9.309308.057885.8[id number] [id number]-7472Uqloqmb Care Other (unspecified) 1.2.840.882106.1.13.424.2.7.9.523825.527.82036-53-0928Nzztwhy Health Insurance [employer] 1.2.840.904509.1.13.693.2.7.9.700874.522435.01912-95-6942Hmweseh 1.2.840.752865.1.13.693.2.7.3.230[id number] 2.16.840.1.864692.3.579.2.64783-54-9156Wmepkwo5610101 2.16.840.1.350030.3.579.2.28104-74-9346Tgflkbd4613886 2.16.840.1.888493.3.57[id number] 2.16.840.1.222498.3.579.2.59406-53-7239Vwnltkw9696482 2.16840.1.264782.3.579.2.26508-79-8987Jfkatxb5413493 2.16.840.1.378865.3.579.2.85732-47-3288Wmdhxgu8760033 2.16.840.1.743286.3.579.2.97132-23-3023Aaokhir2087162 2.16.840.1.320568.3.579.[id number] 2.16840.1.613826.3.579.2.16379-65-2877Griqmxo9250550 2.16.840.1.275557.3.579.2.84792-47-7263Yqeaiyv4296560 2.16.840.1.540090.3.579.2.79263-77-4249Shigwyt2541725 2.16.840.1.367715.3.579.2.24611-32-4994Xuewxwg0139114 2.16.840.1.597389.3.579.2.66277-43-4293Bvyxcnr3924296 2.16.840.1.750785.3.579.2.81842-37-1258Ouzyyek1682283 2.840.1.686479.3.579.2.13621-27-2296Muaylcr8048317 2.840.1.566287.3.579.2.28409-91-4583Pvbwrbp2228661 2.840.1.645113.3.579.2.85691-01-6576Mwisfrn83304431 2.840.1.845982.3.579.2.73687-91-3046Fnkclwp26491232 2.840.1.565317.3.579.2.17960-87-6124Alkizne99425087 2.840.1.945562.3.579.[id number] 2.840.1.062685.3.579.2.77064-78-6499Roarriy57323028 2.0.1.625712.3.579.2.22430-50-8053Xxidxir04587387 2.840.1.391030.3.579.2.33587-34-9538Uzumkju7525115 2.840.1.330452.3.579.2.716303-47-1154Rqcbdoj5715305 2.840.1.520820.3.579.2.309952-21-5217Pmbfgpa4660112 2.840.1.695778.3.579.2.392314-54-0114Rlvtfhd8963149 2.840.1.308977.3.579.2.979000-75-6322Txmuloa0274986 2.840.1.072158.3.579.2.557487-29-1525Sdkkeqr8131627 2..840.1.670641.3.579.2.808074-58-8492Kmwuyrt618850116 2.16.840.1.290425.3.579.2.465645-94-3221Nyunvoh779009204 2.16.840.1.963064.3.579.2.459202-56-8644Lwpebjf437358606 2.16.840.1.077597.3.579.2.219002-27-2968Vpukoha768663399 2..840.1.217598.3.579.2.540972-20-8679Jlikeat896025040 2..840.1.832625.3.579.2.659045-06-8354Pafcpxg853030970 2.0.1.951022.3.579.2.312427-19-2461CybtLos Alamos Medical CenterDZNAN7054387 2.0.9.882096.06825548-45-2858Gxlo-hhi09-66-2897McjkcxzA17203532 2.0.4.583706.11697920-03-3235Punuykz45619290Jisluoa2075280 2.840.1.519672.3.579.2.006Doqdddr54654335 2.0.1.089860.3.579.2.531 Worker's CompensationWhirEagleville Hospital [id number] 74xbyc02-j1xz-9n22-3345-39uyu72j63l2 Social History DateTypeDetailFacilityStart: 03-18-2024 End: 16-57-9175Apo Assigned At [facility] Hospitaltart: 94-14-6642Ano Assigned At [facility] Hospitaltart: 10-11-2023 End: 40-06-0849Fzaysyq smoking statusNever smoked tobacco (finding)[facility]vueStart: 05-54-1645Sqofbkb smoking status NeverFishProvidence St. Joseph's HospitalueStart: 10-11-2023 End: 12-09-3406Yhjvalp use and exposureSmokeless tobacco non-userMOUNTAINSTAR [facility]ALTH[facility] Healthcare Start: 03-18-2024 End: 59-33-9537Uabjlbeqa beverage intakeLifetime non-drinker (finding)[facility] HealthcareStart: 03-18-2024 End: 73-72-5925Zejbwjb of Social functionNOMS HealthcareStart: 54-59-1257Kzq assigned at birthNot on fileNOUT HealthcareStart: 50-14-1043OkunuilasIMAH HealthcareStart: 03-14-2025 End: 88-01-2063NlqYfpgog (finding)[facility] Hospitaltart: 27-83-6754Whhvqlcii beverage intakeCurrent drinker of alcohol (finding)[facility] SystemStart: 49-71-0365Zvdqtaz CommentoccasionallyProDayton Va Medical Center System Goals DatePatient GoalDesired Activity/StatePersonal health goal Clinical Notes 06-23-2022 to 06-02-2025 Note Date & QeblGteuKnwwigtn89-80-4016 Miscellaneous Notes* Telephone Encounter - Jackie Mixon CMA - 06/02/2025 9:16 AM EDT Elida called stating that her work needs an updated form filled out for her FMLA extension. I told her that they need to provide whatever they need us to fill out. She will call [employer] & see what they need exactly & have them send it over. I told her to make sure there's not any section she needs to complete herself. documented in this encounterMer[facility]07-29-[facility] Telephone encounter Note* Telephone Encounter - Jackie Mixon CMA - 06/02/2025 9:16 AM EDT Elida called stating that her work needs an updated form filled out for her FMLA extension. I told her that they need to provide whatever they need us to fill out. She will call [employer] & see what they need exactly & have them send it over. I told her to make sure there's not any section she needs to complete herself. [facility]07-03-2025 Miscellaneous Notes* Telephone Encounter - Erin Andrade CMA - 05/07/2025 9:49 AM EDT ----- Message from Jean-Paul Crouch MD sent at 05/06/2025 6:39 PM EDT ----- Regarding: PAth Please let patient know that pathology report showed chronic gallbladder inflammation and stones. All benign. Thank you ----- Message ----- From: Lab, Background User Sent: 05/06/2025 2:06 PM EDT To: Jean-Paul Crouch MD * Telephone Encounter - Erin Andrade CMA - 05/07/2025 9:49 AM EDT Spoke with patient regarding pathology results. Patient verbally understood with no further questions. documented in this encounterMercy [facility]07-03-2025 Telephone encounter Note* Telephone Encounter - Erin Andrade CMA - 05/07/2025 9:49 AM EDT ----- Message from Jean-Paul Crouch MD sent at 05/06/2025 6:39 PM EDT ----- Regarding: PAth Please let patient know that pathology report showed chronic gallbladder inflammation and stones. All benign. Thank you ----- Message ----- From: Lab, Background User Sent: 05/06/2025 2:06 PM EDT To: Jean-Paul Crouch MD [facility]07-03-2025 Telephone encounter Note* Telephone Encounter - Erin Andrade CMA - 05/07/2025 9:49 AM EDT Spoke with patient regarding pathology results. Patient verbally understood with no further questions. [facility]06-30-[facility] History of Present illness Narrative* GERALDINE Bowser - 05/04/2025 10:30 AM EDT 29-year-old female status post robotic assisted laparoscopic cholecystectomy on 04/27/2025. She is doing well. She reports minimal pain for which she has been utilizing Tylenol and ibuprofen. She denies fever and chills. She denies nausea and vomiting. She is having bowel function. Only endorses 1 episode of diarrhea. She will be remaining off work for recovery. On exam, abdomen is soft, nontender, nondistended. No jaundice. Lap sites x4 healing appropriately.No signs of infection. No pushing, pulling, lifting over 10 lb for another 5 weeks. Follow up p.r.n.. Office will call patient when gallbladder pathology returns. GERALDINE Bowser 05/04/25 1029 documented in this encounterMercy Health Lor[facility]06-02-2025 Miscellaneous Notes* Perioperative Nursing Note - Kamryn Guadarrama RN - 04/06/2025 3:00 PM EDT Preoperative Education Checklist- General Surgery date: 04/20/25 Surgery time: 0800 a.m. Arrival time: 0610 a.m. 1. Bring a photo ID and your insurance card with you the day of surgery. You will check in at the main lobby of the [facility]- registration desk is straight ahead as soon as you walk in. Tell them you are here for surgery. 2. If you have a Living Will/Durable Power of Boxing Trainer for Health Care that is not on [...] after you have bathed. 5. NO nail cambodian/acrylic on at least one finger. If you are having a hand, wrist or foot surgery then all nail cambodian and artificial/acrylic nails must be removed from [...] please call the Preadmission Testing office at [phone], Mon.-Fri. 7 a.m.-3 p.m. Leave a voicemail [...] If you have a question, call your doctor s office. Go to the follow-up appointment with your doctor. documented in this encounterMercy [facility]06-02-2025 Nurse Note* Perioperative Nursing Note - Kamryn Guadarrama RN - 04/06/2025 3:00 PM EDT Preoperative Education Checklist- General Surgery date: 04/20/25 Surgery time: 0800 a.m. Arrival time: 0610 a.m. 1. Bring a photo ID and your insurance card with you the day of surgery. You will check in at the main lobby of the [facility]- registration desk is straight ahead as soon as you walk in. Tell them you are here for surgery. 2. If you have a Living Will/Durable Power of Boxing Trainer for Health Care that is not on [...] after you have bathed. 5. NO nail cambodian/acrylic on at least one finger. If you are having a hand, wrist or foot surgery then all nail cambodian and artificial/acrylic nails must be removed from [...] please call the Preadmission Testing office at [phone], Mon.-Fri. 7 a.m.-3 p.m. Leave a voicemail [...] If you have a question, call your doctor s office. Go to the follow-up appointment with your doctor. [facility] OhioSafeway Safety StepPvfyxx97-14-7922 Miscellaneous Notes* Telephone Encounter - Erin Prieto CMA - [...] with no further questions. documented in this encounterPremier Health Xceleron (Chapter 11) [id number] Telephone encounter Note* Telephone Encounter - Erin Prieto CMA - 04/01/2025 2:39 PM EDT ----- Message from Jean-Paul Crouch MD sent at 03/31/2025 8:20 PM EDT ----- Regarding: Please let patient know that labs were normal. Thank you ----- Message ----- From: Lab, Background User Sent: 03/31/2025 1:40 PM EDT To: Jean-Paul Crouch MD [facility]05-28-2025 Telephone encounter Note* Telephone Encounter - Erin Prieto CMA - 04/01/2025 2:39 PM EDT Spoke with patient regarding lab results. Patient verbally understood with no further questions. [facility]05-27-[facility] History of Present illness Narrative* Jean-Paul Crouch MD - 03/31/2025 9:30 AM EDT Images from the original note were not included. Chief Complaint: Right upper quadrant pain History of Present Illness: Elida Grover is a 29 y.o. female [...] this morning. Gallbladder ultrasound was performed at [facility], this showed cholelithiasis without any evidence of acute cholecystitis. She was a nonsmoker. Past surgical history includes . She works at [employer]. Reports recent miscarriage. HPI Review of Systems [...] DILATION AND CURETTAGE OF UTERUS 03/13/2025 at [facility] No Known Allergies Current Outpatient Medications: pediatric [...] INR , PROTIME Imaging: Ultrasound gallbladder at [facility] positive for cholelithiasis. Report reviewed as below [...] hydronephrosis or fluid within Mcbride's pouch. Assessment: Elida Grover is a 29 y.o.female with biliary colic Biliary colic [K80.50] Plan: Schedule for robotic cholecystectomy Evaluation included: Preparing to see the patient (e.g., review of tests) Obtaining and/or reviewing separately obtained history Performing a medically appropriate examination and/or evaluation Counseling and educating the patient/family/caregiver Referring and communicating with other health acute care certified nursing assistant Jean-Paul Crouch MD [facility] General Surgery [place] documented in this encounterMercy Health Lor[facility]05-21-2025 History of Present illness Narrative* Amy Gupta, ELLEN - 03/25/2025 3:20 PM EDT Reason for Appointment: Patient ID: Elida Grover is a 29 y.o. female who presents for Post-op Visit Patient presents today for 1 Week Post Op Follow Up appointment. MEDICATIONS No current outpatient medications ALLERGIES No Known Allergies PROBLEMS Active Ambulatory Problems Diagnosis Date Noted Amenorrhea 09/23/2024 Irregular menses 09/23/2024 Resolved Ambulatory Problems Diagnosis Date Noted No [...] History: Procedure Laterality Date SECTION, LOW TRANSVERSE DILATION AND CURETTAGE OF UTERUS 03/13/2025 REVIEW OF SYSTEMS Review of Systems: Review [...] nursing note reviewed. Exam conducted with a improvement specialist present. Vitals: Estimated body mass index is 33.6 kg/m as calculated from the following: Height as of 09/08/24: 5' 4 . Weight as of this encounter: 195 lb 12 oz. BP: 100/80 Patient's last menstrual period was 12/18/2024 (exact date). ASSESSMENT & PLAN ICD-10-CM 1. Postoperative follow-up Z09 Patient presents today to follow up after a recent miscarriage. I have discussed HCG lab levels andmiscarriage with patient in detail. Patient was given an additional standing QUANT level lab order to have obtained and will continue to have labs drawn until value reads less than 5. Patient has been advised to wait a full cycle until trying to conceive again, patient voiced understanding, and will call when so office can call in progesterone suppositories. Pt had suction D&C. Pt having gallbladder issues - pt being referred to dr hernandez for evaluation Follow Up: As needed Documented by Amy Gupta LPN on behalf of: Nnamdi Mireles DO documented in this encounterSaint John's Breech Regional Medical CenterDzyieydkbv04-18-3287 History of Present illness Narrative* Amy Gupta LPN - 02/10/2025 11:30 AM EDT Reason for Appointment: Patient ID: Elida Grover is a 29 y.o. female who presents for OB Problem Patient presents today for Acute Visit. MEDICATIONS No current outpatient medications ALLERGIES No Known Allergies PROBLEMS Active Ambulatory Problems Diagnosis Date Noted Amenorrhea 09/23/2024 Irregular menses 09/23/2024 Resolved Ambulatory Problems Diagnosis Date Noted No [...] Eyes: Negative. Respiratory: Negative. Cardiovascular: Negative. Gastrointestinal: Positive for abdominal pain. Genitourinary: Negative. Musculoskeletal: Negative. Skin: Negative. Neurological: [...] nursing note reviewed. Exam conducted with a improvement specialist present. Vitals: Estimated body mass index is 32.96 kg/m as calculated from the following: Height as of 09/08/24: 5' 4 . Weight as of this encounter: 192 lb. BP: 100/70 Patient's last menstrual period was 12/19/2024. ASSESSMENT & PLAN ICD-10-CM 1. First trimester Z34.91 POCT urinalysis dipstick manually resulted 2. 7 weeks gestation of Z3A.01 Abdominal Documented by Amy Gupta LPN on behalf of: Dr. Nnamdi Mireles DO documented in this encounterSaint John's Breech Regional Medical [id number] NotePatient Education Infectious Disease Pharyngitis Pharyngitis is a [...] these instructions at home: Medicines ??? Take bphi-rbp-turbrgd and prescription medicines only as told by [...] and water are not available, use hand tree pruner. ??? Do not touch your eyes, nose, [...] away. Call your local emergency services (911 int [place] ??? Do not wait to see [...] Reviewed: 01/18/2022 Elsevier Patient Education ? 2023 [employer] formerly [employer] Viral Respiratory Infection A viral respiratory infection [...] condition is caused by (more content not included)...[facility]11-04-2024 History of Present illness Narrative* Brenda Quiles - 09/08/2024 3:40 PM EST Reason for Appointment: Patient ID: Elida Grover [...] nursing note reviewed. Exam conducted with a improvement specialist present. Vitals: Estimated body mass index is 31.58 kg/m as calculated from the following: Height as of this encounter: 5' 4 . Weight as of this encounter: 184 lb. BP: 108/72 Patient's last menstrual period was 08/08/2024. ASSESSMENT & PLAN Patient presents today for irregular cycles & test in office was negative. Patient tostart Femara with next cycle. Patient given direct extension to Bpo Specialist to call when cycle starts to be given instructions. Patient to follow up in 4 months if not conceived at that time. Documented by Conrad Ray LPN on behalf of: Nnamdi Mireles DO documented in this encounterSaint John's Breech Regional Medical [id number] History of Present illness Narrative* MELIZA Amador - 08/11/2024 8:30 AM EDT Reason for Appointment: Patient ID: Elida Grover [...] behalf of: MELIZA Amador documented in this encounterSaint John's Breech Regional Medical CenterLwcnjcxirn13-02-3979 Evaluation note* Encounter Date Diagnosis Assessment Notes Treatment Notes Treatment Clinical Notes Nov, Left knee pain, unspecified senior hr manager nicity (ICD-10 - M25.562) Nov,Sprain of left knee, unspecified ligament, initial encounter (ICD-10 - S83.92XA)Ice and elevate your knee 2-3 times a day. Wear knee wrap for comfort and compression. Take ibuprofen, 600 mg regularly, 3 times a day for the next week. Follow-up with your family physician if no improvement in 5 to 7 days [facility] Other 02-28-2023 NoteDISCHARGE SUMMARY NOTE DATE: 01/12/2023 [...] pain free and no longer on narcotics.[facility] [id number] NoteOPERATIVE NOTE OPERATION DATE: 01/02/2023 PROCEDURE: Primary low transverse section. PREOPERATIVE DIAGNOSIS: 1. Intrauterine . 2. Breech presentation. 3. Decreasing movement per patient and office. POSTOPERATIVE DIAGNOSIS: 1. Intrauterine . 2. Breech presentation. 3. Decreasing movement per patient and office. ANESTHESIA: Spinal with Duramorph. SURGEON: Nnamdi Mireles D.O. IT FIELD TECHNICIAN: EFRAÍN Verdugo URINE OUTPUT: Yellow and [...] TO PREOPERATIVE DIAGNOSIS: Risk of cord prolapse.[facility] 06-23-2022 Evaluation note* Encounter Date Diagnosis Assessment Notes Treatment Notes Treatment Clinical Notes Jun, Exposure to COVID-19 virus (ICD- 10 - Z20.822) Jun,2COVID-19 (ICD-10 - U07.1)Today you tested positive for the COVID virus. This mean you need to follow all CDC quarantine guidelines found at coronavirus.[place].gov. It is important to rest, increase fluids, and stay at home. Recommend contacting primary care provider and discussing best course of action if you have chronic health conditions. COVID POSITIVE education handout discharge instructions. given. [facility] Other Evaluation + Plan note No data available for this section [facility] noteNo assessment information available [facility] Work Phone: Evaluation note* Diagnosis Amenorrhea Absence of menstruation documented in this encounter [facility]Evaluation [facility]* Diagnosis Irregular menses Irregular menstrual cycle Amenorrhea Absence of menstruation documented in this encounter [facility]* Diagnosis Missed menses , unspecified gestational age Encounter for supervision of normal first in first trimester documented in this encounter [facility]* Diagnosis Postoperative follow-up Follow-up examination, following unspecified surgery Miscarriage Unspecified spontaneous without mention of complication documented in this encounter [facility]* Diagnosis Biliary colic- Primary Calculus of gallbladder without mention of cholecystitis or obstruction [facility]* Diagnosis Status post laparoscopic cholecystectomy- Primary Other postprocedural status documented in this encounter [facility]* Diagnosis First trimester (HHS-HCC) state, incidental 7 weeks gestation of (HHS-HCC) Abdominal cramping Abdominal pain, unspecified site Nausea Nausea alone Missed menses documented in this encounter [facility] HealthcareHistory general Narrative - Reported* Type Description Date Surgical History wisdom teeth Hospitalization Historysee above [facility] Other Hospital Discharge instructions No data available for this section [facility]hillInstructionsNot on filedocumented in this encounter [facility] SystemInstructionsNot on filedocumented in this encounter [facility] SystemInstructionsNot on filedocumented in this encounter [facility] SystemInstructionsNot on filedocumented in this encounter [facility] SystemInstructionsNot on filedocumented in this encounter [facility] SystemProgress note No data available for this section [facility] Summary Purpose Family History No Family History Records Found No data available for this section No Family History Records FoundNo Family History Records FoundNo Family History Records FoundNo Family History Records FoundNo Family History Records Found Advance Directives Advance Directive Response Recorded Date/ Time Advance Directives No May 21 10:49am Advance Directive Response Recorded Date/ Time Advance Directives No May 21 11:49am Additional Source Comments REASON FOR VISIT (unrecogniz ed section and content) ReasonCommentsMenstrual ProblemReasonCommentsError (VOID this visit)Reason CommentsPost-op VisitReasonCommentsCholelithiasisGALLBLADDER, REF BY CONRAD RAY LPNReasonCommentsPOST-OP VISITPOST OP - DAVINCI CHOLECYSTECTOMY PERFORMED 04/20/25 BY LEONA Hayes/Rory WITH JCReasonCommentsOB Problem INFORMATION SOURCE (unrecogn ized section and content) DATE CREATED AUTHOR 01/15/2023 [facility] DATE CREATED AUTHOR AUTHOR'S ORGANIZ ATION 12/03/2024 [facility] DATE CREATED AUTHOR AUTHOR'S ORGANIZ ATION 03/20/2025 [facility] DATE CREATED AUTHOR AUTHOR'S ORGANIZ ATION 04/01/2025 [facility] EPIC DATE CREATED AUTHOR AUTHOR'S ORGANIZ ATION 05/04/2025 [facility] DATE CREATED AUTHOR AUTHOR'S ORGANIZ ATION 07/06/2025 [facility] Care Teams (unrecognized sec tion and content) Team Status: Inactive Member Role Status Dates Erlinda Suzi , CHANGE ATTENDANT-C Attending Provider Active S tart: December 05, 2023 End: December 05, 2023Team MemberRelationshipSpecialtyStart DateEnd Date Kaiser Anderson MD PCP - GeneralFamily Uswhmgos85/26/23Team MemberRelationshipSpecialtyStart Date End Date Kaiser Anderson MD [address], [place] [id number] PCP - GeneralFamily Medicine03/05/25Team MemberRelationshipSpecialtyStart DateEnd Date Kaiser Anderson MD [address] [place] [address] PCP - GeneralFamily Medicine03/05/25 Team Status: Inactive Member Role Status Dates Nnamdi Mireles DO Attending Provider Active Start : March 13, 2025 End: March 13, 2025Team MemberRelationshipSpecialtyStart DateEnd Date Kaiser Anderson MD [address] [place] [address] PCP - GeneralFamily Medicine03/05/25Team MemberRelationshipSpecialtyStart DateEnd Date German Noel, DIRECTOR OF INSTRUCTION-LUMBER PULLER [address] [place] [address] PCP - GeneralNurse Practitioner03/31/25Team MemberRelationshipSpecialtyStart Date End Date German Noel, DIRECTOR OF INSTRUCTION-LUMBER PULLER [address] [place] [address] PCP - GeneralNurse Practitioner03/31/25Team MemberRelationshipSpecialtyStart Date End Date Kaiser Anderson MD [address] [place] [address] PCP - GeneralFamily Medicine03/05/25Team MemberRelationshipSpecialtyStart DateEnd Date German Noel, DIRECTOR OF INSTRUCTION-LUMBER PULLER [address] [place], [place] [id number] PCP - GeneralNurse Practitioner03/31/25Team MemberRelationshipSpecialtyStart Date End Date German Noel, DIRECTOR OF INSTRUCTION-LUMBER PULLER [address] [place], [place] [id number] PCP - GeneralNurse Practitioner03/31/25Team MemberRelationshipSpecialtyStart Date End Date German Noel, DIRECTOR OF INSTRUCTION-LUMBER PULLER [address] [place], [place] [id number] PCP - GeneralNurse Practitioner03/31/25 Goals (unrecognized section and content) Goals may [...] BE BASED ON THE PRIMARY CLINICAL RECORDS. [facility] [employer] provides no warranty or guarantee of the accuracy or completeness of information in this document.
== END 2025-09-24 15:36 | disposition home or self-care (01) ==
LOC: LAB 15:36
PROVIDERS: PCP Nurse Practitioner; Visit Provider Student in an Organized Health Care Education/Training Program
DX: N92.6 Irregular menstruation, unspecified (principal)
CPT/HCPCS: 36415; 84702